=== PATIENT | female | born 1980 | race African-American/Black ===

== ENCOUNTER 2019-12-16 14:55 | Outpatient (CLI) | payer OTHER, SELFPAY ==
--- NOTE | ~2019-12-16 | CT_ITS ---
EXAMINATION: CTA chest PE protocol DATE: 12/16/2019 15:53 INDICATION: Pulmonary embolus. TECHNIQUE: Computed tomography angiography (CTA) of the chest was performed with 100 mL Omnipaque-350 intravenous contrast timed to evaluate the pulmonary arteries. Coronal maximum intensity projection 3D-reconstructions were created by the technologist. Automated exposure control and iterative reconst ruction technique were employed. The dose-length product was 1052.63 mGy-cm. COMPARISON: None. FINDINGS: There is mild atelectasis bilaterally. No pleural effusion. The heart size is normal. No pe ricardial effusion. There is no pulmonary embolus. There is mild thoracic spondylosis. IMPRESSION: 1. No pulmonary embolus. Sensitivity is moderately decreased by motion artifact and suboptimal contra st opacification. Reviewed, dictated and finalized at location A. US ARTIST IMPRESSION: 1. No pulmonary embolus. Sensitivity is moderately decreased by motion artifact and suboptimal contrast opacification.
[2019-12-16 15:39] LABS: Blood Urea Nitrogen 8 mg/dL (8-26); Estimated Glomerular Filt Rate > 60
== END 2019-12-16 14:56 | disposition home or self-care (01) ==
LOC: ANHIMG 15:07
DX: I26.99 Other pulmonary embolism without acute cor pulmonale (principal)
CPT/HCPCS: 71275; Q9967

== ENCOUNTER 2019-12-20 09:59 | Inpatient (IN) | payer OTHER, SELFPAY ==
[2019-12-20] VITALS (10 sets, daily range): BP systolic 117–153; BP diastolic 67–93; PULSE 63–90; RESP 15–20; TEMP 36–36.6; O2SAT 95–100; BMI 49.3
--- NOTE | ~2019-12-20 | XR_ITS ---
EXAMINATION: XR chest 2V DATE: 12/20/2019 11:27 INDICATION: Chest pain. Nausea and dizziness. TECHNIQUE: Frontal and lateral views of the chest were obtained. COMPARISON: Chest CT 12/16/2019 FINDINGS: The chest demonstrates clear lungs without pneumonia, pleural effusion, or pneumothorax. Th e heart size is normal. IMPRESSION: 1. No acute cardiopulmonary disease. Reviewed, dictated and finalized at location A. CTOR SOFTWARE DEVELOPMENT
--- NOTE | 2019-12-20 10:01 | ECG_ITS ---
Measurements Intervals [place] Rate: 73 P: 34 ME: 137 QRS: 0 QRSD: 97 T: 54 QT: 391 QTc: 433 Interpretive Statements SINUS RHYTHM NORMAL ECG Electronically Signed On 12-20-2019 11:58:36 DOCUMENT DESIGN SPECIALIST by Flo Pineda D.O.
--- NOTE | 2019-12-20 10:48 | ED.CHESTPAIN ---
HPI - Chest Pain General Chief Complaint: Chest Pain Stated Complaint: dizzy, CP Time Seen by Provider: 12/20/19 10:36 Source: patient and RN notes reviewed Mode of arrival: ambulatory Limitations: no limitations History of Present Illness HPI narrative: Pt is a 39 y/o female presenting to the ED c/o CP. Pt reports she has been experiencing rt sided CP radiating to midsternum intermittently for a few months. 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 Pt also reports middle back pain, but denies cough, numbness, rash, calf pain, shoulder pain, or jaw pain. Pt states she has Hx's of DM, HTN, HLD, asthma, and anemia, but states her BS has been within normal range recently. Pt notes she has not had any recent surgery, and also denies smoking, alcohol use, or illicit drug use. Pertinent past history: other (DM; HTN; HLD) Onset (ago): month(s) Timing of current episode: episodic Associated symptoms: nausea, diaphoresis, syncope (Near) and other (Dizziness) Related Data Allergies Allergy/AdvReac Type Severity Reaction Status Date / Time acetaminophen [From Vicodin] Allergy Unknown Unknown Verified 12/20/19 11:22 hydrocodone [From Vicodin] Allergy Unknown Unknown Verified 12/20/19 11:22 sulfamethoxazole Allergy Unknown Unknown Verified 12/20/19 11:22 [From Bactrim] trimethoprim [From Bactrim] Allergy Unknown Unknown Verified 12/20/19 11:22 Review of Systems Review of Systems: Narrative: CARDIOVASCULAR: Reports intermittent rt sided chest pain radiating to midsternum. RESPIRATORY: Denies cough. GASTROINTESTINAL: Reports nausea. SKIN: Reports diaphoresis. Denies rash. MUSCULOSKELETAL: Reports middle back pain. Denies shoulder pain, jaw pain, or calf pain. NEUROLOGIC: Reports dizziness and near-syncope. Denies numbness. All systems reviewed & are unremarkable except as noted in HPI and below PMFSH Past Medical History Medical History Anemia Asthma Diabetes HLD (hyperlipidemia) HTN (hypertension) Pulmonary embolism Surgical History Surgical History H/O: Social History Social History Smoking status: Never smoker Gender identity (if verbalized by the patient): Female Exam Narrative: Exam Narrative: GENERAL: Well-appearing, well-nourished, and in no acute distress. EYES: EOMI. NECK: Supple. CHEST: Clear to auscultation. No respiratory distress. Mild rt sided chest wall tenderness. HEART: Regular rate and rhythm. No murmur heard. Normal peripheral pulses. ABDOMEN: Soft, nontender, nondistended, normal active bowel sounds. EXTREMITIES: Normal range of motion. No edema. SKIN: Warm, dry, no rash. NEURO: No focal deficits. Alert and oriented. Course Vital Signs Vital signs: Vital Signs Temperature 36.4 C L 12/20/19 10:08 Pulse Rate 85 12/20/19 10:08 Respiratory Rate 15 12/20/19 10:08 Blood Pressure 150/91 H 12/20/19 10:08 Pulse Oximetry 100 12/20/19 10:08 Temperature 36.4 C L 12/20/19 10:08 Pulse Rate 90 12/20/19 15:35 Respiratory Rate 20 12/20/19 15:35 Blood Pressure 138/78 12/20/19 15:35 Pulse Oximetry 98 12/20/19 15:35 MDM - Chest Pain MDM Narrative Medical decision making narrative: Patient presented for evaluation of chest pain. The pain has been constant since yesterday, associated with some lightheadedness and dizziness. Dizziness is only with movement. No vision changes. IV access obtained and labs were drawn. EKG without acute ischemic changes. There are some nonspecific changes present. Initial troponin is normal. Patient was given IV fluids, antiemetic, pain medication with some improvement in her symptoms. She continues to report chest pain. Patient is PERC criteria negative, low risk via wells criteria, without h
[2019-12-20 11:54] LABS: Basophils Percent Auto 0.4 % (0.2-1.2); Eosinophils Absolute Auto 0.2 K/mm3 (0-0.3); Eosinophils Percent Auto 2.2 % (0-4.4); Hematocrit 34.9 % (37.0-47.0); Hemoglobin 10.6 g/dL (12.0-15.0); Immature Granulocyte Absolute 0.02 K/mm3 (0.00-0.031); Immature Granulocyte Percent A 0.3 % (0-0.5); Lymphocytes Absolute Auto 2.36 K/mm3 (0.9-3.2); Lymphocytes Percent Auto 31.1 % (18.3-44.2); Mean Corpuscular HGB Conc 30.4 g/dl (32-36); Mean Corpuscular Hemoglobin 25.8 pg (26-34); Mean Corpuscular Volume 84.9 fl (80-100); Mean Platelet Volume 9.7 fl (7.4-10.4); Monocytes Absolute Auto 0.4 K/mm3 (0.1-0.6); Monocytes Percent Auto 4.9 % (2.6-8.5); Neutrophils Absolute Auto 4.6 K/mm3 (1.3-6.7); Neutrophils Percent Auto 61.1 % (45.5-73.1); Platelet Count Result 408 k/mm3 (150-375); Red Blood Count 4.11 M/mm3 (4.2-5.4); Red Cell Distribution Width 16.8 % (11.5-14.5); White Blood Count 7.6 K/mm3 (4.5-10.0)
[2019-12-20 12:03] LABS: Prothrombin Time 12.6 Seconds (11.1-14.7)
[2019-12-20 12:04] LABS: Partial Thromboplastin Time 29.7 SECONDS (22.3-36.8)
[2019-12-20 12:31] LABS: Blood Urea Nitrogen 12 mg/dL (7-17); Calcium 9.4 mg/dL (8.4-10.2); Carbon Dioxide 27 mmol/L (22-30); Chloride 102 mmol/L (98-107); Estimated CRCL calculation 187 ml/min; Estimated Glomerular Filt Rate > 60; Glucose 98 mg/dL (65-105); Potassium 3.8 mmol/L (3.4-5.0); Sodium 137 mmol/L (137-145)
[2019-12-20 12:43] LABS: Troponin I < 0.012 ng/mL (0.000-0.034)
[2019-12-20] MEDS: KETOROLAC 15 MG/ML VIAL (*BKC) IV PUSH (14:46)
[2019-12-20] MEDS: FAMOTIDINE 20 MG/2 ML VIAL IV PUSH (14:46)
[2019-12-20] MEDS: MORPHINE SULFATE 4 MG/ML INJ IV PUSH ×2 (14:47→18:38)
[2019-12-20] MEDS: ONDANSETRON INJ 4 MG/2 ML VIAL IV PUSH ×2 (14:47→18:45)
[2019-12-20] MEDS: BELLADONNA ALK/PHENOB ELIX 10 ML, MAG HYDROX/ALUMINUM HYD/SIMETH 30 ML, LIDOCAINE HCL 2... PO (14:47)
[2019-12-20] MEDS: ASPIRIN 81 MG CHEWABLE TABLET 324 MG PO (14:47)
[2019-12-20 15:48] LABS: Troponin I < 0.012 ng/mL (0.000-0.034)
--- NOTE | 2019-12-20 16:25 | ADMGEN ---
This patient, Fernanda Mayo, was admitted to IMU Room 209-01 at 1545 on 12/20/19. Patient/family oriented to hospital policies and general routines including ID bracelet, bed and alarms, visiting hours, pain management, procedures, bathroom and other care routines, personal items, smoking policy, room service/diet, and visiting hours. Valuables list has been completed. Information on how to activate the Rapid Response Team has been discussed. Patient/Family are encouraged to report perceived risks to care and to ask questions if they do not understand what they are told or what they should do.
--- NOTE | 2019-12-20 17:03 | PM.CNCAR ---
Assessment and Plan Additional Plan atypical chest pain, negative enzymes, normal EKG, Hx of PE, Hx of DM and HTN, plan rule out PE, TTE History of Present Illness History of Present Illness Consult date/time: 12/20/19 17:03 Consult reason: chest pain Reason For Visit: Chest pain Narrative: Recurrent right side chest pain, sharp, moderate in severity radiates to back, no precipitating or relieving factors. Pain is similar to prior PE in last year. No associated, cough, fever or SOB, Review of Systems Review of Systems: All systems reviewed & are unremarkable except as noted in HPI and below PMFSH Past Medical History Medical History Anemia Asthma Diabetes HLD (hyperlipidemia) HTN (hypertension) Pulmonary embolism Surgical History Surgical History H/O: Social History Social History Smoking status: Former smoker Alcohol intake: never Substance use: never Substance use type: does not use Gender identity (if verbalized by the patient): Female Spiritual care concerns: No Agree to blood products: Yes Meds Home Medications and Allergies Home Medications Medication Instructions Recorded Confirmed Type albuterol sulfate [ProAir HFA] 1 puff INHALATION TID PRN 12/20/19 12/20/19 History apixaban [Eliquis] 5 mg PO BID 12/20/19 12/20/19 History atorvastatin [Lipitor] 40 mg PO HS 12/20/19 12/20/19 History ferrous sulfate 325 mg PO TID 12/20/19 12/20/19 History fluticasone propion-salmeterol 1 puff INHALATION Q12H 12/20/19 12/20/19 History lansoprazole [Prevacid] 15 mg PO DAILY 12/20/19 12/20/19 History lisinopril 10 mg PO DAILY 12/20/19 12/20/19 History metformin 1,000 mg PO BID 12/20/19 12/20/19 History multivit with min-folic acid 0.4 mg PO DAILY 12/20/19 12/20/19 History [Adult One Daily Multivitamin] trazodone 100 mg PO HS PRN 12/20/19 12/20/19 History venlafaxine [Effexor XR] 150 mg PO DAILY 12/20/19 12/20/19 History Allergies Allergy/AdvReac Type Severity Reaction Status Date / Time acetaminophen [From Vicodin] Allergy Unknown Unknown Verified 12/20/19 11:22 hydrocodone [From Vicodin] Allergy Unknown Unknown Verified 12/20/19 11:22 sulfamethoxazole Allergy Unknown Unknown Verified 12/20/19 11:22 [From Bactrim] trimethoprim [From Bactrim] Allergy Unknown Unknown Verified 12/20/19 11:22 Vital Signs Vital Signs - 24 hr 12/20/19 10:08 12/20/19 14:53 12/20/19 15:35 Temperature 36.4 C L Pulse Rate 85 77 90 Respiratory Rate 15 20 20 Blood Pressure 150/91 H 139/92 H 138/78 Pulse Oximetry 100 99 98 12/20/19 15:50 Temperature 36.6 C Pulse Rate 68 Respiratory Rate 16 Blood Pressure 117/93 H Pulse Oximetry 98 Exam Const: General: comfortable and no acute distress Other: Able to lie flat HENMT: General nose exam: Normal nares present and no epistaxis Mouth: Yes moist mucous membranes Eyes: Sclera: sclerae normal Pupils: Equal, round and reactive pupils present Neck: Neck: supple and no JVD Carotids: no bruits Resp: Auscultation: clear to auscultation bilaterally and lung sounds not diminished Other: No chest wall tenderness Cardio: Rate: regular rate Rhythm: regular rhythm Heart sounds: no gallops, no murmurs and no rubs GI: GI Palp: Yes Soft to palpation and No Tenderness to palpation present (GI) Auscultation: normal bowel sounds Skin: General skin exam: normal color, rashes and/or lesions noted and no erythema Other: Warm Neuro: Cranial nerves: Yes Equal, round and reactive pupils present Speech: normal speech Other: No obvious focal deficit or facial asymmetry Extrem: General: no edema Other: Normal capillary refills Intact distal pulses. Results Labs and Meds Result diagrams: 12/20/19 11:47 12/20/19 12:13 Lab results: Cardiac Enzymes 12/20/19 12/20/19 Range/Units 12:
[2019-12-20 19:04] LABS: Troponin I < 0.012 ng/mL (0.000-0.034)
--- NOTE | 2019-12-20 20:54 | ECG_ITS ---
Measurements Intervals [place] Rate: 79 P: 52 MI: 141 QRS: 44 QRSD: 95 T: 70 QT: 392 QTc: 451 Interpretive Statements SINUS RHYTHM VENTRICULAR PREMATURE COMPLEX DELAYED PRECORDIAL R/S TRANSITION BORDERLINE ECG Electronically Signed On 12-21-2019 7:57:17 WEIGHER AND GRADER by Flo Pineda D.O.
--- NOTE | 2019-12-20 21:04 | PM.IMCN ---
Assessment and Plan Assessment and plan (1) Chest pain: Qualifiers: Chest pain type: other chest pain Qualified Code(s): R07.89 - Other chest pain Code(s): R07.9 - Chest pain, unspecified Status: Acute Assessment and Plan: Rule out acute pulmonary embolism, acute coronary syndrome, versus GI related chest pain. We will check a repeat EKG now. Troponins have been negative. Continue telemetry. Monitor for chest pain. Continue aspirin therapy. Nitroglycerin as needed for any further chest pain. Check a D-dimer and we will check a CTA of chest for pulmonary embolism if D-dimer is elevated. The patient has missed a few doses of her Eliquis and she may very well have another pulmonary embolism. Check lipase to rule out acute pancreatitis that has not been done yet. Check liver function test to rule out gallbladder disease. Consider right upper quadrant ultrasound in a.m. consider right-sided chest pain may be musculoskeletal in nature. Check lipid panel in am. Continue cardiology recommendations. (2) Diabetes: Qualifiers: Diabetes mellitus type: type 2 Diabetes mellitus terminal make up operator insulin use: without alf use Diabetes mellitus complication status: without complication Qualified Code(s): E11.9 - Type 2 diabetes mellitus without complications Code(s): E11.9 - Type 2 diabetes mellitus without complications Status: Chronic Assessment and Plan: Accu-Cheks, sliding scale insulin coverage, continue metformin. Hypoglycemia protocol. (3) Chronic anticoagulation: Code(s): Z79.01 - buttermaker continuous churn (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 anticoagulants Status: Chronic Assessment and Plan: Continue Eliquis therapy (4) Normocytic anemia: Code(s): D64.9 - Anemia, unspecified Status: Acute Assessment and Plan: No signs of acute blood loss. Likely anemia of chronic disease vs. iron def anemia. Monitor H/H, transfuse prn. (5) Thrombocytosis: Code(s): D47.3 - Essential (hemorrhagic) thrombocythemia Status: Acute Assessment and Plan: Likely reactive. Monitor platelets. (6) HTN (hypertension) with goal to be determined: Code(s): I10 - Essential (primary) hypertension Status: Chronic Assessment and Plan: stable. Monitor blood pressure. Continue lisinopril PO. We will consider further PRN antihypertensives if necessary overnight. (7) GERD (gastroesophageal reflux disease): Qualifiers: Esophagitis presence: esophagitis presence not specified Qualified Code(s): K21.9 - Gastro-esophageal reflux disease without esophagitis Code(s): K21.9 - Gastro-esophageal reflux disease without esophagitis Status: Chronic Assessment and Plan: Continue prevacid. (8) Depression: Qualifiers: Depression Type: other depression Qualified Code(s): F32.89 - Other specified depressive episodes Code(s): F32.9 - Major depressive disorder, single episode, unspecified Status: Chronic Assessment and Plan: Continue home Effexor. Additional Plan Date of service of consult was 12/20/2019 at 20:00 hrs. HPI Data of Consult Consult date: 12/20/19 Requesting Physician: Pete Bhatia MD Primary Care Provider: MANUFACTURER PHYSICIAN Consult Narrative Narrative: Thank you for consulting us to see this 39-year-old obese diabetic female with known history of chronic anticoagulation on Eliquis secondary to a pulmonary embolism that was diagnosed approximately 1 year ago and who presented to the hospital today with a complaint of worsening right-sided chest pain. The patient has had ongoing intermittent right-sided chest pain for the past 2 months. This morning the patient started to experience severe right-sided sharp chest pain that she described as pleuritic in nature as it hurt worse when she breathes in deep and radiated towards her right shoulder and her back. Associated symptoms i
[2019-12-20 21:29] LABS: Alanine Aminotransferase 16 U/L (4-35); Alkaline Phosphatase 102 U/L (38-126); Aspartate Amino Transferase 23 U/L (14-36); Bilirubin,Total 0.3 mg/dL (0.2-1.3); Lipase 33 U/L (23-300)
[2019-12-20 21:38] LABS: D Dimer 0.27 ug/mL (<0.48)
[2019-12-20] MEDS: APIXABAN 5 MG TABLET PO (22:46)
[2019-12-20] MEDS: ATORVASTATIN 40 MG TABLET PO (22:47)
[2019-12-21] VITALS (8 sets, daily range): BP systolic 112–145; BP diastolic 60–94; PULSE 57–76; RESP 18–22; TEMP 36.2–36.4; O2SAT 95–100
[2019-12-21 04:55] LABS: Cholesterol 131 mg/dL (0-200); HDL Direct 43 mg/dL; Triglycerides 49 mg/dL (<150)
[2019-12-21 05:07] LABS: LDL Cholesterol Direct 74 mg/dL
[2019-12-21] MEDS: KETOROLAC 30 MG/ML VIAL (*BKC) IV PUSH (06:43)
[2019-12-21] MEDS: APIXABAN 5 MG TABLET PO (09:00)
[2019-12-21] MEDS: lisinopriL 10 MG TABLET PO (09:01)
[2019-12-21] MEDS: THERAPEUTIC MULTIVITAMINS/MINERALS TAB (*BKC) 1 TABLET PO (09:01)
[2019-12-21] MEDS: PANTOPRAZOLE 40 MG TABLET PO (09:01)
[2019-12-21] MEDS: metFORMIN HCL 500 MG TABLET 1000 MG PO (09:01)
[2019-12-21] MEDS: FERROUS SULFATE 324 MG TABLET PO (09:02)
[2019-12-21] MEDS: VENLAFAXINE HCL XR 75 MG CAP.ER.24H 150 MG PO (09:02)
[2019-12-21] MEDS: ASPIRIN 81 MG CHEWABLE TABLET PO (09:10)
[2019-12-21 10:12] LABS: Glucose Point of Care 95 (65-105)
--- NOTE | 2019-12-21 13:03 | PM.IMPN ---
Progress Note: A&P Assessment and Plan (1) Chest pain: Qualifiers: Chest pain type: other chest pain Qualified Code(s): R07.89 - Other chest pain Code(s): R07.9 - Chest pain, unspecified Status: Acute Assessment and Plan: Right-sided chest pain. Serial troponin levels are negative. Did have negative CTA chest on 12/16/2019. D-dimer negative at 0.27. LFTs normal. Suspect this is musculoskeletal. Telemetry are reviewed on 12/21/2019 with sinus rhythm. Medically stable from hospitalist standpoint for discharge home today. (2) Diabetes: Qualifiers: Diabetes mellitus type: type 2 Diabetes mellitus intermission coordinator insulin use: without intermission coordinator use Diabetes mellitus complication status: without complication Qualified Code(s): E11.9 - Type 2 diabetes mellitus without complications Code(s): E11.9 - Type 2 diabetes mellitus without complications Status: Chronic Assessment and Plan: Glucose reviewed on 12/21/2019. Glucose levels normal. Continue home metformin. Follow as outpatient. (3) Chronic anticoagulation: Code(s): Z79.01 - remote computer terminal operator (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 anticoagulants Status: Chronic Assessment and Plan: On anticoagulation for previous pulmonary embolism. Continue home Eliquis. (4) Normocytic anemia: Code(s): D64.9 - Anemia, unspecified Status: Acute Assessment and Plan: Hemoglobin 10.6 on admission. No signs of bleeding. Would recommend monitoring as outpatient. (5) Thrombocytosis: Code(s): D47.3 - Essential (hemorrhagic) thrombocythemia Status: Acute Assessment and Plan: Likely reactive. Platelets 408,000 on admission. Can follow as outpatient. (6) HTN (hypertension) with goal to be determined: Code(s): I10 - Essential (primary) hypertension Status: Chronic Assessment and Plan: Blood pressure reviewed on 12/21/2019 and acceptable. Continue home lisinopril. Follow as outpatient. (7) GERD (gastroesophageal reflux disease): Qualifiers: Esophagitis presence: esophagitis presence not specified Qualified Code(s): K21.9 - Gastro-esophageal reflux disease without esophagitis Code(s): K21.9 - Gastro-esophageal reflux disease without esophagitis Status: Chronic Assessment and Plan: No acute issue. Continue PPI. (8) Depression: Qualifiers: Depression Type: other depression Qualified Code(s): F32.89 - Other specified depressive episodes Code(s): F32.9 - Major depressive disorder, single episode, unspecified Status: Chronic Assessment and Plan: Mood stable. Continue home venlafaxine. (9) DVT prophylaxis: Code(s): Z29.9 - Encounter for prophylactic measures, unspecified Status: Acute Assessment and Plan: Continue home Eliquis. Time Spent With Patient Time with patient: 15 - 25 minutes Subjective Date/time seen: 12/21/19 13:03 Interval history: Date of Service: 12/21/2019. Admitted to cardiology with right-sided chest pain. Hospitalist service consulted for further evaluation of right-sided chest pain. Patient reports she is doing better today. Will only intermediately have pain in the right chest which will occur with breathing. Occasionally radiate to her shoulder and midsternal area. No shortness of breath. No headache or dizziness currently although did have slight headache and dizziness upon awakening. No abdominal pain. No nausea or vomiting. Would like to go home. Review of Systems Review of Systems: Narrative: Feeling better. Constitutional: Constitutional: Denies chills and Denies fever(s) ENT: Denies nasal congestion and Denies nasal discharge Cardiovascular: Cardiovascular: Reports chest pain (Right-sided with breathing) Respiratory: Respiratory: Denies cough and Denies dyspnea Gastrointestinal: Gastrointestinal: Denies abdominal pain, Denies nausea and Denies vomiting Genito
[2019-12-21 13:32] LABS: Glucose Point of Care 81 (65-105)
--- NOTE | 2019-12-21 13:52 | PM.DS ---
DS: Diagnosis Admitting Diagnosis Admitting Diagnosis: Other chest pain DS: Summary Hospital Course Hospital Course: 39 Yrs old female presented with recurrent chest pain lasting for hours and up to a day, constant, right side, radiates to right shoulder and back, no precipitating or relieving factors. She wad concerned that her pain was similar to prior pain with her PE. CTA was done and was negative for PE or aortic dissection or otherwise acute cardiopulm disease. Cardiac enzymes was negative and no arrhythmia or dynamic EKG changes. Pain improved today and feels better. Patient counseled to f/u in clinic with medicine and cardiology. Patient was educated about weight loss and compliance with medications. Status at Discharge Cognitive/behavioral status at discharge: Normal Functional status at discharge: independent ambulation Overall status at discharge: patient is back to baseline Time Spent with Patient Time attestation: Total time spent providing and/or coordinating discharge services: Time spent: Less than 30 minutes Exam Narrative: Exam Narrative: General: able to lie flat, no acute distress Respiratory: No chest wall tenderness, equal air entry and expansion, CTAB Cardiovascular: The heart has a regular rate and rhythm without murmur, No JVD. Lower extremities: No lower extremity edema. Warm, no skin lesion or bruises. Good capillary refill. Gastrointestinal: The abdomen is soft, nontender and nondistended with active bowel sounds. Psychiatric: Normal affect and co-operative Neurologic: Alert and oriented. No focal deficits. Speech is clear. No facial drooping. DS: Data Data Completed and Pending Labs on day of discharge: Labs from last 24 hours 12/21/19 12/21/19 12/21/19 11:54 07:41 04:11 D-Dimer POC Capillary Glucose 81 95 Total Bilirubin AST ALT Alkaline Phosphatase Troponin I Triglycerides 49 Cholesterol 131 LDL Cholesterol Direct 74 HDL Direct 43 Lipase 12/20/19 12/20/19 12/20/19 21:06 21:05 18:22 D-Dimer 0.27 POC Capillary Glucose Total Bilirubin 0.3 AST 23 ALT 16 Alkaline Phosphatase 102 Troponin I < 0.012 Triglycerides Cholesterol LDL Cholesterol Direct HDL Direct Lipase 33 12/20/19 15:16 D-Dimer POC Capillary Glucose Total Bilirubin AST ALT Alkaline Phosphatase Troponin I < 0.012 Triglycerides Cholesterol LDL Cholesterol Direct HDL Direct Lipase Discharge Plan Discharge Attending physician on discharge: Pete Bhatia Consulting providers: Mary Steven ; Nette Suresh Discharging Clinician: Pete Bhatia Anticipated Discharge Date/Time: 12/21/19 13:51 Patient Disposition: Home, Self-Care Activity: as tolerated Diet: diabetic Discharge Instructions: Dr. Wilkinson Instructions: Follow up with Dr. Steven in 1 week. You may return to work without restrictions. Patient Instructions: Antibiotic Form, Chest Pain (DC) Stand Alone Forms: General Discharge Information Follow-up/Referrals: Mary Steven MD [Physician] - 1 Week (Follow-up with Dr. Steven in 1 week.) Misael Johnson MD [Physician] - 2 Weeks Discharge Medications: Continued atorvastatin [Lipitor] 40 mg Tablet 40 mg PO HS RF: 0 venlafaxine [Effexor XR] 150 mg Capsule,Extended Release 24hr 150 mg PO DAILY RF: 0 trazodone 100 mg Tablet 100 mg PO HS PRN (Reason: Sleep) RF: 0 ferrous sulfate 325 mg (65 mg iron) Tablet 325 mg PO TID RF: 0 metformin 1,000 mg Tablet 1,000 mg PO BID RF: 0 lisinopril 10 mg Tablet 10 mg PO DAILY RF: 0 lansoprazole [Prevacid] 15 mg Capsule,Delayed Release(Dr/Ec) 15 mg PO DAILY RF: 0 albuterol sulfate [ProAir HFA] 90 mcg/actuation Hfa Aerosol Inhaler 1 puff INHALATION TID PRN (Reason: Shortness Of Breath) RF: 0 Adult One Daily Multivitamin 0.4 mg Tablet 0.4 mg PO DAILY RF: 0 Eliquis 5 mg Tablet
== END 2019-12-21 15:05 | disposition home or self-care (01) | DRG 203 ==
LOC: ANHED 14:13 → ANHIMU 14:24
PROVIDERS: Family Medicine; Admitting Provider Internal Medicine Interventional Cardiology; Emergency Provider Emergency Medicine; Visit Provider Internal Medicine Interventional Cardiology
DX: R07.89 Other chest pain (principal); E11.9 Type 2 diabetes mellitus without complications; I10 Essential (primary) hypertension; E78.5 Hyperlipidemia, unspecified; J45.909 Unspecified asthma, uncomplicated; Z86.711 Personal history of pulmonary embolism; Z87.891 Personal history of nicotine dependence; Z79.01 Long term (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 anticoagulants; D64.9 Anemia, unspecified; D47.3 Essential (hemorrhagic) thrombocythemia; K21.9 Gastro-esophageal reflux disease without esophagitis; F32.9 Major depressive disorder, single episode, unspecified; E66.9 Obesity, unspecified; Z68.42 Body mass index [BMI] 45.0-49.9, adult
CPT/HCPCS: 36415; 71046; 80048; 80061; 82247; 83690; 84075; 84450; 84460; 84484; 85025; 85380; 85610; 85730; 93005; 96374; 96375; 99285; A9270; J1885; J2270; J2405

== ENCOUNTER 2020-02-02 22:53 | Emergency (ER) | payer OTHER, SELFPAY ==
--- NOTE | ~2020-02-02 | XR_ITS ---
EXAMINATION: XR chest 2V DATE: 02/02/2020 23:34 INDICATION: Shortness of breath TECHNIQUE: PA and lateral views of the chest are obtained. COMPARISON: None available FINDINGS: The lungs are free of acute opacities. There is no pleural effusion or pneumothorax. The ca rdiomediastinal silhouette is normal. The visualized bones and soft tissues are unremarkable. IMPRESSION: 1. No acute cardiopulmonary abnormality. Reviewed, dictated and finalized at location A.
[2020-02-02 22:56] VITALS: BP 163/100; PULSE 87; RESP 20; TEMP 36.2; O2SAT 100
[2020-02-02 23:13] VITALS: O2SAT 100
--- NOTE | 2020-02-02 23:13 | ED.URI ---
HPI - URI/Sore Throat General Chief Complaint: Upper Respiratory Infection Stated Complaint: Trouble breathing Time Seen by Provider: 02/02/20 22:59 Source: patient Mode of arrival: ambulatory Limitations: no limitations History of Present Illness HPI Narrative: Pt is a 39 y/o female who presents to the ED with c/o a gradual onset of SOB with exertion for a week. She reports associated sore throat, rhinorrhea, productive cough, and back pain when coughing. Pt denies any foreign/domestic travel or being around anyone sick. 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 She has a H/o asthma and she used her inhaler 4 times today with minimal relief. MD elicited complaint: other (OB) Onset (ago): week(s) (1) Consistency: progressively worsening Exacerbating factors: exertion Relieving factors: other (inhaler with minimal relief) Associated symptoms: rhinorrhea, sore throat, cough and other (back pain) Related Data Home Medications Medication Instructions Recorded Confirmed Adult One Daily Multivitamin 0.4 mg PO DAILY 12/20/19 12/20/19 Eliquis 5 mg PO BID 12/20/19 12/20/19 albuterol sulfate [ProAir HFA] 1 puff INHALATION TID PRN 12/20/19 12/20/19 atorvastatin [Lipitor] 40 mg PO HS 12/20/19 12/20/19 ferrous sulfate 325 mg PO TID 12/20/19 12/20/19 fluticasone propion-salmeterol 1 puff INHALATION Q12H 12/20/19 12/20/19 lansoprazole [Prevacid] 15 mg PO DAILY 12/20/19 12/20/19 lisinopril 10 mg PO DAILY 12/20/19 12/20/19 metformin 1,000 mg PO BID 12/20/19 12/20/19 trazodone 100 mg PO HS PRN 12/20/19 12/20/19 venlafaxine [Effexor XR] 150 mg PO DAILY 12/20/19 12/20/19 Allergies Allergy/AdvReac Type Severity Reaction Status Date / Time acetaminophen [From Vicodin] Allergy Unknown Unknown Verified 02/02/20 23:13 hydrocodone [From Vicodin] Allergy Unknown Unknown Verified 02/02/20 23:13 sulfamethoxazole Allergy Unknown Unknown Verified 02/02/20 23:13 [From Bactrim] trimethoprim [From Bactrim] Allergy Unknown Unknown Verified 02/02/20 23:13 Review of Systems Review of Systems: All systems reviewed & are unremarkable except as noted in HPI and below ENT: Reports sore throat and Reports other (rhinorrhea) Respiratory: Respiratory: Reports cough and Reports dyspnea on exertion Musculoskeletal: Musculoskeletal: Reports back pain PMFSH Past Medical History Medical History Anemia Asthma Diabetes HLD (hyperlipidemia) HTN (hypertension) Pulmonary embolism Surgical History Surgical History H/O: Social History Social History Smoking status: Former smoker Alcohol intake: never Substance use: never Substance use type: does not use Gender identity (if verbalized by the patient): Female Spiritual care concerns: No Agree to blood products: Yes Exam Narrative: Exam Narrative: GENERAL: Well-appearing, well-nourished, and in no acute distress. HEAD: Normocephalic, atraumatic. CHEST: Faint diffuse expiratory wheezes. No respiratory distress. HEART: Regular rate and rhythm. Normal peripheral pulses. EXTREMITIES: Normal range of motion. No deformity. NEURO: Alert and oriented x3. PSYCH: Normal mood and affect. Course Course Emergency Course: Lungs clear s/p neb. D/c with steroids. Vital Signs Vital signs: Vital Signs Temperature 97.2 F L 02/02/20 22:56 Pulse Rate 87 02/02/20 22:56 Respiratory Rate 20 02/02/20 22:56 Blood Pressure 163/100 H 02/02/20 22:56 Pulse Oximetry 100 02/02/20 22:56 Temperature 97.2 F L 02/02/20 22:56 Pulse Rate 86 02/02/20 23:45 Respiratory Rate 18 02/02/20 23:45 Blood Pressure 163/100 H 02/02/20 22:56 Pulse Oximetry 100 02/02/20 22:56 MDM - URI/Sore Throat Lab Data Labs: Influenza A Screen Negative Reference Range: Negative Influenza B Screen Negati
--- NOTE | 2020-02-02 23:29 | PC.NURSE ---
Patient to radiology.
[2020-02-02] MEDS: IPRATROPIUM BR 0.02% INH SOLN 0.5 MG/2.5 ML VIAL INHALATION (23:32)
[2020-02-02] MEDS: ALBUTEROL SULFATE NEB 2.5 MG/0.5 ML INH 5 MG INHALATION (23:32)
[2020-02-02 23:35] VITALS: PULSE 84; RESP 18
[2020-02-02 23:45] VITALS: PULSE 86; RESP 18
[2020-02-03 01:04] VITALS: BP 162/98; PULSE 72; RESP 14; TEMP 36.7; O2SAT 100
== END 2020-02-03 01:07 | disposition home or self-care (01) ==
PROVIDERS: Emergency Provider Emergency Medicine
DX: J45.909 Unspecified asthma, uncomplicated (principal); B34.9 Viral infection, unspecified; D64.9 Anemia, unspecified; E11.9 Type 2 diabetes mellitus without complications; E78.5 Hyperlipidemia, unspecified; I10 Essential (primary) hypertension; Z86.711 Personal history of pulmonary embolism; Z87.891 Personal history of nicotine dependence; Z79.01 Long term (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 anticoagulants
CPT/HCPCS: 71046; 87804; 94640; 99283

== ENCOUNTER 2020-04-30 14:44 | Outpatient (CLI) | payer OTHER, SELFPAY ==
--- NOTE | ~2020-04-30 | MM_ITS ---
EXAMINATION: MM screening ras BI w bill HISTORY: Screening mammogram TECHNIQUE: Craniocaudal and mediolateral oblique 3-D tomosynthesis images were obtained and synthetic 2-D images were generated. CAD analysis was submitted and interpreted. COMPARISON: No prior mammogram is available for comparison at this institution. BREAST PARENCHYMAL COMPOSITION: There are scattered areas of fibroglandular density. FINDINGS: There is no evidence of suspicious mass, calcification, or architectural distortion to sugg est malignancy in either breast. There has been no suspicious interval change. IMPRESSION: 1. No mammographic evidence of malignancy. 2. Recommend routine screening mammography in one year. BI-RADS Category 1: Negative Reviewed, dictated and finalized at location A.
== END 2020-04-30 14:45 | disposition home or self-care (01) ==
LOC: ANHIMG 14:49
DX: Z12.31 Encounter for screening mammogram for malignant neoplasm of breast (principal)
CPT/HCPCS: 77063; 77067

== ENCOUNTER 2020-10-07 20:17 | Emergency (ER) | payer OTHER, SELFPAY ==
--- NOTE | ~2020-10-07 | XR_ITS ---
EXAMINATION: XR chest 1V portable DATE: 10/07/2020 20:56 INDICATION: Wheezing and dizziness 1 day. Post surgery TECHNIQUE: frontal view of the chest was obtained. COMPARISON: Chest radiograph dated 02/02/20 FINDINGS: The lungs remain clear with no focal airspace opacities, pulmonary edema, pleural effusion or pneumot horax. The cardiomediastinal silhouette is normal. Visualized bones and soft tissues are unremarkable . IMPRESSION: 1. No acute cardiopulmonary disease. Reviewed, dictated and finalized at location H. SE COLLECTOR SUPERVISOR
--- NOTE | ~2020-10-07 | CT_ITS ---
EXAMINATION: CTA chest PE protocol DATE: 10/08/2020 00:17 INDICATION: Wheezing. TECHNIQUE: Computed tomography angiography (CTA) of the chest was performed with 200 mL Omnipaque-350 intravenous contrast timed to evaluate the pulmonary arteries. Coronal maximum intensity projection 3D-reconstructions were created by the technologist. Automated exposure control and iterative reconst ruction technique were employed. The dose-length product was 2086.06 mGy-cm. COMPARISON: Chest CT 12/16/2019 FINDINGS: There is mild atelectasis bilaterally. No pleural effusion. The heart size is normal. No pe ricardial effusion. The pulmonary arteries are poorly opacified. There is mild thoracic spondylosis. IMPRESSION: 1. Poorly opacified pulmonary arteries. Nondiagnostic for pulmonary embolism. Reviewed, dictated and finalized at location A. E READER
[2020-10-07 20:24] VITALS: BP 147/83; PULSE 78; RESP 18; TEMP 36.9; O2SAT 98
--- NOTE | 2020-10-07 20:24 | ECG_ITS ---
Measurements Intervals [place] Rate: 80 P: 23 SC: 123 QRS: 3 QRSD: 105 T: 46 QT: 379 QTc: 438 Interpretive Statements SINUS RHYTHM DELAYED PRECORDIAL R/S TRANSITION BASELINE ARTIFACT- III, AVF NORMAL ECG Electronically Signed On 10-08-2020 9:21:38 MANAGER ADVERTISING by Flo Pineda D.O.
[2020-10-07 21:16] LABS: Basophils Absolute Auto 0.1 K/mm3 (0.0-0.1); Basophils Percent Auto 0.6 % (0.2-1.2); Eosinophils Absolute Auto 0.2 K/mm3 (0-0.3); Eosinophils Percent Auto 1.5 % (0-4.4); Hematocrit 34.2 % (37.0-47.0); Hemoglobin 10.5 g/dL (12.0-15.0); Immature Granulocyte Absolute 0.03 K/mm3 (0.00-0.031); Immature Granulocyte Percent A 0.3 % (0-0.5); Lymphocytes Absolute Auto 2.34 K/mm3 (0.9-3.2); Lymphocytes Percent Auto 22.6 % (18.3-44.2); Mean Corpuscular HGB Conc 30.7 g/dl (32-36); Mean Corpuscular Hemoglobin 24.5 pg (26-34); Mean Corpuscular Volume 79.9 fl (80-100); Mean Platelet Volume 8.8 fl (7.4-10.4); Monocytes Absolute Auto 0.5 K/mm3 (0.1-0.6); Monocytes Percent Auto 4.3 % (2.6-8.5); Neutrophils Absolute Auto 7.3 K/mm3 (1.3-6.7); Neutrophils Percent Auto 70.7 % (45.5-73.1); Platelet Count Result 454 k/mm3 (150-375); Red Blood Count 4.28 M/mm3 (4.2-5.4); Red Cell Distribution Width 16.2 % (11.5-14.5); White Blood Count 10.4 K/mm3 (4.5-10.0)
[2020-10-07 21:26] LABS: INR 0.9; Prothrombin Time 13.1 Seconds (11.1-14.7)
[2020-10-07 21:34] LABS: Alanine Aminotransferase 15 U/L (4-35); Albumin Level 4.2 g/dL (3.5-5.1); Alkaline Phosphatase 114 U/L (38-126); Anion Gap 6 mmol/L (8-16); Aspartate Amino Transferase 35 U/L (14-36); Bilirubin,Total 0.6 mg/dL (0.2-1.3); Blood Urea Nitrogen 13 mg/dL (7-17); Calcium 9.2 mg/dL (8.4-10.2); Carbon Dioxide 31 mmol/L (22-30); Chloride 100 mmol/L (98-107); Estimated CRCL calculation 142 ml/min; Estimated Glomerular Filt Rate > 60; Glucose 208 mg/dL (65-105); Potassium 4.4 mmol/L (3.4-5.0); Sodium 137 mmol/L (137-145)
[2020-10-07 21:40] LABS: Troponin I < 0.012 ng/mL (0.000-0.034)
[2020-10-07 21:44] LABS: Add Urine Microscopic? YES; Appearance Urine Clear (Clear); Bilirubin Urine Negative (Negative); Blood Urine Negative (Negative); Color Urine Yellow (Yellow); Glucose Urine UA Negative (Negative); Ketones Urine Negative (Negative); Leukocyte Esterase Ur Negative LEU/UL (Negative); Mucus Urine Rare /lpf; Nitrate Urine Negative (Negative); Protein Urine Negative (Negative); Squamous Epithelial Cell Urine Many /hpf (Few); WBC Urine 0-3 /hpf
--- NOTE | 2020-10-07 21:50 | ED.DIZZY ---
HPI - Dizziness General Chief Complaint: Dizziness Stated Complaint: Dizziness,chills, headache Time Seen by Provider: 10/07/20 20:34 Source: patient and family Mode of arrival: ambulatory Limitations: no limitations History of Present Illness HPI Narrative: Patient is 40 years old -Mal[place]ian female was sitting suddenly felt dizzy and sweaty with chills and wheezing. Started 1 hour prior to arrival to the emergency room. Patient status post right foot surgery yesterday. Currently all the symptoms are resolved except the feeling of wheezing. Patient denies any chest pain or shortness of breath. Related Data Home Medications Medication Instructions Recorded Confirmed Adult One Daily Multivitamin 0.4 mg PO DAILY 12/20/19 12/20/19 Eliquis 5 mg PO BID 12/20/19 12/20/19 albuterol sulfate [ProAir HFA] 1 puff INHALATION TID PRN 12/20/19 12/20/19 atorvastatin [Lipitor] 40 mg PO HS 12/20/19 12/20/19 ferrous sulfate 325 mg PO TID 12/20/19 12/20/19 fluticasone propion-salmeterol 1 puff INHALATION Q12H 12/20/19 12/20/19 lansoprazole [Prevacid] 15 mg PO DAILY 12/20/19 12/20/19 lisinopril 10 mg PO DAILY 12/20/19 12/20/19 metformin 1,000 mg PO BID 12/20/19 12/20/19 trazodone 100 mg PO HS PRN 12/20/19 12/20/19 venlafaxine [Effexor XR] 150 mg PO DAILY 12/20/19 12/20/19 Allergies Allergy/AdvReac Type Severity Reaction Status Date / Time acetaminophen [From Vicodin] Allergy Unknown Unknown Verified 10/07/20 20:19 hydrocodone [From Vicodin] Allergy Unknown Unknown Verified 10/07/20 20:19 sulfamethoxazole Allergy Unknown Unknown Verified 10/07/20 20:19 [From Bactrim] trimethoprim [From Bactrim] Allergy Unknown Unknown Verified 10/07/20 20:19 Review of Systems Review of Systems: Narrative: CONSTITUTIONAL: Denies fever, chills, or sweats. EYES: Denies visual changes, redness, or discharge. ENT: Denies rhinorrhea, congestion, sore throat, or otalgia. CARDIOVASCULAR: Denies chest pain, palpitations, or edema. RESPIRATORY: Denies cough or dyspnea. GASTROINTESTINAL: Denies abdominal pain, nausea, vomiting, or diarrhea. GENITOURINARY: Denies dysuria or hematuria. SKIN: Denies rash or itching. MUSCULOSKELETAL: Denies back pain, joint pain, or myalgia. NEUROLOGIC: Denies headache, numbness, or weakness. PSYCHIATRIC: Stress PMFSH Past Medical History Medical History (Updated 10/08/20 @ 00:01 by Levi Momin MD) Anemia Asthma Diabetes HLD (hyperlipidemia) HTN (hypertension) Pulmonary embolism Surgical History Surgical History H/O: Family History Family History Mother Venous thrombosis Social History Social History Smoking status: Former smoker Alcohol intake: never Substance use: never Substance use type: does not use Gender identity (if verbalized by the patient): Female Spiritual care concerns: No Agree to blood products: Yes Exam Narrative: Exam Narrative: General appearance: Well-developed, well-nourished, morbidly obese Skin: Normal color Head: Normocephalic, nontraumatic Eyes: Clear conjunctiva ENT: Oropharynx normal, ears normal, nose normal Neck: Supple, nontender Chest and respiratory: Airway patent, no respiratory distress, no accessory muscle use Heart: Regular rate/rhythm Abdomen: Soft, nontender, no organomegaly, quiet bowel sounds Vascular: Normal peripheral pulses, normal capillary refill. Musculoskeletal: Normal range of motion, nontender back Neurologic: Alert and oriented ?3, INSURANCE CHECKER is normal as tested, no gross motor deficit Course Course
[2020-10-07 22:09] LABS: Alveolar/Arterial O2 Gradient 13.3 mmHg; Base Excess ABG 0.5 mEq/l (+/-2.0); Fractional Inspired Oxygen 21 %; HCO3 ABG 24.6 mEq/l (22.0-26.0); Oxygen Saturation ABG 97.2 % (95.0-100.0); Oxyhemoglobin 96.4 % THb (90.0-100.0); PCO2 ABG 37.6 mmHg (35.0-45.0); PO2 ABG 91.4 mmHg (80.0-100.0); PO2 FiO2 Ratio Arterial Blood 4.35 %; Total Hemoglobin 11.7 g/dL (12.0-18.0); pH ABG 7.434 (7.350-7.450)
[2020-10-07 22:10] LABS: Device ROOM AIR; Modified Allen's Test Pass; Site Drawn LEFT RADIAL
[2020-10-07 23:16] LABS: D Dimer 0.96 ug/mL (<0.48)
[2020-10-08 00:52] LABS: Troponin I < 0.012 ng/mL (0.000-0.034)
[2020-10-08 00:53] VITALS: BP 134/99; PULSE 94; RESP 16; TEMP 37; O2SAT 99
== END 2020-10-08 00:55 | disposition home or self-care (01) ==
PROVIDERS: Emergency Provider Emergency Medicine; PCP Nurse Practitioner
DX: R42 Dizziness and giddiness (principal); E11.9 Type 2 diabetes mellitus without complications; E78.5 Hyperlipidemia, unspecified; D64.9 Anemia, unspecified; I10 Essential (primary) hypertension; Z86.711 Personal history of pulmonary embolism; Z79.84 Long term (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 oral hypoglycemic drugs; Z79.01 Long term (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 anticoagulants; Z87.891 Personal history of nicotine dependence
CPT/HCPCS: 36415; 36600; 71045; 71275; 80053; 81001; 82805; 84484; 85025; 85380; 85610; 93005; 99284; Q9967

== ENCOUNTER 2021-02-16 20:00 | Observation (INO) | payer OTHER, SELFPAY ==
[2021-02-16] VITALS (10 sets, daily range): BP systolic 120–172; BP diastolic 67–108; PULSE 72–110; RESP 14–26; TEMP 36.6; O2SAT 98–100
--- NOTE | ~2021-02-16 | CT_ITS ---
EXAMINATION: CTA chest PE protocol DATE: 02/18/2021 00:19 INDICATION: Shortness of breath. Elevated d-dimer. TECHNIQUE: Computed tomography (CT) pulmonary angiogram of the chest was performed with 100 mL Omnipa que-350 intravenous contrast. Additional 3D reconstructions utilizing coronal maximum intensity proje ction (MIP) were performed. The dose-length product was 1064.65 mGy-cm. COMPARISON: None FINDINGS: Suboptimal contrast opacification of the pulmonary arteries. There is mild streak artifact from dense contrast in the superior vena cava and right atrium. Minimal scattered respiratory motion artifact. Together this results in decreased sensitivity in the smaller subsegmental pulmonary arteries. No pul monary embolism identified. Mild discoid atelectasis in the lingula and bilateral lower lobes. No pne umonia, pulmonary edema, pleural effusion or pneumothorax. Heart size is normal. No pericardial effus ion. Thoracic aorta is normal in caliber with no dissection. Visualized upper abdomen is unremarkable . Mild thoracic spondylosis. IMPRESSION: 1. No pulmonary embolism with sensitivity decreased in the smaller subsegmental pulmonary arteries du e to suboptimal contrast opacification. 2. Discoid atelectasis in the lingula and bilateral lower lobes. Reviewed, dictated and finalized at location A. IMPRESSION: 1. No pulmonary embolism with sensitivity decreased in the smaller subsegmental pulmonary arteries due to suboptimal contrast opacification. 2. Discoid atelectasis in the lingula and bilateral lower lobes.
--- NOTE | ~2021-02-16 | XR_ITS ---
EXAMINATION: XR chest 2V DATE: 02/16/2021 21:57 INDICATION: Cough and shortness of breath. TECHNIQUE: Frontal and lateral views of the chest were obtained. COMPARISON: Chest single view 10/07/2020, chest CT 10/07/2020 FINDINGS: There is mild atelectasis in the lingula. No pleural effusion or pneumothorax. The heart si ze is normal. IMPRESSION: 1. Mild atelectasis in the lingula. Reviewed, dictated and finalized at location A.
--- NOTE | ~2021-02-16 | US_ITS ---
EXAMINATION: US venous doppler LE EXAM DATE: 02/17/2021 16:16 INDICATION: Bilateral leg edema. TECHNIQUE: Multiple grayscale, color flow and Doppler images of the lower extremity deep venous syste ms bilaterally were obtained and reviewed. There is no prior study for comparison. FINDINGS: Peroneal veins could not be identified on either leg. Right side: The right common femoral, femoral and profunda veins demonstrate normal color flow, respi ratory variation, augmentation and compressibility. Compressibility, color flow confirmed within the right popliteal, posterior tibial, and greater saphenous veins. Left side: The left common femoral, femoral and profunda veins demonstrate normal color flow, respira tory variation, augmentation and compressibility. Compressibility, color flow confirmed within the l eft popliteal, posterior tibial, and greater saphenous veins. IMPRESSION: 1. No lower extremity deep venous thrombosis bilaterally. Reviewed, dictated and finalized at location A.
--- NOTE | 2021-02-16 20:32 | ED.ASTHMA ---
HPI - Asthma General Chief Complaint: Asthma Stated Complaint: asthma Time Seen by Provider: 02/16/21 20:19 Source: patient Mode of arrival: ambulatory Limitations: no limitations History of Present Illness HPI Narrative: 41-year-old female History of asthma, diabetes, hypertension Complains of shortness of breath and wheezing for about a week which is becoming progressively less responsive to albuterol inhalers and nebulizers layered on top of her Advair over the last week She does not have chest pain edema a fever or productive cough or cold symptoms but suspects weather change or possibly spring allergies could be a trigger She has been taking all her meds correctly and is followed by her PCP in [place] Number of years ago she had a PE that presented with chest pain and was treated with Eliquis but she has been off that for a while and actually had 2 CTAs last year which were negative Related Data Home Medications Medication Instructions Recorded Confirmed Adult One Daily Multivitamin 0.4 mg PO DAILY 12/20/19 12/20/19 Eliquis 5 mg PO BID 12/20/19 12/20/19 albuterol sulfate [ProAir HFA] 1 puff INHALATION TID PRN 12/20/19 12/20/19 atorvastatin [Lipitor] 40 mg PO HS 12/20/19 12/20/19 ferrous sulfate 325 mg PO TID 12/20/19 12/20/19 fluticasone propion-salmeterol 1 puff INHALATION Q12H 12/20/19 12/20/19 lansoprazole [Prevacid] 15 mg PO DAILY 12/20/19 12/20/19 lisinopril 10 mg PO DAILY 12/20/19 12/20/19 metformin 1,000 mg PO BID 12/20/19 12/20/19 trazodone 100 mg PO HS PRN 12/20/19 12/20/19 venlafaxine [Effexor XR] 150 mg PO DAILY 12/20/19 12/20/19 Allergies Allergy/AdvReac Type Severity Reaction Status Date / Time acetaminophen [From Vicodin] Allergy Unknown Unknown Verified 10/07/20 20:19 hydrocodone [From Vicodin] Allergy Unknown Unknown Verified 10/07/20 20:19 sulfamethoxazole Allergy Unknown Unknown Verified 10/07/20 20:19 [From Bactrim] trimethoprim [From Bactrim] Allergy Unknown Unknown Verified 10/07/20 20:19 Review of Systems Review of Systems: All systems reviewed & are unremarkable except as noted in HPI and below Constitutional: Constitutional: Reports no additional constitutional complaints, Denies chills, Denies fever(s) and Denies headache(s) Eyes: Eyes: Reports no additional eye complaints and Denies change in vision ENT: Denies headache(s) and Denies sore throat Cardiovascular: Cardiovascular: Denies chest pain and Denies dyspnea Respiratory: Respiratory: Denies cough, Reports dyspnea and Reports wheezing Gastrointestinal: Gastrointestinal: Denies abdominal pain, Denies diarrhea and Denies vomiting Genitourinary: Genitourinary: Denies urinary frequency and Denies dysuria Musculoskeletal: Musculoskeletal: Denies deformity, Denies arthralgias, Denies joint swelling and Denies numbness Integumentary/Breasts: Skin/Breast: Denies rash and Denies wounds Neurologic: Denies headache(s), Denies focal weakness and Denies numbness Psychiatric: Psychiatric: Reports no additional psychiatric complaints Endocrine: Endocrine: Reports no additional endocrine complaints Hematologic/Lymphatic: Hematologic/Lymphatic: Reports no additional hematologic/lymphatic complaints Allergic/Immunologic: Allergic/Immunologic: Reports no additional allergic/immunologic complaints [facility] Past Medical History Medical History (Updated 02/17/21 @ 00:09 by Mirza Cope MD) Anemia Asthma Diabetes HLD (hyperlipidemia) HTN (hypertension) Pulmonary embolism Surgical History Surgical History H/O: Family History Family History Mother Venous thrombosis Social History Social History Smoking status: Former smoker Alcohol intake: never Substance use: never Substance use type: does not use Gender identity (if verbalized by the patient):
[2021-02-16] MEDS: ALBUTEROL SULFATE NEB 2.5 MG/0.5 ML INH 5 MG INHALATION ×2 (20:50→23:01)
[2021-02-16] MEDS: IPRATROPIUM BR 0.02% INH SOLN 0.5 MG/2.5 ML VIAL 1 MG INHALATION (20:58)
[2021-02-16 22:09] LABS: Basophils Absolute Auto 0.1 K/mm3 (0.0-0.1); Basophils Percent Auto 0.5 % (0.2-1.2); Eosinophils Absolute Auto 0.2 K/mm3 (0-0.3); Eosinophils Percent Auto 1.6 % (0-4.4); Hematocrit 32.9 % (37.0-47.0); Immature Granulocyte Absolute 0.04 K/mm3 (0.00-0.031); Immature Granulocyte Percent A 0.4 % (0-0.5); Lymphocytes Absolute Auto 2.64 K/mm3 (0.9-3.2); Lymphocytes Percent Auto 24.8 % (18.3-44.2); Mean Corpuscular HGB Conc 30.4 g/dl (32-36); Mean Corpuscular Hemoglobin 23.9 pg (26-34); Mean Corpuscular Volume 78.5 fl (80-100); Mean Platelet Volume 8.7 fl (7.4-10.4); Monocytes Absolute Auto 0.5 K/mm3 (0.1-0.6); Monocytes Percent Auto 4.6 % (2.6-8.5); Neutrophils Absolute Auto 7.3 K/mm3 (1.3-6.7); Neutrophils Percent Auto 68.1 % (45.5-73.1); Platelet Count Result 407 k/mm3 (150-375); Red Blood Count 4.19 M/mm3 (4.2-5.4); Red Cell Distribution Width 17.3 % (11.5-14.5); White Blood Count 10.7 K/mm3 (4.5-10.0)
[2021-02-17] VITALS (20 sets, daily range): BP systolic 113–146; BP diastolic 65–89; PULSE 78–113; RESP 13–22; TEMP 36.3–37.4; O2SAT 95–100; BMI 55.5
--- NOTE | 2021-02-17 | ECHO_ITS ---
Patient Info Name: Fernanda Mayo Age: 41 years : 1980 Gender: Female Ht: 67 in Wt: 354 lbs BSA: 2.85 m2 HR: 100 bpm BP: 113 / 65 mmHg Heart Rhythm: Tachycardia Technical Quality: Good Exam Date: 02/17/2021 2:00 PM Exam Location: [facility] Pulmonary Exam Room: 317 Patient Status: Inpatient Admit Date: 02/17/2021 Staff Ordering Physician: Tom García MD Adult Live In Caregiver: Saima Carbone RDCS Attending Provider: Tom García MD Exam Type: CA echo doppler color flow Study Info Indications - SOB EDEMA Complete two-dimensional, color flow and Doppler transthoracic echocardiogram is performed. Summary 1. Complete two-dimensional, color flow and Doppler transthoracic echocardiogram is performed. 2. Left ventricular chamber dimension is mildly enlarged. 3. Left ventricular systolic function is normal, estimated at 65-70%. 4. There is no increased left ventricular wall thickness. 5. The left ventricular diastolic function is grade I diastolic dysfunction. 6. Left atrial chamber dimension is mildly enlarged. 7. There is mild mitral valve regurgitation. 8. There is mild tricuspid valve regurgitation. 9. Mild pulmonary hypertension, estimated pulmonary arterial systolic pressure is 41 mmHg. 10. There is mild pulmonic regurgitation. Left Ventricle Left ventricular chamber dimension is mildly enlarged. Left ventricular systolic function is normal, estimated at 65-70%. There is no increased left ventricular wall thickness. The left ventricular diastolic function is grade I diastolic dysfunction. Right Ventricle Right ventricular chamber dimension is normal. Right ventricular systolic function is normal. Left Atria Left atrial chamber dimension is mildly enlarged. Right Atria Right atrial chamber dimension is normal. Atrial Septum Intact interatrial septum visualized by color flow imaging. Aortic Valve The aortic valve is trileaflet. There is mild aortic valve sclerosis. There is no aortic valve stenosis. There is trace aortic valve regurgitation. Pulmonic Valve The pulmonic valve is normal. There is no pulmonic valve stenosis. There is mild pulmonic regurgitation. Mitral Valve The mitral valve has normal leaflets. There is no mitral valve stenosis. There is mild mitral valve regurgitation. Tricuspid Valve The tricuspid valve leaflets are normal. There is no significant tricuspid valve stenosis. There is mild tricuspid valve regurgitation. Mild pulmonary hypertension, estimated pulmonary arterial systolic pressure is 41 mmHg. Pericardium/Pleural The pericardium appears normal. There is trivial pericardial effusion. Inferior Vena Cava Normal inferior vena cava with >50% collapse upon inspiration consistent with normal right atrial pressure, 5 mmHg. Aorta The aortic root size at the sinus of Valsalva is normal. The prox ascending aorta size is normal. Left Ventricular Outflow Tract Name Value Normal LVOT 2D LVOT Diameter 2.0 cm LVOT Doppler LVOT Peak Gradient 10 mmHg LVOT Mean Gradient 6 mmHg
[2021-02-17] MEDS: ALBUTEROL SULFATE NEB 2.5 MG/0.5 ML INH 5 MG INHALATION (00:09)
--- NOTE | 2021-02-17 01:25 | PM.IMHP ---
H&P: HPI History of Present Illness Date/Time: 02/17/21 01:25 Chief Complaint: shortness of breath for 1 week. Narrative: This is a pleasant 41-year-old morbidly obese diabetic female with known history of chronic asthma, hypertension, depression, and GERD who presented to the hospital with increased shortness of breath, wheezing, and chest tightness for the past week. Patient has been taking her home breathing treatments as prescribed. She believes that her shortness of breath started to worsen secondary to seasonal allergies. She denies any sick contacts. The patient decided to come the hospital as she started to fell up severe shortness of breath despite using her home bronchodilators. The patient denies any significant fevers, chills, productive coughing, chest pain, nausea, vomiting, abdominal pain, dysuria, hematuria, rectal bleeding, or diarrhea. She also denies any lower extremity swelling. Patient was evaluated emergency room and treated with bronchodilators as well as steroid therapy. The patient felt that she could not go home as she was still experiencing shortness of breath with ambulation. The patient has not required any oxygen supplementation. We been asked to admit the patient to the hospital for further care. She has no other complaints this time. Review of Systems Review of Systems: All systems reviewed & are unremarkable except as noted in HPI and below PMFSH Past Medical History Medical History (Updated 02/17/21 @ 01:31 by Gustabo Williamson MD) Anemia Asthma Diabetes HLD (hyperlipidemia) HTN (hypertension) Pulmonary embolism Surgical History Surgical History H/O: Family History Family History Mother Venous thrombosis Social History Social History Smoking status: Former smoker Alcohol intake: never Substance use: never Substance use type: does not use Gender identity (if verbalized by the patient): Female Spiritual care concerns: No Agree to blood products: Yes Meds Home Medications and Allergies Home Medications Medication Instructions Recorded Confirmed Type Adult One Daily Multivitamin 0.4 mg PO DAILY 12/20/19 12/20/19 History Eliquis 5 mg PO BID 12/20/19 12/20/19 History albuterol sulfate [ProAir HFA] 1 puff INHALATION TID PRN 12/20/19 12/20/19 History atorvastatin [Lipitor] 40 mg PO HS 12/20/19 12/20/19 History ferrous sulfate 325 mg PO TID 12/20/19 12/20/19 History fluticasone propion-salmeterol 1 puff INHALATION Q12H 12/20/19 12/20/19 History lansoprazole [Prevacid] 15 mg PO DAILY 12/20/19 12/20/19 History lisinopril 10 mg PO DAILY 12/20/19 12/20/19 History metformin 1,000 mg PO BID 12/20/19 12/20/19 History trazodone 100 mg PO HS PRN 12/20/19 12/20/19 History venlafaxine [Effexor XR] 150 mg PO DAILY 12/20/19 12/20/19 History Allergies Allergy/AdvReac Type Severity Reaction Status Date / Time acetaminophen [From Vicodin] Allergy Unknown Unknown Verified 10/07/20 20:19 hydrocodone [From Vicodin] Allergy Unknown Unknown Verified 10/07/20 20:19 sulfamethoxazole Allergy Unknown Unknown Verified 10/07/20 20:19 [From Bactrim] trimethoprim [From Bactrim] Allergy Unknown Unknown Verified 10/07/20 20:19 Vital Signs Vital Signs - 24 hr 02/16/21 20:02 02/16/21 20:15 02/16/21 20:30 Temperature 36.6 C Pulse Rate 110 H 102 H 98 Respiratory Rate 20 23 H 25 H Blood Pressure 146/88 H 172/80 H 150/108 H Pulse Oximetry 100 98 100 02/16/21 20:45 02/16/21 21:00 02/16/21 21:30 Temperature Pulse Rate 98 96 109 H Respiratory Rate 14 15 23 H Blood Pressure 133/67 125/78 Pulse Oximetry 100 99 02/16/21 21:45 02/16/21 23:00 02/16/21 23:03 Temperature Pulse Rate 107 H 72 98 Respiratory Rate 23 H 26 H 24 H Blood Pressure 120/82 Pulse Oximetry 99 02/16/21 23:13 04
--- NOTE | 2021-02-17 01:52 | ADMGEN ---
This patient, Fernanda Mayo, was admitted to 3 [facility] Surg Room 317-02. Patient/family oriented to hospital policies and general routines including ID bracelet, bed and alarms, visiting hours, pain management, procedures, bathroom and other care routines, personal items, smoking policy, room service/diet, and visiting hours. Information on how to activate the Rapid Response Team has been discussed. Patient/Family are encouraged to report perceived risks to care and to ask questions if they do not understand what they are told or what they should do.
[2021-02-17] MEDS: IPRATROPIUM BR 0.02% INH SOLN 0.5 MG/2.5 ML VIAL INHALATION ×4 (02:31→20:10)
[2021-02-17 02:47] LABS: Glucose Point of Care 321 (65-105)
[2021-02-17] MEDS: LACTATED RINGERS 1,000 ML 50 ML IV CONT (04:26)
--- NOTE | 2021-02-17 04:42 | PC.NURSE ---
MD Williamson notified that the patient is sob at rest and had a breathing treatment at 230, MD stated to call respiratory therapy and get another breathing treatment. also notified that the patient is in the hospital for shortness of breath and complaining of a cough. MD confirmed that he does not want to do a covid test on this patient. RN notified that there was an order for continuous pulse ox and MD stated that could be discontinued.
[2021-02-17 07:07] LABS: Basophils Percent Auto 0.1 % (0.2-1.2); Hematocrit 31.9 % (37.0-47.0); Hemoglobin 9.7 g/dL (12.0-15.0); Immature Granulocyte Absolute 0.07 K/mm3 (0.00-0.031); Immature Granulocyte Percent A 0.7 % (0-0.5); Lymphocytes Absolute Auto 0.82 K/mm3 (0.9-3.2); Lymphocytes Percent Auto 8.5 % (18.3-44.2); Mean Corpuscular HGB Conc 30.4 g/dl (32-36); Mean Corpuscular Hemoglobin 23.3 pg (26-34); Mean Corpuscular Volume 76.7 fl (80-100); Mean Platelet Volume 9.1 fl (7.4-10.4); Monocytes Absolute Auto 0.1 K/mm3 (0.1-0.6); Monocytes Percent Auto 0.7 % (2.6-8.5); Neutrophils Absolute Auto 8.7 K/mm3 (1.3-6.7); Platelet Count Result 438 k/mm3 (150-375); Red Blood Count 4.16 M/mm3 (4.2-5.4); Red Cell Distribution Width 17.3 % (11.5-14.5); White Blood Count 9.6 K/mm3 (4.5-10.0)
[2021-02-17 07:21] LABS: Magnesium 1.2 mg/dL (1.6-2.3)
[2021-02-17 07:22] LABS: Anion Gap 12 mmol/L (8-16); Blood Urea Nitrogen 7 mg/dL (7-17); Calcium 9.1 mg/dL (8.4-10.2); Carbon Dioxide 22 mmol/L (22-30); Chloride 104 mmol/L (98-107); Estimated CRCL calculation 196 ml/min; Estimated Glomerular Filt Rate > 60; Glucose 308 mg/dL (65-105); Potassium 3.7 mmol/L (3.4-5.0); Sodium 138 mmol/L (137-145)
[2021-02-17 08:16] LABS: Glucose Point of Care 270 (65-105)
[2021-02-17] MEDS: MAGNESIUM SULF 2 GM/WATER 50ML 2 GM/50 ML BAG IVPB (08:56)
[2021-02-17] MEDS: metFORMIN HCL 250 MG TABLET 750 MG PO ×2 (08:57→16:43)
[2021-02-17] MEDS: predniSONE 20 MG TABLET 60 MG PO (08:57)
[2021-02-17] MEDS: ARIPiprazole 2 MG TABLET PO (08:58)
[2021-02-17] MEDS: EZETIMIBE 10 MG TABLET PO (08:58)
[2021-02-17] MEDS: lisinopriL 20 MG TABLET PO (08:58)
[2021-02-17] MEDS: ASCORBIC ACID 500 MG TABLET 1000 MG PO (08:58)
[2021-02-17] MEDS: VENLAFAXINE HCL XR 75 MG CAP.ER.24H 150 MG PO (08:58)
[2021-02-17] MEDS: MULTIVITAMINS THERAPEUTIC TAB (*BKC) 1 TABLET PO (08:58)
[2021-02-17] MEDS: guaiFENesin/DEXTROMETHORPHAN 10 ML UDC PO (09:00)
[2021-02-17] MEDS: INSULIN ASPART (*BKC) 100 UNITS/ML SUB-Q ×3 (09:01→16:51)
--- NOTE | 2021-02-17 10:01 | PM.IMPN ---
Progress Note: A&P Assessment and Plan (1) Asthma exacerbation: Qualifiers: Asthma persistence: unspecified Asthma severity: unspecified severity Qualified Code(s): J45.901 - Unspecified asthma with (acute) exacerbation Code(s): J45.901 - Unspecified asthma with (acute) exacerbation Status: Acute Assessment and Plan: Patient presents with wheezing consistent with asthma exacerbation. Feels better with steroids and nebs but still with LOMAX. Mag low and this was replaced. Stop IV fluids. Check LE dopplers and DDimer although feel VTE less likely. Check Echo. Consider pulmonology consult if she does not improve as expected. Will set her up to see a pulm as outpatietn. Change to Solu-Medrol if she does not improve. Doppler negative. DD positive at 1.43. Her BMI 55.6. Will use arixtra x one dose and get CTA in the morning. Echo 65-70%, grade I DD. (2) Normocytic anemia: Code(s): D64.9 - Anemia, unspecified Status: Chronic Assessment and Plan: Hgb 10 on admission. Patient has known chronic normocytic anemia which likely multifactorial. Continue iron supplementation. No signs of acute blood loss. Monitor H&H, transfuse p.r.n. check iron studies. Fe 14, TIBC 381, 4% with ferritin 13. Start IV iron while she is here. (3) Diabetes: Qualifiers: Diabetes mellitus complication status: without complication Diabetes mellitus travel administrator insulin use: without travel administrator use Diabetes mellitus type: type 2 Qualified Code(s): E11.9 - Type 2 diabetes mellitus without complications Code(s): E11.9 - Type 2 diabetes mellitus without complications Status: Chronic Assessment and Plan: The patient's blood glucose was reviewed on 02/17 Glucose elevated felt related to the steroids. Continue AccuCheks covering with sliding scale. Hypoglycemia protocol available as needed. Continue current medications with metformin. Add Lantus tonight if glucose worse. Check A1c A1c 7.9. (4) Depression: Qualifiers: Depression Type: other depression Qualified Code(s): F32.89 - Other specified depressive episodes Code(s): F32.9 - Major depressive disorder, single episode, unspecified Status: Chronic Assessment and Plan: Mood stable. Continue venlafaxine (5) GERD (gastroesophageal reflux disease): Qualifiers: Esophagitis presence: esophagitis presence not specified Qualified Code(s): K21.9 - Gastro-esophageal reflux disease without esophagitis Code(s): K21.9 - Gastro-esophageal reflux disease without esophagitis Status: Chronic Assessment and Plan: Stable. Continue PPI therapy (6) HTN (hypertension) with goal to be determined: Code(s): I10 - Essential (primary) hypertension Status: Chronic Assessment and Plan: Patient's blood pressure was reviewed on 02/17 Blood pressure remained well controlled. Will continue current medications with lisinopril. (7) Obstructive sleep apnea: Code(s): G47.33 - Obstructive sleep apnea (adult) (pediatric) Status: Chronic Assessment and Plan: Stable. Continue CPAP at night (8) DVT prophylaxis: Code(s): Z29.9 - Encounter for prophylactic measures, unspecified Status: Acute Assessment and Plan: Patient not on anticoagulation. Will start lovenox Subjective Date/time seen: 02/17/21 10:01 Interval history: 41yo female here for asthma exacerbation. Patient's shortness of breath is improved but still with dyspnea on exertion. She has a nonproductive cough. She does not follow with a grain distributor. Eating well this morning. No recent fevers. She does have a substernal chest tightness that radiates to her back worse with coughing. She also describes it as a burning sensation when she coughs. She has Advair at home as well as albuterol MDI and nebulizer. She quit tobacco 13 years ago af
[2021-02-17 11:27] LABS: D Dimer 1.43 ug/mL (<0.48); Hemoglobin A1C 7.9 % (<5.7)
[2021-02-17 11:31] LABS: NT Pro B Type Natriuretic Pept 60 PG/ML (5-100)
[2021-02-17 11:36] LABS: Iron 14 ug/dL (37-170)
[2021-02-17 11:46] LABS: Percent Iron Saturation 4 % (20-50)
[2021-02-17 12:08] LABS: Thyroid Stimulating Hormone Reflex 0.486 uIU/mL (0.465-4.68)
[2021-02-17 12:20] LABS: Glucose Point of Care 247 (65-105)
[2021-02-17 12:29] LABS: Folic Acid > 20.0 ng/mL (2.76->20)
[2021-02-17 16:56] LABS: Glucose Point of Care 249 (65-105)
[2021-02-17] MEDS: INSULIN GLARGINE (*BKC) 100 UNITS/ML 15 UNITS SUB-Q (21:24)
[2021-02-17] MEDS: PANTOPRAZOLE 40 MG TABLET PO (21:26)
[2021-02-17] MEDS: FERROUS SULFATE 324 MG TABLET PO (21:26)
[2021-02-17] MEDS: ATORVASTATIN 40 MG TABLET PO (21:26)
--- NOTE | 2021-02-17 22:43 | PC.NURSE ---
MD Williamson notified that per pharmacy the Metformin needs to be help for 48 hrs after IV contrast is given and patient is to have a CT Chest with contrast at 2300
[2021-02-18] VITALS (9 sets, daily range): BP systolic 103–131; BP diastolic 67–81; PULSE 79–92; RESP 12–20; TEMP 37.1–37.4; O2SAT 96–100
[2021-02-18] MEDS: IPRATROPIUM BR 0.02% INH SOLN 0.5 MG/2.5 ML VIAL INHALATION ×3 (01:42→13:45)
[2021-02-18 02:05] LABS: Glucose Point of Care 266 (65-105)
[2021-02-18 06:12] LABS: Hematocrit 29.9 % (37.0-47.0); Hemoglobin 9.2 g/dL (12.0-15.0); Mean Corpuscular HGB Conc 30.8 g/dl (32-36); Mean Corpuscular Hemoglobin 23.5 pg (26-34); Mean Corpuscular Volume 76.5 fl (80-100); Mean Platelet Volume 9.4 fl (7.4-10.4); Platelet Count Result 435 k/mm3 (150-375); Red Blood Count 3.91 M/mm3 (4.2-5.4); Red Cell Distribution Width 17.2 % (11.5-14.5); White Blood Count 15.5 K/mm3 (4.5-10.0)
[2021-02-18 06:26] LABS: Alanine Aminotransferase 16 U/L (4-35); Albumin Level 3.7 g/dL (3.5-5.1); Alkaline Phosphatase 94 U/L (38-126); Anion Gap 5 mmol/L (8-16); Aspartate Amino Transferase 17 U/L (14-36); Bilirubin,Total 0.4 mg/dL (0.2-1.3); Blood Urea Nitrogen 10 mg/dL (7-17); Calcium 9.6 mg/dL (8.4-10.2); Carbon Dioxide 26 mmol/L (22-30); Chloride 105 mmol/L (98-107); Estimated CRCL calculation 166 ml/min; Estimated Glomerular Filt Rate > 60; Glucose 171 mg/dL (65-105); Magnesium 1.3 mg/dL (1.6-2.3); Potassium 4.2 mmol/L (3.4-5.0); Sodium 136 mmol/L (137-145)
[2021-02-18] MEDS: MAGNESIUM SULF 2 GM/WATER 50ML 2 GM/50 ML BAG IVPB (08:29)
[2021-02-18] MEDS: predniSONE 20 MG TABLET 60 MG PO (08:29)
[2021-02-18] MEDS: EZETIMIBE 10 MG TABLET PO (08:30)
[2021-02-18] MEDS: VENLAFAXINE HCL XR 75 MG CAP.ER.24H 150 MG PO (08:30)
[2021-02-18] MEDS: ARIPiprazole 2 MG TABLET PO (08:30)
[2021-02-18] MEDS: ASCORBIC ACID 500 MG TABLET 1000 MG PO (08:30)
[2021-02-18] MEDS: lisinopriL 20 MG TABLET PO (08:31)
[2021-02-18] MEDS: IRON SUCROSE COMPLEX 100 MG in SODIUM CHLORIDE 0.9% IV 50 ML 220 MG IVPB (08:31)
[2021-02-18] MEDS: guaiFENesin/DEXTROMETHORPHAN 10 ML UDC PO (08:31)
[2021-02-18] MEDS: MULTIVITAMINS THERAPEUTIC TAB (*BKC) 1 TABLET PO (08:31)
[2021-02-18 08:43] LABS: Glucose Point of Care 144 (65-105)
[2021-02-18] MEDS: FONDAPARINUX SODIUM 5 MG/0.4 ML SYRINGE 10 MG SUB-Q (09:31)
[2021-02-18 12:27] LABS: Glucose Point of Care 223 (65-105)
[2021-02-18] MEDS: INSULIN ASPART (*BKC) 100 UNITS/ML SUB-Q (12:35)
--- NOTE | 2021-02-18 13:40 | PHAR ---
The patient's home meds of Fluticasone Propion-Salmeterol 113-14 mcg/actuation Aerosol Powdr has been verified.
--- NOTE | 2021-02-18 15:03 | PM.DS ---
DS: Admitting Diagnosis Admitting Diagnosis Admitting Diagnosis: Shortness of breath DS: Discharge Diagnosis Discharge Diagnosis (1) Asthma exacerbation: Qualifiers: Asthma persistence: unspecified Asthma severity: unspecified severity Qualified Code(s): J45.901 - Unspecified asthma with (acute) exacerbation Code(s): J45.901 - Unspecified asthma with (acute) exacerbation Status: Acute Assessment and Plan: Patient presents with wheezing consistent with asthma exacerbation. Feels better with steroids and nebs but still with LOMAX; the LOMAX slowly improved. Mag low and this was replaced. LE venous doppler was negative for DVT and CTA was negative for PE. Echo showing EF 65-70% with Grade I diastolic dysfunction. She had clinical improvement. Will set her up to see a body joiner as outpatient. She does not need refills on her medications at home for her asthma. (2) Normocytic anemia: Code(s): D64.9 - Anemia, unspecified Status: Chronic Assessment and Plan: Hgb 10 on admission. Patient has known chronic normocytic anemia which likely multifactorial. Fe 14, TIBC 381, 4% with ferritin 13. We started IV iron while she was here. We continued oral iron supplementation. No signs of acute blood loss. (3) Diabetes: Qualifiers: Diabetes mellitus type: type 2 Diabetes mellitus terminal make up operator insulin use: without terminal make up operator use Diabetes mellitus complication status: without complication Qualified Code(s): E11.9 - Type 2 diabetes mellitus without complications Code(s): E11.9 - Type 2 diabetes mellitus without complications Status: Chronic Assessment and Plan: The patient's blood glucose was monitored closely. A1c 7.9. Glucose elevated felt related to the steroids. Monitored with AccuCheks covering with sliding scale. Hypoglycemia protocol was available as needed. We continued current medications with metformin. (4) Depression: Qualifiers: Depression Type: other depression Qualified Code(s): F32.89 - Other specified depressive episodes Code(s): F32.9 - Major depressive disorder, single episode, unspecified Status: Chronic Assessment and Plan: Mood stable. We continued venlafaxine (5) GERD (gastroesophageal reflux disease): Qualifiers: Esophagitis presence: esophagitis presence not specified Qualified Code(s): K21.9 - Gastro-esophageal reflux disease without esophagitis Code(s): K21.9 - Gastro-esophageal reflux disease without esophagitis Status: Chronic Assessment and Plan: Stable. We continued PPI therapy (6) HTN (hypertension) with goal to be determined: Code(s): I10 - Essential (primary) hypertension Status: Chronic Assessment and Plan: Patient's blood pressure was monitored closely. Blood pressure remained well controlled. We continued current medications with lisinopril. (7) Obstructive sleep apnea: Code(s): G47.33 - Obstructive sleep apnea (adult) (pediatric) Status: Chronic Assessment and Plan: Stable. We continued her CPAP at night DS: Summary Hospital Course Reason for hospitalization: 41-year-old female history of asthma presents with increasing shortness of breath. Please see H&P for details Hospital Course: Please see above for details hospital course. Status at Discharge Cognitive/behavioral status at discharge: Stable Time Spent with Patient Time attestation: Total time spent providing and/or coordinating discharge services: 34 minutes Time spent: Greater than 30 minutes Exam Narrative: Exam Narrative: AF 98.7 103/67 84 20 96% ra Gen - NARD Chest - distant but clear BS, nml RR. no wheezing CV - RRR S1/S2 Abd - Soft,obese, NT, +BS Ext - no pedal edema Psych - Nml mood and affect Skin - Warm and dry DS: Data Data Completed and Pending Labs on day of discharge: Labs from last 24 hours
== END 2021-02-18 15:50 | disposition home or self-care (01) ==
LOC: ANHED 02-17 00:22 → ANH3MEDSUR 02-17 00:54
PROVIDERS: Admitting Provider Family Medicine; Emergency Provider Emergency Medicine; PCP Nurse Practitioner; Visit Provider Internal Medicine
DX: J45.901 Unspecified asthma with (acute) exacerbation (principal); D64.9 Anemia, unspecified; D47.3 Essential (hemorrhagic) thrombocythemia; E11.9 Type 2 diabetes mellitus without complications; F32.9 Major depressive disorder, single episode, unspecified; K21.9 Gastro-esophageal reflux disease without esophagitis; I10 Essential (primary) hypertension; G47.33 Obstructive sleep apnea (adult) (pediatric); E78.5 Hyperlipidemia, unspecified; Z87.891 Personal history of nicotine dependence; Z86.711 Personal history of pulmonary embolism; Z79.84 Long term (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 oral hypoglycemic drugs; Z79.51 Long term (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 inhaled steroids; Z79.01 Long term (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 anticoagulants; E66.01 Morbid (severe) obesity due to excess calories; Z68.43 Body mass index [BMI] 50.0-59.9, adult
CPT/HCPCS: 36415; 71046; 71275; 80048; 80053; 82607; 82728; 82746; 83036; 83540; 83550; 83735; 83880; 84443; 85025; 85027; 85380; 93306; 93970; 94640; 96361; 96365; 96372; 96374; 96375; 99285; A9270; G0378; J1100; J1652; J1756; J1815; J3475; J7120; J7512; Q9967

== ENCOUNTER 2021-08-31 15:35 | Emergency (ER) | payer OTHER, SELFPAY ==
[2021-08-31] VITALS (8 sets, daily range): BP systolic 121–152; BP diastolic 69–101; PULSE 85–119; RESP 14–27; TEMP 36.4; O2SAT 97–100
--- NOTE | ~2021-08-31 | XR_ITS ---
EXAMINATION: XR chest 2V DATE: 08/31/2021 16:17 INDICATION: Midsternal chest pain. TECHNIQUE: Frontal and lateral views of the chest were obtained. COMPARISON: Chest 2 views 01/3121, chest CT 02/18/2021 FINDINGS: There is mild atelectasis in left lower lung zone. No pleural effusion or pneumothorax. The heart size is normal. There are prominent paracardial fat pads. IMPRESSION: 1. Mild atelectasis in left lower lung zone. Reviewed, dictated and finalized at location A.
--- NOTE | ~2021-08-31 | CT_ITS ---
EXAMINATION: CTA chest PE protocol DATE: 08/31/2021 20:43 INDICATION: Chest pain. TECHNIQUE: Computed tomography angiography (CTA) of the chest was performed with 200 mL Omnipaque-350 intravenous contrast timed to evaluate the pulmonary arteries. Coronal maximum intensity projection 3D-reconstructions were created by the technologist. Automated exposure control and iterative reconst ruction technique were employed. The dose-length product was 1788.00 mGy-cm. COMPARISON: Chest CT 02/18/2021 FINDINGS: The lungs demonstrate mild atelectasis. No pleural effusion. The heart size is normal. No p leural effusion. There is no pulmonary embolus. There is mild thoracic spondylosis. IMPRESSION: 1. No pulmonary embolus. Reviewed, dictated and finalized at location A. IMPRESSION: 1. No pulmonary embolus.
--- NOTE | 2021-08-31 15:37 | ECG_ITS ---
Measurements Intervals [place] Rate: 107 P: 50 MA: 114 QRS: -2 QRSD: 84 T: 61 QT: 338 QTc: 452 Interpretive Statements SINUS TACHYCARDIA WITH SHORT MA INTERVAL DELAYED PRECORDIAL R/S TRANSITION BASELINE WANDER- V4-V6 ABNORMAL ECG Electronically Signed On 08-31-2021 15:58:04 CDT by Flo Pineda D.O.
[2021-08-31 15:55] LABS: Basophils Percent Auto 0.4 % (0.2-1.2); Eosinophils Absolute Auto 0.4 K/mm3 (0-0.3); Eosinophils Percent Auto 3.3 % (0-4.4); Hematocrit 34.7 % (37.0-47.0); Hemoglobin 10.6 g/dL (12.0-15.0); Immature Granulocyte Absolute 0.05 K/mm3 (0.00-0.031); Immature Granulocyte Percent A 0.5 % (0-0.5); Lymphocytes Absolute Auto 2.84 K/mm3 (0.9-3.2); Mean Corpuscular HGB Conc 30.5 g/dl (32-36); Mean Corpuscular Hemoglobin 23.8 pg (26-34); Mean Corpuscular Volume 77.8 fl (80-100); Mean Platelet Volume 8.8 fl (7.4-10.4); Monocytes Absolute Auto 0.6 K/mm3 (0.1-0.6); Monocytes Percent Auto 5.2 % (2.6-8.5); Neutrophils Absolute Auto 6.7 K/mm3 (1.3-6.7); Neutrophils Percent Auto 63.6 % (45.5-73.1); Platelet Count Result 481 k/mm3 (150-375); Red Blood Count 4.46 M/mm3 (4.2-5.4); Red Cell Distribution Width 18.6 % (11.5-14.5); White Blood Count 10.5 K/mm3 (4.5-10.0)
[2021-08-31 16:05] LABS: Anion Gap 8 mmol/L (8-16); Blood Urea Nitrogen 9 mg/dL (7-17); Calcium 9.3 mg/dL (8.4-10.2); Carbon Dioxide 27 mmol/L (22-30); Chloride 105 mmol/L (98-107); Estimated CRCL calculation 166 ml/min; Estimated Glomerular Filt Rate > 60; Glucose 149 mg/dL (65-110); Potassium 3.7 mmol/L (3.4-5.0); Sodium 140 mmol/L (137-145)
[2021-08-31 16:09] LABS: INR 0.9; Prothrombin Time 11.7 Seconds (11.1-14.7)
[2021-08-31 16:10] LABS: Partial Thromboplastin Time 24.3 SECONDS (22.3-36.8)
[2021-08-31 16:15] LABS: Troponin I < 0.012 ng/mL (0.000-0.034)
--- NOTE | 2021-08-31 17:49 | ED.CHESTPAIN ---
HPI - Chest Pain General Chief Complaint: Chest Pain Stated Complaint: CHEST PAIN Time Seen by Provider: 08/31/21 17:36 Source: patient Mode of arrival: ambulatory Limitations: no limitations History of Present Illness HPI narrative: This is a 41-year-old female that presents to the emergency department for chest pain present intermittently since yesterday. Reports the pain is substernal and sharp in nature. It lasts for a couple of minutes and resolves on its own. Also reports shortness of breath. Denies fever, cough, or lower extremity edema. Related Data Home Medications Medication Instructions Recorded Confirmed albuterol sulfate [ProAir HFA] 1 puff INHALATION TID PRN 12/20/19 02/17/21 fluticasone propion-salmeterol 1 puff INHALATION Q12H 12/20/19 02/17/21 lisinopril 20 mg PO DAILY 12/20/19 02/17/21 metformin 750 mg PO BID 12/20/19 02/17/21 venlafaxine [Effexor XR] 150 mg PO DAILY 12/20/19 02/17/21 Januvia 50 mg PO HS 02/17/21 02/17/21 aripiprazole [Abilify] 2 mg PO DAILY 02/17/21 02/17/21 ascorbic acid (vitamin C) 1,000 mg PO DAILY 02/17/21 02/17/21 atorvastatin [Lipitor] 40 mg PO HS 02/17/21 02/17/21 calcium carbonate-vitamin D3 600 tablet PO BID 02/17/21 02/17/21 ezetimibe 10 mg BYMOUTH DAILY 02/17/21 02/17/21 multivitamin [Daily-Trevin] 1 tablet PO DAILY 02/17/21 02/17/21 pantoprazole 40 mg PO HS 02/17/21 02/17/21 Allergies Allergy/AdvReac Type Severity Reaction Status Date / Time acetaminophen [From Vicodin] Allergy Unknown Unknown Verified 08/31/21 18:05 hydrocodone [From Vicodin] Allergy Unknown Unknown Verified 08/31/21 18:05 sulfamethoxazole Allergy Unknown Unknown Verified 08/31/21 18:05 [From Bactrim] trimethoprim [From Bactrim] Allergy Unknown Unknown Verified 08/31/21 18:05 Review of Systems Review of Systems: CONSTITUTIONAL: Denies fever CARDIOVASCULAR: Reports chest pain. Denies edema. RESPIRATORY: Reports dyspnea. Denies cough All systems reviewed & are unremarkable except as noted in HPI and below PMFSH Past Medical History Medical History (Updated 08/31/21 @ 22:18 by Natalie Leung PA-C) Anemia Asthma Diabetes HLD (hyperlipidemia) HTN (hypertension) Pulmonary embolism Surgical History Surgical History H/O: Family History Family History (Updated 02/17/21 @ 01:46 by Estella Field RN) Mother Venous thrombosis Cervical cancer Cerebrovascular accident Breast cancer Asthma Social History Social History Smoking status: Never smoker Alcohol intake: never Substance use: never Substance use type: does not use Gender identity (if verbalized by the patient): Female Spiritual care concerns: No Agree to blood products: Yes Exam Narrative: GENERAL: Well-appearing, obese, and in no acute distress. HEAD: Normocephalic, atraumatic. EYES: EOMI. ENT: Nares clear, no rhinorrhea or epistaxis. Mucous membranes moist. Oropharynx without tonsillar hypertrophy exudate or other lesions. Bilateral TMs pearly albarran non-bulging NECK: Supple. No adenopathy or masses. CHEST: No respiratory distress. Mild scattered wheezes. No rales or rhonchi. Left, upper anterior chest wall tenderness HEART: Regular rate and rhythm. No murmur heard. Normal peripheral pulses. EXTREMITIES: Normal range of motion. No edema. SKIN: Warm, dry, no rash. NEURO: No focal deficits. Alert and oriented x3. PSYCH: Normal mood and affect Course Vital Signs Vital signs: Vital Signs Temperature 97.6 F 08/31/21 15:43 Pulse Rate 105 H 08/31/21 15:43 Respiratory Rate 14 08/31/21 15:43 Blood Pressure 152/87 H 08/31/21 15:43 Pulse Oximetry 99 08/31/21 15:43 Temperature 97.6 F 08/31/21 15:43 Pulse Rate 118 H 08/31/21 21:30 Respiratory Rate 27 H 08/31/21 21:30 Blood Pressure 133/69 08/31/21 21:30 Pulse Oximetry 97 08/31/21 21:30 MDM - Chest P
[2021-08-31] MEDS: ALBUTEROL SULFATE NEB 2.5 MG/0.5 ML INH 5 MG INHALATION (18:09)
[2021-08-31] MEDS: IPRATROPIUM BR 0.02% INH SOLN 0.5 MG/2.5 ML VIAL INHALATION ×2 (18:09→21:20)
[2021-08-31 18:12] LABS: Alanine Aminotransferase 16 U/L (4-35); Albumin Level 4.3 g/dL (3.5-5.1); Alkaline Phosphatase 129 U/L (38-126); Aspartate Amino Transferase 21 U/L (14-36); Bilirubin,Total 0.2 mg/dL (0.2-1.3); Lipase 52 U/L (23-300)
[2021-08-31] MEDS: predniSONE 20 MG TABLET 40 MG PO (18:20)
[2021-08-31] MEDS: ASPIRIN 81 MG CHEWABLE TABLET 324 MG PO (18:20)
[2021-08-31 18:21] LABS: NT Pro B Type Natriuretic Pept 39 pg/mL (5-100)
[2021-08-31 19:13] LABS: D Dimer 6.09 ug/mL (<0.48)
[2021-08-31 19:54] LABS: Troponin I < 0.012 ng/mL (0.000-0.034)
[2021-08-31] MEDS: SODIUM CHLORIDE 0.9% IV 500 ML 999 ML IV CONT (21:30)
[2021-08-31] MEDS: KETOROLAC 30 MG/ML VIAL (*BKC) IV PUSH (21:30)
== END 2021-08-31 22:50 | disposition home or self-care (01) ==
PROVIDERS: Emergency Medicine; Physician Assistant; Emergency Provider Emergency Medicine; PCP Nurse Practitioner
DX: J45.901 Unspecified asthma with (acute) exacerbation (principal); E11.9 Type 2 diabetes mellitus without complications; E78.5 Hyperlipidemia, unspecified; I10 Essential (primary) hypertension; Z86.711 Personal history of pulmonary embolism; Z79.84 Long term (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 oral hypoglycemic drugs; R00.0 Tachycardia, unspecified; R94.31 Abnormal electrocardiogram [ECG] [EKG]
CPT/HCPCS: 36415; 71046; 71275; 80048; 80076; 83690; 83880; 84484; 85025; 85380; 85610; 85730; 93005; 94640; 96361; 96374; 99284; A9270; J1885; J7040; J7512; Q9967

== ENCOUNTER 2021-09-01 08:00 | Outpatient (CLI) | payer OTHER, SELFPAY ==
--- NOTE | ~2021-09-01 | US_ITS ---
EXAMINATION: US venous doppler LE DATE: 09/01/2021 08:48 INDICATION: Chest pain. Lower limb pain. Elevated d-dimer. TECHNIQUE: Grayscale ultrasound images without and with compression and Doppler ultrasound images of the bilateral lower extremity veins were obtained. COMPARISON: 02/17/2021 FINDINGS: The visualized portions of right common femoral vein, profunda (deep) femoral vein, femoral vein, pop liteal vein, posterior tibial veins, peroneal veins, gastrocnemius vein and greater saphenous vein ou tflow are patent. The visualized portions of left common femoral vein, profunda femoral vein, femoral vein, popliteal v ein, posterior tibial veins, peroneal veins, gastrocnemius vein and greater saphenous vein outflow ar e patent. IMPRESSION: 1. No deep venous thrombosis in either lower limb. Reviewed, dictated and finalized at location A.
== END 2021-09-01 08:01 | disposition home or self-care (01) ==
PROVIDERS: PCP Physician Assistant; Visit Provider Nurse Practitioner
DX: R79.89 Other specified abnormal findings of blood chemistry (principal); R07.9 Chest pain, unspecified
CPT/HCPCS: 93970

== ENCOUNTER 2021-09-28 13:50 | Outpatient (CLI) | payer OTHER, SELFPAY ==
--- NOTE | 2021-09-30 13:28 | WPDPFTINT ---
PFT Procedure Performed PFT Procedure Performed Spirometry with Pre/Post Bronchodilator Plethysmography (Lung Vol) Diffusing Cap (DLCO) Flow Vol Loop PFT Interpretation Lung volumes were measured with the body plethysmography method. The diminished lung volumes are indicative of restrictive respiratory disease. Spirometry showed diminished expiratory flow rates and a diminished FEV1 to FVC ratio of 69% consistent with concurrent obstructive airway disease. Following administration of bronchodilator there was significant increase in the expiratory flow rates. Lung diffusion capacity is mildly reduced at 70% predicted. Impression: Combined restrictive respiratory and obstructive airway disease with significant response to bronchodilators on this testing. Mildly reduced lung diffusion capacity.
== END 2021-09-28 13:51 | disposition home or self-care (01) ==
LOC: ANHPFT 13:51
PROVIDERS: PCP Nurse Practitioner; Visit Provider Nurse Practitioner
DX: J45.909 Unspecified asthma, uncomplicated (principal)
CPT/HCPCS: 94060; 94726; 94729

== ENCOUNTER 2021-11-05 09:37 | Emergency (ER) | payer OTHER, SELFPAY ==
[2021-11-05] VITALS (14 sets, daily range): BP systolic 132–167; BP diastolic 66–98; PULSE 73–89; RESP 16–23; TEMP 36–37.1; O2SAT 97–100
--- NOTE | ~2021-11-05 | XR_ITS ---
EXAMINATION: XR chest 2V DATE: 11/05/2021 10:54 INDICATION: Chest tightness. Shortness of breath. TECHNIQUE: Frontal and lateral views of the chest were obtained. COMPARISON: Chest 2 views 08/31/2021, chest CT 08/31/2021 FINDINGS: The chest demonstrates clear lungs without pneumonia, pleural effusion, or pneumothorax. Th e heart size is normal. IMPRESSION: 1. No acute cardiopulmonary disease. Reviewed, dictated and finalized at location A. ER BALANCE WHEEL SCREW HOLE
--- NOTE | 2021-11-05 09:43 | ECG_ITS ---
Measurements Intervals [place] Rate: 79 P: 34 CA: 132 QRS: -35 QRSD: 89 T: 44 QT: 384 QTc: 441 Interpretive Statements SINUS RHYTHM LEFT AXIS DEVIATION DELAYED PRECORDIAL R/S TRANSITION BASELINE ARTIFACT- I, III, AVR, AVL, AVF, V1-V3 BORDERLINE ECG Electronically Signed On 11-05-2021 12:12:38 HOT IRON WORKER by Flo Pineda D.O.
[2021-11-05 09:59] LABS: Basophils Percent Auto 0.5 % (0.2-1.2); Eosinophils Absolute Auto 0.1 K/mm3 (0-0.3); Eosinophils Percent Auto 1.9 % (0-4.4); Hematocrit 37.7 % (37.0-47.0); Hemoglobin 11.4 g/dL (12.0-15.0); Immature Granulocyte Absolute 0.02 K/mm3 (0.00-0.031); Immature Granulocyte Percent A 0.3 % (0-0.5); Lymphocytes Absolute Auto 2.34 K/mm3 (0.9-3.2); Lymphocytes Percent Auto 31.3 % (18.3-44.2); Mean Corpuscular HGB Conc 30.2 g/dl (32-36); Mean Corpuscular Hemoglobin 24.5 pg (26-34); Mean Corpuscular Volume 81.1 fl (80-100); Mean Platelet Volume 8.9 fl (7.4-10.4); Monocytes Absolute Auto 0.4 K/mm3 (0.1-0.6); Monocytes Percent Auto 4.8 % (2.6-8.5); Neutrophils Absolute Auto 4.6 K/mm3 (1.3-6.7); Neutrophils Percent Auto 61.2 % (45.5-73.1); Platelet Count Result 426 k/mm3 (150-375); Red Blood Count 4.65 M/mm3 (4.2-5.4); Red Cell Distribution Width 17.2 % (11.5-14.5); White Blood Count 7.5 K/mm3 (4.5-10.0)
[2021-11-05 10:10] LABS: Prothrombin Time 12.9 Seconds (11.1-14.7)
[2021-11-05 10:11] LABS: Partial Thromboplastin Time 25.9 SECONDS (22.3-36.8)
[2021-11-05 10:12] LABS: Alanine Aminotransferase 21 U/L (4-35); Albumin Level 4.1 g/dL (3.5-5.1); Alkaline Phosphatase 122 U/L (38-126); Anion Gap 7 mmol/L (8-16); Aspartate Amino Transferase 22 U/L (14-36); Bilirubin,Total 0.4 mg/dL (0.2-1.3); Blood Urea Nitrogen 10 mg/dL (7-17); Calcium 9.1 mg/dL (8.4-10.2); Carbon Dioxide 30 mmol/L (22-30); Chloride 100 mmol/L (98-107); Estimated CRCL calculation 147 ml/min; Estimated Glomerular Filt Rate > 60; Glucose 259 mg/dL (65-110); Lipase 37 U/L (23-300); Potassium 3.9 mmol/L (3.4-5.0); Sodium 137 mmol/L (137-145)
[2021-11-05 10:22] LABS: Troponin I < 0.012 ng/mL (0.000-0.034)
[2021-11-05] MEDS: ALBUTEROL SULFATE NEB 2.5 MG/0.5 ML INH 5 MG INHALATION ×2 (11:28→13:27)
[2021-11-05] MEDS: IPRATROPIUM BR 0.02% INH SOLN 0.5 MG/2.5 ML VIAL (11:29)
[2021-11-05] MEDS: IPRATROPIUM BR 0.02% INH SOLN 0.5 MG/2.5 ML VIAL INHALATION (11:29)
[2021-11-05] MEDS: ALBUTEROL SULFATE NEB 2.5 MG/0.5 ML INH (11:29)
[2021-11-05 11:35] LABS: Alveolar/Arterial O2 Gradient 14.9 mmHg; Base Excess ABG 2.7 mEq/l (+/-2.0); Fractional Inspired Oxygen 21 %; HCO3 ABG 26.5 mEq/l (22.0-26.0); Oxygen Content ABG 16.6 %vol (16.0-22.0); Oxygen Saturation ABG 97.3 % (95.0-100.0); Oxyhemoglobin 96.3 % THb (90.0-100.0); PCO2 ABG 37.9 mmHg (35.0-45.0); PO2 ABG 89.4 mmHg (80.0-100.0); PO2 FiO2 Ratio Arterial Blood 4.26 %; Total Hemoglobin 12.2 g/dL (12.0-18.0); pH ABG 7.462 (7.350-7.450)
--- NOTE | 2021-11-05 11:36 | ED.SOB ---
HPI - SOB/Dyspnea General Chief Complaint: Shortness of Breath/Dyspnea Stated Complaint: SOB Time Seen by Provider: 11/05/21 10:54 Source: patient Mode of arrival: ambulatory Limitations: no limitations History of Present Illness HPI Narrative: Patient is 41 years old -[place] female presents with shortness of breath on exertion for weeks/months, history of asthma, been coughing over the last 2 days without any sputum production. Patient is fully vaccinated and boosted for Covid infection. Currently patient on albuterol inhaler, nebulizer, Singulair and Advair discus Related Data Home Medications Medication Instructions Recorded Confirmed albuterol sulfate [ProAir HFA] 1 puff INHALATION TID PRN 12/20/19 02/17/21 fluticasone propion-salmeterol 1 puff INHALATION Q12H 12/20/19 02/17/21 lisinopril 20 mg PO DAILY 12/20/19 02/17/21 metformin 750 mg PO BID 12/20/19 02/17/21 venlafaxine [Effexor XR] 150 mg PO DAILY 12/20/19 02/17/21 Januvia 50 mg PO HS 02/17/21 02/17/21 aripiprazole [Abilify] 2 mg PO DAILY 02/17/21 02/17/21 ascorbic acid (vitamin C) 1,000 mg PO DAILY 02/17/21 02/17/21 atorvastatin [Lipitor] 40 mg PO HS 02/17/21 02/17/21 calcium carbonate-vitamin D3 600 tablet PO BID 02/17/21 02/17/21 ezetimibe 10 mg BYMOUTH DAILY 02/17/21 02/17/21 multivitamin [Daily-Trevin] 1 tablet PO DAILY 02/17/21 02/17/21 pantoprazole 40 mg PO HS 02/17/21 02/17/21 Allergies Allergy/AdvReac Type Severity Reaction Status Date / Time acetaminophen [From Vicodin] Allergy Unknown Unknown Verified 09/09/21 09:56 hydrocodone [From Vicodin] Allergy Unknown Unknown Verified 09/09/21 09:56 sulfamethoxazole Allergy Unknown Unknown Verified 09/09/21 09:56 [From Bactrim] trimethoprim [From Bactrim] Allergy Unknown Unknown Verified 09/09/21 09:56 Review of Systems Review of Systems: CONSTITUTIONAL: Denies fever, chills, or sweats. EYES: Denies visual changes, redness, or discharge. ENT: Denies rhinorrhea, congestion, sore throat, or otalgia. CARDIOVASCULAR: Denies chest pain, palpitations, or edema. RESPIRATORY: Denies cough or dyspnea. GASTROINTESTINAL: Denies abdominal pain, nausea, vomiting, or diarrhea. GENITOURINARY: Denies dysuria or hematuria. SKIN: Denies rash or itching. MUSCULOSKELETAL: Denies back pain, joint pain, or myalgia. NEUROLOGIC: Denies headache, numbness, or weakness. PSYCHIATRIC: Denies anxiety or depression. [facility] Past Medical History Medical History (Updated 11/05/21 @ 13:04 by Levi Momin MD) Anemia Asthma Diabetes HLD (hyperlipidemia) HTN (hypertension) Pulmonary embolism Surgical History Surgical History H/O: Family History Family History Mother Venous thrombosis Cervical cancer Cerebrovascular accident Breast cancer Asthma Social History Social History Smoking status: Never smoker Alcohol intake: never Substance use: never Substance use type: does not use Gender identity (if verbalized by the patient): Female Spiritual care concerns: No Agree to blood products: Yes Exam Narrative: General appearance: Well-developed, well-nourished Skin: Normal color Head: Normocephalic, nontraumatic Eyes: Clear conjunctiva ENT: Oropharynx normal, ears normal, nose normal Neck: Supple, nontender Chest and respiratory: Airway patent, no respiratory distress, no accessory muscle use Heart: Regular rate/rhythm Abdomen: Soft, nontender, no organomegaly, quiet bowel sounds Vascular: Normal peripheral pulses, normal capillary refill. Musculoskeletal: Normal range of motion, nontender back Neurologic: Alert and oriented ?3, FREIGHT HANDLER is normal as tested, no gross motor deficit
--- NOTE | 2021-11-05 11:59 | PC.NURSE ---
Clarified with Dr Momin, no need to protocol aspirin at this time.
[2021-11-05] MEDS: predniSONE 20 MG TABLET 60 MG PO (12:02)
[2021-11-05 12:16] LABS: Modified Allen's Test Pass; Site Drawn RIGHT RADIAL
[2021-11-05 12:17] LABS: Device ROOM AIR
[2021-11-05 13:05] LABS: Troponin I < 0.012 ng/mL (0.000-0.034)
== END 2021-11-05 14:23 | disposition home or self-care (01) ==
PROVIDERS: Emergency Provider Emergency Medicine; PCP Nurse Practitioner
DX: J45.901 Unspecified asthma with (acute) exacerbation (principal); E11.9 Type 2 diabetes mellitus without complications; R78.5 Finding of other psychotropic drug in blood; I10 Essential (primary) hypertension; Z86.711 Personal history of pulmonary embolism; Z79.84 Long term (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 oral hypoglycemic drugs; D64.9 Anemia, unspecified; R94.31 Abnormal electrocardiogram [ECG] [EKG]
CPT/HCPCS: 36415; 36600; 71046; 80053; 82805; 83690; 84484; 85025; 85610; 85730; 93005; 94640; 99284; J7512

== ENCOUNTER 2021-11-16 12:06 | Emergency (ER) | payer OTHER, SELFPAY ==
[2021-11-16] VITALS (8 sets, daily range): BP systolic 124–153; BP diastolic 06–108; PULSE 100–129; RESP 14–26; TEMP 36.8; O2SAT 97–100
--- NOTE | ~2021-11-16 | CT_ITS ---
EXAMINATION: CTA chest PE protocol DATE: 11/16/2021 18:01 INDICATION: Shortness of breath TECHNIQUE: Computed tomography angiography (CTA) of the chest was performed with 100 mL Omnipaque-350 intravenous contrast timed to evaluate the pulmonary arteries. Coronal maximum intensity projection 3D-reconstructions were created by the technologist. The dose-length product (DLP) was 909.05 mGy-cm. Automated exposure control and iterative reconstruction technique were employed. COMPARISON: None. FINDINGS: Respiratory motion artifact slightly limits the examination. There is mild atelectasis. The pulmonary arteries are moderately well-opacified. No pulmonary embolus is identified. No pathologica lly enlarged thoracic lymph nodes are identified. The heart size is normal. There is mild thoracic sp ondylosis. IMPRESSION: 1. No pulmonary embolus identified, sensitivity limited by motion artifact. Reviewed, dictated and finalized at location F. NNAISSANCE CREWMEMBER
--- NOTE | 2021-11-16 13:56 | ECG_ITS ---
Measurements Intervals [place] Rate: 107 P: 37 TN: 116 QRS: -28 QRSD: 84 T: 64 QT: 325 QTc: 435 Interpretive Statements SINUS TACHYCARDIA WITH SHORT [place] INTERVAL DELAYED PRECORDIAL R/S TRANSITION BASELINE ARTIFACT- I, II, III, AVL ABNORMAL ECG Electronically Signed On 11-16-2021 15:39:31 BUILDING SERVICES ENGINEER by Flo Pineda D.O.
[2021-11-16 14:21] LABS: Basophils Absolute Auto 0.1 K/mm3 (0.0-0.1); Basophils Percent Auto 0.6 % (0.2-1.2); Eosinophils Absolute Auto 0.1 K/mm3 (0-0.3); Eosinophils Percent Auto 1.1 % (0-4.4); Hematocrit 37.6 % (37.0-47.0); Hemoglobin 11.7 g/dL (12.0-15.0); Immature Granulocyte Absolute 0.04 K/mm3 (0.00-0.031); Immature Granulocyte Percent A 0.3 % (0-0.5); Lymphocytes Absolute Auto 3.12 K/mm3 (0.9-3.2); Lymphocytes Percent Auto 25.3 % (18.3-44.2); Mean Corpuscular HGB Conc 31.1 g/dl (32-36); Mean Corpuscular Volume 80.3 fl (80-100); Mean Platelet Volume 8.7 fl (7.4-10.4); Monocytes Absolute Auto 0.7 K/mm3 (0.1-0.6); Monocytes Percent Auto 5.4 % (2.6-8.5); Neutrophils Absolute Auto 8.3 K/mm3 (1.3-6.7); Neutrophils Percent Auto 67.3 % (45.5-73.1); Platelet Count Result 414 k/mm3 (150-375); Red Blood Count 4.68 M/mm3 (4.2-5.4); Red Cell Distribution Width 17.5 % (11.5-14.5); White Blood Count 12.3 K/mm3 (4.5-10.0)
[2021-11-16 14:30] LABS: Alanine Aminotransferase 19 U/L (4-35); Albumin Level 4.2 g/dL (3.5-5.1); Alkaline Phosphatase 132 U/L (38-126); Anion Gap 10 mmol/L (8-16); Aspartate Amino Transferase 20 U/L (14-36); Bilirubin,Total 0.4 mg/dL (0.2-1.3); Blood Urea Nitrogen 6 mg/dL (7-17); Calcium 10.1 mg/dL (8.4-10.2); Carbon Dioxide 25 mmol/L (22-30); Chloride 104 mmol/L (98-107); Estimated CRCL calculation 103 ml/min; Estimated Glomerular Filt Rate > 60; Glucose 133 mg/dL (65-110); Potassium 3.9 mmol/L (3.4-5.0); Sodium 139 mmol/L (137-145)
[2021-11-16 14:42] LABS: NT Pro B Type Natriuretic Pept 21 pg/mL (5-100); Troponin I < 0.012 ng/mL (0.000-0.034)
[2021-11-16] MEDS: lisinopriL 20 MG TABLET PO (15:45)
[2021-11-16 15:54] LABS: D Dimer 0.56 ug/mL (<0.48)
--- NOTE | 2021-11-16 16:35 | ED.DIZZY ---
HPI - Dizziness General Chief Complaint: Dizziness Stated Complaint: DIZZINESS Time Seen by Provider: 11/16/21 13:50 Source: patient Mode of arrival: ambulatory Limitations: no limitations History of Present Illness HPI Narrative: 41-year-old with a history of hypertension, diabetes here with complaints of dizziness since last night. Patient states that she feels dizzy she went on a car ride came back home slept woke up again with the same feeling. She denies having any chest pain, shortness of breath. No history of nausea or vomiting or abdominal pain. Denies any blood in the stool. She is also states that she checked her blood sugar and it was about 150 MD elicited complaint: dizziness and lightheadedness Onset (ago): day(s) (1) Timing: sudden onset Severity: mild Description: lightheadedness Exacerbating factors: nothing Relieving factors: nothing Associated symptoms: denies other symptoms Related Data Home Medications Medication Instructions Recorded Confirmed albuterol sulfate [ProAir HFA] 1 puff INHALATION TID PRN 12/20/19 02/17/21 fluticasone propion-salmeterol 1 puff INHALATION Q12H 12/20/19 02/17/21 lisinopril 20 mg PO DAILY 12/20/19 02/17/21 metformin 750 mg PO BID 12/20/19 02/17/21 venlafaxine [Effexor XR] 150 mg PO DAILY 12/20/19 02/17/21 Januvia 50 mg PO HS 02/17/21 02/17/21 aripiprazole [Abilify] 2 mg PO DAILY 02/17/21 02/17/21 ascorbic acid (vitamin C) 1,000 mg PO DAILY 02/17/21 02/17/21 atorvastatin [Lipitor] 40 mg PO HS 02/17/21 02/17/21 calcium carbonate-vitamin D3 600 tablet PO BID 02/17/21 02/17/21 ezetimibe 10 mg BYMOUTH DAILY 02/17/21 02/17/21 multivitamin [Daily-Trevin] 1 tablet PO DAILY 02/17/21 02/17/21 pantoprazole 40 mg PO HS 02/17/21 02/17/21 Allergies Allergy/AdvReac Type Severity Reaction Status Date / Time acetaminophen [From Vicodin] Allergy Unknown Unknown Verified 11/16/21 13:44 hydrocodone [From Vicodin] Allergy Unknown Unknown Verified 11/16/21 13:44 sulfamethoxazole Allergy Unknown Unknown Verified 11/16/21 13:44 [From Bactrim] trimethoprim [From Bactrim] Allergy Unknown Unknown Verified 11/16/21 13:44 Review of Systems Review of Systems: All systems reviewed & are unremarkable except as noted in HPI and below Constitutional: Constitutional: Reports no additional constitutional complaints Eyes: Eyes: Reports no additional eye complaints ENT: Reports system reviewed and no additional complaints, except as documented Cardiovascular: Cardiovascular: Reports no additional cardiovascular complaints Respiratory: Respiratory: Reports no additional respiratory complaints Gastrointestinal: Gastrointestinal: Reports no additional gastrointestinal complaints Musculoskeletal: Musculoskeletal: Reports no additional musculoskeletal complaints Integumentary/Breasts: Skin/Breast: Reports system reviewed and no additional complaints, except as docu Neurologic: Reports system reviewed and no additional complaints, except as documented Psychiatric: Psychiatric: Reports no additional psychiatric complaints Hematologic/Lymphatic: Hematologic/Lymphatic: Reports no additional hematologic/lymphatic complaints PMFSH Past Medical History Medical History Anemia Asthma Diabetes HLD (hyperlipidemia) HTN (hypertension) Pulmonary embolism Surgical History Surgical History H/O: Family History Family History Mother Venous thrombosis Cervical cancer Cerebrovascular accident Breast cancer Asthma Social History Social History Smoking status: Never smoker Alcohol intake: never Substance use: never Substance use type: does not use Gender identity (if verbalized by the patient): Female Spiritual care concerns: No Agree to blood products: Yes Exam
== END 2021-11-16 19:10 | disposition home or self-care (01) ==
PROVIDERS: Emergency Provider Family Medicine; PCP Nurse Practitioner
DX: R42 Dizziness and giddiness (principal); I10 Essential (primary) hypertension; E11.9 Type 2 diabetes mellitus without complications; J45.909 Unspecified asthma, uncomplicated; E78.5 Hyperlipidemia, unspecified; D64.9 Anemia, unspecified; Z86.711 Personal history of pulmonary embolism; Z79.84 Long term (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 oral hypoglycemic drugs; R00.0 Tachycardia, unspecified
CPT/HCPCS: 36415; 71275; 80053; 81025; 83880; 84484; 85025; 85380; 93005; 99284; A9270; Q9967

== ENCOUNTER 2021-12-26 11:44 | Outpatient (CLI) | payer OTHER, SELFPAY ==
--- NOTE | ~2021-12-26 | CT_ITS ---
EXAMINATION:CT diagnostic chest wo con DATE: 12/26/2021 12:07 INDICATION: Restrictive lung disease. TECHNIQUE: Computed tomography (CT) of the chest was performed without intravenous contrast. Automate d exposure control and iterative reconstruction technique were employed. The dose-length product (DLP ) was 931.78 mGy-cm. COMPARISON: Chest CT 11/16/2021 FINDINGS: The lungs demonstrate mild atelectasis. No bronchiectasis or honeycombing. No pleural effus ion. The heart size is normal. No pericardial effusion. There is mild thoracic spondylosis. IMPRESSION: 1. No evidence of chronic interstitial lung disease. Reviewed, dictated and finalized at location E. CUSTODIAN
== END 2021-12-26 11:45 | disposition home or self-care (01) ==
LOC: ANHIMG 11:49
PROVIDERS: PCP Nurse Practitioner; Visit Provider Nurse Practitioner
DX: R94.2 Abnormal results of pulmonary function studies (principal)
CPT/HCPCS: 71250

== ENCOUNTER 2022-03-23 16:24 | Emergency (ER) | payer OTHER, SELFPAY ==
[2022-03-23 16:56] VITALS: BP 149/97; PULSE 115; RESP 20; TEMP 36.2; O2SAT 98
--- NOTE | 2022-03-23 17:04 | PC.NURSE ---
Pt has decided to go to urgent care.
== END 2022-03-23 17:03 | disposition left against medical advice (07) ==
LOC: ANHED 17:07
PROVIDERS: PCP Nurse Practitioner
DX: Z53.21 Procedure and treatment not carried out due to patient leaving prior to being seen by health care provider (principal)
CPT/HCPCS: 99199

== ENCOUNTER 2022-11-24 15:48 | Emergency (ER) | payer OTHER, SELFPAY ==
[2022-11-24] VITALS (9 sets, daily range): BP systolic 115–153; BP diastolic 71–87; PULSE 80–107; RESP 20–24; TEMP 36.6; O2SAT 97–100
--- NOTE | ~2022-11-24 | CT_ITS ---
EXAMINATION: CTA chest PE abdomen pel DATE: 11/24/2022 21:20 PROFESSIONAL SKATEBOARDER INDICATION: Pleuritic chest pain. History of PE. TECHNIQUE: Computed tomographic angiography (CTA) of the chest, abdomen, and pelvis was performed wit hout and with 100 mL Omnipaque-350 intravenous contrast. The dose-length product was 4195.15 mGy-cm. Maximum intensity projection 3D-reconstructions of the aorta and other arteries were constructed by brandon khan technologist on a separate workstation. COMPARISON: CT dated 8 12/26/2021. FINDINGS: CHEST CTA: Study is extremely limited due to contrast bolus timing and quantum mottle artifact due to patient marcus dy habitus. No large central pulmonary embolism is seen. No significant pleural or pericardial effusi on. There is cardiomegaly. No thoracic lymphadenopathy. No endobronchial lesions. There is lower lobe atelectasis. No thoracic lymphadenopathy. No evidence for aortic aneurysm. ABDOMEN AND PELVIS CTA: No aortic aneurysm. Heart size is normal. No significant pleural or pericardial effusion. The liver, spleen, pancreas, adrenal glands and kidneys are unremarkable. Normal appendix. Gallbladder is presen t. Nonobstructive bowel pattern. There is mild stranding adjacent to the sigmoid colon in the pelvis. Cannot exclude mild diverticulitis. No free air or free fluid. No abnormal pelvic masses or fluid co llections. There is moderate lower thoracic spondylosis. IMPRESSION: 1. No large central pulmonary embolism. Limited evaluation of peripheral pulmonary arteries due to co ntrast bolus timing and artifact due to patient body habitus. 2: Mild stranding in the perisigmoid fat of the pelvis. Cannot exclude mild diverticulitis. Reviewed, dictated and finalized at location A. ESSIONAL SKATEBOARDER IMPRESSION: 1. No large central pulmonary embolism. Limited evaluation of peripheral pulmon [place] arteries due to contrast bolus timing and artifact due to patient body habi tus. 2: Mild stranding in the perisigmoid fat of the pelvis. Cannot exclude mild div erticulitis.
--- NOTE | ~2022-11-24 | XR_ITS ---
EXAMINATION: XR chest 2V 11/24/2022 16:58 INDICATION: Right lateral chest pain and shortness of breath PROCEDURE: 2 view chest COMPARISON: 11/05/2021 FINDINGS: The lungs are clear. The cardiomediastinal silhouette is within normal limits. There are no pleural effusions. There is no pneumothorax suspected. IMPRESSION: 1: NO ACUTE CARDIOPULMONARY DISEASE. Reviewed, dictated and finalized at location A. HEALTH COORDINATOR
--- NOTE | 2022-11-24 15:49 | ECG_ITS ---
Measurements Intervals [place] Rate: 99 P: 59 [place]: 127 QRS: -16 QRSD: 87 T: 57 QT: 345 QTc: 445 Interpretive Statements SINUS RHYTHM BORDERLINE R WAVE PROGRESSION, ANTERIOR LEADS BORDERLINE ECG COMPARED TO ECG 11/16/2021 15:12:46 SINUS RHYTHM NOW PRESENT Electronically Signed On 11-24-2022 16:05:10 ELECTRIC TRANSFER OPERATOR by Flo Pineda D.O.
[2022-11-24 16:09] LABS: Basophils Percent Auto 0.2 % (0.2-1.2); Hematocrit 34.9 % (37.0-47.0); Hemoglobin 10.6 g/dL (12.0-15.0); Immature Granulocyte Absolute 0.05 K/mm3 (0.00-0.031); Immature Granulocyte Percent A 0.4 % (0-0.5); Lymphocytes Absolute Auto 3.07 K/mm3 (0.9-3.2); Lymphocytes Percent Auto 27.2 % (18.3-44.2); Mean Corpuscular HGB Conc 30.4 g/dl (32-36); Mean Corpuscular Hemoglobin 24.1 pg (26-34); Mean Corpuscular Volume 79.5 fl (80-100); Mean Platelet Volume 8.6 fl (7.4-10.4); Monocytes Absolute Auto 0.6 K/mm3 (0.1-0.6); Neutrophils Absolute Auto 7.6 K/mm3 (1.3-6.7); Neutrophils Percent Auto 67.2 % (45.5-73.1); Platelet Count Result 485 k/mm3 (150-375); Red Blood Count 4.39 M/mm3 (4.2-5.4); Red Cell Distribution Width 18.2 % (11.5-14.5); White Blood Count 11.3 K/mm3 (4.5-10.0)
[2022-11-24 16:22] LABS: Alanine Aminotransferase 19 U/L (6-35); Albumin Level 4.1 g/dL (3.5-5.1); Alkaline Phosphatase 109 U/L (38-126); Anion Gap 6 mmol/L (8-16); Aspartate Amino Transferase 21 U/L (14-36); Bilirubin,Total 0.3 mg/dL (0.2-1.3); Blood Urea Nitrogen 6 mg/dL (7-17); Calcium 9.3 mg/dL (8.4-10.2); Carbon Dioxide 28 mmol/L (22-30); Chloride 103 mmol/L (98-107); Estimated Glomerular Filt Rate > 60; Glucose 160 mg/dL (65-110); Lipase 68 U/L (23-300); Potassium 3.4 mmol/L (3.4-5.0); Sodium 137 mmol/L (137-145)
[2022-11-24 16:36] LABS: Prothrombin Time 12.7 Seconds (11.1-14.7)
[2022-11-24 16:37] LABS: Troponin I < 0.012 ng/mL (0.000-0.034)
--- NOTE | 2022-11-24 19:34 | ED.CHESTPAIN ---
HPI - Chest Pain General Chief Complaint: Chest Pain Stated Complaint: R. sided chest pain, sob Time Seen by Provider: 11/24/22 18:55 History of Present Illness HPI narrative: Patient is a 42-year-old female with a history of hypertension, diabetes, hyperlipidemia presenting with right-sided chest pain. Patient states that for the last several days she has had pain on the right side of her chest that radiates to her right upper quadrant and into her back. States it is worse with deep breathing. States that she had an episode of nausea as well as diarrhea earlier today. She denies left-sided chest pain. Reports mild dyspnea. States that she had a pulmonary embolism several years ago and she is no longer on blood thinners. Denies recent fevers or chills, headache, lightheadedness, numbness or weakness, vomiting, dysuria, leg swelling. No recent travel or hormone use. Related Data Home Medications Medication Instructions Recorded Confirmed albuterol sulfate 90 mcg/actuation 1 puff inhalation TID PRN 12/20/19 02/17/21 aerosol inhaler (ProAir HFA) Shortness Of Breath fluticasone 113 mcg-salmeterol 14 1 puff inhalation Q12H 12/20/19 02/17/21 mcg/actuation breath activated powdr lisinopril 10 mg tablet 20 mg PO DAILY 12/20/19 02/17/21 metformin 1,000 mg tablet 750 mg PO BID 12/20/19 02/17/21 venlafaxine 150 mg 150 mg PO DAILY 12/20/19 02/17/21 capsule,extended release 24 hr (Effexor XR) aripiprazole 2 mg tablet (Abilify) 2 mg PO DAILY 02/17/21 02/17/21 ascorbic acid (vitamin C) 1,000 mg 1,000 mg PO DAILY 02/17/21 02/17/21 tablet atorvastatin 40 mg tablet (Lipitor) 40 mg PO HS 02/17/21 02/17/21 calcium carbonate 600 mg-vitamin 600 tablet PO BID 02/17/21 02/17/21 D3 10 mcg (400 unit) tablet ezetimibe 10 mg BYMOUTH DAILY 02/17/21 02/17/21 multivitamin (Daily-Trevin tablet) 1 tablet PO DAILY 02/17/21 02/17/21 pantoprazole 40 mg tablet,delayed 40 mg PO HS 02/17/21 02/17/21 release sitagliptin phosphate 50 mg tablet 50 mg PO HS 02/17/21 02/17/21 (Januvia) Allergies Allergy/AdvReac Type Severity Reaction Status Date / Time acetaminophen [From Vicodin] Allergy Unknown Unknown Verified 11/16/21 13:44 hydrocodone [From Vicodin] Allergy Unknown Unknown Verified 11/16/21 13:44 sulfamethoxazole Allergy Unknown Unknown Verified 11/16/21 13:44 [From Bactrim] trimethoprim [From Bactrim] Allergy Unknown Unknown Verified 11/16/21 13:44 Review of Systems Review of Systems: All systems reviewed & are unremarkable except as noted in HPI and below PMFSH Past Medical History Medical History (Updated 11/25/22 @ 00:00 by Refugio Bernal) Anemia Asthma Diabetes HLD (hyperlipidemia) HTN (hypertension) Pulmonary embolism Surgical History Surgical History H/O: Family History Family History Mother Venous thrombosis Cervical cancer Cerebrovascular accident Breast cancer Asthma Social History Social History Smoking status: Never smoker Alcohol intake: never Substance use: never Substance use type: does not use Gender identity (if verbalized by the patient): Female Spiritual care concerns: No Agree to blood products: Yes Exam Narrative: GENERAL: Well-appearing, well-nourished, and in no acute distress. HEAD: Normocephalic, atraumatic. EYES: PERRLA and EOMI. ENT: Nares clear, no rhinorrhea or epistaxis. Mucous membranes moist. NECK: Supple. CHEST: Clear to auscultation. No respiratory distress. HEART: Regular rate and rhythm. No murmur heard. Normal peripheral pulses. ABDOMEN: Soft, tender in right upper quadrant, nondistended, normal active bowel sounds. EXTREMITIES: Normal range of motion. No edema. SKIN: Warm, dry, no rash. NEURO: No focal deficits. Alert and oriented x3. PSYCH: Normal mood and affec
[2022-11-24 19:36] LABS: Troponin I < 0.012 ng/mL (0.000-0.034)
[2022-11-24] MEDS: SODIUM CHLORIDE 0.9% IV 1,000 ML 999 ML IV CONT (20:46)
[2022-11-24 22:19] LABS: Troponin I < 0.012 ng/mL (0.000-0.034)
== END 2022-11-24 22:02 | disposition home or self-care (01) ==
PROVIDERS: Emergency Medicine; Emergency Provider Emergency Medicine; PCP Nurse Practitioner
DX: R07.9 Chest pain, unspecified (principal); R10.9 Unspecified abdominal pain; I10 Essential (primary) hypertension; E11.9 Type 2 diabetes mellitus without complications; E78.5 Hyperlipidemia, unspecified; D64.9 Anemia, unspecified; J45.909 Unspecified asthma, uncomplicated; Z86.711 Personal history of pulmonary embolism; Z79.84 Long term (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 oral hypoglycemic drugs
CPT/HCPCS: 36415; 71046; 71275; 74177; 80053; 81025; 83690; 84484; 85025; 85610; 85730; 93005; 96361; 96365; 99284; J0131; J7030; Q9967

== ENCOUNTER 2022-12-17 18:16 | Emergency (ER) | payer OTHER, SELFPAY ==
--- NOTE | ~2022-12-17 | XR_ITS ---
EXAMINATION: XR hip LT 2V w AP pelvis DATE: 12/17/2022 19:23 INDICATION: Left hip pain. TECHNIQUE: An anteroposterior view of the pelvis and 2 views of left hip were obtained. COMPARISON: None. FINDINGS: There is levocurvature of lumbar spine. No fracture. There is mild osteoarthritis of the hi ps. IMPRESSION: 1. Mild osteoarthritis of the hips. Reviewed, dictated and finalized at location A. ADER OPERATOR
--- NOTE | ~2022-12-17 | XR_ITS ---
EXAMINATION: XR knee LT 3V DATE: 12/17/2022 19:23 INDICATION: Left knee pain. TECHNIQUE: 3 views of left knee were obtained. COMPARISON: None. FINDINGS: Bone alignment is normal. No fracture. There is mild tricompartmental osteoarthritis. No kn ee joint effusion. IMPRESSION: 1. Mild left knee osteoarthritis. Reviewed, dictated and finalized at location A. AL STICKER
[2022-12-17 18:20] VITALS: BP 138/89; PULSE 107; RESP 20; TEMP 36.5; O2SAT 100
--- NOTE | 2022-12-17 19:04 | ED.FALL ---
HPI - Fall General Chief Complaint: Fall Stated Complaint: fall Time Seen by Provider: 12/17/22 18:54 History of Present Illness HPI Narrative: 42-year-old female presenting to the emergency department for evaluation of left hip and left knee pain. Patient states approximately 3 weeks ago she had a fall after went to get off the couch. Patient states that she was wearing slippery socks causing her to fall and injure her left hip. Patient denies striking her head denies loss of consciousness. Patient states that immediately the pain was not significant but over the course of the last few weeks the pain has increased. Patient describes pain that radiates from the left buttock down the right leg and stops at the knee. Patient states this pain is worsened with ambulation and with movement. Patient denies any associated numbness or weakness. Patient denies any loss of bowel or bladder control. Patient states pain is also worsened at sleeping and she is having increased left knee pain when trying to get comfortable at nighttime. Patient reports she has been taking Tylenol for pain control. Patient believes she does not think she is . Patient denies any prior history of back surgery hip or knee surgery. Patient denies any other pain or injury. Patient has not yet had follow-up for this injury. Patient does have history of diabetes high cholesterol and hypertension. Related Data Home Medications Medication Instructions Recorded Confirmed albuterol sulfate 90 mcg/actuation 1 puff inhalation TID PRN 12/20/19 02/17/21 aerosol inhaler (ProAir HFA) Shortness Of Breath fluticasone 113 mcg-salmeterol 14 1 puff inhalation Q12H 12/20/19 02/17/21 mcg/actuation breath activated powdr lisinopril 10 mg tablet 20 mg PO DAILY 12/20/19 02/17/21 metformin 1,000 mg tablet 750 mg PO BID 12/20/19 02/17/21 venlafaxine 150 mg 150 mg PO DAILY 12/20/19 02/17/21 capsule,extended release 24 hr (Effexor XR) aripiprazole 2 mg tablet (Abilify) 2 mg PO DAILY 02/17/21 02/17/21 ascorbic acid (vitamin C) 1,000 mg 1,000 mg PO DAILY 02/17/21 02/17/21 tablet atorvastatin 40 mg tablet (Lipitor) 40 mg PO HS 02/17/21 02/17/21 calcium carbonate 600 mg-vitamin 600 tablet PO BID 02/17/21 02/17/21 D3 10 mcg (400 unit) tablet ezetimibe 10 mg BYMOUTH DAILY 02/17/21 02/17/21 multivitamin (Daily-Trevin tablet) 1 tablet PO DAILY 02/17/21 02/17/21 pantoprazole 40 mg tablet,delayed 40 mg PO HS 02/17/21 02/17/21 release sitagliptin phosphate 50 mg tablet 50 mg PO HS 02/17/21 02/17/21 (Januvia) Allergies Allergy/AdvReac Type Severity Reaction Status Date / Time acetaminophen [From Vicodin] Allergy Unknown Unknown Verified 11/16/21 13:44 hydrocodone [From Vicodin] Allergy Unknown Unknown Verified 11/16/21 13:44 sulfamethoxazole Allergy Unknown Unknown Verified 11/16/21 13:44 [From Bactrim] trimethoprim [From Bactrim] Allergy Unknown Unknown Verified 11/16/21 13:44 Review of Systems Review of Systems: CONSTITUTIONAL: Denies fever, chills, or sweats. EYES: Denies visual changes, redness, or discharge. ENT: Denies rhinorrhea, congestion, sore throat, or otalgia. CARDIOVASCULAR: Denies chest pain, palpitations, or edema. RESPIRATORY: Denies cough or dyspnea. GASTROINTESTINAL: Denies abdominal pain, nausea, vomiting, or diarrhea. GENITOURINARY: Denies dysuria or hematuria. SKIN: Denies rash or itching. MUSCULOSKELETAL: See HPI NEUROLOGIC: Denies headache, numbness, or weakness. [facility] Past Medical History Medical History (Updated 12/17/22 @ 19:29 by Niko Huggins MD) Anemia Asthma Diabetes HLD (hyperlipidemia) HTN (hypertension) Pulmonary embolism Surgical History Surgical History H/O: Family History Family History Mother Venous thrombosis Cervical cancer Cerebrovascular accident Breast cancer Asthma
[2022-12-17] MEDS: CYCLOBENZAPRINE HCL 10 MG TABLET PO (19:36)
[2022-12-17] MEDS: KETOROLAC 30 MG/ML VIAL (*BKC) IM (19:36)
== END 2022-12-17 19:50 | disposition home or self-care (01) ==
PROVIDERS: Emergency Provider Emergency Medicine; PCP Nurse Practitioner
DX: M54.32 Sciatica, left side (principal); M25.552 Pain in left hip; E11.9 Type 2 diabetes mellitus without complications; E78.00 Pure hypercholesterolemia, unspecified; I10 Essential (primary) hypertension; J45.909 Unspecified asthma, uncomplicated; Z86.2 Personal history of diseases of the blood and blood-forming organs and certain disorders involving the immune mechanism; Z86.711 Personal history of pulmonary embolism; Z79.84 Long term (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 oral hypoglycemic drugs; M16.0 Bilateral primary osteoarthritis of hip; M17.12 Unilateral primary osteoarthritis, left knee
CPT/HCPCS: 73502; 73562; 96372; 99284; A9270; J1885

== ENCOUNTER 2022-12-21 09:47 | Emergency (ER) | payer OTHER, SELFPAY ==
[2022-12-21] VITALS (21 sets, daily range): BP systolic 100–153; BP diastolic 59–93; PULSE 83–105; RESP 17–27; TEMP 36.1; O2SAT 93–100
--- NOTE | ~2022-12-21 | XR_ITS ---
EXAMINATION: XR chest 2V DATE: 12/21/2022 10:19 INDICATION: Chest pain and cough TECHNIQUE: PA and lateral views of the chest are obtained. COMPARISON: 11/24/2022 FINDINGS: The lungs are free of acute opacities. No pleural effusion or pneumothorax. The cardiomedia stinal silhouette is normal. There is mild thoracic spondylosis. IMPRESSION: 1. No acute cardiopulmonary abnormality. Reviewed, dictated and finalized at location L. SPORTATION ASSOCIATE
--- NOTE | 2022-12-21 09:50 | ECG_ITS ---
Measurements Intervals [place] Rate: 84 P: 47 [place]: 135 QRS: -5 QRSD: 96 T: 44 QT: 339 QTc: 402 Interpretive Statements SINUS RHYTHM BORDERLINE ECG COMPARED TO ECG 11/24/2022 15:56:26 NO SIGNIFICANT CHANGES Electronically Signed On 12-21-2022 10:11:39 PATENT ENGINEER by Mike Balderas M.D.
[2022-12-21 10:15] LABS: Basophils Percent Auto 0.2 % (0.2-1.2); Hematocrit 35.5 % (37.0-47.0); Hemoglobin 10.9 g/dL (12.0-15.0); Immature Granulocyte Absolute 0.08 K/mm3 (0.00-0.031); Immature Granulocyte Percent A 0.6 % (0-0.5); Lymphocytes Absolute Auto 3.21 K/mm3 (0.9-3.2); Mean Corpuscular HGB Conc 30.7 g/dl (32-36); Mean Corpuscular Volume 78.2 fl (80-100); Monocytes Absolute Auto 1.1 K/mm3 (0.1-0.6); Monocytes Percent Auto 8.7 % (2.6-8.5); Neutrophils Percent Auto 64.5 % (45.5-73.1); Platelet Count Result 435 k/mm3 (150-375); Red Blood Count 4.54 M/mm3 (4.2-5.4); Red Cell Distribution Width 17.8 % (11.5-14.5); White Blood Count 12.4 K/mm3 (4.5-10.0)
[2022-12-21 10:28] LABS: Alanine Aminotransferase 21 U/L (6-35); Albumin Level 4.1 g/dL (3.5-5.1); Alkaline Phosphatase 150 U/L (38-126); Anion Gap 6 mmol/L (8-16); Aspartate Amino Transferase 24 U/L (14-36); Bilirubin,Total 0.3 mg/dL (0.2-1.3); Blood Urea Nitrogen 9 mg/dL (7-17); Calcium 9.1 mg/dL (8.4-10.2); Carbon Dioxide 26 mmol/L (22-30); Chloride 103 mmol/L (98-107); Estimated CRCL calculation 162 ml/min; Estimated Glomerular Filt Rate > 60; Glucose 371 mg/dL (65-110); Potassium 3.4 mmol/L (3.4-5.0); Sodium 135 mmol/L (137-145)
[2022-12-21] MEDS: methylPREDNISolone SOD SUCC 125 MG VIAL IV PUSH (11:28)
[2022-12-21] MEDS: IPRATROPIUM BR 0.02% INH SOLN 0.5 MG/2.5 ML VIAL 1 MG INHALATION (11:33)
[2022-12-21] MEDS: ALBUTEROL SULFATE NEB 2.5 MG/3 ML INH 10 MG INHALATION (11:33)
--- NOTE | 2022-12-21 13:15 | ED.SOB ---
HPI - SOB/Dyspnea General Chief Complaint: Shortness of Breath/Dyspnea Stated Complaint: SOB Time Seen by Provider: 12/21/22 10:27 History of Present Illness HPI Narrative: Patient is a 42-year-old female who presents ER with shortness of breath. Worsening over the last 3 days. Not improving with albuterol at home. Has chest tightness related to her dyspnea which is consistent with an asthma flare. No fevers or chills or sweats. She does have mild cough but is nonproductive. Related Data Home Medications Medication Instructions Recorded Confirmed albuterol sulfate 90 mcg/actuation 1 puff inhalation TID PRN 12/20/19 02/17/21 aerosol inhaler (ProAir HFA) Shortness Of Breath fluticasone 113 mcg-salmeterol 14 1 puff inhalation Q12H 12/20/19 02/17/21 mcg/actuation breath activated powdr lisinopril 10 mg tablet 20 mg PO DAILY 12/20/19 02/17/21 metformin 1,000 mg tablet 750 mg PO BID 12/20/19 02/17/21 venlafaxine 150 mg 150 mg PO DAILY 12/20/19 02/17/21 capsule,extended release 24 hr (Effexor XR) aripiprazole 2 mg tablet (Abilify) 2 mg PO DAILY 02/17/21 02/17/21 ascorbic acid (vitamin C) 1,000 mg 1,000 mg PO DAILY 02/17/21 02/17/21 tablet atorvastatin 40 mg tablet (Lipitor) 40 mg PO HS 02/17/21 02/17/21 calcium carbonate 600 mg-vitamin 600 tablet PO BID 02/17/21 02/17/21 D3 10 mcg (400 unit) tablet ezetimibe 10 mg BYMOUTH DAILY 02/17/21 02/17/21 multivitamin (Daily-Trevin tablet) 1 tablet PO DAILY 02/17/21 02/17/21 pantoprazole 40 mg tablet,delayed 40 mg PO HS 02/17/21 02/17/21 release sitagliptin phosphate 50 mg tablet 50 mg PO HS 02/17/21 02/17/21 (Januvia) Allergies Allergy/AdvReac Type Severity Reaction Status Date / Time acetaminophen [From Vicodin] Allergy Unknown Unknown Verified 12/21/22 10:24 hydrocodone [From Vicodin] Allergy Unknown Unknown Verified 12/21/22 10:24 sulfamethoxazole Allergy Unknown Unknown Verified 12/21/22 10:24 [From Bactrim] trimethoprim [From Bactrim] Allergy Unknown Unknown Verified 12/21/22 10:24 Review of Systems Review of Systems: All systems reviewed & are unremarkable except as noted in HPI and below Constitutional: Constitutional: Denies chills, Denies fatigue and Denies fever(s) ENT: Reports nasal congestion and Denies sore throat Cardiovascular: Cardiovascular: Denies chest pain, Denies rapid heart rate and Denies radiating jaw, neck or arm pain Respiratory: Respiratory: Reports cough (non-productive), Reports dyspnea and Reports wheezing PMFSH Past Medical History Medical History (Updated 12/21/22 @ 13:16 by Jay Henderson MD) Anemia Asthma Diabetes HLD (hyperlipidemia) HTN (hypertension) Pulmonary embolism Surgical History Surgical History H/O: Family History Family History Mother Venous thrombosis Cervical cancer Cerebrovascular accident Breast cancer Asthma Social History Social History Smoking status: Never smoker Alcohol intake: never Substance use: never Substance use type: does not use Gender identity (if verbalized by the patient): Female Spiritual care concerns: No Agree to blood products: Yes Exam Narrative: GENERAL: Well-appearing, well-nourished, and in no acute distress. HEAD: Normocephalic, atraumatic. EYES: PERRL and EOMI. CHEST: Minor expiratory wheezing bilaterally. No respiratory distress. HEART: Regular rate and rhythm. Normal peripheral pulses. ABDOMEN: Soft, nontender, nondistended. EXTREMITIES: Normal range of motion. No edema. SKIN: Warm, dry, no rash. NEURO: Alert and oriented x3. PSYCH: Normal mood and affect. Course Course Emergency Course: Lungs clear after nebulizer treatment. Patient feels markedly improved. No evidence of pneumonia. Patient received IV steroids here. Discharge home with
== END 2022-12-21 13:29 | disposition home or self-care (01) ==
PROVIDERS: Emergency Provider Emergency Medicine; PCP Nurse Practitioner
DX: J45.901 Unspecified asthma with (acute) exacerbation (principal); E11.9 Type 2 diabetes mellitus without complications; E78.5 Hyperlipidemia, unspecified; I10 Essential (primary) hypertension; Z86.73 Personal history of transient ischemic attack (TIA), and cerebral infarction without residual deficits; Z79.84 Long term (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 oral hypoglycemic drugs; R94.31 Abnormal electrocardiogram [ECG] [EKG]
CPT/HCPCS: 36415; 71046; 80053; 85025; 93005; 94640; 96374; 99284; J2930

== ENCOUNTER 2022-12-23 08:45 | Observation (INO) | payer OTHER, SELFPAY ==
[2022-12-23] VITALS (36 sets, daily range): BP systolic 113–148; BP diastolic 72–103; PULSE 78–122; RESP 10–35; TEMP 36.6–37.1; O2SAT 98–100; BMI 54.8
--- NOTE | ~2022-12-23 | XR_ITS ---
EXAMINATION: XR chest 1V portable INDICATION: Cough TECHNIQUE: Portable AP chest at 1154 hours COMPARISON: 12/21/2022 FINDINGS: The lungs are free of acute opacities. No pleural effusion or pneumothorax. The cardiomedia stinal silhouette is normal. The visualized bones and soft tissues are unremarkable. IMPRESSION: 1. No acute cardiopulmonary abnormality. Reviewed, dictated and finalized at location A. ET DIRECTOR
--- NOTE | 2022-12-23 08:57 | ED.ASTHMA ---
HPI - Asthma General Chief Complaint: Asthma Stated Complaint: diff breathing/wheezing Time Seen by Provider: 12/23/22 08:52 History of Present Illness HPI Narrative: Patient presents here with difficulty breathing, she has been having symptoms for the last few days, had come in yesterday and got breathing treatments with improvement, has been taking steroids, but despite the fact that she has been using her own nebulizer inhalers at home they do not seem to be working for her so she came back here. Related Data Home Medications Medication Instructions Recorded Confirmed albuterol sulfate 90 mcg/actuation 1 puff inhalation TID PRN 12/20/19 02/17/21 aerosol inhaler (ProAir HFA) Shortness Of Breath fluticasone 113 mcg-salmeterol 14 1 puff inhalation Q12H 12/20/19 02/17/21 mcg/actuation breath activated powdr lisinopril 10 mg tablet 20 mg PO DAILY 12/20/19 02/17/21 metformin 1,000 mg tablet 750 mg PO BID 12/20/19 02/17/21 venlafaxine 150 mg 150 mg PO DAILY 12/20/19 02/17/21 capsule,extended release 24 hr (Effexor XR) aripiprazole 2 mg tablet (Abilify) 2 mg PO DAILY 02/17/21 02/17/21 ascorbic acid (vitamin C) 1,000 mg 1,000 mg PO DAILY 02/17/21 02/17/21 tablet atorvastatin 40 mg tablet (Lipitor) 40 mg PO HS 02/17/21 02/17/21 calcium carbonate 600 mg-vitamin 600 tablet PO BID 02/17/21 02/17/21 D3 10 mcg (400 unit) tablet ezetimibe 10 mg BYMOUTH DAILY 02/17/21 02/17/21 multivitamin (Daily-Trevin tablet) 1 tablet PO DAILY 02/17/21 02/17/21 pantoprazole 40 mg tablet,delayed 40 mg PO HS 02/17/21 02/17/21 release sitagliptin phosphate 50 mg tablet 50 mg PO HS 02/17/21 02/17/21 (Januvia) Allergies Allergy/AdvReac Type Severity Reaction Status Date / Time acetaminophen [From Vicodin] Allergy Unknown Unknown Verified 12/21/22 10:24 hydrocodone [From Vicodin] Allergy Unknown Unknown Verified 12/21/22 10:24 sulfamethoxazole Allergy Unknown Unknown Verified 12/21/22 10:24 [From Bactrim] trimethoprim [From Bactrim] Allergy Unknown Unknown Verified 12/21/22 10:24 Review of Systems Review of Systems: CONST: No fever. HEENT: No sore throat C/V: No chest pain RESP: Difficulty breathing GI: No nausea or vomiting : No dysuria. M/S: No joint pain. SKIN: No rash. NEURO: [No headache or focal numbness or weakness] PSYCH: [No depression] [facility] Past Medical History Medical History (Updated 12/23/22 @ 12:45 by Bharti Long MD) Anemia Asthma Diabetes HLD (hyperlipidemia) HTN (hypertension) Pulmonary embolism Surgical History Surgical History (Updated 12/23/22 @ 12:40 by Heather Baxter NP) H/O: 3 Hx of foot surgery bone spur removed Family History Family History (Updated 12/23/22 @ 12:42 by Heather Baxter NP) Mother Venous thrombosis Cervical cancer Breast cancer Asthma Grandparent Breast cancer Cerebrovascular accident Social History Social History (Updated 12/23/22 @ 12:41 by Heather Baxter NP) Social History: She lives with her and has 3 children. She is currently unemplyed. Smoking status: Former smoker Alcohol intake: never Substance use: never Substance use type: does not use Gender identity (if verbalized by the patient): Female Spiritual care concerns: No Agree to blood products: Yes Exam Narrative: EXAMINATION OF ORGAN SYSTEMS/BODY AREAS: Constitutional: Vital signs per nursing GENERAL: Some respiratory distress HEAD: Normal with no signs of head trauma. EYES: EOMI, conjunctiva normal ENT: Hearing grossly intact LUNGS: Labored respirations with wheezing HEART: [Regular rate and rhythm] ABD: [Soft], [nontender to palpation] EXT: Normal range of motion SKIN: [No rashes or lesions.] NEURO: [Alert and oriented x 3. No gross focal sensory or strength deficits.] PSYCH: Normal affect Course Vital Signs Vital signs: Vital Signs Temperature 97.9 F 12/23/22 08:52 Pulse Rate 102 H 12/23/22 08:52 Respiratory
[2022-12-23] MEDS: ALBUTEROL SULFATE NEB 2.5 MG/3 ML INH 15 MG INHALATION (09:10)
[2022-12-23] MEDS: IPRATROPIUM BR 0.02% INH SOLN 0.5 MG/2.5 ML VIAL 1 MG INHALATION (09:10)
[2022-12-23] MEDS: predniSONE 20 MG TABLET 40 MG PO (11:18)
[2022-12-23 11:40] LABS: Influenza A QL RT-PCR Negative (Negative); Influenza B QL RT-PCR Negative (Negative); RSV RNA, RT-PCR Negative (Negative); SARS-CoV-2 RNA PCR Negative
[2022-12-23] MEDS: LACTATED RINGERS 1,000 ML 999 ML IV CONT (12:25)
[2022-12-23 12:34] LABS: Basophils Percent Auto 0.1 % (0.2-1.2); Hematocrit 37.6 % (37.0-47.0); Hemoglobin 11.6 g/dL (12.0-15.0); Immature Granulocyte Absolute 0.11 K/mm3 (0.00-0.031); Immature Granulocyte Percent A 0.8 % (0-0.5); Lymphocytes Percent Auto 32.1 % (18.3-44.2); Mean Corpuscular HGB Conc 30.9 g/dl (32-36); Mean Corpuscular Hemoglobin 24.4 pg (26-34); Mean Corpuscular Volume 79.2 fl (80-100); Mean Platelet Volume 9.3 fl (7.4-10.4); Monocytes Percent Auto 6.9 % (2.6-8.5); Neutrophils Absolute Auto 8.6 K/mm3 (1.3-6.7); Neutrophils Percent Auto 60.1 % (45.5-73.1); Platelet Count Result 513 k/mm3 (150-375); Red Blood Count 4.75 M/mm3 (4.2-5.4); Red Cell Distribution Width 17.6 % (11.5-14.5); White Blood Count 14.4 K/mm3 (4.5-10.0)
--- NOTE | 2022-12-23 12:37 | PM.IMHP ---
H&P: HPI History of Present Illness Date/Time: 12/23/22 12:37 Chief Complaint: Wheezing and shortness of breath Narrative: This is a 42-year-old female patient who has a history of asthma since she has been young. She stated she was recently diagnosed by her primary care doctor COPD. The patient stated that she was diagnosed by radiology reports and has not had a PFT. 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 The patient stated that she came here because she was having difficulty breathing she has been having the symptoms over the last few days. She does have a nebulizer and inhalers at home that did not relieve her symptoms. She has been taking steroids at home which has not been helping her. Her white count is 14.4 however she has been on steroids. H&H is 11.6 and 37.6. Her blood sugars 281. She was negative for influenza A/B RSV and COVID. Chest x-ray was read as no acute cardiopulmonary abnormality. Patient was given a nebulizer treatment and p.o. prednisone. She was also given a L of IV fluids. The patient is being admitted to observation status on the date of service of 12/23/2022 Review of Systems Review of Systems: See HPI All systems reviewed & are unremarkable except as noted in HPI and below Constitutional: Constitutional: Reports as per HPI and Reports no additional constitutional complaints Eyes: Eyes: Reports as per HPI and Reports no additional eye complaints ENT: Reports system reviewed and no additional complaints, except as documented and Reports Normal hearing present Cardiovascular: Cardiovascular: Reports no additional cardiovascular complaints Respiratory: Respiratory: Reports no additional respiratory complaints and Reports no additional respiratory complaints Gastrointestinal: Gastrointestinal: Reports as per HPI and Reports no additional gastrointestinal complaints Musculoskeletal: Musculoskeletal: Reports no additional musculoskeletal complaints Integumentary/Breasts: Skin/Breast: Reports system reviewed and no additional complaints, except as docu and Reports as per HPI Neurologic: Reports system reviewed and no additional complaints, except as documented, Reports as per HPI and Reports Normal hearing present Psychiatric: Psychiatric: Reports no additional psychiatric complaints and Reports as per HPI Endocrine: Endocrine: Reports no additional endocrine complaints Hematologic/Lymphatic: Hematologic/Lymphatic: Reports no additional hematologic/lymphatic complaints Allergic/Immunologic: Allergic/Immunologic: Reports no additional allergic/immunologic complaints [facility] Past Medical History Medical History (Updated 12/23/22 @ 15:00 by Heather Baxter NP) Anemia Asthma Diabetes HLD (hyperlipidemia) HTN (hypertension) Pulmonary embolism Surgical History Surgical History (Updated 12/23/22 @ 12:40 by Heather Baxter NP) H/O: 3 Hx of foot surgery bone spur removed Family History Family History (Updated 12/23/22 @ 12:42 by Heather Baxter NP) Mother Venous thrombosis Cervical cancer Breast cancer Asthma Grandparent Breast cancer Cerebrovascular accident Social History Social History (Updated 12/23/22 @ 14:52 by Heather Baxter NP) Social History: She lives with her and has 3 children. She is currently unemplyed. Code status full code Smoking status: Former smoker Alcohol intake: never Substance use: never Substance use type: does not use Lack of Transportation: No Lack of Food: Sometimes True Current Housing: I Have Housing Concerned About Future Housing: No Difficulty Paying Gas/Electric Bills: No Difficulty Paying for Meds: No Currently Unemployed: YES Education: Associate Degree Difficulty w/ Childcare or Family Care: No Gender identity (if verbalized by the patient): Female Spiritual care concerns: No Agree to blood products: Yes Meds Home Medications and Allergies Home Medic
[2022-12-23 13:08] LABS: Anion Gap 5 mmol/L (8-16); Blood Urea Nitrogen 15 mg/dL (7-17); Calcium 8.8 mg/dL (8.4-10.2); Carbon Dioxide 28 mmol/L (22-30); Chloride 101 mmol/L (98-107); Estimated CRCL calculation 163 ml/min; Estimated Glomerular Filt Rate > 60; Glucose 281 mg/dL (65-110); Potassium 3.9 mmol/L (3.4-5.0); Sodium 134 mmol/L (137-145)
--- NOTE | 2022-12-23 13:32 | ADMGEN ---
This patient, Fernanda Mayo, was admitted to 2 Medical Room 249-01. Patient/family oriented to hospital policies and general routines including ID bracelet, bed and alarms, visiting hours, pain management, procedures, bathroom and other care routines, personal items, smoking policy, room service/diet, and visiting hours. Information on how to activate the Rapid Response Team has been discussed. Patient/Family are encouraged to report perceived risks to care and to ask questions if they do not understand what they are told or what they should do.
[2022-12-23] MEDS: ALBUTEROL SULFATE NEB 2.5 MG/3 ML INH INHALATION ×2 (13:49→20:24)
[2022-12-23] MEDS: IPRATROPIUM BR 0.02% INH SOLN 0.5 MG/2.5 ML VIAL INHALATION ×2 (13:49→20:24)
[2022-12-23] MEDS: MAGNESIUM SULF 2 GM/WATER 50ML 2 GM/50 ML BAG IVPB (15:00)
[2022-12-23 15:02] LABS: Glucose Point of Care 286 mg/dl (65-105)
[2022-12-23] MEDS: INSULIN ASPART (*BKC) 100 UNITS/ML SUB-Q ×2 (15:26→17:03)
[2022-12-23] MEDS: methylPREDNISolone SOD SUCC 125 MG VIAL 60 MG IV PUSH ×2 (17:02→23:23)
[2022-12-23 17:07] LABS: Glucose Point of Care 328 mg/dl (65-105)
[2022-12-23] MEDS: IBUPROFEN 400 MG TABLET 800 MG PO (18:23)
[2022-12-23] MEDS: FLUTICASONE/SALMETEROL 115-21 MCG INHALER 1 PUFF 2 PUFF INHALATION (20:28)
[2022-12-23] MEDS: INSULIN ASPART (*BKC) 100 UNITS/ML 6 UNITS SUB-Q (20:49)
[2022-12-23 21:10] LABS: Glucose Point of Care 461 mg/dl (65-105)
[2022-12-24] VITALS (8 sets, daily range): BP systolic 114–145; BP diastolic 80–84; PULSE 78–104; RESP 16–20; TEMP 35.9–36.4; O2SAT 91–98
[2022-12-24] MEDS: methylPREDNISolone SOD SUCC 125 MG VIAL 60 MG IV PUSH ×4 (05:11→23:15)
[2022-12-24 06:24] LABS: Lactic Acid Reflex 1.8 mmol/L (0.7-2.0)
[2022-12-24 06:31] LABS: Alanine Aminotransferase 22 U/L (6-35); Albumin Level 3.8 g/dL (3.5-5.1); Alkaline Phosphatase 106 U/L (38-126); Anion Gap 4 mmol/L (8-16); Aspartate Amino Transferase 15 U/L (14-36); Bilirubin,Total 0.5 mg/dL (0.2-1.3); Blood Urea Nitrogen 15 mg/dL (7-17); Calcium 8.9 mg/dL (8.4-10.2); Carbon Dioxide 29 mmol/L (22-30); Chloride 99 mmol/L (98-107); Estimated CRCL calculation 163 ml/min; Estimated Glomerular Filt Rate > 60; Glucose 367 mg/dL (65-110); Magnesium 1.8 mg/dL (1.6-2.3); Potassium 4.4 mmol/L (3.4-5.0); Sodium 132 mmol/L (137-145)
[2022-12-24 07:06] LABS: Thyroid Stimulating Hormone Reflex 0.127 uIU/mL (0.465-4.68)
[2022-12-24 07:36] LABS: Free T4 Free Thyroxine Reflex 1.01 ng/dL (0.78-2.19)
[2022-12-24 08:34] LABS: Glucose Point of Care 331 mg/dl (65-105)
[2022-12-24 08:35] LABS: Total Triiodothyronine (T3) 0.92 NG/ML (0.97-1.69)
[2022-12-24] MEDS: INSULIN ASPART (*BKC) 100 UNITS/ML SUB-Q ×4 (08:38→17:31)
[2022-12-24] MEDS: ARIPiprazole 2 MG TABLET PO (08:40)
[2022-12-24] MEDS: EZETIMIBE 10 MG TABLET BY MOUTH (08:40)
[2022-12-24] MEDS: MULTIVITAMINS THERAPEUTIC TAB (*BKC) 1 TABLET PO (08:41)
[2022-12-24] MEDS: VENLAFAXINE HCL XR 75 MG CAP.ER.24H 150 MG PO (08:41)
[2022-12-24] MEDS: lisinopriL 20 MG TABLET PO (08:41)
[2022-12-24] MEDS: ENOXAPARIN 40 MG/0.4 ML SYRINGE SUB-Q (08:41)
[2022-12-24] MEDS: FLUTICASONE/SALMETEROL 115-21 MCG INHALER 1 PUFF 2 PUFF INHALATION (08:59)
[2022-12-24] MEDS: IPRATROPIUM BR 0.02% INH SOLN 0.5 MG/2.5 ML VIAL INHALATION ×2 (09:00→14:44)
[2022-12-24] MEDS: ALBUTEROL SULFATE NEB 2.5 MG/3 ML INH INHALATION ×2 (09:00→14:44)
[2022-12-24] MEDS: FERROUS SULFATE 324 MG TABLET PO ×2 (10:02→17:30)
[2022-12-24 11:47] LABS: Glucose Point of Care 408 mg/dl (65-105)
[2022-12-24 12:22] LABS: Hematocrit 37.6 % (37.0-47.0); Hemoglobin 11.4 g/dL (12.0-15.0); Mean Corpuscular HGB Conc 30.3 g/dl (32-36); Mean Corpuscular Hemoglobin 24.4 pg (26-34); Mean Corpuscular Volume 80.5 fl (80-100); Mean Platelet Volume 9.1 fl (7.4-10.4); Platelet Count Result 471 k/mm3 (150-375); Red Blood Count 4.67 M/mm3 (4.2-5.4); Red Cell Distribution Width 17.9 % (11.5-14.5); White Blood Count 12.8 K/mm3 (4.5-10.0)
[2022-12-24 12:33] LABS: Anion Gap 6 mmol/L (8-16); Blood Urea Nitrogen 14 mg/dL (7-17); Carbon Dioxide 26 mmol/L (22-30); Chloride 98 mmol/L (98-107); Estimated CRCL calculation 163 ml/min; Estimated Glomerular Filt Rate > 60; Glucose 403 mg/dL (65-110); Potassium 3.9 mmol/L (3.4-5.0); Sodium 130 mmol/L (137-145)
[2022-12-24 13:21] LABS: Hemoglobin A1C 9.1 % (<5.7)
--- NOTE | 2022-12-24 13:42 | PM.IMPN ---
Progress Note: A&P Assessment and Plan (1) Asthma exacerbation: Code(s): J45.901 - Unspecified asthma with (acute) exacerbation Status: Acute Assessment and Plan: Improving. Continue IV Solu-Medrol, will decrease to q.8 hours. Continue to wean as tolerated. Continue with scheduled nebulizer treatments. No indication for antibiotics at this time. 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 Blood sugars are poorly controlled at this time given steroids. Continue to wean steroids. Continue Accu-Cheks, high-dose sliding scale insulin, and hypoglycemic protocol. Will begin Lantus q.h.s. (weight based for steroid dosing) log scheduled with meals. Continue home Januvia. Metformin on hold. Monitor glucose trends closely and adjust insulin as needed (3) Obstructive sleep apnea: Code(s): G47.33 - Obstructive sleep apnea (adult) (pediatric) Status: Chronic Assessment and Plan: Continue CPAP titrated to home setting (4) HTN (hypertension) with goal to be determined: Code(s): I10 - Essential (primary) hypertension Status: Chronic Assessment and Plan: her blood pressures have been well controlled. Continue home lisinopril (5) Asthma-COPD overlap syndrome: Code(s): J44.9 - Chronic obstructive pulmonary disease, unspecified Status: Acute Assessment and Plan: patient reports history of both asthma and COPD, however reportedly this has not been proven by PFTs. She is established with pulmonology and will need to follow-up as an outpatient for continued monitoring Subjective Date/time seen: 12/24/22 13:42 Interval history: Date of service: 12/24/2022 Fernanda Mayo is a 42-year-old female with history asthma-COPD overlap syndrome, hypertension, hyperlipidemia, anemia, and type 2 diabetes mellitus who is seen in for asthma exacerbation. Patient feels that both her asthma and COPD are flaring up and she can tell the difference based on the wheezing that she has noticed. She states that when she has asthma flares she has a more surface wheezing and was COPD she notices it deeper in her lungs. Regardless, she states that her wheezing has improved today. She denies shortness of breath rest but does have mild dyspnea on exertion. She notes decreased exercise tolerance. She does endorse cough but states this is less frequent today. She has had some clear phlegm production. She denies sinus congestion or rhinorrhea. Denies chest pain. No nausea, vomiting, fever, or chills Review of Systems Review of Systems: All systems reviewed & are unremarkable except as noted in HPI and below Exam Narrative: General: obese, well-appearing 42-year-old female, sitting up in bed , comfortable, NARD Neuro: awake, alert and oriented x4, speech clear, no focal neuro deficits noted HEENMT: normocephalic, atraumatic, EOMI, sclerae anicteric, moist oral mucosa Respiratory: clear to auscultation bilaterally without wheezes, nonlabored breathing Cardio: regular rate, regular rhythm with S1-S2 Abdomen: nondistended, normoactive bowel sounds, soft, nontender to palpation Extremities: no edema, erythema, or tenderness to palpation Skin: no rashes or lesions, warm and dry Psych: appropriate mood and affect, judgment and insight intact Objective Data Vital Signs Vital Signs: Vital Signs - 24 hr 12/23/22 13:52 12/23/22 13:53 12/23/22 14:05 Temperature Pulse Rate 89 Respiratory Rate 20 18 Blood Pressure Pulse Oximetry 98 Oxygen Delivery Room Air 12/23/22 14:02 12/23/22 2
[2022-12-24 14:02] LABS: Glucose Point of Care 458 mg/dl (65-105)
--- NOTE | 2022-12-24 14:05 | PC.NURSE ---
1200 Michelle SEQUEIRA notified of glucose 408.
--- NOTE | 2022-12-24 14:06 | PC.NURSE ---
1400 Michelle SEQUEIRA notified of glucose 458 after novolog given at lunch
[2022-12-24] MEDS: INSULIN ASPART (*BKC) 100 UNITS/ML 10 UNITS SUB-Q ×2 (14:14→17:31)
[2022-12-24 16:43] LABS: Glucose Point of Care 449 mg/dl (65-105)
[2022-12-24 17:26] LABS: Glucose Point of Care 432 mg/dl (65-105)
[2022-12-24] MEDS: INSULIN GLARGINE (*BKC) 100 UNITS/ML 35 UNITS SUB-Q (20:09)
[2022-12-24] MEDS: ATORVASTATIN 40 MG TABLET PO (20:10)
[2022-12-24] MEDS: PANTOPRAZOLE 40 MG TABLET PO (20:10)
[2022-12-24 22:08] LABS: Glucose Point of Care 362 mg/dl (65-105)
[2022-12-25 03:34] VITALS: BP 146/88; PULSE 67; RESP 20; TEMP 36.1; O2SAT 95
[2022-12-25] MEDS: methylPREDNISolone SOD SUCC 125 MG VIAL 60 MG IV PUSH (05:16)
[2022-12-25 05:32] LABS: Hematocrit 33.9 % (37.0-47.0); Hemoglobin 10.7 g/dL (12.0-15.0); Mean Corpuscular HGB Conc 31.6 g/dl (32-36); Mean Corpuscular Hemoglobin 24.5 pg (26-34); Mean Corpuscular Volume 77.6 fl (80-100); Mean Platelet Volume 9.4 fl (7.4-10.4); Platelet Count Result 484 k/mm3 (150-375); Red Blood Count 4.37 M/mm3 (4.2-5.4); Red Cell Distribution Width 17.2 % (11.5-14.5); White Blood Count 14.3 K/mm3 (4.5-10.0)
[2022-12-25 05:49] LABS: Anion Gap 5 mmol/L (8-16); Blood Urea Nitrogen 16 mg/dL (7-17); Calcium 8.8 mg/dL (8.4-10.2); Carbon Dioxide 26 mmol/L (22-30); Chloride 103 mmol/L (98-107); Estimated CRCL calculation 163 ml/min; Estimated Glomerular Filt Rate > 60; Glucose 338 mg/dL (65-110); Sodium 134 mmol/L (137-145)
[2022-12-25] MEDS: IPRATROPIUM BR 0.02% INH SOLN 0.5 MG/2.5 ML VIAL INHALATION ×2 (07:41→13:10)
[2022-12-25] MEDS: ALBUTEROL SULFATE NEB 2.5 MG/3 ML INH INHALATION ×2 (07:41→13:10)
[2022-12-25] MEDS: FLUTICASONE/SALMETEROL 115-21 MCG INHALER 1 PUFF 2 PUFF INHALATION (07:42)
[2022-12-25 07:44] VITALS: PULSE 76; RESP 18; O2SAT 99
[2022-12-25 07:51] VITALS: PULSE 78; RESP 18
[2022-12-25] MEDS: lisinopriL 20 MG TABLET PO (08:50)
[2022-12-25] MEDS: ARIPiprazole 2 MG TABLET PO (08:50)
[2022-12-25] MEDS: EZETIMIBE 10 MG TABLET BY MOUTH (08:50)
[2022-12-25] MEDS: FERROUS SULFATE 324 MG TABLET PO (08:50)
[2022-12-25] MEDS: ENOXAPARIN 40 MG/0.4 ML SYRINGE SUB-Q (08:50)
[2022-12-25] MEDS: MULTIVITAMINS THERAPEUTIC TAB (*BKC) 1 TABLET PO (08:50)
[2022-12-25] MEDS: VENLAFAXINE HCL XR 75 MG CAP.ER.24H 150 MG PO (08:51)
[2022-12-25] MEDS: INSULIN ASPART (*BKC) 100 UNITS/ML 10 UNITS SUB-Q ×2 (08:51→12:13)
[2022-12-25] MEDS: INSULIN ASPART (*BKC) 100 UNITS/ML SUB-Q ×2 (08:52→12:14)
[2022-12-25 08:53] LABS: Glucose Point of Care 320 mg/dl (65-105)
[2022-12-25 12:05] LABS: Glucose Point of Care 321 mg/dl (65-105)
[2022-12-25 13:10] VITALS: PULSE 92; RESP 18
[2022-12-25 13:15] VITALS: PULSE 86; RESP 18
[2022-12-25 13:57] VITALS: BP 136/69; PULSE 107; RESP 24; TEMP 36.5; O2SAT 100
--- NOTE | 2022-12-25 14:03 | PM.DS ---
DS: Admitting Diagnosis Discharge Date 12/25/2022 Admitting Diagnosis asthma exacerbation DS: Discharge Diagnosis Discharge Diagnosis (1) Asthma exacerbation: Code(s): J45.901 - Unspecified asthma with (acute) exacerbation Status: Acute Assessment and Plan: Markedly improved. Received IV Solu-Medrol with resolution of wheezes and was transitioned to PO prednisone which she will continue to complete a 5 day course. Continue home inhalers. Follow up with carbonizer tester. No indication for antibiotics. 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 Blood sugars poorly controlled during admission given steroids. Steroids were weaned and blood sugars controlled with starting lantus and novolog with meals. Patient transitioned to PO prednisone for 3 additional days and anticipate blood sugar improvement. Continue home Januvia, metformin, and victoza. Instructed to monitor blood sugars with meals and at bedtime (3) Obstructive sleep apnea: Code(s): G47.33 - Obstructive sleep apnea (adult) (pediatric) Status: Chronic Assessment and Plan: Continue home CPAP (4) HTN (hypertension) with goal to be determined: Code(s): I10 - Essential (primary) hypertension Status: Chronic Assessment and Plan: Blood pressures well controlled. Continue home lisinopril (5) Asthma-COPD overlap syndrome: Code(s): J44.9 - Chronic obstructive pulmonary disease, unspecified Status: Acute Assessment and Plan: Patient reports history of both asthma and COPD, however reportedly this has not been proven by PFTs. She is established with pulmonology and will need to follow-up as an outpatient for continued monitoring DS: Summary Hospital Course Hospital Course: date of admission: 12/23/2022 date of discharge: 12/25/2022 Fernanda Daysi Mayo? is a 42-year-old female with history asthma-COPD overlap syndrome, hypertension, hyperlipidemia, anemia,? and type 2 diabetes mellitus presented to the emergency department on 12/23/2022 with complaints of worsened shortness of breath and wheezing. She was seen in the ED 2 days prior and started on a course of steroids but did not have improvement. On presentation to the ED, she was mildly tachycardic and tachypneic with additional vital signs stable, White blood cell count 14.4 likely because she had taken 2 days of steroids, additional laboratory workup unremarkable, COVID and influenza negative. She was admitted to the hospitalist service for further evaluation and management. Please see above for further details. She received IV steroids with symptomatic improvement. Steroids were weaned and patient will continue with p.o. prednisone course 50 mg daily for 3 more days. This will complete a 5 day course of steroids. given her poorly controlled diabetes, this was felt to be an adequate duration in order to prevent ongoing hyperglycemia. patient will continue her oral hypoglycemic regimen consisting of metformin, Januvia, and Victoza. Her wheezing had resolved and she was feeling back to her usual state of health and requested discharge home. Given her overall improvement, she was determined to no longer require inpatient care. she was discharged in hemodynamically stable condition on 12/25/2022. Discussed with the patient worrisome signs and symptoms for which to return and she was educated on her medications. She will follow-up with her carbonizer tester as an outpatient in 2 weeks. She was instructed to monitor her blood sugars at home and she will follow-up with her PCP in 1 week for cinthya
== END 2022-12-25 15:09 | disposition home or self-care (01) ==
LOC: ANHED 09:05 → ANH2MED 12:45
PROVIDERS: Nurse Practitioner; Admitting Provider Internal Medicine; Emergency Provider Emergency Medicine; PCP Nurse Practitioner; Visit Provider Physician Assistant
DX: J45.901 Unspecified asthma with (acute) exacerbation (principal); E11.9 Type 2 diabetes mellitus without complications; G47.33 Obstructive sleep apnea (adult) (pediatric); I10 Essential (primary) hypertension; D64.9 Anemia, unspecified; J44.9 Chronic obstructive pulmonary disease, unspecified; E66.9 Obesity, unspecified; Z68.43 Body mass index [BMI] 50.0-59.9, adult; R00.0 Tachycardia, unspecified; R06.82 Tachypnea, not elsewhere classified; E78.5 Hyperlipidemia, unspecified; F32.9 Major depressive disorder, single episode, unspecified; K21.9 Gastro-esophageal reflux disease without esophagitis; D72.829 Elevated white blood cell count, unspecified; Z20.822 Contact with and (suspected) exposure to COVID-19; Z86.711 Personal history of pulmonary embolism; Z79.51 Long term (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 inhaled steroids; Z79.52 Long term (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 systemic steroids; Z79.84 Long term (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 oral hypoglycemic drugs; Z79.899 Other long term (current) drug therapy; Z87.891 Personal history of nicotine dependence
CPT/HCPCS: 36415; 71045; 80048; 80053; 82948; 83036; 83605; 83735; 84439; 84443; 84480; 85025; 85027; 87637; 94640; 96361; 96365; 96372; 96374; 96375; 96376; 99285; A9270; G0378; G0379; J1650; J1815; J2930; J3475; J7120; J7512

== ENCOUNTER 2023-03-16 03:06 | Emergency (ER) | payer OTHER, SELFPAY ==
[2023-03-16] VITALS (18 sets, daily range): BP systolic 125–156; BP diastolic 82–99; PULSE 71–95; RESP 13–26; TEMP 36.4–36.9; O2SAT 97–100
[2023-03-16] MEDS: predniSONE 20 MG TABLET 40 MG PO (03:30)
[2023-03-16] MEDS: IPRATROPIUM BR 0.02% INH SOLN 0.5 MG/2.5 ML VIAL INHALATION (03:42)
[2023-03-16] MEDS: LEVALBUTEROL NEB 1.25 MG/3 ML INHALATION ×2 (03:42→04:59)
--- NOTE | 2023-03-16 04:01 | ED.SOB ---
HPI - SOB/Dyspnea General Chief Complaint: Shortness of Breath/Dyspnea Stated Complaint: asthma Time Seen by Provider: 03/16/23 03:17 History of Present Illness HPI Narrative: This is a 43-year-old female with past history of asthma, diabetes and hypertension who presents the emergency department complaining of wheezing and cough for the past day. She states she has had a cold for the past 2 days and has had wheezing that has not improved despite home inhaler and nebulizer use. She complains of mild chest soreness with cough but no other chest pain. Related Data Home Medications Medication Instructions Recorded Confirmed albuterol sulfate 90 mcg/actuation 1 puff inhalation TID PRN 12/20/19 12/23/22 aerosol inhaler (ProAir HFA) Shortness Of Breath fluticasone 113 mcg-salmeterol 14 1 puff inhalation Q12H 12/20/19 12/23/22 mcg/actuation breath activated powdr lisinopril 10 mg tablet 20 mg PO DAILY 12/20/19 12/23/22 metformin 1,000 mg tablet 750 mg PO BID 12/20/19 12/23/22 venlafaxine 150 mg 150 mg PO DAILY 12/20/19 12/23/22 capsule,extended release 24 hr (Effexor XR) aripiprazole 2 mg tablet (Abilify) 2 mg PO DAILY 02/17/21 12/23/22 atorvastatin 40 mg tablet (Lipitor) 40 mg PO HS 02/17/21 12/23/22 ezetimibe 10 mg BYMOUTH DAILY 02/17/21 12/23/22 multivitamin (Daily-Trevin tablet) 1 tablet PO DAILY 02/17/21 12/23/22 pantoprazole 40 mg tablet,delayed 40 mg PO HS 02/17/21 12/23/22 release sitagliptin phosphate 50 mg tablet 50 mg PO HS 02/17/21 12/23/22 (Januvia) benralizumab 30 mg/mL subcutaneous 30 mg subcut ONCE 12/25/22 12/25/22 syringe (Fasenra) liraglutide 0.6 mg/0.1 mL (18 mg/3 See Rx Instructions .Route .COMPLEX 12/25/22 12/25/22 mL) subcutaneous pen injector (Atlas Poweredtoza 2-Andrea) Allergies Allergy/AdvReac Type Severity Reaction Status Date / Time acetaminophen [From Vicodin] Allergy Unknown Unknown Verified 12/21/22 10:24 hydrocodone [From Vicodin] Allergy Unknown Unknown Verified 12/21/22 10:24 sulfamethoxazole Allergy Unknown Unknown Verified 12/21/22 10:24 [From Bactrim] trimethoprim [From Bactrim] Allergy Unknown Unknown Verified 12/21/22 10:24 Review of Systems Review of Systems: CONSTITUTIONAL: Denies fever, chills, or sweats. ENT: Congestion, rhinorrhea denies sore throat, or otalgia. CARDIOVASCULAR: Denies chest pain, palpitations, or edema. RESPIRATORY: Wheezing and cough denies dyspnea. GASTROINTESTINAL: Denies abdominal pain, nausea, vomiting, or diarrhea. GENITOURINARY: Denies dysuria or hematuria. SKIN: Denies rash or itching. MUSCULOSKELETAL: Denies back pain, joint pain, or myalgia. NEUROLOGIC: Denies headache, numbness, dizziness, or weakness. PSYCHIATRIC: Denies anxiety or depression. [facility] Past Medical History Medical History Anemia Asthma Diabetes HLD (hyperlipidemia) HTN (hypertension) Pulmonary embolism Surgical History Surgical History H/O: 3 Hx of foot surgery bone spur removed Family History Family History Mother Venous thrombosis Cervical cancer Breast cancer Asthma Grandparent Breast cancer Cerebrovascular accident Social History Social History Social History: She lives with her and has 3 children. She is currently unemplyed. Code status full code Smoking status: Former smoker Alcohol intake: never Substance use: never Substance use type: does not use Lack of Transportation: No Lack of Food: Sometimes True Current Housing: I Have Housing Concerned About Future Housing: No Difficulty Paying Gas/Electric Bills: No Difficulty Paying for Meds: No Currently Unemployed: YES Education: Associate Degree Difficulty w/ Childcare or Family Care: No Gender identity (if verb
== END 2023-03-16 05:27 | disposition home or self-care (01) ==
PROVIDERS: Emergency Provider Preventive Medicine Aerospace Medicine; PCP Nurse Practitioner
DX: J45.901 Unspecified asthma with (acute) exacerbation (principal); E11.9 Type 2 diabetes mellitus without complications; I10 Essential (primary) hypertension; E78.5 Hyperlipidemia, unspecified; Z86.711 Personal history of pulmonary embolism; Z86.2 Personal history of diseases of the blood and blood-forming organs and certain disorders involving the immune mechanism; Z87.891 Personal history of nicotine dependence; Z79.85 Long-term (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 injectable non-insulin antidiabetic drugs; Z79.84 Long term (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 oral hypoglycemic drugs
CPT/HCPCS: 94640; 99284; J7512

== ENCOUNTER 2023-10-11 15:01 | Observation (INO) | payer OTHER, SELFPAY ==
[2023-10-11] VITALS (22 sets, daily range): BP systolic 128–148; BP diastolic 73–96; PULSE 72–97; RESP 14–21; TEMP 35.7–36.8; O2SAT 95–98; BMI 49.7
--- NOTE | ~2023-10-11 | CT_ITS ---
EXAMINATION: CT abdomen pelvis w con DATE: 10/11/2023 17:11 INDICATION: Right upper quadrant abdominal pain and tenderness for one week TECHNIQUE: Computed tomography (CT) of the abdomen and pelvis was performed with 100 CC Omnipaque 350 intravenous contrast. Automated exposure control and iterative reconstruction technique were employe d. Exam dose: 1519.54 mGy-cm total exam DLP. COMPARISON: 11/24/2022 CTA chest abdomen pelvis FINDINGS: Minimal discoid atelectasis and/or scarring at the lung bases. No infiltrate or consolidati on at the lung bases. No pericardial or pleural effusion. The liver, gallbladder, bile ducts, spleen, pancreas, pancreatic duct, and adrenal glands and kidneys are unremarkable. The gallbladder is present. No gallbladder wall thickening or pericholecystic fluid collection is det ected. Ultrasound would be more sensitive for detection of cholelithiasis as clinically indicated. No bile duct or pancreatic duct dilatation. No urinary tract calculus or hydroureteronephrosis. The urinary bladder is unremarkable. The uterus measures up to 14 cm height and 5.8 cm anteroposterior dimension. Nonspecific approximately 2.7 cm left ovarian cystic lesion Approximately 3.5 cm right ovarian nonspecific cystic lesion. Normal caliber of the abdominal aorta. No intraperitoneal or retroperitoneal or pelvic mass lesion or adenopathy or ascites. Normal appendix. Mild left colon diverticulosis. No bowel obstruction, bowel wall thickening, pneumat osis or intraperitoneal free air. Diffuse idiopathic skeletal hyperostosis of the thoracic spine. Transitional lumbosacral vertebra. No suspicious osteolytic or osteoblastic lesions are noted. IMPRESSION: Uterine enlargement Bilateral ovarian nonspecific cystic lesions, measuring approximately 3.5 cm the right, 2.7 cm on the left Normal appendix Mild left colon diverticulosis Reviewed, dictated and finalized at [facility]. Reviewed, dictated and finalized at [facility]. SEWER IMPRESSION: Uterine enlargement Bilateral ovarian nonspecific cystic lesions, measuring approximately 3.5 cm th e right, 2.7 cm on the left Normal appendix Mild left colon diverticulosis
--- NOTE | 2023-10-11 16:09 | ED.BACK ---
HPI - Back Pain/Injury General Chief Complaint: Back Pain/Injury Stated Complaint: Back pain Time Seen by Provider: 10/11/23 15:11 History of Present Illness HPI Narrative: Patient is a 43-year-old female with a history of asthma, hyperlipidemia, diabetes, hypertension presenting with right-sided pain. States that she has had a right mid back and flank pain for about the last week. The pain is worsened with movements. She was seen at an outside hospital and started on naproxen and Flexeril which has not helped at all. States that the pain radiates into her right upper quadrant pain she has had decreased appetite as well as nausea. States she is constipated which is not normal for her. Also reports dysuria. No chest pain or shortness of breath. No fevers or chills. No leg swelling. No midline back pain. No numbness or weakness. No difficulty walking. Related Data Home Medications Medication Instructions Recorded Confirmed albuterol sulfate 90 mcg/actuation 2 puff inhalation TID PRN 12/20/19 10/11/23 aerosol inhaler (ProAir HFA) Shortness Of Breath fluticasone 113 mcg-salmeterol 14 1 puff inhalation Q12H 12/20/19 10/11/23 mcg/actuation breath activated powdr metformin 1,000 mg tablet 750 mg PO BID 12/20/19 10/11/23 venlafaxine 150 mg 150 mg PO DAILY 12/20/19 10/11/23 capsule,extended release 24 hr (Effexor XR) aripiprazole 2 mg tablet (Abilify) 2 mg PO DAILY 02/17/21 10/11/23 atorvastatin 40 mg tablet (Lipitor) 40 mg PO DAILY 02/17/21 10/11/23 ezetimibe 10 mg BYMOUTH DAILY 02/17/21 10/11/23 multivitamin (Daily-Trevin tablet) 1 tablet PO DAILY 02/17/21 10/11/23 albuterol sulfate 2.5 mg/3 mL 2.5 mg continuous nebulization 10/11/23 10/11/23 (0.083 %) solution for nebulization Q4-6H PRN Shortness Of Breath Or Wheezing cetirizine 10 mg tablet 10 mg PO DAILY 10/11/23 10/11/23 cholecalciferol (vitamin D3) 25 25 mcg PO DAILY 10/11/23 10/11/23 mcg (1,000 unit) capsule (Vitamin D3) dapagliflozin propanediol 10 mg 10 mg PO DAILY 10/11/23 10/11/23 tablet (Farxiga) diltiazem HCl 360 mg 360 mg PO DAILY 10/11/23 10/11/23 capsule,extended release 24 hr famotidine 40 mg tablet 40 mg PO DAILY 10/11/23 10/11/23 ferrous sulfate 325 mg (65 mg 65 mg PO DAILY 10/11/23 10/11/23 iron) tablet hydrochlorothiazide 12.5 mg capsule 12.5 mg PO DAILY 10/11/23 10/11/23 montelukast 10 mg tablet 10 mg PO HS 10/11/23 10/11/23 semaglutide 7 mg tablet (Rybelsus) 7 mg PO DAILY 10/11/23 10/11/23 tiotropium bromide 18 mcg capsule 18 mcg inhalation DAILY 10/11/23 10/11/23 with inhalation device Allergies Allergy/AdvReac Type Severity Reaction Status Date / Time lisinopril Allergy Severe Difficulty Verified 10/11/23 22:20 Breathing acetaminophen [From Vicodin] Allergy Unknown Unknown Verified 10/11/23 22:20 hydrocodone [From Vicodin] Allergy Unknown Unknown Verified 10/11/23 22:20 sulfamethoxazole Allergy Unknown Unknown Verified 10/11/23 22:20 [From Bactrim] trimethoprim [From Bactrim] Allergy Unknown Unknown Verified 10/11/23 22:20 Review of Systems Review of Systems: All systems reviewed & are unremarkable except as noted in HPI and below PMFSH Past Medical History Medical History Anemia Asthma Diabetes HLD (hyperlipidemia) HTN (hypertension) Pulmonary embolism Surgical History Surgical History H/O: 3 Hx of foot surgery bone spur removed Family History Family History Mother Venous thrombosis Cervical cancer Breast cancer Asthma Grandparent Breast cancer Cerebrovascular accident Social History Social History Social History: She lives with her and has 3 children. She is currently unemplyed. Code status full code Years smoked: 1 Smoking status: Former smoker [place]
[2023-10-11] MEDS: KETOROLAC 30 MG/ML VIAL (*BKC) IV PUSH (16:22)
[2023-10-11] MEDS: SODIUM CHLORIDE 0.9% IV 1,000 ML 999 ML IV CONT (16:22)
[2023-10-11] MEDS: MORPHINE SULFATE (*CRX) 4 MG/ML INJ IV PUSH ×2 (16:23→19:28)
[2023-10-11 16:36] LABS: Basophils Absolute Auto 0.1 K/mm3 (0.0-0.1); Basophils Percent Auto 0.4 % (0.2-1.2); Eosinophils Absolute Auto 0.3 K/mm3 (0-0.3); Eosinophils Percent Auto 2.2 % (0-4.4); Hemoglobin 13.5 g/dL (12.0-15.0); Immature Granulocyte Absolute 0.04 K/mm3 (0.00-0.031); Immature Granulocyte Percent A 0.3 % (0-0.5); Lymphocytes Absolute Auto 3.45 K/mm3 (0.9-3.2); Lymphocytes Percent Auto 29.7 % (18.3-44.2); Mean Corpuscular HGB Conc 30.7 g/dl (32-36); Mean Corpuscular Hemoglobin 25.6 pg (26-34); Mean Corpuscular Volume 83.3 fl (80-100); Mean Platelet Volume 8.9 fl (7.4-10.4); Monocytes Absolute Auto 0.8 K/mm3 (0.1-0.6); Monocytes Percent Auto 6.6 % (2.6-8.5); Neutrophils Absolute Auto 7.1 K/mm3 (1.3-6.7); Neutrophils Percent Auto 60.8 % (45.5-73.1); Platelet Count Result 467 k/mm3 (150-375); Red Blood Count 5.28 M/mm3 (4.2-5.4); Red Cell Distribution Width 17.7 % (11.5-14.5); White Blood Count 11.6 K/mm3 (4.5-10.0)
[2023-10-11 16:42] LABS: Appearance Urine Cloudy (Clear); Bacteria Urine 2+ /hpf; Bilirubin Urine Negative (Negative); Blood Urine Negative (Negative); Color Urine Yellow (Yellow); Glucose Urine UA 3+ mg/dL (Negative); Ketones Urine Negative (Negative); Leukocyte Esterase Ur Negative LEU/UL (Negative); Nitrate Urine Negative (Negative); Non Pathogenic Casts 0-2; Protein Urine Negative (Negative); RBC Urine 0-2 /hpf (0-2); Specific Grav Ur 1.026 (1.001-1.035); Squamous Epithelial Cell Urine Moderate /hpf (Few)
[2023-10-11 16:49] LABS: Add Urine Microscopic? YES
[2023-10-11 16:54] LABS: Alanine Aminotransferase 18 U/L (6-35); Albumin Level 4.5 g/dL (3.5-5.1); Alkaline Phosphatase 152 U/L (38-126); Anion Gap 12 mmol/L (8-16); Aspartate Amino Transferase 20 U/L (14-36); Bilirubin,Total 0.8 mg/dL (0.2-1.3); Blood Urea Nitrogen 6 mg/dL (7-17); Calcium 10.6 mg/dL (8.4-10.2); Carbon Dioxide 31 mmol/L (22-30); Chloride 94 mmol/L (98-107); Estimated CRCL calculation 130 ml/min; Estimated Glomerular Filt Rate > 60; Glucose 114 mg/dL (65-110); Lipase 58 U/L (23-300); Potassium 2.5 mmol/L (3.4-5.0); Sodium 137 mmol/L (137-145)
[2023-10-11] MEDS: POTASSIUM CHLORIDE 20 MEQ ER TABLET 40 MEQ PO (17:16)
[2023-10-11] MEDS: POTASSIUM CHLORIDE INJ 20 MEQ in SODIUM CHLORIDE 0.9% IV 500 ML 130 MEQ IVPB (17:16)
[2023-10-11 20:59] LABS: Anion Gap 13 mmol/L (8-16); Blood Urea Nitrogen 6 mg/dL (7-17); Calcium 9.2 mg/dL (8.4-10.2); Carbon Dioxide 25 mmol/L (22-30); Chloride 99 mmol/L (98-107); Estimated CRCL calculation 150 ml/min; Estimated Glomerular Filt Rate > 60; Glucose 126 mg/dL (65-110); Potassium 2.7 mmol/L (3.4-5.0); Sodium 137 mmol/L (137-145)
--- NOTE | 2023-10-11 21:11 | ECG_ITS ---
Measurements Intervals [place] Rate: 76 P: 32 MS: 144 QRS: -15 QRSD: 99 T: 64 QT: 411 QTc: 462 Interpretive Statements SINUS RHYTHM WITH MARKED SINUS ARRHYTHMIA DELAYED PRECORDIAL R/S TRANSITION BASELINE ARTIFACT- V6 BORDERLINE ECG COMPARED TO ECG 12/21/2022 09:55:43 SINUS ARRHYTHMIA NOW PRESENT Electronically Signed On 10-12-2023 10:29:08 STRIPPING SHOVEL OILER by Flo Pienda D.O.
[2023-10-11] MEDS: POTASSIUM CHLORIDE INJ 40 MEQ in SODIUM CHLORIDE 0.9% IV 500 ML 130 MEQ IVPB (21:39)
--- NOTE | 2023-10-11 22:05 | PC.NURSE ---
being transferred to [facility] with potassium infusing
--- NOTE | 2023-10-11 22:15 | PM.IMHP ---
H&P: HPI History of Present Illness Date/Time: 10/11/23 22:15 Chief Complaint: Patient was brought to the ER for evaluation for evaluation of her right midback pain for the last week Narrative: She is a 43 years old morbidly obese lady with diabetes mellitus and chronic medical issues who is complaining of right mid back pain which radiates to her right upper quadrant abdomen and flank. Pain is worsened with movements. she was seen in an outside hospital and was started on naproxen and Skelaxin without much benefit. Workup was done in our ER including CT scan of the abdomen and pelvis which ruled out any renal calculi. She was found to be hypokalemic at 2.5 hence potassium was supplemented, repeat potassium level was still low at 2.7. Patient says that she has been started on a new diabetic med for the last 2 months which helped her lose 40 lb. she is also complaining of feeling tired and fatigued for the last few days as well. She is being given additional potassium supplementation and placed under observation status for medical management and close monitoring. Review of Systems Review of Systems: she denies any chest pain, palpitations, fever rigor chills, nausea vomiting, dizziness loss of conscious All systems reviewed & are unremarkable except as noted in HPI and below PMFSH Past Medical History Medical History Anemia Asthma Diabetes HLD (hyperlipidemia) HTN (hypertension) Pulmonary embolism Surgical History Surgical History H/O: 3 Hx of foot surgery bone spur removed Family History Family History Mother Venous thrombosis Cervical cancer Breast cancer Asthma Grandparent Breast cancer Cerebrovascular accident Social History Social History Social History: She lives with her and has 3 children. She is currently unemplyed. Code status full code Years smoked: 1 Smoking status: Former smoker Alcohol intake: never Substance use: never Substance use type: does not use Lack of Transportation: No Lack of Food: Never True Current Housing: I Have Housing Concerned About Future Housing: No Difficulty Paying Gas/Electric Bills: No Difficulty Paying for Meds: No Currently Unemployed: No Education: Associate Degree Difficulty w/ Childcare or Family Care: No Gender identity (if verbalized by the patient): Female Spiritual care concerns: No Agree to blood products: Yes Meds Home Medications and Allergies Home Medications Medication Instructions Recorded Confirmed Type albuterol sulfate 90 mcg/actuation 2 puff inhalation TID PRN 12/20/19 10/11/23 History aerosol inhaler (ProAir HFA) Shortness Of Breath fluticasone 113 mcg-salmeterol 14 1 puff inhalation Q12H 12/20/19 10/11/23 History mcg/actuation breath activated powdr metformin 1,000 mg tablet 750 mg PO BID 12/20/19 10/11/23 History venlafaxine 150 mg 150 mg PO DAILY 12/20/19 10/11/23 History capsule,extended release 24 hr (Effexor XR) aripiprazole 2 mg tablet (Abilify) 2 mg PO DAILY 02/17/21 10/11/23 History atorvastatin 40 mg tablet (Lipitor) 40 mg PO DAILY 02/17/21 10/11/23 History ezetimibe 10 mg BYMOUTH DAILY 02/17/21 10/11/23 History multivitamin (Daily-Trevin tablet) 1 tablet PO DAILY 02/17/21 10/11/23 History nebulizer accessories ([facility] Adult #1 ea 08/31/21 10/11/23 Rx Aerosol Mask) albuterol sulfate 2.5 mg/3 mL 2.5 mg continuous nebulization 10/11/23 10/11/23 History (0.083 %) solution for nebulization Q4-6H PRN Shortness Of Breath Or Wheezing cetirizine 10 mg tablet 10 mg PO DAILY 10/11/23 10/11/23 History cholecalciferol (vitamin D3) 25 25 mcg PO DAILY 10/11/23 10/11/23 History mcg (1,000 unit) capsule (Vitamin D3) dapagliflozin propaned
--- NOTE | 2023-10-11 22:17 | ADMGEN ---
This patient, Fernanda Mayo, was admitted to [facility] Surg Room 312-01. Patient/family oriented to hospital policies and general routines including ID bracelet, bed and alarms, visiting hours, pain management, procedures, bathroom and other care routines, personal items, smoking policy, room service/diet, and visiting hours. Information on how to activate the Rapid Response Team has been discussed. Patient/Family are encouraged to report perceived risks to care and to ask questions if they do not understand what they are told or what they should do.
[2023-10-12] VITALS: BP 135/92; PULSE 70; PULSE 79; RESP 20; TEMP 36.2; O2SAT 97
[2023-10-12 04:00] VITALS: PULSE 69
[2023-10-12 05:55] VITALS: BP 120/72; PULSE 87; RESP 18; TEMP 36.4; O2SAT 98
[2023-10-12 06:40] LABS: Basophils Absolute Auto 0.1 K/mm3 (0.0-0.1); Basophils Percent Auto 0.7 % (0.2-1.2); Eosinophils Absolute Auto 0.2 K/mm3 (0-0.3); Eosinophils Percent Auto 2.7 % (0-4.4); Hematocrit 37.1 % (37.0-47.0); Hemoglobin 11.2 g/dL (12.0-15.0); Immature Granulocyte Absolute 0.02 K/mm3 (0.00-0.031); Immature Granulocyte Percent A 0.3 % (0-0.5); Lymphocytes Absolute Auto 2.12 K/mm3 (0.9-3.2); Lymphocytes Percent Auto 28.2 % (18.3-44.2); Mean Corpuscular HGB Conc 30.2 g/dl (32-36); Mean Corpuscular Hemoglobin 25.5 pg (26-34); Mean Corpuscular Volume 84.3 fl (80-100); Mean Platelet Volume 8.7 fl (7.4-10.4); Monocytes Absolute Auto 0.5 K/mm3 (0.1-0.6); Monocytes Percent Auto 6.3 % (2.6-8.5); Neutrophils Absolute Auto 4.7 K/mm3 (1.3-6.7); Neutrophils Percent Auto 61.8 % (45.5-73.1); Platelet Count Result 392 k/mm3 (150-375); Red Cell Distribution Width 17.6 % (11.5-14.5); White Blood Count 7.5 K/mm3 (4.5-10.0)
[2023-10-12 06:52] LABS: Anion Gap 9 mmol/L (8-16); Blood Urea Nitrogen 7 mg/dL (7-17); Carbon Dioxide 27 mmol/L (22-30); Chloride 101 mmol/L (98-107); Estimated CRCL calculation 152 ml/min; Estimated Glomerular Filt Rate > 60; Glucose 97 mg/dL (65-110); Magnesium 1.6 mg/dL (1.6-2.3); Phosphorus 2.8 mg/dL (2.5-4.5); Potassium 3.1 mmol/L (3.4-5.0); Sodium 137 mmol/L (137-145)
[2023-10-12 07:47] LABS: Glucose Point of Care 90 mg/dl (65-105)
[2023-10-12 08:00] VITALS: BP 133/88; PULSE 73; PULSE 79; RESP 14; TEMP 36.1; O2SAT 98
[2023-10-12] MEDS: dilTIAZem HCL CD 180 MG CAP.24HR 360 MG PO (09:17)
[2023-10-12] MEDS: CHOLECALCIFEROL 1,000 UNITS TABLET 1000 UNITS PO (09:17)
[2023-10-12] MEDS: VENLAFAXINE HCL XR 75 MG CAP.ER.24H 150 MG PO (09:18)
[2023-10-12] MEDS: EZETIMIBE 10 MG TABLET BY MOUTH (09:19)
[2023-10-12] MEDS: EMPAGLIFLOZIN 25 MG TABLET PO (09:19)
[2023-10-12] MEDS: MULTIVITAMINS THERAPEUTIC TAB (*BKC) 1 TABLET PO (09:19)
[2023-10-12] MEDS: ARIPiprazole 2 MG TABLET PO (09:19)
[2023-10-12] MEDS: FERROUS SULFATE 325 MG TABLET DR PO (09:19)
[2023-10-12] MEDS: ATORVASTATIN 40 MG TABLET PO (09:19)
[2023-10-12] MEDS: MAGNESIUM SULF 2 GM/WATER 50ML 2 GM/50 ML BAG IVPB (09:23)
[2023-10-12] MEDS: POTASSIUM CHLORIDE 20 MEQ ER TABLET 40 MEQ PO (09:23)
[2023-10-12] MEDS: ENOXAPARIN 30 MG/0.3 ML SYRINGE SUB-Q (09:24)
[2023-10-12] MEDS: FAMOTIDINE 20 MG TABLET 40 MG PO (09:30)
[2023-10-12] MEDS: LORATADINE 10 MG TABLET PO (09:31)
[2023-10-12 09:58] VITALS: O2SAT 96
[2023-10-12] MEDS: UMECLIDINIUM BROMIDE 62.5 MCG ELLIPTA 1 PUFF INHALATION (10:05)
[2023-10-12] MEDS: FLUTICASONE/SALMETEROL 115-21 MCG INHALER 1 PUFF 2 PUFF INHALATION (10:05)
[2023-10-12 11:42] LABS: Glucose Point of Care 136 mg/dl (65-105)
[2023-10-12 12:00] VITALS: BP 131/88; PULSE 86; PULSE 95; RESP 14; TEMP 36.7; O2SAT 98
--- NOTE | 2023-10-12 14:12 | PM.DS ---
DS: Admitting Diagnosis Discharge Date 10/12/23 Admitting Diagnosis Back pain DS: Discharge Diagnosis Discharge Diagnosis (1) Hypokalemia: Code(s): E87.6 - Hypokalemia Status: Acute (2) Flank pain: Code(s): R10.9 - Unspecified abdominal pain Status: Acute (3) Asthma-COPD overlap syndrome: Code(s): J44.9 - Chronic obstructive pulmonary disease, unspecified Status: Acute (4) HLD (hyperlipidemia): Code(s): E78.5 - Hyperlipidemia, unspecified Status: Acute (5) Obstructive sleep apnea: Code(s): G47.33 - Obstructive sleep apnea (adult) (pediatric) Status: Chronic (6) Normocytic anemia: Code(s): D64.9 - Anemia, unspecified Status: Chronic (7) Diabetes: Qualifiers: Diabetes mellitus type: type 2 Diabetes mellitus ferry terminal supervisor insulin use: without alf use Diabetes mellitus complication status: without complication Qualified Code(s): E11.9 - Type 2 diabetes mellitus without complications Code(s): E11.9 - Type 2 diabetes mellitus without complications Status: Chronic (8) Depression: Qualifiers: Depression Type: other depression Qualified Code(s): F32.89 - Other specified depressive episodes Code(s): F32.9 - Major depressive disorder, single episode, unspecified Status: Chronic (9) GERD (gastroesophageal reflux disease): Qualifiers: Esophagitis presence: esophagitis presence not specified Qualified Code(s): K21.9 - Gastro-esophageal reflux disease without esophagitis Code(s): K21.9 - Gastro-esophageal reflux disease without esophagitis Status: Chronic (10) HTN (hypertension) with goal to be determined: Code(s): I10 - Essential (primary) hypertension Status: Chronic DS: Summary Hospital Course Reason for hospitalization: 43yo female with DM, asthma/COPD and obesity here for back pain and found to have hypokalemia. Please see H&P for details. Hospital Course: Patient presents right midback pain. She was seen at an outside hospital and was treated with naproxen and Flexeril but this was unhelpful. No trauma to the area. Pain is not associated with food. She does have some mild right upper quadrant pain on occasion but this is unrelated to the back pain. In the emergency room, she was hemodynamically stable. She was not tachycardic or hypoxic. EKG showed normal sinus rhythm with sinus arrhythmia. CT of the abdomen and pelvis showed minimal discoid atelectasis or scarring in the lung bases hand a nonspecific 2.7 cm left ovarian cystic lesion and a 3.5 cm right ovarian cystic lesion. No acute findings on the CT scan. There was no gallbladder wall thickening or jhoan cholecystic fluid. White count was slightly elevated but normal on repeat. Potassium was 2.5 on admission. Lipase was normal. She is on HCTZ which could be the etiology of her hypokalemia. Potassium was replaced. UA is cloudy with 3+ glucose, 6-10 white cells and 2+ bacteria but she had moderate squamous epithelial cells and negative leukocyte esterase and nitrates. Back pain was palpable at the right lower scapula area and made worse with movement. [place] this was musculoskeletal pain. Reassurance provided and recommended heating pad and gentle stretching. She was made aware of the ovarian cysts and need to follow up with an AUTO GARAGE ATTENDANT. Her potassium was replaced with plans to send her home with potassium. She overall did well and was able to be discharged home on 10/12/23. Follow up with her primary care provider if back pain does not resolve. Status at Discharge Cognitive/behavioral status at discharge: stable Time Spent with Patient Time attestation: Total time spent providing and/or coordinating discharge services: 40 minutes Time spent: Greater than 30 minutes Exam Narrative: AF 97.0 133/88 73 14 96% ra Gen - HILARIO sittig at the side of the bed Chest - CTA bilaterally, nml
== END 2023-10-12 15:35 | disposition home or self-care (01) ==
LOC: ANHED 15:53 → ANH3MEDSUR 10-12 14:34
PROVIDERS: Admitting Provider Family Medicine; Emergency Provider Emergency Medicine; Visit Provider Internal Medicine
DX: E87.6 Hypokalemia (principal); N85.2 Hypertrophy of uterus; N83.201 Unspecified ovarian cyst, right side; N83.202 Unspecified ovarian cyst, left side; J44.9 Chronic obstructive pulmonary disease, unspecified; D64.9 Anemia, unspecified; N39.0 Urinary tract infection, site not specified; B96.20 Unspecified Escherichia coli [E. coli] as the cause of diseases classified elsewhere; R63.0 Anorexia; G47.33 Obstructive sleep apnea (adult) (pediatric); K21.9 Gastro-esophageal reflux disease without esophagitis; F32.89 Other specified depressive episodes; I10 Essential (primary) hypertension; J45.909 Unspecified asthma, uncomplicated; E78.5 Hyperlipidemia, unspecified; E11.9 Type 2 diabetes mellitus without complications; Z68.42 Body mass index [BMI] 45.0-49.9, adult; Z79.51 Long term (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 inhaled steroids; Z79.84 Long term (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 oral hypoglycemic drugs; Z79.899 Other long term (current) drug therapy; Z86.711 Personal history of pulmonary embolism; Z87.891 Personal history of nicotine dependence
CPT/HCPCS: 36415; 74177; 80048; 80053; 81001; 81025; 82948; 83690; 83735; 84100; 85025; 87077; 87086; 87186; 93005; 94640; 96361; 96365; 96366; 96372; 96375; 96376; 99285; A9270; G0378; G0379; J1650; J1885; J2270; J3475; J3480; J7030; J7040; Q9967

== ENCOUNTER 2023-10-16 01:53 | Emergency (ER) | payer OTHER, SELFPAY ==
[2023-10-16] VITALS (8 sets, daily range): BP systolic 99–159; BP diastolic 60–119; PULSE 86–97; RESP 15–22; TEMP 36.8; O2SAT 97–100
--- NOTE | ~2023-10-16 | CT_ITS ---
EXAMINATION: CT abdomen pelvis wo con DATE: 10/16/2023 09:17 INDICATION: Right flank pain TECHNIQUE: Computed tomography (CT) of the abdomen and pelvis was performed without intravenous contr ast. The dose-length product was 1469.29 mGy-cm. Automated exposure control and iterative reconstruct ion technique were employed. COMPARISON: CT dated 10/11/2023. FINDINGS: There is lower lobe atelectasis. Heart size normal. No significant pleural or pericardial e ffusion. No significant vascular abnormality. No lymphadenopathy. 2 cm left adnexal cyst, likely ovar laura. 3.5 cm right adnexal cyst. Mild prominence of the uterus. No renal or ureteral stones. No hydron ephrosis. No significant vascular abnormality. No lymphadenopathy. Gallbladder is present. Nonobstruc tive bowel gas pattern. Normal appendix. No free air or free fluid. There are symmetric osteoarthriti s of the hips. Accentuated lumbar lordosis. Lower thoracic spondylosis. No abnormal pelvic masses or fluid collections. IMPRESSION: 1. Bilateral adnexal cysts, largest on the right measuring 3.5 cm, likely ovarian. Reviewed, dictated and finalized at location [facility]. ESTATE FIRM MANAGER IMPRESSION: 1. Bilateral adnexal cysts, largest on the right measuring 3.5 cm, likely ovari an.
--- NOTE | 2023-10-16 05:55 | PC.NURSE ---
Patient stated she was still in a great deal of pain. Notified EDP Dr. Mckeon
--- NOTE | 2023-10-16 07:59 | ED.BACK ---
HPI - Back Pain/Injury General Chief Complaint: Back Pain/Injury Stated Complaint: right lower back pain Time Seen by Provider: 10/16/23 06:56 History of Present Illness HPI Narrative: 43-year-old female presenting to the emergency department for evaluation of right back and right flank pain. Patient states the pain has been going on for the last few days. Patient does report some associated nausea and vomiting secondary to the pain. Patient denies any falls or injuries. Patient denies any recent heavy lifting. Patient denies any prior history of kidney stones but does report she has had some blood in her urine. Patient denies any associated numbness or weakness. Patient is to try ibuprofen with of significant pain control. Related Data Home Medications Medication Instructions Recorded Confirmed albuterol sulfate 90 mcg/actuation 2 puff inhalation TID PRN 12/20/19 10/11/23 aerosol inhaler (ProAir HFA) Shortness Of Breath fluticasone 113 mcg-salmeterol 14 1 puff inhalation Q12H 12/20/19 10/11/23 mcg/actuation breath activated powdr metformin 1,000 mg tablet 750 mg PO BID 12/20/19 10/11/23 venlafaxine 150 mg 150 mg PO DAILY 12/20/19 10/11/23 capsule,extended release 24 hr (Effexor XR) aripiprazole 2 mg tablet (Abilify) 2 mg PO DAILY 02/17/21 10/11/23 atorvastatin 40 mg tablet (Lipitor) 40 mg PO DAILY 02/17/21 10/11/23 ezetimibe 10 mg BYMOUTH DAILY 02/17/21 10/11/23 multivitamin (Daily-Trevin tablet) 1 tablet PO DAILY 02/17/21 10/11/23 albuterol sulfate 2.5 mg/3 mL 2.5 mg continuous nebulization 10/11/23 10/11/23 (0.083 %) solution for nebulization Q4-6H PRN Shortness Of Breath Or Wheezing cetirizine 10 mg tablet 10 mg PO DAILY 10/11/23 10/11/23 cholecalciferol (vitamin D3) 25 25 mcg PO DAILY 10/11/23 10/11/23 mcg (1,000 unit) capsule (Vitamin D3) dapagliflozin propanediol 10 mg 10 mg PO DAILY 10/11/23 10/11/23 tablet (Farxiga) diltiazem HCl 360 mg 360 mg PO DAILY 10/11/23 10/11/23 capsule,extended release 24 hr famotidine 40 mg tablet 40 mg PO DAILY 10/11/23 10/11/23 ferrous sulfate 325 mg (65 mg 65 mg PO DAILY 10/11/23 10/11/23 iron) tablet hydrochlorothiazide 12.5 mg capsule 12.5 mg PO DAILY 10/11/23 10/11/23 montelukast 10 mg tablet 10 mg PO HS 10/11/23 10/11/23 semaglutide 7 mg tablet (Rybelsus) 7 mg PO DAILY 10/11/23 10/11/23 tiotropium bromide 18 mcg capsule 18 mcg inhalation DAILY 10/11/23 10/11/23 with inhalation device Allergies Allergy/AdvReac Type Severity Reaction Status Date / Time lisinopril Allergy Severe Difficulty Verified 10/11/23 22:20 Breathing acetaminophen [From Vicodin] Allergy Unknown Unknown Verified 10/11/23 22:20 hydrocodone [From Vicodin] Allergy Unknown Unknown Verified 10/11/23 22:20 sulfamethoxazole Allergy Unknown Unknown Verified 10/11/23 22:20 [From Bactrim] trimethoprim [From Bactrim] Allergy Unknown Unknown Verified 10/11/23 22:20 Review of Systems Review of Systems: All systems reviewed & are unremarkable except as noted in HPI and below PMFSH Past Medical History Medical History Anemia Asthma Diabetes HLD (hyperlipidemia) HTN (hypertension) Pulmonary embolism Surgical History Surgical History H/O: 3 Hx of foot surgery bone spur removed Family History Family History Mother Venous thrombosis Cervical cancer Breast cancer Asthma Grandparent Breast cancer Cerebrovascular accident Social History Social History Social History: She lives with her and has 3 children. She is currently unemplyed. Code status full code Years smoked: 1 Smoking status: Former smoker Alcohol intake: never Substance use: never Substance use type: does not use Lack of Transportation: No Lack of Food: Never T
[2023-10-16] MEDS: CYCLOBENZAPRINE HCL 10 MG TABLET PO (08:19)
[2023-10-16] MEDS: fentaNYL CITRATE INJ (*CRX) 100 MCG/2 ML VIAL 50 MCG IM (08:19)
[2023-10-16 08:49] LABS: Appearance Urine Clear (Clear); Bacteria Urine None Seen /hpf; Bilirubin Urine Negative (Negative); Blood Urine 1+ (Negative); Color Urine Yellow (Yellow); Glucose Urine UA 3+ mg/dL (Negative); Ketones Urine Trace mg/dL (Negative); Leukocyte Esterase Ur Negative LEU/UL (Negative); Nitrate Urine Negative (Negative); Non Pathogenic Casts 0-2; Protein Urine Negative (Negative); RBC Urine 0-2 /hpf (0-2); Squamous Epithelial Cell Urine None seen /hpf (Few); WBC Urine 21-50 /hpf
[2023-10-16 08:58] LABS: Specific Grav Ur 1.043 (1.001-1.035)
[2023-10-16 08:59] LABS: Add Urine Microscopic? YES
--- NOTE | 2023-10-17 09:19 | PC.NURSE ---
Spoke to pt regarding her Urine culture and the need for antibiotics to treat urinary tract infection. Dr García gave order for Cipro 500 mg BID for 5 days by mouth. Pt states she visited ED on 10/16 and was started on Macrobid.
== END 2023-10-16 10:23 | disposition home or self-care (01) ==
PROVIDERS: Emergency Provider Emergency Medicine; PCP Nurse Practitioner Family
DX: M54.9 Dorsalgia, unspecified (principal); R31.9 Hematuria, unspecified; D64.9 Anemia, unspecified; J45.909 Unspecified asthma, uncomplicated; E11.9 Type 2 diabetes mellitus without complications; E78.5 Hyperlipidemia, unspecified; I10 Essential (primary) hypertension; Z79.84 Long term (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 oral hypoglycemic drugs
CPT/HCPCS: 74176; 81001; 81025; 87086; 96372; 99284; A9270; J3010

== ENCOUNTER 2023-11-01 16:29 | Emergency (ER) | payer OTHER, SELFPAY ==
[2023-11-01] VITALS (40 sets, daily range): BP systolic 121–147; BP diastolic 55–98; PULSE 71–110; RESP 12–24; TEMP 35.7; O2SAT 93–100
--- NOTE | ~2023-11-01 | CT_ITS ---
EXAMINATION: CTA chest PE protocol DATE: 11/01/2023 18:04 INDICATION: Chest pain. Prior pulmonary embolism. TECHNIQUE: Computed tomography (CT) pulmonary angiogram of the chest was performed with 100 mL Omnipa que-350 intravenous contrast. Additional 3D reconstructions utilizing coronal maximum intensity proje ction (MIP) were performed. Automated exposure control and iterative reconstruction technique were em ployed. The dose-length product was 939.21 mGy-cm. COMPARISON: Multiple . Protocol CT studies dated between 12/16/2019 and 11/24/2022 FINDINGS: Adequate but suboptimal contrast opacification of the pulmonary arteries. There is mild streak artifa ct from dense contrast in the superior vena cava and right atrium. Mild scattered respiratory motion artifact. Together this mildly decreases sensitivity in the smaller subsegmental pulmonary arteries. No pulmonary embolism identified. More conspicuous but otherwise identical pattern of chronic mosaic attenuation throughout both lungs. Likely at least partial expiratory phase of imaging with decreased lung volumes and concave posterior wall of the trachea. No pneumonia, pulmonary edema, pleural effus ion or pneumothorax. Heart size is normal. Thoracic aorta is normal in caliber with no dissection. Un changed enlargement of the central pulmonary arteries consistent with pulmonary arterial hypertension . No pathologically enlarged thoracic lymphadenopathy. Mild thoracic spondylosis. IMPRESSION: 1. No pulmonary embolism or other acute cardiopulmonary disease. 2. Identical pattern but more conspicuous mosaic attenuation throughout both lungs most likely relate d to small airway disease and subsegmental air trapping in a partially expiratory phase of imaging al though given the history of prior pulmonary embolism cannot exclude sequela of chronic thromboembolic disease. Reviewed, dictated and finalized at location [facility]. S SUPERVISOR IMPRESSION: 1. No pulmonary embolism or other acute cardiopulmonary disease. 2. Identical pattern but more conspicuous mosaic attenuation throughout both ericka ngs most likely related to small airway disease and subsegmental air trapping i n a partially expiratory phase of imaging although given the history of prior p ulmonary embolism cannot exclude sequela of chronic thromboembolic disease.
--- NOTE | ~2023-11-01 | XR_ITS ---
EXAMINATION: XR chest 2V DATE: 11/01/2023 17:14 INDICATION: Chest pain. TECHNIQUE: Frontal and lateral views of the chest were obtained. COMPARISON: Chest single view 12/23/2022 FINDINGS: There is no pneumonia, pleural effusion, or pneumothorax. The heart size is normal. IMPRESSION: 1. No acute cardiopulmonary disease. Reviewed, dictated and finalized at location [facility]. S CUTTER
--- NOTE | 2023-11-01 16:31 | ECG_ITS ---
Measurements Intervals [place] Rate: 107 P: 42 IA: 126 QRS: -40 QRSD: 87 T: 55 QT: 341 QTc: 456 Interpretive Statements SINUS TACHYCARDIA MARKED LEFT AXIS DEVIATION QRS AXIS < -30 POOR R-WAVE PROGRESSION ABNORMAL ECG COMPARED TO ECG 10/11/2023 21:26:42 HEART RATE IS INCREASED OTHERWISE NO SIGNIFICANT DIFFERENCE Electronically Signed On 11-02-2023 13:51:38 DAIRY FROZEN MANAGER by Bar Pineda M.D.
[2023-11-01 16:51] LABS: Basophils Absolute Auto 0.1 K/mm3 (0.0-0.1); Basophils Percent Auto 0.6 % (0.2-1.2); Eosinophils Absolute Auto 0.2 K/mm3 (0-0.3); Eosinophils Percent Auto 1.7 % (0-4.4); Hematocrit 42.8 % (37.0-47.0); Hemoglobin 13.2 g/dL (12.0-15.0); Immature Granulocyte Absolute 0.04 K/mm3 (0.00-0.031); Immature Granulocyte Percent A 0.3 % (0-0.5); Lymphocytes Absolute Auto 2.46 K/mm3 (0.9-3.2); Lymphocytes Percent Auto 19.7 % (18.3-44.2); Mean Corpuscular HGB Conc 30.8 g/dl (32-36); Mean Corpuscular Hemoglobin 25.3 pg (26-34); Mean Platelet Volume 8.7 fl (7.4-10.4); Monocytes Absolute Auto 0.6 K/mm3 (0.1-0.6); Monocytes Percent Auto 4.9 % (2.6-8.5); Neutrophils Absolute Auto 9.1 K/mm3 (1.3-6.7); Neutrophils Percent Auto 72.8 % (45.5-73.1); Platelet Count Result 568 k/mm3 (150-375); Red Blood Count 5.22 M/mm3 (4.2-5.4); Red Cell Distribution Width 17.6 % (11.5-14.5); White Blood Count 12.5 K/mm3 (4.5-10.0)
[2023-11-01 17:03] LABS: INR 0.9; Partial Thromboplastin Time 27.5 SECONDS (22.3-36.8); Prothrombin Time 12.6 Seconds (11.1-14.7)
[2023-11-01] MEDS: ASPIRIN 81 MG CHEWABLE TABLET 324 MG PO (17:03)
[2023-11-01 17:04] LABS: Alanine Aminotransferase 18 U/L (6-35); Albumin Level 4.3 g/dL (3.5-5.1); Alkaline Phosphatase 153 U/L (38-126); Anion Gap 9 mmol/L (8-16); Aspartate Amino Transferase 26 U/L (14-36); Bilirubin,Total 0.6 mg/dL (0.2-1.3); Blood Urea Nitrogen 7 mg/dL (7-17); Calcium 9.8 mg/dL (8.4-10.2); Carbon Dioxide 28 mmol/L (22-30); Chloride 100 mmol/L (98-107); Estimated CRCL calculation 151 ml/min; Estimated Glomerular Filt Rate > 60; Glucose 107 mg/dL (65-110); Lipase 62 U/L (23-300); Sodium 137 mmol/L (137-145)
[2023-11-01 17:16] LABS: Troponin I < 0.012 ng/mL (0.000-0.034)
--- NOTE | 2023-11-01 17:46 | ED.CHESTPAIN ---
HPI - Chest Pain General Chief Complaint: Chest Pain Stated Complaint: Chest pain Time Seen by Provider: 11/01/23 17:04 History of Present Illness HPI narrative: 43-year-old female with a history of hypertension, diabetes, GERD, hyperlipidemia, PE reports for evaluation for substernal chest pain that radiates to her back x1 hour. Patient states the chest pain started while she was laying down and is associated with nausea, vomiting and lightheadedness. She endorses dyspnea which is unchanged from her baseline and believes it is secondary to her asthma. Patient describes the pain as aching and throbbing . She notes she had a unprovoked PE in 2019 him with anticoagulated but has not been anticoagulated for a few years. She denies lower extremity edema or calf pain, recent injury or trauma. She does note that she was hospitalized approximately 1 month ago for hypokalemia and hypomagnesemia. She is currently taking potassium and magnesium supplements by her PCP. She denies loss of consciousness, cough, fever, abdominal pain, diarrhea. Denies aggravating or alleviating factors. Her grandmother has a history of cardiac disease, otherwise denies other personal or family cardiac disease. States she has been taking her medications as prescribed. Her Blood glucose has been well controlled at home. The patient endorses a history of similar chest pain is currently being worked up outpatient by her retail stock clerk, Dr. Sears. she is scheduled for a stress test and echo in November 16, 2023. Related Data Home Medications Medication Instructions Recorded Confirmed albuterol sulfate 90 mcg/actuation 2 puff inhalation TID PRN 12/20/19 10/11/23 aerosol inhaler (ProAir HFA) Shortness Of Breath fluticasone 113 mcg-salmeterol 14 1 puff inhalation Q12H 12/20/19 10/11/23 mcg/actuation breath activated powdr metformin 1,000 mg tablet 750 mg PO BID 12/20/19 10/11/23 venlafaxine 150 mg 150 mg PO DAILY 12/20/19 10/11/23 capsule,extended release 24 hr (Effexor XR) aripiprazole 2 mg tablet (Abilify) 2 mg PO DAILY 02/17/21 10/11/23 atorvastatin 40 mg tablet (Lipitor) 40 mg PO DAILY 02/17/21 10/11/23 ezetimibe 10 mg BYMOUTH DAILY 02/17/21 10/11/23 multivitamin (Daily-Trevin tablet) 1 tablet PO DAILY 02/17/21 10/11/23 albuterol sulfate 2.5 mg/3 mL 2.5 mg continuous nebulization 10/11/23 10/11/23 (0.083 %) solution for nebulization Q4-6H PRN Shortness Of Breath Or Wheezing cetirizine 10 mg tablet 10 mg PO DAILY 10/11/23 10/11/23 cholecalciferol (vitamin D3) 25 25 mcg PO DAILY 10/11/23 10/11/23 mcg (1,000 unit) capsule (Vitamin D3) dapagliflozin propanediol 10 mg 10 mg PO DAILY 10/11/23 10/11/23 tablet (Farxiga) diltiazem HCl 360 mg 360 mg PO DAILY 10/11/23 10/11/23 capsule,extended release 24 hr famotidine 40 mg tablet 40 mg PO DAILY 10/11/23 10/11/23 ferrous sulfate 325 mg (65 mg 65 mg PO DAILY 10/11/23 10/11/23 iron) tablet hydrochlorothiazide 12.5 mg capsule 12.5 mg PO DAILY 10/11/23 10/11/23 montelukast 10 mg tablet 10 mg PO HS 10/11/23 10/11/23 semaglutide 7 mg tablet (Rybelsus) 7 mg PO DAILY 10/11/23 10/11/23 tiotropium bromide 18 mcg capsule 18 mcg inhalation DAILY 10/11/23 10/11/23 with inhalation device Allergies Allergy/AdvReac Type Severity Reaction Status Date / Time lisinopril Allergy Severe Difficulty Verified 11/01/23 17:02 Breathing acetaminophen [From Vicodin] Allergy Unknown Unknown Verified 11/01/23 17:02 hydrocodone [From Vicodin] Allergy Unknown Unknown Verified 11/01/23 17:02 sulfamethoxazole Allergy Unknown Unknown Verified 11/01/23 17:02 [From Bactrim] trimethoprim [From Bactrim] Allergy Unknown Unknown Verified 11/01/23 17:02 Review of Systems Review of Systems: CONSTITUTIONAL: Denies fever, chills, or sweats. EYES: Denies visual changes, redness, or discharge. ENT: Denies rhinorrhea, congestion, sore throat, or otalgia. CARDIOVASCULAR: see HPI RESPIRATORY: see HPI GASTROINTESTINAL:
[2023-11-01] MEDS: POTASSIUM CHLORIDE 20 MEQ PACKET (FOR LIQUID) 40 MEQ PO (18:12)
[2023-11-01] MEDS: ONDANSETRON INJ 4 MG/2 ML VIAL IV PUSH (18:12)
[2023-11-01] MEDS: SODIUM CHLORIDE 0.9% IV 1,000 ML 999 ML IV CONT (18:12)
[2023-11-01 18:21] LABS: Magnesium 1.3 mg/dL (1.6-2.3)
[2023-11-01 18:31] LABS: NT Pro B Type Natriuretic Pept < 20 pg/mL (19.9-100)
[2023-11-01] MEDS: MAGNESIUM SULF 2 GM/WATER 50ML 2 GM/50 ML BAG IVPB (18:54)
--- NOTE | 2023-11-01 20:14 | ECG_ITS ---
Measurements Intervals [place] Rate: 84 P: 45 MI: 145 QRS: -34 QRSD: 98 T: 70 QT: 392 QTc: 465 Interpretive Statements SINUS RHYTHM MARKED LEFT AXIS DEVIATION [QRS AXIS < -30] POOR R-WAVE PROGRESSION ABNORMAL ECG COMPARED TO ECG 11/01/2023 16:36:51 NO SIGNIFICANT DIFFERENCE Electronically Signed On 11-02-2023 13:59:02 PRODUCTION FINISHER by Bar Pineda M.D.
[2023-11-01 20:52] LABS: Troponin I < 0.012 ng/mL (0.000-0.034)
== END 2023-11-01 22:00 | disposition home or self-care (01) ==
PROVIDERS: Student in an Organized Health Care Education/Training Program; Emergency Provider Physician Assistant; PCP Nurse Practitioner Family
DX: R07.89 Other chest pain (principal); E87.6 Hypokalemia; E83.42 Hypomagnesemia; I10 Essential (primary) hypertension; E11.9 Type 2 diabetes mellitus without complications; E78.5 Hyperlipidemia, unspecified; K21.9 Gastro-esophageal reflux disease without esophagitis; Z86.711 Personal history of pulmonary embolism; J45.909 Unspecified asthma, uncomplicated; Z86.2 Personal history of diseases of the blood and blood-forming organs and certain disorders involving the immune mechanism; Z79.84 Long term (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 oral hypoglycemic drugs; Z87.891 Personal history of nicotine dependence; R00.0 Tachycardia, unspecified; R94.31 Abnormal electrocardiogram [ECG] [EKG]
CPT/HCPCS: 36415; 71046; 71275; 80053; 83690; 83735; 83880; 84484; 85025; 85610; 85730; 93005; 96361; 96365; 96375; 99284; A9270; J2405; J3475; J7030; Q9967

== ENCOUNTER 2023-12-06 11:04 | Outpatient (CLI) | payer OTHER, SELFPAY ==
[2023-12-06 11:29] LABS: Basophils Absolute Auto 0.1 K/mm3 (0.0-0.1); Basophils Percent Auto 0.6 % (0.2-1.2); Eosinophils Absolute Auto 0.1 K/mm3 (0-0.3); Hematocrit 44.6 % (37.0-47.0); Hemoglobin 14.1 g/dL (12.0-15.0); Immature Granulocyte Absolute 0.03 K/mm3 (0.00-0.031); Immature Granulocyte Percent A 0.3 % (0-0.5); Lymphocytes Percent Auto 31.7 % (18.3-44.2); Mean Corpuscular HGB Conc 31.6 g/dl (32-36); Mean Corpuscular Hemoglobin 25.8 pg (26-34); Mean Corpuscular Volume 81.7 fl (80-100); Mean Platelet Volume 8.4 fl (7.4-10.4); Monocytes Absolute Auto 0.6 K/mm3 (0.1-0.6); Monocytes Percent Auto 5.8 % (2.6-8.5); Neutrophils Absolute Auto 6.1 K/mm3 (1.3-6.7); Neutrophils Percent Auto 60.6 % (45.5-73.1); Platelet Count Result 501 k/mm3 (150-375); Red Blood Count 5.46 M/mm3 (4.2-5.4); Red Cell Distribution Width 16.2 % (11.5-14.5); White Blood Count 10.1 K/mm3 (4.5-10.0)
[2023-12-06 13:48] LABS: Iron 33 ug/dL (37-170)
[2023-12-06 13:50] LABS: D Dimer 0.37 ug/mL (<0.48)
[2023-12-06 13:54] LABS: Alanine Aminotransferase 20 U/L (6-35); Albumin Level 4.3 g/dL (3.5-5.1); Alkaline Phosphatase 137 U/L (38-126); Anion Gap 9 mmol/L (8-16); Aspartate Amino Transferase 21 U/L (14-36); Bilirubin,Total 0.7 mg/dL (0.2-1.3); Blood Urea Nitrogen 7 mg/dL (7-17); CRP 0.5 mg/dL (<1.0); Carbon Dioxide 31 mmol/L (22-30); Chloride 99 mmol/L (98-107); Estimated Glomerular Filt Rate > 60; Glucose 102 mg/dL (65-110); Potassium 2.9 mmol/L (3.4-5.0); Sodium 139 mmol/L (137-145)
[2023-12-06 14:04] LABS: Percent Iron Saturation 9 % (20-50)
[2023-12-06 14:10] LABS: Erythrocyte Sedimentation Rate 15 mm/hr (0-20)
[2023-12-06 17:39] LABS: Folic Acid 9.7 ng/mL (2.76->20)
[2023-12-10 20:23] LABS: Homocysteine 11.9 umol/L (<10.4)
[2023-12-12 09:45] LABS: Hematocrit 45.5 % (35.0-45.0); Hemoglobin 14.4 g/dL (11.7-15.5); MCH 26.1 pg (27.0-33.0); MCV 82.4 fL (80.0-100.0); RDW 15.7 % (11.0-15.0); Red Blood Cell Count 5.52 Mill/uL (3.80-5.10)
== END 2023-12-06 11:05 | disposition home or self-care (01) ==
LOC: ANHLAB 11:06
PROVIDERS: Nurse Practitioner Family; PCP Nurse Practitioner Family; Visit Provider Internal Medicine Hematology & Oncology
DX: D75.838 Other thrombocytosis (principal); Z86.711 Personal history of pulmonary embolism; D50.9 Iron deficiency anemia, unspecified
CPT/HCPCS: 36415; 80053; 82607; 82728; 82746; 83021; 83090; 83540; 83550; 85025; 85380; 85652; 86140

== ENCOUNTER 2023-12-12 03:59 | Day surgery (SDC) | payer OTHER, SELFPAY ==
[2023-12-04 14:45] VITALS: BMI 46.6
--- NOTE | 2023-12-04 14:52 | PC.NURSE ---
Report to the Outpatient Waiting Room, entrance under the green pavilion located off [facility], at time 0800 on date 12/12/23. Planned Procedure Time: 1000. Time changes happen often and if your time is changed the preop area will call you the afternoon before. - You and your visitor will be asked to self-screen and do not enter if you have any COVID symptoms. - A mask is optional within the hospital at this time. Patients may have clear liquids (water, carbonated beverages, clear teas, apple juice) until 3 hours prior to surgery with a maximum of 20 ounces. - No food from midnight until time of surgery Take the following medications with a SIP of water the morning of surgery: INHALERS, ABILIFY, DILTIAZEM, EFFEXOR, TRAMADOL IF NEEDED DO NOT STOP ANY OF YOUR OTHER PRESCRIPTION MEDICATIONS PRIOR TO SURGERY ?EXCEPT THE FOLLOWING Medications to discontinue per physician: VITAMINS/SUPPLEMENTS Date to take last dose: 12/08/23 Please no make-up, nail samoan, hairspray, perfume, deodorant, or body powder the day of surgery. No jewelry (including any body piercings) or valuables the day of surgery, leave them at home. Please take a shower or bath the night before, or the morning of, surgery with an antibacterial soap. Wear comfortable, loose fitting clothing. - Jewelry must be removed prior to entering the operating room. Rings and piercings that are not removed may be cut off. - The hospital will not accept responsibility for valuables. - Please leave all valuables, including medications, at home the day of surgery. If you are going home after surgery, a licensed parts delivery driver must drive you home. - NO public transportation without another adult if you receive anesthesia. - We recommend that an adult stay with you for 24 hours following discharge. - We also recommend that you do not drive, make important decision, drink alcoholic beverages, or take any drugs that were not prescribed by your health care provider for at least 24 hours after your discharge time. Follow any additional instructions given to you from your surgeon. If you or anyone in your household have experienced Covid symptoms in the past week, please notify your surgeon or the nurse liaison at the phone number below for possible testing. Telephone instructions given to PT - ANISHA MADRIGAL and asked if any additional questions and then verbalized understanding. Patient advised to call surgeon office or pre surgery nurse liaison [phone] if any additional questions.
--- NOTE | 2023-12-11 09:39 | WPDANESEPPF ---
Anes - Initial Pre Proc Eval Procedure: Operation Date: 12/12/23 10:00 Proposed Procedures p Hysteroscopy with Biopsy of Endometrium and Polypectomy - El Rhodes MD Date/Time: 12/11/23 09:39 Surgeon: El Rhodes MD Pre Op Diagnosis: endometrial polyp Patient Data Age: 43 Gender: F Height: 1.7 m Weight: 135.2 kg Allergies Allergy/AdvReac Type Severity Reaction Status Date / Time lisinopril Allergy Severe Difficulty Verified 12/12/23 08:39 Breathing hydrocodone [From Vicodin] Allergy Unknown Itching Verified 12/12/23 08:39 sulfamethoxazole Allergy Unknown Hives Verified 12/12/23 08:39 [From Bactrim] trimethoprim [From Bactrim] Allergy Unknown Hives Verified 12/12/23 08:39 Home Medications Medication Instructions Recorded Confirmed Type albuterol sulfate 90 mcg/actuation 2 puff inhalation TID PRN 12/20/19 12/04/23 History aerosol inhaler (ProAir HFA) Shortness Of Breath metformin 1,000 mg tablet 750 mg PO BID 12/20/19 12/04/23 History venlafaxine 150 mg 150 mg PO DAILY 12/20/19 12/04/23 History capsule,extended release 24 hr (Effexor XR) aripiprazole 2 mg tablet (Abilify) 2 mg PO DAILY 02/17/21 12/04/23 History atorvastatin 40 mg tablet (Lipitor) 40 mg PO DAILY 02/17/21 12/04/23 History ezetimibe 10 mg PO DAILY 02/17/21 12/04/23 History multivitamin (Daily-Trevin tablet) 1 tablet PO DAILY 02/17/21 12/04/23 History nebulizer accessories (AIRS Adult #1 ea 08/31/21 10/11/23 Rx Aerosol Mask) albuterol sulfate 2.5 mg/3 mL 2.5 mg continuous nebulization 10/11/23 12/04/23 History (0.083 %) solution for nebulization Q4-6H PRN Shortness Of Breath Or Wheezing cetirizine 10 mg tablet 10 mg PO DAILY 10/11/23 12/04/23 History cholecalciferol (vitamin D3) 25 25 mcg PO DAILY 10/11/23 12/04/23 History mcg (1,000 unit) capsule (Vitamin D3) dapagliflozin propanediol 10 mg 10 mg PO DAILY 10/11/23 12/04/23 History tablet (Farxiga) diltiazem HCl 360 mg 360 mg PO DAILY 10/11/23 12/04/23 History capsule,extended release 24 hr famotidine 40 mg tablet 40 mg PO DAILY 10/11/23 12/04/23 History ferrous sulfate 325 mg (65 mg 65 mg PO DAILY 10/11/23 12/04/23 History iron) tablet hydrochlorothiazide 12.5 mg capsule 12.5 mg PO DAILY 10/11/23 12/04/23 History montelukast 10 mg tablet 10 mg PO HS 10/11/23 12/04/23 History semaglutide 7 mg tablet (Rybelsus) 7 mg PO DAILY 10/11/23 12/04/23 History tiotropium bromide 18 mcg capsule 18 mcg inhalation DAILY 10/11/23 12/04/23 History with inhalation device potassium chloride 20 mEq 20 meq PO DAILY #10 tabs 10/12/23 12/04/23 Rx tablet,extended release (K-Tab) cyclobenzaprine 10 mg tablet 10 mg PO BID PRN muscle spasm #14 10/16/23 12/04/23 Rx tabs tramadol 50 mg tablet 50 mg PO Q6H PRN pain #14 tabs 10/16/23 12/04/23 Rx fluticasone 250 mcg-salmeterol 50 1 inh inhalation BID 12/04/23 12/04/23 History mcg/dose blistr powdr for inhalation (Advair Diskus) Patient hx anesthesia problems: none Family hx anesthesia problems: none Results Review: All pre-operative results and documents have been reviewed as part of the pre-operative evaluation. [facility] Past Medical History Medical History (Updated 12/11/23 @ 09:40 by Dontrell Trivedi DO) Anemia Asthma Diabetes GERD (gastroesophageal reflux disease) HLD (hyperlipidemia) HTN (hypertension) Obstructive sleep apnea PTSD (post-traumatic stress disorder) Pulmonary embolism Surgical History Surgical History H/O: 3 Hx of foot surgery bone spur removed Family History Family History Mother Venous thrombosis Cervical cancer Breast cancer Asthma Grandparent Breast cancer Cerebrovascular accident Social History Social History Social History: She lives with her and has 3 c
[2023-12-12] VITALS (9 sets, daily range): BP systolic 129–152; BP diastolic 79–99; PULSE 78–99; RESP 14–20; TEMP 35.8–36.3; O2SAT 94–100
[2023-12-12] MEDS: LACTATED RINGERS 1,000 ML 30 ML IV CONT (08:30)
[2023-12-12] MEDS: ACETAMINOPHEN 500 MG TABLET 1000 MG PO (08:30)
--- NOTE | 2023-12-12 10:27 | WPDHPUPDATE1 ---
History and Physical Update Update Date/Time: 12/12/23 10:27 History and Physical has been reviewed, including an updated exam of the patient. There are NO changes in the patient's condition. Risks, benefits, and alternatives have been discussed and questions answered. Patient agrees to proceed with procedure.
[2023-12-12 10:30] LABS: Glucose Point of Care 92 mg/dl (65-105)
--- NOTE | 2023-12-12 10:33 | PM.IMHP ---
H&P: HPI History of Present Illness Date/Time: 12/12/23 10:33 Chief Complaint: Vaginal bleeding Narrative: 43-year-old female with abnormal uterine bleeding and endometrial polyp. We have agreed to perform hysteroscopic polypectomy and sampling of endometrium. She understands the procedure in detail. It has been explained to her in detail. She understands risk. She understands that injuries may occur that result in hospitalization, more surgery, and severe illness. She understands risk of hemorrhage and infection. She denies any nausea, vomiting, fever, chills. She denies any chest pain shortness of breath. Review of Systems Review of Systems: All systems reviewed & are unremarkable except as noted in HPI and below Constitutional: Constitutional: Denies chills, Denies fatigue, Denies fever(s) and Denies weakness Eyes: Eyes: Denies blurry vision, Denies change in vision, Denies loss of peripheral vision, Denies loss of vision, Denies other visual disturbances and Denies eye pain ENT: Denies vertigo, Denies dizziness, Denies hearing loss, Denies mouth pain, Denies nasal obstruction, Denies neck mass and Denies neck pain Cardiovascular: Cardiovascular: Denies chest pain, Denies diaphoresis, Denies syncope, Denies leg edema and Denies dyspnea Respiratory: Respiratory: Denies chest congestion, Denies cough, Denies hemoptysis, Denies dyspnea and Denies wheezing Gastrointestinal: Gastrointestinal: Denies abdominal pain, Denies constipation, Denies diarrhea, Denies nausea and Denies vomiting Genitourinary: Genitourinary: Denies hematuria, Denies change in libido, Denies nocturia, Denies genital lesions, Denies flank pain and Denies urinary urgency Musculoskeletal: Musculoskeletal: Denies abnormal gait, Denies back pain, Denies myalgias, Denies arthralgias, Denies joint swelling, Denies muscle weakness and Denies neck pain Integumentary/Breasts: Skin/Breast: Denies swelling, Denies breast pain, Denies breast mass, Denies dry skin, Denies nipple discharge, Denies unusual bruising and Denies jaundice Neurologic: Denies Neuro-related abnormal movements, Denies Abnormal speech present, Denies abnormal gait, Denies behavioral changes, Denies confusion, Denies vertigo, Denies dizziness, Denies syncope, Denies loss of vision, Denies memory loss, Denies convulsions and Denies weakness Psychiatric: Psychiatric: Denies abnormal sleep pattern, Denies behavioral changes, Denies change in libido, Denies confusion, Denies depression, Denies anhedonia and Denies memory loss Endocrine: Endocrine: Reports no additional endocrine complaints, Denies change in libido and Denies fatigue Hematologic/Lymphatic: Hematologic/Lymphatic: Reports no additional hematologic/lymphatic complaints Allergic/Immunologic: Allergic/Immunologic: Reports no additional allergic/immunologic complaints and Denies wheezing [facility] Past Medical History Medical History (Updated 12/12/23 @ 10:35 by El Rhodes MD) Anemia Asthma Diabetes GERD (gastroesophageal reflux disease) HLD (hyperlipidemia) HTN (hypertension) Obstructive sleep apnea PTSD (post-traumatic stress disorder) Pulmonary embolism Surgical History Surgical History H/O: 3 Hx of foot surgery bone spur removed Family History Family History Mother Venous thrombosis Cervical cancer Breast cancer Asthma Grandparent Breast cancer Cerebrovascular accident Social History Social History Social History: She lives with her and has 3 children. She is currently unemplyed. Code status full code Smoking packs per day: 0.5 Smoking cigarettes per day: 10.0 Years smoked: 1 Smoking pack-years: 0.50 Smoking status: Former smoker Tobacco type: cigarettes Smoking end date: 11/19/07 Alcohol inta
[2023-12-12] MEDS: LIDOCAINE HCL 1% LOCAL INJ 20 ML VIAL 10 ML INFILTRATE (10:50)
--- NOTE | 2023-12-12 11:08 | P.OP_ITS ---
Procedure Note - Detailed Date of Procedure 12/12/23 Pre-op Diagnosis endometrial polyp Abnormal uterine bleeding Post-op Diagnosis Other (abnormal uterine bleeding, submucous fibroid) Procedure Performed Hysteroscopy D&C Surgeon El Rhodes MD Anesthesia MAC Indications abnormal uterine bleeding, endometrial lesion Findings 2 submucous myomas, mildly thickened endometrium Description of Procedure the patient was taken the operating room. She was prepped and draped in the dorsal lithotomy position after induction of mac anesthesia. A speculum was placed in the vagina. The cervix was grasped with a tenaculum. The cervix was dilated about 1 cm. The hysteroscope was inserted. The intrauterine cavity and endocervix were evaluated. Hysteroscope was withdrawn. A medium-size curette was used to curettage all the surfaces were within the endometrial cavity. the sample was collected on Telfa and sent to pathology. The hysteroscope was reinserted and the above findings were noted. Patient yudy erated the procedure well. The speculum and tenaculum were removed. She was taken recovery room in stable condition. Sponge lap and needle counts were correct x2. Estimated Blood Loss 40 Drains No Packing No Pathology Yes Complications No immediate complications Condition Stable Disposition PACU
[2023-12-12] MEDS: fentaNYL CITRATE INJ (*CRX) 100 MCG/2 ML VIAL 25 MCG IV PUSH ×6 (11:26→11:45)
[2023-12-12 11:33] LABS: Glucose Point of Care 85 mg/dl (65-105)
[2023-12-12] MEDS: KETOROLAC 15 MG/ML VIAL (*BKC) IV PUSH (11:51)
[2023-12-12] MEDS: ONDANSETRON INJ 4 MG/2 ML VIAL IV PUSH (12:21)
[2023-12-12] MEDS: traMADol HCL (*CRX) 50 MG TABLET PO (12:36)
--- NOTE | 2023-12-12 13:28 | SUR.PHASEII ---
1325 PATIENT MEETS ANESTHESIA DISCHARGE CRITERIA. PT DRESSED & WAITING FOR A MED CAR TO COME TAKE HER & HER ADULT DAUGHTER HOME.
== END 2023-12-12 14:05 | disposition home or self-care (01) ==
PROVIDERS: PCP Emergency Medicine; Visit Provider Obstetrics & Gynecology
PROC: 0U5B8ZZ Destruction of Endometrium, Via Natural or Artificial Opening Endoscopic (ICD-10-PCS; CPT 58563; principal; 2023-12-12 10:00)
DX: N84.0 Polyp of corpus uteri (principal); N93.9 Abnormal uterine and vaginal bleeding, unspecified; D25.0 Submucous leiomyoma of uterus; E11.9 Type 2 diabetes mellitus without complications; J45.909 Unspecified asthma, uncomplicated; I10 Essential (primary) hypertension; E78.5 Hyperlipidemia, unspecified; K21.9 Gastro-esophageal reflux disease without esophagitis; G47.33 Obstructive sleep apnea (adult) (pediatric); F43.10 Post-traumatic stress disorder, unspecified; D64.9 Anemia, unspecified; Z86.711 Personal history of pulmonary embolism; Z87.891 Personal history of nicotine dependence; E66.01 Morbid (severe) obesity due to excess calories; Z68.42 Body mass index [BMI] 45.0-49.9, adult; Z79.51 Long term (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 inhaled steroids; Z79.84 Long term (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 oral hypoglycemic drugs
CPT/HCPCS: 58558; 82948; 88305; A9270; J1885; J2250; J2405; J2704; J3010; J7120

== ENCOUNTER 2024-01-25 13:52 | Outpatient (CLI) | payer OTHER, SELFPAY ==
[2024-01-25 14:36] LABS: Potassium 3.4 mmol/L (3.4-5.0)
== END 2024-01-25 13:53 | disposition home or self-care (01) ==
LOC: ANHSURGERY 13:57
PROVIDERS: Anesthesiology; PCP Emergency Medicine; Visit Provider Obstetrics & Gynecology
DX: E87.6 Hypokalemia (principal); N93.9 Abnormal uterine and vaginal bleeding, unspecified; Z01.818 Encounter for other preprocedural examination
CPT/HCPCS: 36415; 84132; 86850; 86900; 86901

== ENCOUNTER 2024-01-30 03:35 | Day surgery (SDC) | payer OTHER, SELFPAY ==
[2024-01-25 08:36] VITALS: BMI 45.7
--- NOTE | 2024-01-25 08:36 | PC.NURSE ---
Report to the Outpatient Waiting Room, entrance under the green pavilion located off [facility], at time 7:00 on date 01/30/24. Planned Procedure Time: 9:00. Time changes happen often and if your time is changed the preop area will call you the afternoon before. - You and your visitor will be asked to self-screen and do not enter if you have any COVID symptoms. - A mask is optional within the hospital at this time. Patients may have clear liquids (water, carbonated beverages, clear teas, apple juice) until 3 hours prior to surgery with a maximum of 20 ounces. - No food from midnight until time of surgery Take the following medications with a SIP of water the morning of surgery: INHALERS, ABILIFY, DILTIAZEM, EFFEXOR DO NOT STOP ANY OF YOUR OTHER PRESCRIPTION MEDICATIONS PRIOR TO SURGERY ?EXCEPT THE FOLLOWING Medications to discontinue per physician: VITAMINS/SUPPLEMENTS Date to take last dose: 01/26/24 Please no make-up, nail hong konger, hairspray, perfume, deodorant, or body powder the day of surgery. No jewelry (including any body piercings) or valuables the day of surgery, leave them at home. Please take a shower or bath the night before, or the morning of, surgery with an antibacterial soap. Wear comfortable, loose fitting clothing. - Jewelry must be removed prior to entering the operating room. Rings and piercings that are not removed may be cut off. - The hospital will not accept responsibility for valuables. - Please leave all valuables, including medications, at home the day of surgery. If you are going home after surgery, a licensed dumpcart driver must drive you home. - NO public transportation without another adult if you receive anesthesia. - We recommend that an adult stay with you for 24 hours following discharge. - We also recommend that you do not drive, make important decision, drink alcoholic beverages, or take any drugs that were not prescribed by your health care provider for at least 24 hours after your discharge time. Follow any additional instructions given to you from your surgeon. If you or anyone in your household have experienced Covid symptoms in the past week, please notify your surgeon or the nurse liaison at the phone number below for possible testing. Telephone instructions given to PT - ANISHA MADRIGAL and asked if any additional questions and then verbalized understanding. Patient advised to call surgeon office or pre surgery nurse liaison [phone] if any additional questions.
[2024-01-30] VITALS (16 sets, daily range): BP systolic 115–140; BP diastolic 84–94; PULSE 76–98; RESP 16–20; TEMP 36.1–36.7; O2SAT 92–100
--- NOTE | 2024-01-30 07:22 | WPDANESEPPF ---
Anes - Initial Pre Proc Eval Procedure: Operation Date: 01/30/24 09:00 Proposed Procedures p Total Laparoscopic Hysterectomy with Bilateral Salpingectomy - El Rhodes MD Date/Time: 01/30/24 07:22 Surgeon: El Rhodes MD Pre Op Diagnosis: menorrhagia Patient Data Age: 43 Gender: F Height: 1.7 m Weight: 132.5 kg Allergies Allergy/AdvReac Type Severity Reaction Status Date / Time lisinopril Allergy Severe Difficulty Verified 01/30/24 08:04 Breathing hydrocodone [From Vicodin] Allergy Unknown Itching Verified 01/30/24 08:04 sulfamethoxazole Allergy Unknown Hives Verified 01/30/24 08:04 [From Bactrim] trimethoprim [From Bactrim] Allergy Unknown Hives Verified 01/30/24 08:04 Home Medications Medication Instructions Recorded Confirmed Type albuterol sulfate 90 mcg/actuation 2 puff inhalation TID PRN 12/20/19 01/30/24 History aerosol inhaler (ProAir HFA) Shortness Of Breath metformin 1,000 mg tablet 750 mg PO BID 12/20/19 01/30/24 History venlafaxine 150 mg 150 mg PO DAILY 12/20/19 01/30/24 History capsule,extended release 24 hr (Effexor XR) aripiprazole 2 mg tablet (Abilify) 2 mg PO DAILY 02/17/21 01/30/24 History atorvastatin 40 mg tablet (Lipitor) 40 mg PO DAILY 02/17/21 01/30/24 History ezetimibe 10 mg PO DAILY 02/17/21 01/30/24 History nebulizer accessories (AIRS Adult #1 ea 08/31/21 01/30/24 Rx Aerosol Mask) albuterol sulfate 2.5 mg/3 mL 2.5 mg continuous nebulization 10/11/23 01/30/24 History (0.083 %) solution for nebulization Q4-6H PRN Shortness Of Breath Or Wheezing cetirizine 10 mg tablet 10 mg PO DAILY 10/11/23 01/30/24 History cholecalciferol (vitamin D3) 25 25 mcg PO DAILY 10/11/23 01/30/24 History mcg (1,000 unit) capsule (Vitamin D3) dapagliflozin propanediol 10 mg 10 mg PO DAILY 10/11/23 01/30/24 History tablet (Farxiga) diltiazem HCl 360 mg 360 mg PO DAILY 10/11/23 01/30/24 History capsule,extended release 24 hr famotidine 40 mg tablet 40 mg PO DAILY 10/11/23 01/30/24 History ferrous sulfate 325 mg (65 mg 65 mg PO DAILY 10/11/23 01/30/24 History iron) tablet hydrochlorothiazide 12.5 mg capsule 12.5 mg PO DAILY 10/11/23 01/30/24 History montelukast 10 mg tablet 10 mg PO HS 10/11/23 01/30/24 History semaglutide 7 mg tablet (Rybelsus) 7 mg PO DAILY 10/11/23 01/30/24 History tiotropium bromide 18 mcg capsule 18 mcg inhalation DAILY 10/11/23 01/30/24 History with inhalation device potassium chloride 20 mEq 20 meq PO DAILY #10 tabs 10/12/23 01/30/24 Rx tablet,extended release (K-Tab) cyclobenzaprine 10 mg tablet 10 mg PO BID PRN muscle spasm #14 10/16/23 01/30/24 Rx tabs fluticasone 250 mcg-salmeterol 50 1 inh inhalation BID 12/04/23 01/30/24 History mcg/dose blistr powdr for inhalation (Advair Diskus) diclofenac sodium 75 mg 75 mg PO BID 01/25/24 01/30/24 History tablet,delayed release Patient hx anesthesia problems: none Family hx anesthesia problems: none Results Review: All pre-operative results and documents have been reviewed as part of the pre-operative evaluation. [facility] Past Medical History Medical History (Updated 12/12/23 @ 10:35 by El Rhodes MD) Anemia Asthma Diabetes GERD (gastroesophageal reflux disease) HLD (hyperlipidemia) HTN (hypertension) Obstructive sleep apnea PTSD (post-traumatic stress disorder) Pulmonary embolism Surgical History Surgical History H/O: 3 Hx of foot surgery bone spur removed Family History Family History Mother Venous thrombosis Cervical cancer Breast cancer Asthma Grandparent Breast cancer Cerebrovascular accident Social History Social History Social History: She lives with her and has 3 children. She is currently unemplyed. Code status full code
[2024-01-30 07:49] LABS: Glucose Point of Care 100 mg/dl (65-105)
[2024-01-30] MEDS: LACTATED RINGERS 1,000 ML 30 ML IV CONT ×2 (07:55→13:13)
[2024-01-30] MEDS: KETOROLAC 15 MG/ML VIAL (*BKC) IV PUSH (07:56)
[2024-01-30] MEDS: ACETAMINOPHEN 500 MG TABLET 1000 MG PO (07:56)
--- NOTE | 2024-01-30 09:11 | WPDHPUPDATE1 ---
History and Physical Update Update Date/Time: 01/30/24 09:11 History and Physical has been reviewed, including an updated exam of the patient. There are NO changes in the patient's condition. Risks, benefits, and alternatives have been discussed and questions answered. Patient agrees to proceed with procedure.
[2024-01-30] MEDS: ceFAZolin 3 GM/D5W 100 ML 100 ML IVPB (09:25)
[2024-01-30] MEDS: ceFAZolin SODIUM 1 GM VIAL IM (10:32)
[2024-01-30] MEDS: METHYLENE BLUE 0.5% INJ 10 ML AMPULE 20 ML IRRIGATION (12:14)
[2024-01-30 13:22] LABS: Glucose Point of Care 149 mg/dl (65-105)
--- NOTE | 2024-01-30 13:24 | W.PM.PROC2 ---
Procedure Note - Detailed Date of Procedure 01/30/24 Pre-op Diagnosis menorrhagia , right ovarian cyst Post-op Diagnosis Same Procedure Performed Total laparoscopic hysterectomy.Bilateral salpingectomy and right oophorectomy. adhesiolysis. 30 minutes of adhesiolysis. Surgeon El Rhodes MD Anesthesia General Findings dense scarring around the parametrium on the left side , 5 cm right ovarian cyst, moderately worrisome in appearance with dark fluid. adhesions between the omentum and the anterior abdominal wall Description of Procedure This patient was taken to the operating room. She was prepped and draped in the dorsal lithotomy position after induction of general anesthesia. The uterine manipulator and Deandra cup were placed. This was done with a speculum and tenaculum. The speculum was placed. The cervix was grasped with a tenaculum. The stay sutures were placed at 3 and 9:00 a.m.. The stay sutures of 0 Vicryl were brought through the appropriately sized Deandra cup. The tip of the KIM manipulator was placed in the intrauterine cavity. The cup was slid into place around the cervix and into the fornices. It was locked into place. The sutures were then wrapped around the handle and tied under tension. A 5 mm skin incision was made in the left upper quadrant the abdomen. A 5 mm trocar was inserted into the intrauterine cavity under direct visualization of the scope. Pneumoperitoneum was achieved. A left lower quadrant 11 mm incision was made with scalpel. An 11 mm trocar was inserted into the anterior abdominal cavity under direct visualization the scope. A 5 mm infraumbilical incision was made with a scalpel and a 5 mm trocar was inserted the intra-abdominal cavity under direct visualization of the scope. Adhesiolysis was performed. 30 minutes of adhesiolysis was completed using LigaSure cautery, blunt dissection add scissors. From the infraumbilical area down to the pubic symphysis. Bilateral ureteral lysis was performed. This was done from the pelvic brim down to the uterine artery. This was done with careful dissection using sharp and blunt dissection. The fallopian tubes were removed bilaterally. The mesosalpinx around the fallopian tubes were cauterized transected with LigaSure cautery. This was done in a bilateral fashion from the ovary to the uterine cornua. The fallopian tube was transected at the uterine cornu and amputated bilaterally. The tube was taken out the left lower quadrant trocar site. In a stepwise fashion along the lateral aspects of the uterus the round ligament and broad ligaments were cauterized transected down to the level of the uterine arteries. A bladder flap was created in the bladder was moved distally to the end of the cervix and over the Deandra cup. The bilateral uterine arteries were cauterized and transected. Colpotomy was then performed. In a circumferential fashion the vagina was transected using unipolar cautery. The incision was made down on the Deandra cup. when the colpotomy was completed, the uterus and cervix were taken out through the vagina. A pneumo occluder was placed in the vagina. Right oophorectomy was performed. The infundibulopelvic ligament of the ovary was cauterized transected with LigaSure cautery. The paraovarian tissue was cauterized transected with LigaSure cautery. Was placed in endobag. The cyst was decompressed with the fluid staying outside the body as the bag was opened to the outside. Suction was used to decompress the cyst. Ovary and cyst tissue was withdrawn. The vaginal cuff was closed with a 0 V lock suture in a running fashion. The pelvis was irrigated with copious amounts antibiotic irrigation. The ureters were again examined and found to be intact and flowing freely under the uterine arteries into the bladder. The bladder was intact. It was examined directly. Cystoscopy was performed after administration of methylene blue. The cystoscope was inserted. Luciana
[2024-01-30] MEDS: fentaNYL CITRATE INJ (*CRX) 100 MCG/2 ML VIAL 25 MCG IV PUSH ×8 (13:46→14:47)
[2024-01-30] MEDS: HYDROmorphone HCL INJ (*CRX) 1 MG/ML SYR 0.5 MG IV PUSH ×2 (14:06→14:17)
--- NOTE | 2024-01-30 15:00 | PC.NURSE ---
This patient, Fernanda Mayo, was received from PACU on 01/30/24 at 1500. Patient/family oriented to unit policies and routines
[2024-01-30] MEDS: SODIUM CHLORIDE 0.9% IV 1,000 ML 125 ML IV CONT (16:01)
[2024-01-30] MEDS: SIMETHICONE 80 MG TAB.CHEW PO (16:03)
[2024-01-30] MEDS: KETOROLAC 30 MG/ML VIAL (*BKC) IV PUSH (16:03)
[2024-01-30] MEDS: ONDANSETRON INJ 4 MG/2 ML VIAL IV PUSH (19:50)
[2024-01-30] MEDS: metFORMIN HCL 500 MG TABLET PO (20:41)
[2024-01-30] MEDS: oxyCODONE HCL (*CRX) 5 MG TAB IR PO (20:41)
[2024-01-30] MEDS: metFORMIN HCL 250 MG TABLET PO (20:41)
[2024-01-30] MEDS: FLUTICASONE/SALMETEROL 115-21 MCG INHALER 1 PUFF 2 PUFF INHALATION (21:00)
[2024-01-31 00:30] VITALS: BP 128/81; PULSE 85; RESP 16; TEMP 36.5; O2SAT 94
[2024-01-31] MEDS: oxyCODONE HCL (*CRX) 5 MG TAB IR PO ×2 (00:56→07:34)
[2024-01-31 05:16] VITALS: BP 132/77; PULSE 91; RESP 18; TEMP 37.1; O2SAT 92
[2024-01-31 07:00] VITALS: PULSE 88; RESP 18; O2SAT 97
[2024-01-31] MEDS: SIMETHICONE 80 MG TAB.CHEW PO (07:33)
[2024-01-31 07:55] VITALS: BP 129/72; PULSE 88; RESP 18; TEMP 37.1; O2SAT 97
--- NOTE | 2024-01-31 08:20 | PM.OBPNVD ---
OB - PN: Subj Subjective Date/time seen: 01/31/24 08:20 OB - PN: Obj Data Labs Labs: Laboratory Results - last 24 hr 01/30/24 13:19 POC Capillary Glucose 149 H OB - PN A/P Time Spent With Patient Time: Total time spent is greater than 50% in coordination of care (as documented) at patient's floor/unit and/or counseling patient: Exam Const: General: healthy appearing, comfortable and no acute distress Resp: Auscultation: clear to auscultation bilaterally, no rales, no rhonchi and no wheezes Cardio: Rate: regular rate Heart sounds: no click, no murmurs and no rubs GI: Inspection: non-distended Auscultation: normal bowel sounds Extrem: General: normal to inspection, no pedal edema and no calf tenderness
--- NOTE | 2024-01-31 08:31 | WPDANESPN ---
Anes - Prog Note Post-Op Date/Time: 01/31/24 08:31 Vital Signs: Last Vital Signs Temp 37.1 C 01/31/24 05:16 Pulse 91 01/31/24 05:16 Resp 18 01/31/24 05:16 BP 132/77 01/31/24 05:16 Pulse Ox 92 01/31/24 05:16 O2 Del Method CPAP 01/31/24 05:16 O2 Flow Rate 3 01/30/24 21:29 FiO2 21 01/31/24 05:16 Pain Score (VAS): 3 I/O: Intake & Output 01/30/24 01/31/24 01/31/24 23:59 07:59 15:59 Intake Total 750 Output Total 580 Balance 170 01/30/24 13:19 POC Capillary Glucose 149 H Patient Feedback: Patient satisfied with anesthetic care.
[2024-01-31] MEDS: FERROUS SULFATE 325 MG TABLET DR BY MOUTH (09:32)
[2024-01-31 09:33] VITALS: O2SAT 95
[2024-01-31] MEDS: metFORMIN HCL 500 MG TABLET PO (09:33)
[2024-01-31] MEDS: dilTIAZem HCL CD 180 MG CAP.24HR 360 MG PO (09:33)
[2024-01-31] MEDS: LORATADINE 10 MG TABLET PO (09:33)
[2024-01-31] MEDS: VENLAFAXINE HCL XR 75 MG CAP.ER.24H 150 MG PO (09:33)
[2024-01-31] MEDS: FAMOTIDINE 20 MG TABLET 40 MG PO (09:38)
[2024-01-31] MEDS: CHOLECALCIFEROL 1,000 UNITS TABLET 1000 UNITS PO (09:38)
[2024-01-31] MEDS: EZETIMIBE 10 MG TABLET PO (09:40)
[2024-01-31] MEDS: POTASSIUM CHLORIDE 20 MEQ ER TABLET PO (09:40)
[2024-01-31] MEDS: DICLOFENAC SOD 75 MG TABLET.EC PO (09:40)
[2024-01-31] MEDS: ARIPiprazole 2 MG TABLET PO (09:41)
[2024-01-31] MEDS: ATORVASTATIN 40 MG TABLET PO (09:41)
[2024-01-31] MEDS: hydroCHLOROthiazide 12.5 MG CAPSULE PO (09:41)
[2024-01-31] MEDS: EMPAGLIFLOZIN 25 MG TABLET BY MOUTH (09:41)
== END 2024-01-31 10:05 | disposition home or self-care (01) ==
LOC: ANHSURGERY 06:42 → ANHOB2 14:56
PROVIDERS: PCP Emergency Medicine; Visit Provider Obstetrics & Gynecology
PROC: 0UT9FZZ Resection of Uterus, Via Natural or Artificial Opening With Percutaneous Endoscopic Assistance (ICD-10-PCS; CPT 58571; principal; 2024-01-30 09:00)
DX: D27.0 Benign neoplasm of right ovary (principal); D25.1 Intramural leiomyoma of uterus; D25.0 Submucous leiomyoma of uterus; N92.0 Excessive and frequent menstruation with regular cycle; N73.6 Female pelvic peritoneal adhesions (postinfective); N72 Inflammatory disease of cervix uteri; N87.9 Dysplasia of cervix uteri, unspecified; N80.03 Adenomyosis of the uterus; N70.11 Chronic salpingitis; D64.9 Anemia, unspecified; J45.909 Unspecified asthma, uncomplicated; E11.9 Type 2 diabetes mellitus without complications; I10 Essential (primary) hypertension; E78.5 Hyperlipidemia, unspecified; K21.9 Gastro-esophageal reflux disease without esophagitis; G47.33 Obstructive sleep apnea (adult) (pediatric); F43.10 Post-traumatic stress disorder, unspecified; Z86.711 Personal history of pulmonary embolism; Z87.891 Personal history of nicotine dependence; E66.01 Morbid (severe) obesity due to excess calories; Z68.42 Body mass index [BMI] 45.0-49.9, adult; Z79.51 Long term (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 inhaled steroids; Z79.84 Long term (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 oral hypoglycemic drugs
CPT/HCPCS: 58571; 82948; 88307; 94640; 99199; A9270; J0690; J1100; J1170; J1885; J2250; J2405; J2704; J3010; J7030; J7120; Q9968

== ENCOUNTER 2024-02-05 16:33 | Emergency (ER) | payer OTHER, SELFPAY ==
--- NOTE | ~2024-02-05 | CT_ITS ---
EXAMINATION: CT abdomen pelvis w con DATE: 02/05/2024 19:49 INDICATION: constipation 9-10d, nausea, lower abd pain TECHNIQUE: Computed tomography (CT) of the abdomen and pelvis was performed with 100 mL Omnipaque-350 intravenous contrast. Automated exposure control and iterative reconstruction technique were employe d. The dose-length product was 1552.95 mGy-cm. COMPARISON: 10/16/2023. FINDINGS: Lower thorax: Cardiomegaly. Patchy groundglass opacities. Possible pulmonary artery filling defects. Bilateral lower lobe scarring. Liver: Mildly enlarged. Biliary/Gallbladder: Gallbladder is normal. No bile duct dilation. Pancreas: No mass or duct dilation. Spleen: Normal. Adrenals:No mass. Kidneys: No suspicious mass, obstructing stone, or hydronephrosis. GI tract: No small or large bowel dilation. Normal appendix. Minimal scattered diverticuli. Mesentery/Peritoneum: No ascites, mass, or free air. Retroperitoneum: No mass. Pelvis: Absent uterus. Irregular 5.8 x 7.7 x 7.9 cm gas and fluid collection in the deep pelvis with surrounding enhancement. Normal left ovary. The right ovary is intimately associated with the pelvic collection and may contain a simple ovarian cyst. Bladder wall inflammation, likely reactive. Soft Tissues: Soft tissues and body wall unremarkable. Bones: No acute osseous finding. IMPRESSION: 7.9 cm deep pelvic abscess. Apparent pulmonary arterial defects may represent emboli or motion artifact, consider CTPA for furthe r evaluation. Reviewed, dictated and finalized at location K. IMPRESSION: 7.9 cm deep pelvic abscess. Apparent pulmonary arterial defects may represent emboli or motion artifact, co nsider CTPA for further evaluation.
--- NOTE | ~2024-02-05 | CT_ITS ---
EXAMINATION: CTA chest PE protocol DATE: 02/05/2024 21:05 INDICATION: abnormal CT abdomen concern for PE vs artifact TECHNIQUE: Computed tomography angiography (CTA) of the chest was performed with 100 mL Omnipaque-350 intravenous contrast timed to evaluate the pulmonary arteries. Coronal maximum intensity projection 3D-reconstructions were created by the technologist. The dose-length product (DLP) was 1002.54 mGy-cm . Automated exposure control and iterative reconstruction technique were employed. COMPARISON: CT abdomen and pelvis, same date. FINDINGS: Lung parenchyma and airways: Mild patchy areas of groundglass opacity. Bilateral lower lobe scar. Pat ent airways. Pleura: Unremarkable. Thoracic inlet, axillae and chest wall: Unremarkable. Thoracic aorta: No significant dilation. No dissection. Mediastinum: Normal. Heart and pericardium: Normal. Coronary artery calcifications: Absent. Upper abdomen: No significant finding. Bones: No acute osseous finding. Pulmonary arteries: Study quality: There is quantum mottle and cardiac motion artifact in the left lo wer lobe the study is overall diagnostic. No pulmonary emboli detected. IMPRESSION: No CT evidence of acute pulmonary embolus. Mild diffuse ground glass opacities may represent mild edema or mosaic attenuation (as can be seen wi th asthma, bronchitis obliterans, hypersensitivity pneumonitis). Reviewed, dictated and finalized at location K. IMPRESSION: No CT evidence of acute pulmonary embolus. Mild diffuse ground glass opacities may represent mild edema or mosaic attenuat ion (as can be seen with asthma, bronchitis obliterans, hypersensitivity pneumo nitis).
[2024-02-05 16:36] VITALS: BP 139/75; PULSE 110; RESP 19; TEMP 36.4; O2SAT 98
--- NOTE | 2024-02-05 18:19 | ED.ABDPAIN ---
HPI - Abdominal Pain General Chief Complaint: Abdominal Pain <VERÓNICA Waite Last Filed: 02/05/24 18:40> Stated Complaint: constipation <Alfreda Bailey PA-C - Last Filed: 02/05/24 18:40> Time Seen by Provider: 02/05/24 18:19 <Alfreda Bailey PA-C - Last Filed: 02/05/24 18:40> Focused HPI: Patient is a 44-year-old female who presents the ED with report of constipation and lower abdominal pain. Patient reports she underwent laparoscopic hysterectomy with Dr. Rhodes last week. She reports having persistent constipation since her surgery. She is currently taking Percocet for pain. Her last BM was 9-10 days ago. She did pass some gas yesterday. She has been taking miralax, gas-x, stool softeners w/o relief. she complains of pain throughout her lower abdomen, dysuria, pain with urination - described as of her bladder feels heavy. Reports some nausea and vaginal spotting, denies vomiting, fevers, hematuria. GENERAL: Well-appearing, well-nourished, and in no acute distress. HEAD: Normocephalic, atraumatic. CHEST: Clear to auscultation. ?No respiratory distress. HEART: Regular rate and rhythm.? NEURO: ?Alert and oriented x3. Patient screened in triage and initial orders placed.? ?Additional care and disposition to be based upon?diagnostic testing and treatment. <VERÓNICA Waite Last Filed: 02/05/24 18:40> Source: patient <Alfreda Bailey PA-C - Last Filed: 02/05/24 18:40> Mode of arrival: ambulatory <VERÓNICA Waite Last Filed: 02/05/24 18:40> Limitations: no limitations <VERÓNICA Waite Last Filed: 02/05/24 18:40> History of Present Illness HPI narrative: In addition to MSE in triage, patient states she had a follow-up appointment with Dr. Rhodes yesterday. States she was having some vaginal itching and discharge and was prescribed fluconazole. She took her 1st dose yesterday with improvement. States she is having some vaginal spotting but it is very little. Otherwise, states her appointment With Dr. Rhodes yesterday was unremarkable. Patient states she has bowel movement since 2 days before her surgery. States she was able to pass some gas yesterday. She is also reporting some dysuria and abdominal pain that is worse with urination. States she has had some very mild vaginal bleeding. Denies vomiting, fever, hematuria. <Constance Medrano PA-C - Last Filed: 02/05/24 22:25> Related Data Home Medications: Home Medications Medication Instructions Recorded Confirmed albuterol sulfate 90 mcg/actuation 2 puff inhalation TID PRN 12/20/19 01/30/24 aerosol inhaler (ProAir HFA) Shortness Of Breath metformin 1,000 mg tablet 750 mg PO BID 12/20/19 01/30/24 venlafaxine 150 mg 150 mg PO DAILY 12/20/19 01/30/24 capsule,extended release 24 hr (Effexor XR) aripiprazole 2 mg tablet (Abilify) 2 mg PO DAILY 02/17/21 01/30/24 atorvastatin 40 mg tablet (Lipitor) 40 mg PO DAILY 02/17/21 01/30/24 ezetimibe 10 mg PO DAILY 02/17/21 01/30/24 albuterol sulfate 2.5 mg/3 mL 2.5 mg continuous nebulization 10/11/23 01/30/24 (0.083 %) solution for nebulization Q4-6H PRN Shortness Of Breath Or Wheezing cetirizine 10 mg tablet 10 mg PO DAILY 10/11/23 01/30/24 cholecalciferol (vitamin D3) 25 25 mcg PO DAILY 10/11/23 01/30/24 mcg (1,000 unit) capsule (Vitamin D3) dapagliflozin propanediol 10 mg 10 mg PO DAILY 10/11/23 01/30/24 tablet (Farxiga) diltiazem HCl 360 mg 360 mg PO DAILY 10/11/23 01/30/24 capsule,extended release 24 hr famotidine 40 mg tablet 40 mg PO DAILY 10/11/23 01/30/24 ferrous sulfate 325 mg (65 mg 65 mg PO DAILY 10/11/23 01/30/24 iron) tablet hydrochlorothiazide 12.5 mg capsule 12.5 mg PO DAILY 10/11/23 01/30/24 montelukast 10 mg tablet 10 mg PO HS 10/11/23 01/30/24 semaglutide 7 mg tablet (Clau) 7 mg PO DAILY 10/11/23 01/30/24 tiotropium bromide 18 mcg capsule 18 mcg inhalation DAILY 10/11/2301/29
[2024-02-05 18:34] LABS: Basophils Percent Auto 0.3 % (0.2-1.2); Eosinophils Absolute Auto 0.2 K/mm3 (0-0.3); Eosinophils Percent Auto 1.8 % (0-4.4); Hemoglobin 12.4 g/dL (12.0-15.0); Immature Granulocyte Absolute 0.05 K/mm3 (0.00-0.031); Immature Granulocyte Percent A 0.4 % (0-0.5); Lymphocytes Absolute Auto 2.32 K/mm3 (0.9-3.2); Lymphocytes Percent Auto 18.1 % (18.3-44.2); Mean Corpuscular HGB Conc 31.8 g/dl (32-36); Mean Corpuscular Hemoglobin 26.4 pg (26-34); Mean Corpuscular Volume 83.2 fl (80-100); Mean Platelet Volume 8.6 fl (7.4-10.4); Monocytes Absolute Auto 0.6 K/mm3 (0.1-0.6); Monocytes Percent Auto 4.6 % (2.6-8.5); Neutrophils Absolute Auto 9.6 K/mm3 (1.3-6.7); Neutrophils Percent Auto 74.8 % (45.5-73.1); Platelet Count Result 508 k/mm3 (150-375); Red Blood Count 4.69 M/mm3 (4.2-5.4); Red Cell Distribution Width 18.4 % (11.5-14.5); White Blood Count 12.8 K/mm3 (4.5-10.0)
[2024-02-05] MEDS: SODIUM CHLORIDE 0.9% IV 1,000 ML 999 ML IV CONT (18:58)
--- NOTE | 2024-02-05 19:06 | PC.NURSE ---
ASHLEYR received from AMBROCIO Young.
[2024-02-05 19:26] VITALS: BP 135/91; PULSE 97; RESP 18; TEMP 36.6; O2SAT 97
[2024-02-05 19:29] LABS: Alanine Aminotransferase 11 U/L (6-35); Alkaline Phosphatase 127 U/L (38-126); Anion Gap 5 mmol/L (8-16); Aspartate Amino Transferase 20 U/L (14-36); Bilirubin,Total 0.8 mg/dL (0.2-1.3); Blood Urea Nitrogen 7 mg/dL (7-17); Calcium 9.7 mg/dL (8.4-10.2); Carbon Dioxide 30 mmol/L (22-30); Chloride 102 mmol/L (98-107); Estimated CRCL calculation 125 ml/min; Estimated Glomerular Filt Rate > 60; Glucose 143 mg/dL (65-110); Lipase 27 U/L (23-300); Potassium 3.2 mmol/L (3.4-5.0); Sodium 137 mmol/L (137-145)
[2024-02-05 20:12] LABS: Appearance Urine Clear (Clear); Bacteria Urine 1+ /hpf; Bilirubin Urine Negative (Negative); Blood Urine 3+ (Negative); Color Urine Dark Yellow (Yellow); Glucose Urine UA 3+ mg/dL (Negative); Ketones Urine Trace mg/dL (Negative); Leukocyte Esterase Ur 1+ LEU/UL (Negative); Nitrate Urine Negative (Negative); Non Pathogenic Casts 0-2; Protein Urine 1+ mg/dL (Negative); Specific Grav Ur 1.027 (1.001-1.035); Squamous Epithelial Cell Urine Few /hpf (Few); WBC Urine 51-100 /hpf (0-3); pH Urine 5.5 (5.0-9.0)
[2024-02-05 20:27] LABS: Magnesium 1.6 mg/dL (1.6-2.3)
[2024-02-05 20:33] LABS: Add Urine Microscopic? YES
--- NOTE | 2024-02-05 20:50 | PC.NURSE ---
Pt to CT at this time.
[2024-02-05] MEDS: KCL 20 MEQ/D5/0.45% SOD CHL 1,000 ML 125 ML IV CONT (21:19)
[2024-02-05 21:36] VITALS: BP 141/71; PULSE 107; RESP 21; O2SAT 99
[2024-02-05 22:16] LABS: Lactic Acid Reflex 0.9 mmol/L (0.7-2.0)
[2024-02-05] MEDS: CEPHALEXIN 500 MG CAPSULE PO (22:17)
[2024-02-05] MEDS: POTASSIUM CHLORIDE 20 MEQ PACKET (FOR LIQUID) PO (22:40)
[2024-02-05 22:46] VITALS: BP 138/73; PULSE 98; RESP 16; TEMP 36.6; O2SAT 100
== END 2024-02-05 22:48 | disposition home or self-care (01) ==
PROVIDERS: Physician Assistant; Emergency Provider Physician Assistant; PCP Emergency Medicine
DX: K59.03 Drug induced constipation (principal); T40.695A Adverse effect of other narcotics, initial encounter; N30.00 Acute cystitis without hematuria; R10.30 Lower abdominal pain, unspecified; Z98.890 Other specified postprocedural states; J45.909 Unspecified asthma, uncomplicated; E78.5 Hyperlipidemia, unspecified; I10 Essential (primary) hypertension; K21.9 Gastro-esophageal reflux disease without esophagitis; G47.33 Obstructive sleep apnea (adult) (pediatric); Z86.2 Personal history of diseases of the blood and blood-forming organs and certain disorders involving the immune mechanism; Z86.711 Personal history of pulmonary embolism; Z87.891 Personal history of nicotine dependence; Z79.84 Long term (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 oral hypoglycemic drugs; Z79.85 Long-term (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 injectable non-insulin antidiabetic drugs; R91.8 Other nonspecific abnormal finding of lung field; Z90.710 Acquired absence of both cervix and uterus
CPT/HCPCS: 36415; 71275; 74177; 80053; 83605; 83690; 83735; 85025; 87040; 87086; 87088; 96361; 96365; 99284; A9270; J3480; J7030; Q9967

== ENCOUNTER 2024-02-09 00:05 | Emergency (ER) | payer OTHER, SELFPAY ==
[2024-02-09 00:10] VITALS: BP 141/83; PULSE 101; RESP 16; TEMP 37.2; O2SAT 95
--- NOTE | 2024-02-09 02:20 | ED.GENADULT ---
HPI - General Adult General Chief complaint: Unspecified Stated complaint: pain/difficulty having BM Time Seen by Provider: 02/09/24 01:55 History of Present Illness HPI narrative: 44-year-old female presents to the emergency department for evaluation suspected hemorrhoid and constipation. Patient was evaluated emergency department few days ago and was diagnosed with constipation, patient does have an abdominal abscess/fluid collection that is being followed by [facility]. Patient has been taking a serving of MiraLax daily. Patient states that she developed a bump on her anus he a few days ago. Related Data Home Medications Medication Instructions Recorded Confirmed albuterol sulfate 90 mcg/actuation 2 puff inhalation TID PRN 12/20/19 01/30/24 aerosol inhaler (ProAir HFA) Shortness Of Breath metformin 1,000 mg tablet 750 mg PO BID 12/20/19 01/30/24 venlafaxine 150 mg 150 mg PO DAILY 12/20/19 01/30/24 capsule,extended release 24 hr (Effexor XR) aripiprazole 2 mg tablet (Abilify) 2 mg PO DAILY 02/17/21 01/30/24 atorvastatin 40 mg tablet (Lipitor) 40 mg PO DAILY 02/17/21 01/30/24 ezetimibe 10 mg PO DAILY 02/17/21 01/30/24 albuterol sulfate 2.5 mg/3 mL 2.5 mg continuous nebulization 10/11/23 01/30/24 (0.083 %) solution for nebulization Q4-6H PRN Shortness Of Breath Or Wheezing cetirizine 10 mg tablet 10 mg PO DAILY 10/11/23 01/30/24 cholecalciferol (vitamin D3) 25 25 mcg PO DAILY 10/11/23 01/30/24 mcg (1,000 unit) capsule (Vitamin D3) dapagliflozin propanediol 10 mg 10 mg PO DAILY 10/11/23 01/30/24 tablet (Farxiga) diltiazem HCl 360 mg 360 mg PO DAILY 10/11/23 01/30/24 capsule,extended release 24 hr famotidine 40 mg tablet 40 mg PO DAILY 10/11/23 01/30/24 ferrous sulfate 325 mg (65 mg 65 mg PO DAILY 10/11/23 01/30/24 iron) tablet hydrochlorothiazide 12.5 mg capsule 12.5 mg PO DAILY 10/11/23 01/30/24 montelukast 10 mg tablet 10 mg PO HS 10/11/23 01/30/24 semaglutide 7 mg tablet (Rybelsus) 7 mg PO DAILY 10/11/23 01/30/24 tiotropium bromide 18 mcg capsule 18 mcg inhalation DAILY 10/11/23 01/30/24 with inhalation device fluticasone 250 mcg-salmeterol 50 1 inh inhalation BID 12/04/23 01/30/24 mcg/dose blistr powdr for inhalation (Advair Diskus) diclofenac sodium 75 mg 75 mg PO BID 01/25/24 01/30/24 tablet,delayed release Allergies Allergy/AdvReac Type Severity Reaction Status Date / Time lisinopril Allergy Severe Difficulty Verified 02/05/24 16:34 Breathing hydrocodone [From Vicodin] Allergy Unknown Itching Verified 02/05/24 16:34 sulfamethoxazole Allergy Unknown Hives Verified 02/05/24 16:34 [From Bactrim] trimethoprim [From Bactrim] Allergy Unknown Hives Verified 02/05/24 16:34 Review of Systems Review of Systems: All systems reviewed & are unremarkable except as noted in HPI and below PMFSH Past Medical History Medical History Anemia Asthma Diabetes GERD (gastroesophageal reflux disease) HLD (hyperlipidemia) HTN (hypertension) Obstructive sleep apnea PTSD (post-traumatic stress disorder) Pulmonary embolism Surgical History Surgical History H/O: 3 Hx of foot surgery bone spur removed Family History Family History Mother Venous thrombosis Cervical cancer Breast cancer Asthma Grandparent Breast cancer Cerebrovascular accident Social History Social History Social History: She lives with her and has 3 children. She is currently unemplyed. Code status full code Smoking packs per day: 0.5 Smoking cigarettes per day: 10.0 Years smoked: 1 Smoking pack-years: 0.50 Smoking status: Former smoker Tobacco type: cigarettes Second hand tobacco smoke exposure: No Smoking end date: 11/19/07 Alcohol in
== END 2024-02-09 02:55 | disposition home or self-care (01) ==
LOC: ANHED 02:30
PROVIDERS: Emergency Provider Emergency Medicine; PCP Emergency Medicine
DX: K64.9 Unspecified hemorrhoids (principal); J45.909 Unspecified asthma, uncomplicated; I10 Essential (primary) hypertension; E11.9 Type 2 diabetes mellitus without complications; E78.5 Hyperlipidemia, unspecified; G47.33 Obstructive sleep apnea (adult) (pediatric); K21.9 Gastro-esophageal reflux disease without esophagitis; F43.10 Post-traumatic stress disorder, unspecified; Z86.711 Personal history of pulmonary embolism; Z86.2 Personal history of diseases of the blood and blood-forming organs and certain disorders involving the immune mechanism; Z79.85 Long-term (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 injectable non-insulin antidiabetic drugs; Z79.84 Long term (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 oral hypoglycemic drugs; Z87.891 Personal history of nicotine dependence
CPT/HCPCS: 99281

== ENCOUNTER 2024-02-11 12:16 | Emergency (ER) | payer OTHER, SELFPAY ==
--- NOTE | ~2024-02-11 | CT_ITS ---
EXAMINATION: CT abdomen pelvis w con DATE: 02/11/2024 13:40 INDICATION: Lower abdominal pain TECHNIQUE: Computed tomography (CT) of the abdomen and pelvis was performed with 100 cc Omnipaque 350 intravenous contrast. The dose-length product was 1411.18 mGy-cm. Automated exposure control and ite rative reconstruction technique were employed. COMPARISON: 02/05/2024 FINDINGS: Lung bases are unremarkable. Heart size normal. No significant pleural or pericardial effus ion. The liver, spleen, pancreas, adrenal glands and kidneys are unremarkable. Gallbladder is present . Multiloculated pelvic abscess reidentified which measures 6.1 x 4.8 x 3.3 cm. No free air. There is thickening of the adjacent:. No acute osseous abnormality. IMPRESSION: 1. Persistent pelvic abscess, slightly decreased in size compared with prior examination. Reviewed, dictated and finalized at location B. IMPRESSION: 1. Persistent pelvic abscess, slightly decreased in size compared with prior ex amination.
[2024-02-11 12:17] VITALS: BP 129/96; PULSE 110; RESP 20; TEMP 37.1; O2SAT 97
[2024-02-11 12:35] VITALS: BP 126/86; PULSE 103; RESP 20; TEMP 37.2; O2SAT 99
[2024-02-11 13:10] LABS: Basophils Absolute Auto 0.1 K/mm3 (0.0-0.1); Basophils Percent Auto 0.6 % (0.2-1.2); Eosinophils Absolute Auto 0.2 K/mm3 (0-0.3); Hematocrit 40.7 % (37.0-47.0); Hemoglobin 12.7 g/dL (12.0-15.0); Immature Granulocyte Absolute 0.05 K/mm3 (0.00-0.031); Immature Granulocyte Percent A 0.5 % (0-0.5); Lymphocytes Absolute Auto 2.23 K/mm3 (0.9-3.2); Lymphocytes Percent Auto 20.8 % (18.3-44.2); Mean Corpuscular HGB Conc 31.2 g/dl (32-36); Mean Corpuscular Hemoglobin 26.1 pg (26-34); Mean Corpuscular Volume 83.6 fl (80-100); Mean Platelet Volume 8.5 fl (7.4-10.4); Monocytes Absolute Auto 0.5 K/mm3 (0.1-0.6); Monocytes Percent Auto 4.8 % (2.6-8.5); Neutrophils Absolute Auto 7.7 K/mm3 (1.3-6.7); Neutrophils Percent Auto 71.3 % (45.5-73.1); Platelet Count Result 621 k/mm3 (150-375); Red Blood Count 4.87 M/mm3 (4.2-5.4); Red Cell Distribution Width 17.6 % (11.5-14.5); White Blood Count 10.7 K/mm3 (4.5-10.0)
--- NOTE | 2024-02-11 13:11 | ED.FEMALEGU ---
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 Patient did have a hysterectomy a few weeks ago by Dr. Rhodes. Patient was seen in the emergency department for constipation in she was evaluated emergency department again for hemorrhoids. Patient states that she has been taking MiraLax and is in citrate and has had a resolution of the constipation, patient reports significant bowel movement. But patient states that she began having some white vaginal discharge that was blood tinged. Patient had this happen yesterday and then again today. Patient is diabetic but states this is not similar to previous yeast infections. Related Data Home Medications Medication Instructions Recorded Confirmed albuterol sulfate 90 mcg/actuation 2 puff inhalation TID PRN 12/20/19 01/30/24 aerosol inhaler (ProAir HFA) Shortness Of Breath metformin 1,000 mg tablet 750 mg PO BID 12/20/19 01/30/24 venlafaxine 150 mg 150 mg PO DAILY 12/20/19 01/30/24 capsule,extended release 24 hr (Effexor XR) aripiprazole 2 mg tablet (Abilify) 2 mg PO DAILY 02/17/21 01/30/24 atorvastatin 40 mg tablet (Lipitor) 40 mg PO DAILY 02/17/21 01/30/24 ezetimibe 10 mg PO DAILY 02/17/21 01/30/24 albuterol sulfate 2.5 mg/3 mL 2.5 mg continuous nebulization 10/11/23 01/30/24 (0.083 %) solution for nebulization Q4-6H PRN Shortness Of Breath Or Wheezing cetirizine 10 mg tablet 10 mg PO DAILY 10/11/23 01/30/24 cholecalciferol (vitamin D3) 25 25 mcg PO DAILY 10/11/23 01/30/24 mcg (1,000 unit) capsule (Vitamin D3) dapagliflozin propanediol 10 mg 10 mg PO DAILY 10/11/23 01/30/24 tablet (Farxiga) diltiazem HCl 360 mg 360 mg PO DAILY 10/11/23 01/30/24 capsule,extended release 24 hr famotidine 40 mg tablet 40 mg PO DAILY 10/11/23 01/30/24 ferrous sulfate 325 mg (65 mg 65 mg PO DAILY 10/11/23 01/30/24 iron) tablet hydrochlorothiazide 12.5 mg capsule 12.5 mg PO DAILY 10/11/23 01/30/24 montelukast 10 mg tablet 10 mg PO HS 10/11/23 01/30/24 semaglutide 7 mg tablet (Rybelsus) 7 mg PO DAILY 10/11/23 01/30/24 tiotropium bromide 18 mcg capsule 18 mcg inhalation DAILY 10/11/23 01/30/24 with inhalation device fluticasone 250 mcg-salmeterol 50 1 inh inhalation BID 12/04/23 01/30/24 mcg/dose blistr powdr for inhalation (Advair Diskus) diclofenac sodium 75 mg 75 mg PO BID 01/25/24 01/30/24 tablet,delayed release Allergies Allergy/AdvReac Type Severity Reaction Status Date / Time lisinopril Allergy Severe Difficulty Verified 02/05/24 16:34 Breathing hydrocodone [From Vicodin] Allergy Unknown Itching Verified 02/05/24 16:34 sulfamethoxazole Allergy Unknown Hives Verified 02/05/24 16:34 [From Bactrim] trimethoprim [From Bactrim] Allergy Unknown Hives Verified 02/05/24 16:34 Review of Systems Review of Systems: All systems reviewed & are unremarkable except as noted in HPI and below PMFSH Past Medical History Medical History Anemia Asthma Diabetes GERD (gastroesophageal reflux disease) HLD (hyperlipidemia) HTN (hypertension) Obstructive sleep apnea PTSD (post-traumatic stress disorder) Pulmonary embolism Surgical History Surgical History H/O: 3 Hx of foot surgery bone spur removed Family History Family History Mother Venous thrombosis Cervical cancer Breast cancer Asthma Grandparent Breast cancer Cerebrovascular accident Social History Social History Social History: She lives with her and has 3 children. She is currently unemplyed.
[2024-02-11 13:19] LABS: Appearance Urine Cloudy (Clear); Color Urine Yellow (Yellow); Prothrombin Time 13.8 Seconds (11.1-14.7)
[2024-02-11 13:20] LABS: Add Urine Microscopic? YES; Bilirubin Urine 1+ (Negative); Blood Urine 2+ (Negative); Glucose Urine UA 3+ (Negative); Ketones Urine Trace (Negative); Leukocyte Esterase Ur 1+ LEU/UL (Negative); Nitrate Urine Negative (Negative); Partial Thromboplastin Time 30.5 Seconds (22.3-36.8); Protein Urine 2+ (Negative); Urobilinogen Urine 0.2 mg/dL (0.2-1.0)
[2024-02-11 13:22] LABS: Alanine Aminotransferase 14 U/L (6-35); Albumin Level 4.1 g/dL (3.5-5.1); Alkaline Phosphatase 137 U/L (38-126); Anion Gap 7 mmol/L (8-16); Aspartate Amino Transferase 24 U/L (14-36); Bilirubin,Total 0.6 mg/dL (0.2-1.3); Blood Urea Nitrogen 5 mg/dL (7-17); Calcium 9.8 mg/dL (8.4-10.2); Carbon Dioxide 31 mmol/L (22-30); Chloride 100 mmol/L (98-107); Estimated CRCL calculation 109 ml/min; Estimated Glomerular Filt Rate > 60; Glucose 159 mg/dL (65-110); Lipase 47 U/L (23-300); Sodium 138 mmol/L (137-145)
[2024-02-11 13:23] LABS: Lactic Acid Reflex 1.4 mmol/L (0.7-2.0)
[2024-02-11] MEDS: SODIUM CHLORIDE 0.9% IV 1,000 ML 999 ML IV CONT (13:29)
[2024-02-11 13:41] LABS: Bacteria Urine Rare /hpf; Mucus Urine Present /lpf; Squamous Epithelial Cell Urine Occasional /hpf (Few); WBC Urine >100 /hpf (0-3)
[2024-02-11 13:45] VITALS: BP 127/82; RESP 18; O2SAT 100
[2024-02-11] MEDS: metroNIDAZOLE 500 MG/ISO 100ML 500 MG/100 ML BAG 100 MG IVPB (15:57)
--- NOTE | 2024-02-11 16:00 | PC.NURSE ---
EDP states no blood cultures needed
[2024-02-11 16:26] LABS: Trichomonas Vag PCR NOT DETECTED (NOT DETECTE)
[2024-02-11 16:52] LABS: Chlamydia trachomatis NOT DETECTED (NOT DETECTE); Neisseria gonorrhoeae PCR NOT DETECTED (NOT DETECTE)
[2024-02-11] MEDS: CIPROFLOXACIN 400 MG/D5W 200ML 200 ML 200 MG IVPB (16:55)
[2024-02-11 16:56] VITALS: BP 127/80; PULSE 90; RESP 18; O2SAT 100
[2024-02-11 18:15] VITALS: BP 139/84; PULSE 95; RESP 20; O2SAT 100
== END 2024-02-11 18:16 | disposition home or self-care (01) ==
PROVIDERS: Emergency Provider Emergency Medicine; PCP Emergency Medicine
DX: T81.43XA Infection following a procedure, organ and space surgical site, initial encounter (principal); N89.8 Other specified noninflammatory disorders of vagina; N39.0 Urinary tract infection, site not specified; I10 Essential (primary) hypertension; J45.909 Unspecified asthma, uncomplicated; E11.9 Type 2 diabetes mellitus without complications; E78.5 Hyperlipidemia, unspecified; G47.33 Obstructive sleep apnea (adult) (pediatric); K21.9 Gastro-esophageal reflux disease without esophagitis; Z86.711 Personal history of pulmonary embolism; F43.10 Post-traumatic stress disorder, unspecified; Z87.891 Personal history of nicotine dependence; Z79.84 Long term (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 oral hypoglycemic drugs; Y83.6 Removal of other organ (partial) (total) as the cause of abnormal reaction of the patient, or of later complication, without mention of misadventure at the time of the procedure
CPT/HCPCS: 36415; 74177; 80053; 81001; 83605; 83690; 85025; 85610; 85730; 87070; 87086; 87088; 87491; 87591; 87661; 96361; 96365; 96367; 99284; J0744; J1836; J7030; Q9967

== ENCOUNTER 2024-03-13 08:14 | Outpatient (CLI) | payer OTHER, SELFPAY ==
--- NOTE | ~2024-03-13 | MM_ITS ---
EXAMINATION: MM screening ras BI w bill HISTORY: Screening mammogram TECHNIQUE: Craniocaudal and mediolateral oblique 3-D tomosynthesis images were obtained and synthetic 2-D images were generated. CAD analysis was submitted and interpreted. COMPARISON: 04/30/2020 BREAST PARENCHYMAL COMPOSITION:Not Dense. There are scattered areas of fibroglandular density. FINDINGS: No suspicious mass, calcification, or architectural distortion are identified in either beulah ast to suggest malignancy. There has been no suspicious interval change. IMPRESSION: No mammographic evidence of malignancy. Recommend routine screening mammography in one year. BI-RADS Category 1: Negative Reviewed, dictated and finalized at location .
== END 2024-03-13 08:15 | disposition home or self-care (01) ==
LOC: ANHIMG 08:16
PROVIDERS: PCP Emergency Medicine; Visit Provider Emergency Medicine
DX: Z12.31 Encounter for screening mammogram for malignant neoplasm of breast (principal)
CPT/HCPCS: 77063; 77067

== ENCOUNTER 2024-03-13 08:46 | Outpatient (CLI) | payer OTHER, SELFPAY ==
[2024-03-13 09:01] LABS: Basophils Absolute Auto 0.1 K/mm3 (0.0-0.1); Basophils Percent Auto 0.7 % (0.2-1.2); Eosinophils Absolute Auto 0.2 K/mm3 (0-0.3); Eosinophils Percent Auto 3.2 % (0-4.4); Hematocrit 37.6 % (37.0-47.0); Hemoglobin 11.9 g/dL (12.0-15.0); Immature Granulocyte Absolute 0.02 K/mm3 (0.00-0.031); Immature Granulocyte Percent A 0.3 % (0-0.5); Lymphocytes Absolute Auto 2.12 K/mm3 (0.9-3.2); Lymphocytes Percent Auto 30.7 % (18.3-44.2); Mean Corpuscular HGB Conc 31.6 g/dl (32-36); Mean Corpuscular Volume 85.3 fl (80-100); Mean Platelet Volume 8.6 fl (7.4-10.4); Monocytes Absolute Auto 0.3 K/mm3 (0.1-0.6); Monocytes Percent Auto 4.9 % (2.6-8.5); Neutrophils Absolute Auto 4.2 K/mm3 (1.3-6.7); Neutrophils Percent Auto 60.2 % (45.5-73.1); Platelet Count Result 366 k/mm3 (150-375); Red Blood Count 4.41 M/mm3 (4.2-5.4); Red Cell Distribution Width 18.4 % (11.5-14.5); White Blood Count 6.9 K/mm3 (4.5-10.0)
[2024-03-13 11:05] LABS: Iron 52 ug/dL (37-170)
[2024-03-13 11:08] LABS: Alanine Aminotransferase 11 U/L (6-35); Albumin Level 4.5 g/dL (3.5-5.1); Alkaline Phosphatase 119 U/L (38-126); Anion Gap 9 mmol/L (4-12); Aspartate Amino Transferase 16 U/L (14-36); Bilirubin,Total 0.5 mg/dL (0.2-1.3); Blood Urea Nitrogen 6 mg/dL (7-17); Calcium 10.2 mg/dL (8.4-10.2); Carbon Dioxide 27 mmol/L (22-30); Chloride 105 mmol/L (98-107); Estimated Glomerular Filt Rate > 60; Glucose 105 mg/dL (65-110); Potassium 3.6 mmol/L (3.4-5.0); Sodium 141 mmol/L (137-145)
[2024-03-13 11:17] LABS: Percent Iron Saturation 19 % (20-50)
[2024-03-13 12:28] LABS: Folic Acid > 20.0 ng/mL (2.76->20)
== END 2024-03-13 08:47 | disposition home or self-care (01) ==
LOC: ANHLAB 08:47
PROVIDERS: Nurse Practitioner Family; PCP Emergency Medicine; Visit Provider Internal Medicine Hematology & Oncology
DX: R79.89 Other specified abnormal findings of blood chemistry (principal); D50.0 Iron deficiency anemia secondary to blood loss (chronic)
CPT/HCPCS: 36415; 77063; 77067; 80053; 82607; 82728; 82746; 83540; 83550; 85025

== ENCOUNTER 2024-07-02 09:52 | Outpatient (CLI) | payer OTHER, SELFPAY ==
[2024-07-02 10:16] LABS: Basophils Absolute Auto 0.1 K/mm3 (0.0-0.1); Basophils Percent Auto 0.5 % (0.2-1.2); Eosinophils Absolute Auto 0.2 K/mm3 (0-0.3); Eosinophils Percent Auto 1.5 % (0-4.4); Hematocrit 41.1 % (37.0-47.0); Immature Granulocyte Absolute 0.04 K/mm3 (0.00-0.031); Immature Granulocyte Percent A 0.4 % (0-0.5); Lymphocytes Absolute Auto 2.55 K/mm3 (0.9-3.2); Lymphocytes Percent Auto 25.7 % (18.3-44.2); Mean Corpuscular HGB Conc 31.6 g/dl (32-36); Mean Corpuscular Hemoglobin 27.3 pg (26-34); Mean Corpuscular Volume 86.2 fl (80-100); Mean Platelet Volume 8.6 fl (7.4-10.4); Monocytes Absolute Auto 0.5 K/mm3 (0.1-0.6); Monocytes Percent Auto 5.3 % (2.6-8.5); Neutrophils Absolute Auto 6.6 K/mm3 (1.3-6.7); Neutrophils Percent Auto 66.6 % (45.5-73.1); Platelet Count Result 458 k/mm3 (150-375); Red Blood Count 4.77 M/mm3 (4.2-5.4); Red Cell Distribution Width 15.5 % (11.5-14.5); White Blood Count 9.9 K/mm3 (4.5-10.0)
[2024-07-02 10:57] LABS: Iron 46 ug/dL (37-170)
[2024-07-02 10:59] LABS: Anion Gap 11 mmol/L (4-12); Blood Urea Nitrogen 9 mg/dL (7-17); Calcium 9.6 mg/dL (8.4-10.2); Carbon Dioxide 27 mmol/L (22-30); Chloride 98 mmol/L (98-107); Estimated Glomerular Filt Rate > 60; Glucose 115 mg/dL (65-110); Potassium 3.2 mmol/L (3.4-5.0); Sodium 136 mmol/L (137-145)
[2024-07-02 11:07] LABS: Percent Iron Saturation 14 % (20-50)
[2024-07-02 12:07] LABS: Folic Acid > 20.0 ng/mL (2.76->20)
== END 2024-07-02 09:53 | disposition home or self-care (01) ==
LOC: ANHLAB 09:54
PROVIDERS: Nurse Practitioner Family; PCP Emergency Medicine; Visit Provider Internal Medicine Hematology & Oncology
DX: D50.0 Iron deficiency anemia secondary to blood loss (chronic) (principal)
CPT/HCPCS: 36415; 80048; 82607; 82728; 82746; 83540; 83550; 85025

== ENCOUNTER 2024-09-05 08:50 | Outpatient (CLI) | payer OTHER, SELFPAY ==
[2024-09-05 09:05] LABS: Basophils Absolute Auto 0.1 K/mm3 (0.0-0.1); Basophils Percent Auto 0.8 % (0.2-1.2); Eosinophils Absolute Auto 0.2 K/mm3 (0-0.3); Eosinophils Percent Auto 3.2 % (0-4.4); Hematocrit 37.8 % (37.0-47.0); Hemoglobin 12.1 g/dL (12.0-15.0); Immature Granulocyte Absolute 0.03 K/mm3 (0.00-0.031); Immature Granulocyte Percent A 0.5 % (0-0.5); Lymphocytes Absolute Auto 1.91 K/mm3 (0.9-3.2); Lymphocytes Percent Auto 30.4 % (18.3-44.2); Mean Corpuscular Hemoglobin 26.8 pg (26-34); Mean Corpuscular Volume 83.8 fl (80-100); Mean Platelet Volume 8.3 fl (7.4-10.4); Monocytes Absolute Auto 0.4 K/mm3 (0.1-0.6); Monocytes Percent Auto 6.8 % (2.6-8.5); Neutrophils Absolute Auto 3.7 K/mm3 (1.3-6.7); Neutrophils Percent Auto 58.3 % (45.5-73.1); Platelet Count Result 410 k/mm3 (150-375); Red Blood Count 4.51 M/mm3 (4.2-5.4); Red Cell Distribution Width 15.4 % (11.5-14.5); White Blood Count 6.3 K/mm3 (4.5-10.0)
[2024-09-05 13:30] LABS: Iron 63 ug/dL (37-170)
[2024-09-05 13:35] LABS: Anion Gap 6 mmol/L (4-12); Blood Urea Nitrogen 8 mg/dL (7-17); Calcium 9.6 mg/dL (8.4-10.2); Carbon Dioxide 26 mmol/L (22-30); Chloride 104 mmol/L (98-107); Estimated Glomerular Filt Rate > 60; Glucose 106 mg/dL (65-110); Potassium 3.9 mmol/L (3.4-5.0); Sodium 136 mmol/L (137-145)
[2024-09-05 13:43] LABS: Percent Iron Saturation 21 % (20-50)
[2024-09-05 14:46] LABS: Folic Acid 13.6 ng/mL (2.76->20)
== END 2024-09-05 08:51 | disposition home or self-care (01) ==
LOC: ANHLAB 08:52
PROVIDERS: PCP Emergency Medicine; Visit Provider Internal Medicine Hematology & Oncology
DX: D50.0 Iron deficiency anemia secondary to blood loss (chronic) (principal)
CPT/HCPCS: 36415; 80048; 82607; 82728; 82746; 83540; 83550; 85025

== ENCOUNTER 2025-10-01 14:19 | Emergency (ER) | payer OTHER, SELFPAY ==
--- OUTSIDE RECORDS SUMMARY | 2025-09-08 04:40 | XMS_ITS ---
Author Organization [facility] Address [address] [place] [address] Care Team Providers Care Director Funds Development Name Role Phone Haven Diaz Primary Care Provider Catarina Minaya Unavailable [phone] Bev Slade Unavailable REASON FOR VISIT 4 month f/u Social History Sex Assigned At : Social History Observation Description Sex Assigned At Female Encounters Encounter Location Date Provider Diagnosis [address], [place] [address] 09/08/2025 Bev Slade Plan Of Treatment No Information Progress Notes * Geoff CASTAÑEDAaDOB:[birth year] (45 yo F)Acc No.[id number]:09/08/2025 UNLOCKED PROGRESS NOTE Progress Notes Patient: Fernanda DORANTES Provider: Evert Slade, MSN, CANVAS CUTTER HAND, SEAFOOD SERVICE TEAM MEMBER-BC, SEAFOOD SERVICE TEAM MEMBER-C :1980 A ge:45 Y S ex:Female Date:09/08/2025 [address], [id number] Pcp:Haven Diaz Subjective: * Chief Complaints: * 1 . 4 month f/u. * Medical History: Objective: * Vitals: Assessment: Plan: * Treatment: * * Electronic signature of Samm Slade , MUNA, [id number] on 10/01/2025 at 02:41 PM OLIVE PICKER Sign off status: Pending * Provider: Evert Slade, MSN, CANVAS CUTTER HAND, SEAFOOD SERVICE TEAM MEMBER-BC, SEAFOOD SERVICE TEAM MEMBER-C Date: Generated for Printing/Faxing/eTransmitting on: 12/01/2024 02:41 PM OLIVE PICKER
--- OUTSIDE RECORDS SUMMARY | 2025-09-21 03:59 | XMS_ITS ---
Author Organization [facility] Address [address] [place] [address] Care Team Providers Care Veterinarian Small Animal Name Role Phone Haven Diaz Primary Care Provider [phone] Catarina Minaya Unavailable [phone] Bev Slade Unavailable REASON FOR VISIT continuity of care Social History Sex Assigned At : Social History Observation Description Sex Assigned At Female Encounters Encounter Location Date Provider Diagnosis [address] [place] [address] 09/21/2025 Bev Slade Plan Of Treatment No Information Progress Notes * Geoff CASTAÑEDAJosemanuelB:[birth year] (45 yo F)Acc No.[id number]:09/21/2025 UNLOCKED PROGRESS NOTE Patient: Fernanda DORANTES :1980 A ge:45 Y S ex:Female Address:[address], [address], [place], [address] Subjective: * Chief Complaints: * C ontinuity of care * HPI: E R/Hospital Follow-up: ER/Hopsital/Urgent Care follow-up. Notification of ER/hospital visit from: . , Patient. I f instructed by nurse/provider, did the pt go to ER/UC? E R/Urgent Care follow-through T he nurse or provider did not initiate the ER/urgent care visit. .. D ate of ER/urgent visit or hospitalization: 1 . Collins lopez for the Visit: Anders valerio Type and Location:?., Inpatient Hospitalization, Emergency Room. D isclosure signed to obtain records: . , No. R ecords Requested Date D ate, First Attempt: ., D ate, Second Attempt: ., D ate, Third Attempt: .. R ecords Received: D ate Records Received .. M edication Changes: . . S ignficant labs, imaging or other results: . . N ew diagnoses? . . P robear recommended f/u: . . E R/Hospital F/U appointment with [facility]: C [facility] f/u appointment date: .. A ppointment Kept? D id the patient keep the appointment with [facility]? .Ramonita townsend completing documentation S [facility] ., [facility] .. * Medical History: * Surgical History: * Hospitalization/Major Diagno stic Procedure: * Medications: Objective: * Vitals: * Physical Examination: Assessment: Plan: * Treatment: * Procedure Codes: C HS01 ER/hospitalization continuity of care * * Date: History and Physical Notes * HPI (History of Present Illness) Category Sub-Category Detail Notes Category Not es ER/Hospital Follow-up Visit Type and Location: ., Inpatient Hospitalization, Emergency Room Disclosure signed to obtain records: ., No Records Requested Date Date, First Attempt:: . Date, Second Attempt:: . Date, Third Attempt: : . Records Received: Date Records Received: . Medication Changes: . Signficant labs, imaging or other result s: . New diagnoses? . Provider recommended f/u: . ER/Hospital F/U appointment with [facility]: CF f/u appointment date:: . Notification of ER/hospital visit from: ., Patient Reason for the Visit: Asthma Date of ER/urgent visit or hospitalizati on: 09/16/25 Nurse completing documentation [facility] Naima blevins: . [place] [facility] Nurses: . If instructed by nurse/provi long, did the pt go to ER/UC? ER/Urgent Care follow-through: The nurse or provider did not initiate the ER/urgent care visit. . Appointment Kept? Did the patient keep the appointment with [facility]?: .
--- NOTE | ~2025-10-01 | XR_ITS ---
EXAMINATION: XR chest 2V, 10/01/2025 14:40 CHIP UNLOADER HISTORY: SOB, hx of asthma COMPARISON: No comparisons available. Technique: 2 views obtained. Findings: The lungs are clear, no effusion. No pneumothorax. Heart is normal size. Mediastinal and hilar contours are within normal limits. Bony thorax no acute abnormality. Impression: No acute cardiopulmonary abnormality. Reviewed, dictated and finalized at location P. UNLOADER Impression: No acute cardiopulmonary abnormality.
[2025-10-01 14:23] VITALS: BP 143/103; PULSE 75; RESP 21; TEMP 36.4; O2SAT 100
--- NOTE | 2025-10-01 14:24 | ECG_ITS ---
Test Date: 2025-10-01 14:28:28 Measurements Intervals [place] Rate: 77 P: 35 MT: 149 QRS: -14 QRSD: 83 T: 48 QT: 368 QTc: 419 Interpretive Statements SINUS RHYTHM WITH SINUS ARRHYTHMIA LOW QRS VOLTAGE IN PRECORDIAL LEADS [QRS DEFLECTION < 1.0 mV IN CHEST LEADS] No previous ECG available for comparison Electronically Signed On 10-01-2025 14:41:36 CORN SHUCKER by Sixto Barlow M.D.
[2025-10-01 14:39] LABS: Hematocrit 41.8 % (37.0-47.0); Hemoglobin 13.2 g/dL (12.0-15.0); Immature Granulocyte Percent A 0.4 % (0-0.5); Lymphocytes Absolute Auto 2.66 K/mm3 (0.9-3.2); Mean Corpuscular HGB Conc 31.6 g/dl (32-36); Mean Corpuscular Hemoglobin 26.7 pg (26-34); Mean Corpuscular Volume 84.4 fl (80-100); Nucleated Red Blood Cells Absolute Auto 0.000 K/mm3 (0.0-0.012); Nucleated Red Blood Cells Perc 0.0 % (0.0-0.2); Platelet Count Result 418 k/mm3 (150-375); Red Blood Count 4.95 M/mm3 (4.2-5.4); White Blood Count 9.3 K/mm3 (4.5-10.0)
--- OUTSIDE RECORDS SUMMARY | 2025-10-01 14:42 | XMS_ITS | Data Portability ---
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 Plan of Treatment Reminders Order Date Submit Date Provider Last Modified By Organization Details Last Modified Time Details Appointments None recorded. Lab urinalysis, dipstick 2023 024 [email or web address] [facility], [address], [place], [address], 4 11:18:25 culture, urine 2023 024 [facility] (Lab), [address], [place], [address], 4 10:24:26 Referral None recorded. Procedures None recorded. Surgeries None recorded. Imaging None recorded. Medication Orders metronidazo le 0.75 % (37.5 mg/5 gram) vaginal gel 2023 024 [facility]/Pharmacy #[id number], [address], [place], [address], 4 12:23:19 Diflucan 200 mg tablet 2023 024 [facility]/Pharmacy #[id number], [address], [place], [address], 4 12:23:20 metronidazo le 0.75 % (37.5 mg/5 gram) vaginal gel 2023 024 [facility]/Pharmacy #[id number], [address], [place], [address], 4 11:06:19 Diflucan 150 mg tablet [email or web address]/Pharmacy #[id number], [address], [place], [address], 4 11:46:22 oxycodone-a cetaminophe n 5 mg-325 mg tablet [email or web address]/Pharmacy #[id number], [address], [place], [address], 4 17:47:23 Patient TargetsNo targets recorded. Patient InstructionsNo instructions recorded. Reason for Referral None Reported. Results Created Date Observation Date Name Description Value Unit Range Abnormal Flag Note LastModifiedBy Organization Detail LastModifiedTime 02/04/20 24 2024 CULTU RE: URINE result report SEE RESULT S BELOW Test: Cultu re: Urine Speci men Sourc e: Urine - Clean Catch Speci men Type: Urine Speci men Date: 2023 5:00 PM Resul t Date: 2023 9:20 AM Resul t Statu s: Final resul t Abnor mal: No Resul ting Lab: [facility] [address] [address] Tel: CULTU RE ----- ----- ----- --- Cultu re resul t (>=3 organ isms prese nt) indic ates possi ble conta minat ion. Repea t cultu re if sympt oms indic ate. Not Available [facility] (Lab) [address], [place], [address], 02/06/2024 10:24:26 02/04/20 24 2024 urina lysis , dipst ick Leukocytes +1 Not Available [facility] [address], [place], [address], 2024 11:15:22 02/04/20 24 2024 urina lysis , dipst ick Nitrite normal Not Available [facility] [employer] [address], [place], [address], 2024 11:15:22 02/04/20 24 2024 urina lysis , dipst ick Urobilinogen normal Not Available [facility] paolo [address], [place], [address], 2024 11:15:22 02/04/20 24 2024 urina lysis , dipst ick Protein trace Not Available [facility] [employer] [address], [place], [address], 2024 11:15:22 02/04/20 24 2024 urina lysis , dipst ick pH 7 Not Available [facility] [employer] [address], [place], [address], 2024 11:15:22 02/04/20 24 2024 urina lysis , dipst ick Blood +++ Not Available [facility] [employer] [address], [place], [address], 2024 11:15:22 02/04/20 24 2024 urina lysis , dipst ick Specific Honeydew 1.005 Not Available [facility] [address], [place], [address], 2024 11:15:22 02/04/20 24 2024 urina lysis , dipst ick Ketone +3 Not Available [facility] [employer] [address], [place], [address], 2024 11:15:22 02/04/20 24 2024 urina lysis , dipst ick Bilirubin normal Not Available [facility] [address], [place], [address], 2024 11:15:22 02/04/20 24 2024 urina lysis , dipst ick Glucose normal Not Available [facility] [employer] [address], [place], [address], 2024 11:15:22 02/04/20 24 2024 urina lysis , dipst ick Appearance normal Not Available [facility] [address], [place], [address], 2024 11:15:22 02/04/20 24 2024 urina lysis , dipst ick Color normal Not Available [facility] [employer] [address], [place], [address], 2024 11:15:22 06/17/20 24 06/17/2024 VAGIN ITIS/ VAGIN OSIS, DNA PROBE nahid sp. detection, direct probe Positi ve negati ve abnormal Not Available [facility] (Lab) [address], [place], [address], 06/18/2024 10:35:49 06/17/20 24 06/17/2024 VAGIN ITIS/ VAGIN OSIS, DNA PROBE gardnerella vag. detection, direct probe Negati ve negati ve Not Available [facility] (Lab) [address] [place], [address], 06/18/2024 10:35:49 06/17/20 24 06/17/2024 VAGIN ITIS/ VAGIN OSIS, DNA PROBE trichomonas vag. detection, direct probe Negati ve negati ve Not Available [facility] (Lab) [address], [place], [address], 06/18/2024 10:35:49 Result Notes None recorded. Problems Name Problem SNOMED Code Status Onset Date Resolution Date Notes Provider Name and Address Organization Details Recorded Time Hypertensive disorder 80382045 Active 2023 Gladis prince [facility] 4 11:10:02 Mixed anxiety and depressive disorder 153838473 Active 2023 Gladis Greene [facility] 4 11:10:13 Diabetes mellitus 01854567 Active 2023 Gladis prince [facility] 4 11:10:35 Problem Notes None recorded. Procedures Surgical History Date Name Laterality Status Provider Name and Address Organization Details Recorded Time 06/09/20 24 Date of Last Colonoscopy completed [facility] 06/17/2024 10:53:01 06/09/20 24 Colonoscopy completed [facility] 06/17/2024 10:53:48 01/30/20 24 [facility] 11:13:00 12/20/19 24 procedure on back completed [facility] 02/16/2024 08:57:52 12/12/19 24 HYSTEROSCOPY, SURGICAL, WITH BIOPSY OF ENDOMETRIUM AND/OR POLYPECTOMY (SURG) completed Jennifer [facility] 12/13/2023 11:39:13 06/19/20 23 Date of Last Mammogram completed Shobha [facility] 06/17/2024 10:52:36 06/19/20 22 Date of Last Pap Smear completed Lucía [facility] 11/01/2023 14:15:19 11/19/19 21 procedure on foot completed Gladis Greene [facility] 02/16/2024 08:58:21 12/13/19 07 section [facility] 11/01/2023 14:20:30 05/25/20 03 section completed [facility] 11/01/2023 14:20:23 12/09/19 01 section completed [facility] 11/01/2023 14:20:10 Imaging Results None recorded. Procedure Notes None recorded. Medical Equipment None Reported. Allergies Allergen ID Allergen Name Allergen Category Reaction Reaction Severity Criticality Documentation Date Start Date Code Code System Note Provider Name and Address Organization Details Recorded Time 97738 lisinopri l medicatio n angioedem a severe Not available 11/01/2023 43993 [facility] 3 14:00:46 29700 Bactrim medicatio n hives moderate Not available 11/01/2023 66418 9 RxNorm [facility] 3 14:00:46 80003 acetamino phen / hydrocodo ne medicatio n itching severe Not available 11/01/2023 78039 2 RxNorm [facility] 3 14:00:46 Medications Name Sig Start Date Stop Date Status Note LastModified by Organization Details LastModified Time celecoxib 200 mg capsule TAKE 1 CAPSULE BY MOUTH EVERY DAY IN THE MORNING WITH FOOD AND WATER FOR BACK PAIN 02/03 completed Not Available Not Available Not Available cyclobenzap rine 10 mg tablet TAKE 1 TABLET BY MOUTH TWICE DAILY NEEDED FOR MUSCLE SPASM 02/12 completed Not Available Not Available Not Available fluconazole 100 mg tablet TAKE 1 TABLET BY MOUTH ONCE EVERY 24 HOURS 11/01 completed Not Available Not Available Not Available atorvastati n 40 mg tablet TAKE 1 TABLET BY MOUTH EVERY DAY active Not Available Not Available No t Available nystatin 100,000 unit/mL oral suspension TAKE 5 ML 4 TIMES A DAY BY ORAL ROUTE DIRECTED FOR 10 DAYS. 11/01 completed Not Available Not Available Not Available tizanidine 2 mg tablet TAKE 1 TABLET BY MOUTH THREE TIMES A DAY NEEDED FOR 7 DAYS 01/20 completed Not Available Not Available Not Available albuterol sulfate 2.5 mg/3 mL (0.083 %) solution for nebulizatio n USE 1 VIAL VIA NEBULIZER EVERY 6 HOURS NEEDED active Not Available Not Available No t Available trazodone 50 mg tablet active Not Available Not Available Not Available cetirizine 10 mg tablet TAKE 1 TABLET BY MOUTH EVERY DAY active Not Available Not Available No t Available azithromyci n 250 mg tablet TAKE 1 TABLET BY MOUTH EVERY DAY 06/17 completed Not Available Not Available Not Available ibuprofen 800 mg tablet TAKE 1 TABLET 2 HOURS BEFORE THE PROCEDURE . active Not Available Not Available No t Available fluconazole 150 mg tablet TAKE 1 TABLET BY MOUTH EVERY 72 HOURS 10/31 completed Not Available Not Available Not Available benzonatate 200 mg capsule TAKE 1 CAPSULE BY MOUTH 3 TIMES A DAY NEEDED FOR COUGH FOR UP TO 10 DAYS. 06/17 completed Not Available Not Available Not Available fluconazole 200 mg tablet TAKE 1 TABLET BY MOUTH EVERY WEEK 2024 active Not Available Not Available Not Avai lable metronidazo le 0.75 % (37.5 mg/5 gram) vaginal gel INSERT 1 APPLICATO RFUL EVERY DAY BY VAGINAL ROUTE, FOR TO TREAT EVERY MONTH FOR 6 MONTHS. active Not Available Not Available No t Available ondansetron HCl 4 mg tablet TAKE 1 TABLET ORAL ROUTE EVERY 8 HOURS 11/01 completed Not Available Not Available Not Available famotidine 40 mg tablet TAKE 1 TABLET BY MOUTH EVERYDAY AT BEDTIME active Not Available Not Available No t Available prednisone 20 mg tablet TAKE 2 TABLETS BY MOUTH DAILY WITH BREAKFAST X3 DAYS 06/17 completed Not Available Not Available Not Available metformin 850 mg tablet TAKE 1 TABLET BY MOUTH EVERY DAY WITH A MEAL active Not Available Not Available No t Available venlafaxine ER 150 mg capsule,ext ended release 24 hr TAKE 1 CAPSULE BY MOUTH EVERY DAY WITH FOOD FOR 30 DAYS 06/17 completed Not Available Not Available Not Available Advair Diskus 100 mcg-50 mcg/dose powder for inhalation INHALE 1 PUFF BY MOUTH TWICE A DAY 01/20 completed Not Available Not Available Not Available diltiazem CD 360 mg capsule,ext ended release 24 hr TAKE 1 CAPSULE BY MOUTH EVERY DAY active Not Available Not Available No t Available metronidazo le 500 mg tablet 06/17 completed Not Available Not Available Not Available ciprofloxac in 500 mg tablet 06/17 completed Not Available Not Available Not Available tramadol 50 mg tablet TAKE 1 TABLET BY MOUTH EVERY 6 HOURS NEEDED FOR PAIN 01/20 completed Not Available Not Available Not Available ondansetron 8 mg disintegrat ing tablet TAKE 1 TABLET 2 HOURS BEFORE PROCEDURE . 01/20 completed Not Available Not Available Not Available oxycodone-a cetaminophe n 5 mg-325 mg tablet TAKE 1 TABLET BY MOUTH EVERY 6 HOURS 02/12 completed Not Available Not Available Not Available alprazolam 0.5 mg tablet TAKE 1 TABLET 2 HOURS BEFORE THE PROCEDURE . 01/20 completed Not Available Not Available Not Available magnesium oxide 400 mg (241.3 mg magnesium) tablet TAKE 1 TABLET BY MOUTH TWICE A DAY active Not Available Not Available No t Available [employer] Thunder Ultra Test strips USE TO TEST TWICE DAILY active Not Available Not Available No t Available phenazopyri dine 100 mg tablet TAKE 2 TABLETS BY MOUTH 3 TIMES A DAY AFTER MEALS FOR 3 DAYS 11/01 completed Not Available Not Available Not Available benzonatate 100 mg capsule TAKE 1 CAPSULE BY MOUTH EVERY 8 HOURS NEEDED 11/01 completed Not Available Not Available Not Available cephalexin 500 mg capsule 02/12 completed Not Available Not Available Not Available pantoprazol e 40 mg tablet,joanne yed release TAKE 1 TABLET BY MOUTH ONCE DAILY 11/01 completed Not Available Not Available Not Available ferrous sulfate 325 mg (65 mg iron) tablet TAKE 1 TABLET BY MOUTH 2 TIMES DAILY. active Not Available Not Available No t Available metformin 1,000 mg tablet TAKE 1 TABLET BY MOUTH TWICE A DAY WITH FOOD 06/17 completed Not Available Not Available Not Available lisinopril 10 mg tablet TAKE 1 TABLET BY MOUTH EVERY DAY 12/14 /2023 completed Not Available Not Available Not Available prednisone 50 mg tablet TAKE 1 TABLET BY MOUTH EVERY DAY 11/01 completed Not Available Not Available Not Available lidocaine 5 % topical patch APPLY 1 PATCH TO THE MOST PAINFUL AREA AND LEAVE ON FOR UP TO 12 HOURS 11/01 completed Not Available Not Available Not Available Advair Diskus 250 mcg-50 mcg/dose powder for inhalation INHALE 1 PUFF BY INHALATIO N ROUTE TWICE A DAY DIRECTED 06/17 completed Not Available Not Available Not Available hydrochloro thiazide 12.5 mg capsule TAKE 1 CAPSULE BY MOUTH EVERY DAY 11/01 completed Not Available Not Available Not Available gabapentin 300 mg capsule TAKE 1 CAPSULE BY MOUTH 3 TIMES A DAY 11/01 completed Not Available Not Available Not Available diclofenac sodium 75 mg tablet,joanne yed release TAKE 1 TABLET BY MOUTH TWICE A DAY NEEDED active Not Available Not Available No t Available folic acid 1 mg tablet TAKE 1 TABLET BY MOUTH EVERY DAY*PERSC RIBER NOT CONTRACTE D* active Not Available Not Available No t Available montelukast 10 mg tablet TAKE 1 TABLET BY MOUTH EVERY DAY active Not Available Not Available No t Available hydroxyzine HCl 25 mg tablet TAKE 1 TABLET BY MOUTH TWICE A DAY NEEDED FOR 30 DAYS active Not Available Not Available No t Available ergocalcife rol (vitamin D2) 1,250 mcg (50,000 unit) capsule TAKE 1 CAPSULE BY MOUTH ONE TIME PER WEEK active Not Available Not Available No t Available azelastine 137 mcg (0.1 %) nasal spray ADMINISTE R 1 SPRAY INTO EACH NOSTRIL 2 TIMES A DAY DIRECTED active Not Available Not Available No t Available ibuprofen 600 mg tablet TAKE 1 TABLET BY MOUTH EVERY 6 HOURS NEEDED WITH FOOD 01/20 completed Not Available Not Available Not Available polyethylen e glycol 3350 17 gram/dose oral powder 06/17 completed Not Available Not Available Not Available levofloxaci n 500 mg tablet TAKE 1 TABLET BY MOUTH EVERY DAY FOR 5 DAYS 01/20 completed Not Available Not Available Not Available methylpredn isolone 4 mg tablets in a dose pack TAKE 6 TABLETS ON DAY 1 DIRECTED ON PACKAGE AND DECREASE BY 1 TAB EACH DAY FOR A TOTAL OF 6 DAYS 11/01 completed Not Available Not Available Not Available albuterol sulfate HFA 90 mcg/actuati on aerosol inhaler INHALE 2 PUFFS BY MOUTH EVERY 4 HOURS NEEDED (MAX 12 PUFFS/DAY ) active Not Available Not Available No t Available colchicine 0.6 mg tablet TAKE 1 TABLET BY MOUTH THREE TIMES A DAY FOR 3 MONTHS 10/31 completed Not Available Not Available Not Available fluticasone propionate 50 mcg/actuati on nasal spray,suspe nsion INSTILL 1 SPRAY INTO EACH NOSTRIL ONCE DAILY active Not Available Not Available No t Available naproxen 500 mg tablet TAKE 1 TABLET BY MOUTH 2 TIMES PER DAY TAKE WITH FOOD 02/03 completed Not Available Not Available Not Available amoxicillin 875 mg-potassiu m clavulanate 125 mg tablet TAKE 1 TABLET BY MOUTH TWICE A DAY FOR 10 DAYS active Not Available Not Available No t Available amoxicillin 500 mg-potassiu m clavulanate 125 mg tablet TAKE 1 TABLET BY MOUTH EVERY 12 HOURS FOR 5 DAYS 11/01 completed Not Available Not Available Not Available azithromyci n 500 mg tablet TAKE 1 TABLET ORAL ROUTE DAILY TAKE AT APPROXIMA TELY 8:00 P.M. FOR THE NEXT 2 DAYS 06/17 completed Not Available Not Available Not Available ezetimibe 10 mg tablet TAKE 1 TABLET BY MOUTH EVERY DAY active Not Available Not Available No t Available metformin ER 750 mg tablet,exte nded release 24 hr TAKE 1 TABLET BY MOUTH TWICE A DAY 01/20 completed Not Available Not Available Not Available Klor-Con M20 mEq tablet,exte nded release TAKE 1 TABLET BY MOUTH EVERY DAY WITH FOOD active Not Available Not Available No t Available tiotropium bromide 18 mcg capsule with inhalation device INHALE 1 CAPSULE VIA HANDIHALE R ONCE DAILY AT THE SAME TIME EVERY DAY active Not Available Not Available No t Available nitrofurant oin monohydrate /macrocryst als 100 mg capsule TAKE 1 CAPSULE BY MOUTH EVERY 12 HOURS FOR 7 DAYS WITH FOOD 06/17 completed Not Available Not Available Not Available Albuterol Sulfate HFA 90 mcg/Actuati on aerosol inhaler 11/01 completed Not Available Not Available Not Available ferrous sulfate 01/20 completed Not Available Not Available Not Available cholecalcif juan (vitamin D3) 01/20 completed Not Available Not Available Not Available Diltiazem HCL ER 01/20 completed Not Available Not Available Not Available aripiprazol e 2 mg tablet TAKE 1 TABLET BY MOUTH EVERY DAY 02/12 completed Not Available Not Available Not Available Januvia 100 mg tablet TAKE 1 TABLET BY MOUTH EVERY DAY 11/01 completed Not Available Not Available Not Available hydrochloro thiazide 12.5 mg tablet TAKE 1 TABLET BY MOUTH EVERY DAY IN THE MORNING FOR 90 DAYS active Not Available Not Available No t Available GaviLyte-G 236 gram-22.74 gram-6.74 gram-5.86 gram oral solution DRINK 3/4 OF PREP AT 6PM THE NIGHT BEFORE TEST. FINISH THE PREP AT 4 AM THE MORNING OF COLONOSCO PY. 06/17 completed Not Available Not Available Not Available Victoza 3-Andrea 0.6 mg/0.1 mL (18 mg/3 mL) subcutaneou s pen injector INJECT 1.8MG UNDER THE SKIN ONCE DAILY 11/01 completed Not Available Not Available Not Available Farxiga 10 mg tablet TAKE 1 TABLET BY MOUTH DAILY active Not Available Not Available No t Available potassium chloride ER 20 mEq tablet,exte nded release TAKE 1 TABLET BY MOUTH EVERY DAY WITH FOOD active Not Available Not Available No t Available Trintellix 10 mg tablet TAKE 1 TABLET BY MOUTH EVERY DAY FOR 30 DAYS 06/17 completed Not Available Not Available Not Available Trintellix 20 mg tablet TAKE 1 TABLET BY MOUTH EVERY DAY FOR 30 DAYS active Not Available Not Available No t Available OneTouch Ultra2 Meter USE DAILY DIRECTED FOR MONITORIN G OF BLOOD SUGAR FOR DIABETES TWICE DAILY. E11.65 02/12 completed Not Available Not Available Not Available OneTouch Delica Plus Lancet 33 gauge USE TO TEST TWICE DAILY 06/17 completed Not Available Not Available Not Available OneTouch Delica Plus Lancet 30 gauge USE TO TEST TWICE DAILY active Not Available Not Available No t Available Rybelsus 14 mg tablet TAKE ONE TABLET BY MOUTH IN THE RECREATION SUPERINTENDENT 30 MINUTES BEFORE BREAKFAST WITH 4 OUNCES OF WATER 06/17 completed Not Available Not Available Not Available Rybelsus 7 mg tablet TAKE 1 TABLET BY MOUTH RECREATION SUPERINTENDENT BEFORE BREAKFAST active Not Available Not Available No t Available Rybelsus 3 mg tablet TAKE 1 TABLET (3 MG TOTAL) BY MOUTH DAILY FOR 30 DAYS, THEN INCREASE RYBELSUS TO 7MG DAILY. E11.65 active Not Available Not Available No t Available tramadol 100 mg tablet 06/17 completed Not Available Not Available Not Available Dupixent 300 mg/2 mL subcutaneou s pen injector active Not Available Not Available Not Available Trelegy Ellipta 200 mcg-62.5 mcg-25 mcg powder for inhalation INHALE 1 PUFF BY MOUTH ONCE DAILY. RINSE MOUTH AND SPIT AFTER USE active Not Available Not Available No t Available Paxlovid 300 mg (150 mg x 2)-100 mg tablets in a dose pack TAKE 1 DOSE PACK ORAL ROUTE PER PACKAGE DIRECTION S 11/01 completed Not Available Not Available Not Available Vitals Date Recorded Body height Body mass index (BMI) Body weight Systolic And Diastolic Provider Name and Address Organization Details Last Updated DateTime 2024 170.18 cm 46.2 kg/m2 865422.75 g 118/83 mm[Hg] Gladis [facility] 2024 11:08:42 Date Recorded Body height Body mass index (BMI) Body weight Body temperature Systolic And Diastolic Provider Name and Address Organization Details Last Updated DateTime 02/07/2024 170.18 cm 45.7 kg/m2 675716. 97 g 98.2 [degF] 131/83 mm[Hg] Gladis [facility] 15:21:37 Date Recorded Body height Body mass index (BMI) Body weight Systolic And Diastolic Provider Name and Address Organization Details Last Updated DateTime 02/13/2024 170.18 cm 44.2 kg/m2 063586.05 g 123/80 mm[Hg] Shobha [facility] 02/13/2024 17:44:16 Date Recorded Body height Body mass index (BMI) Body weight Systolic And Diastolic Provider Name and Address Organization Details Last Updated DateTime 06/17/2024 170.18 cm 48.1 kg/m2 094166.86 g 115/88 mm[Hg] Shobha [facility] 06/17/2024 10:48:34 Date Recorded Body height Body mass index (BMI) Body weight Systolic And Diastolic Provider Name and Address Organization Details Last Updated DateTime 10/31/2024 170.18 cm 50.9 kg/m2 490583.52 g 118/74 mm[Hg] Shobha [facility] 10/31/2024 11:45:30 Social History Question Answer Notes LastModified by Organizat ion Details LastModified Time Tobacco Smoking Status Unknown If Ever Smoked [facility] 2024 11:12:19 Are You Blind Or Do You Have Difficulty Seeing? No Information not available 11/01/2023 What Is Your Level Of Caffeine Consumption? Occasional Information not available 11/01/2023 How Much Tobacco Do You Chew? None Information not available 11/01/2023 In The 14 Days Before Symptom Onset, Have You Had Close Contact With A Laboratory-confir med COVID-19 While That Case Was Ill? No Information not available 11/01/2023 In The 14 Days Before Symptom Onset, Have You Had Close Contact With A Person Who Is Under Investigation For COVID-19 While That Person Was Ill? No Information not available 11/01/2023 Have You Been To An Area Known To Be High Risk For COVID-19? No Information not available 11/01/2023 Are You Deaf Or Do You Have Serious Difficulty Hearing? No Information not available 11/01/2023 What Type Of Diet Are You Following? DIABETIC Information not available 11/01/2023 What Is The Highest Grade Or Level Of School You Have Completed Or The Highest Degree You Have Received? [id number] Information not available 11/01/2023 Are There Any Guns Present In Your Home? No Information not available 11/01/2023 Do You Use Protection During Sex? No Information not available 11/01/2023 Do You Use Your Seat Belt Or Car Seat Routinely? Yes Information not available 11/01/2023 Do You Have Smoke And Carbon Monoxide Detectors In Your Home? Yes Information not available 11/01/2023 How Much Tobacco Do You Smoke? No Information not available 11/01/2023 Do You Use Sunscreen Routinely? Yes Information not available 11/01/2023 Have You Used IV Drugs? No Information not available 11/01/2023 Do You Have Difficulty Walking Or Climbing Stairs? No [email or web address] Information not available 2024 Sex: Female Functional Status Question Answer Note LastModified by Organizat ion Details LastModified Time Do you use any illicit or recreational drugs? No Information not available 11/01/2023 What is your level of alcohol consumption? None Information not available 11/01/2023 Are you able to walk independently without assistance or assistive devices? [email or web address] Information not available 11/01/2023 Are you able to care for yourself independently? Yes [email or web address] Information not available 2024 What is your occupation? Unemployed Information not available 11/01/2023 Do you have difficulty dressing, bathing, grooming, or toileting? No [email or web address] Information not available 2024 What is your exercise level? Occasional Information not available 11/01/2023 Mental Status Question Answer Note LastModified by Organization D etails LastModified Time Do you feel stressed (tense, restless, nervous, or anxious, or unable to sleep at night)? [id number] [email or web address] Information not available 02/13/2024 Family History Relationship Description Onset Age of this Age Resolved Age Notes LastModified by Organization Details LastModified Time Daughter Asthma [email or web address] Not available 11/01/2023 14:00:54 Daughter Anxiety disorder [email or web address] Not available 2022 14:00:54 Daughter Anemia [email or web address] Not available 11/01/2023 14:00:54 Daughter Depressive disorder dswayne Not available 2022 14:00:54 Brother Asthma dswayne Not available 1 01/02/2023 14:00:54 Brother Anxiety disorder dswayne Not available 2022 14:00:54 Brother Depressive disorder dswayne Not available 2022 14:00:54 Father Substance abuse dswayne Not available 2022 14:00:54 Mother Asthma dswayne Not available 14:00:54 Mother Anxiety disorder dswayne Not available 2022 14:00:54 Mother Depressive disorder dswayne Not available 2022 14:00:54 Mother Malignant neoplasm of cervix uteri dswayne Not available 14:00:54 Mother High risk dswayne Not available 2022 14:00:54 Maternal Aunt Diabetes mellitus dswayne Not available 2022 14:00:54 Maternal Grandmother Malignant neoplasm of breast dswayne Not available 2022 14:00:55 Sister Asthma dswayne Not available 14:00:55 Sister Anxiety disorder dswayne Not available 2022 14:00:55 Sister Anemia dswayne Not available 14:00:55 Sister Depressive disorder dswayne Not available 2022 14:00:55 Medical History Condition Response Allergies (Food, seasonal, environmental ) Y Other N Drug/Latex Allergies/Reactions Y Blood Transfusion N Breast Cancer N Dermatologic Disorders N Lung Disease N Defects or Inherited Disease N Breast Problem N Gestational Diabetes N Hematologic disorders N Anesthesia Complications N History of STI N Deep Vein Thrombosis N Polycystic ovary syndrome N Anxiety Disorder Y Autoimmune disease N Arthritis Y Polyps N Infertility N Acid Reflux (GERD) Y History of abnormal pap N Cancer N Varicosities N Stroke N Neurologic/Epilepsy Y Endometriosis N High Cholesterol Y Fibromyalgia N Headaches N Kidney Disease N Heart Problems N Thyroid Problems N Kidney or Bladder Problems N GI Problems N Eating Disorder N Anemia Y Art (IVF or FET) N Psychiatric Illness Y Ovarian Cancer N Diabetes Y Pulmonary (TB, Asthma) N Hepatitis/Liver Disease N No Past Medical History N Eczema N Urinary Tract Infection Y Abuse/Domestic Violence N Asthma Y Trauma/Violence N Depression/ depression Y Heart Disease N Pre-Eclampsia N Hypertension Y Osteoporosis N Thrombophilias N Gynecological History Statement/Question Response Date of Last Mammogram 06/19/2023 Date of LMP 01/30/2024 N Was last menstrual period normal Y STIs/STDs N Date of Last Colonoscopy 06/09/2024 Partner Vasectomy Desired Control Method Hysterectom y On BCP's at Conception? N HPV Vaccine N Duration of Flow (days) 5 Current Control Method Hysterectom y Age at First Child 20 Are cycles usually normal Y Frequency of Cycle (Q days) 28 Sexually Active? Y Menses Monthly N Date of DEXA bone scan Age of first menstrual cycle 11 Date of Last Pap Smear 06/19/2022 Sexual Problems? N LMP Approximate N Obstetrics History GPAL:G 3 P 2 1 0 3 Type Value Full Term 2 Premature 1 Living 3 Total 3 Past Encounters Encounter ID Performer Location Encounter Start Date Encounter Closed Date Diagnosis/Indication Diagnosis SNOMED-CT Code Diagnosis ICD10 Code Diagnosis IMO Codes Diagnosis Note [id number] LEONIDES Valentine [facility] [address],[place] [address] 11/01/2023 13:49:02 11/01/2023 14:49:13 Cyst of ovary 89302080 N83.209 Detailed health hx obtained and reviewed todayrecom mended pelvic u/s for further evaluation - orderedrec ords release signed and faxedwill reach out to patient with u/s result and discuss next steps/furt her recommenda tions Patient is to contact office or go to nearest ED/Urgent care if fever >/= 100.1, pain, excessive bleeding, unusual drainage or swelling in area of concern; or experienci ng worsening sx's or new onset of concerning sx's. Understand ing verbalized . All questions answered to patient satisfacti on. Time spent in visit is a total of 25 mins with at least 50% of visit consisting of counseling and review of plan of care. [id number] Carson Rohdes MD [facility] [address],[place] [address] 11/06/2023 11:29:36 11/06/2023 13:56:27 Cyst of left ovary [id number] 8003606 N83.202 N83.201 [id number] Carson Rhodes MD [facility] [address],[place] [address] 11/15/2023 13:43:19 11/15/2023 15:19:54 Menorrhagia 397108559 N92.0 Dysmenorrhea 835625830 N 94.6 Uterine leiomyoma 273917 05 D25.9 Lesion of endometrium 92 [id number] 9101 N85.9 Cyst of ovary 54674112 N 83.209 THIS PATIENT IS A 43-YEAR-OL D FEMALE PRESENTS FOR FOLLOW-UP ON CT scan and ultrasound . She has ovarian cysts bilaterall y, uterine fibroids, possible endometria l polyp or uterine fibroid. She also has severe menorrhagi a. She also has some severe dysmenorrh ea. She has longstandi ng very heavy bleeding. Her menses are regular. However, they require double protection . Patient has accidents, getting blood on her bedding and clothing. Is affected work. She changes a pad or tampon every hour. She leaks blood around the pad and tampon. This bleeding has a profound impact on her quality of life and her activities of daily living. She primarily has a history of regular bleeding. For the last 2 years it has been irregular. we discussed her symptoms. We discussed imaging results. We discussed treatment options. We discussed medical treatments and surgical treatments . Initially we would like to evaluate the endometriu m. We are going to do an office hysterosco py with polypectom y. We made a decision to perform surgery. We spent more than 40 minutes face-to-fa ce. More than 50% was counseling . We are considerin g hysterecto my for severe dysmenorrh ea and menorrhagi a and uterine fibroids. We also talked about Endometria l ablation. [id number] Carson Rhodes MD [facility] [address] [address] 12/16/2023 11:35:35 12/16/2023 11:37:03 [id number] Carson Rhodes MD [facility] [address] [address] 12/19/2023 16:49:50 12/19/2023 18:09:08 Uterine leiomyoma 81632939 D25.9 this patient is a 43-year-ol d female with abnormal uterine bleeding, severe menorrhagi a, uterine fibroids. Hysterosco py was performed for an endometria l polyp and treatment of. There were submucous myoma and no polyp. We discussed treatment options. She is failed medical treatments for heavy bleeding and irregular bleeding. We have agreed to perform hysterecto my. We will perform robotic assisted total hysterecto my with bilateral salpingect familia. We spent 40 minutes face-to-fa ce. We made a decision to perform surgery. More than half of the meeting was counseling . I described the procedure to her in detail. The patient understand s the procedure. The procedure was described to the patient in great detail. the patient also understand s the risks. The risks were also explained in detail. She understand s that injuries May occur during surgery. She understand s these injuries can result in hospitaliz ation, more surgery, and severe illness. She understand s there is risk of hemorrhage and infection. [id number] Carson Rhodes MD [facility] [address] [address] 01/21/2024 09:24:32 01/21/2024 15:44:43 Menorrhagia 608185169 N92.0 patient is a 43-year-ol d female with severe menorrhagi a. We have agreed to perform total laparoscop ic hysterecto my and bilateral salpingect familia. She understand s the risks, benefits, and alternativ es. She is completed the informed consent process and is ready to proceed. [id number] Carson Rhodes MD [facility] [address] [address] 2024 10:55:32 2024 11:37:34 Urinary symptoms 207088344 R39.9 Vaginitis 85512889 N76.0 43-year-ol d female presents for postop follow-up and vaginitis. She has white vaginal discharge. She is vaginal itching. We agreed to treat with Diflucan. She is doing well in the postoperat jose guadalupe period. She continues to have some pain. She will need short-term pain control. Agreed to prescribe narcotic pain medication . She will follow up as needed. Her incisions are clean dry and intact. Postoperative pain 89240 9007 G89.18 [id number] Carson Rhodes MD [facility] [address] [address] 02/07/2024 15:09:22 02/07/2024 16:15:30 Pain in pelvis 44677287 R10.2 44-year-ol d female who presents for ER follow-up. She was in the emergency department for pelvic pain. She was found to have a urinary tract infection was treated. Her constipati on was also mentioned. She started MiraLax and is now having bowel movements and passing flatus. She is feeling better today. There was question of an abscess on CT scan. A powdery agent was used to maintain hemostasis after the surgery. This is likely what this represents . No fever, normal white count, improving pain with oral antibiotic s for UTI. To follow-up as needed. [id number] Carson Rhodes MD [facility] [address] [address] 02/13/2024 17:39:10 02/14/2024 08:10:16 Pelvic abscess [id number] K65.1 44-year-ol d female who presents for ER follow-up. Patient was seen in the ER twice. Imaging was suggestive of a pelvic abscess, though the clinical picture did not support that at the 1st visit. She is having drainage in from the vagina. It is foul-smell ing vaginal discharge. She is being treated with antibiotic s. Examinatio n revealed small gap in the vaginal cuff. She is status post hysterecto my, Approximat guerrero 2 weeks. will continue to treat with antibiotic s. Abscess is draining. Afebrile. White count was normal over the weekend in ER. It was normal at the 1st ER visit. [id number] Carson Rhodes MD [facility] [address] [address] 06/17/2024 10:41:29 06/17/2024 11:42:38 Bacterial vaginosis 235501932 N76.0 this patient is a 44-year-ol d female presents for vaginal discharge. The vaginal discharge has odor. There is a slight color of yellow/gra y. She denies any vulvar irritation . She denies any thick white discharge. She denies any abnormal vaginal bleeding. We agreed to testing the dischargef emale The vulva was examined. The vulva and distal vagina are normal. We agreed to treat. she will be treated with vaginal metronidaz ole gel. She was given risks, benefits, and alternativ es. She was given instructio ns and precaution s. Spent more than 20 minutes on the patient's care in total [id number] Carson Rhodes MD [facility] [address] [address] 10/31/2024 11:11:22 10/31/2024 12:44:05 Vulvovaginitis 98342280 N76.0 44-year-ol d female with recurrent BV. She also appears to have symptoms of yeast infection. This is the 3rd or 4th episode of vulvovagin itis in the last year. Exam was done vulvar erythema and discharge was present. Swab was not performed. We agreed to treat with monthly metronidaz ole vaginally and weekly Diflucan. We will do this for 6 months and then discontinu e. We discussed the risks, benefits, alternativ es of the medication . We talked about precaution s and instructio ns. Bacterial vaginosis 4197 65349 N76.0 Health Concerns Section Related Observation LastModified by Organization Detai ls LastModified Time None Recorded Concern Status LastModified by Organization Details LastModified Time None Recorded Advance Directives Directive None Recorded Payers Insurance Date Sequence Insurance Name Policy Number Policy Oliva Covered Member ID Oliva Member ID Guarantor Name 10/31/2024 1 [facility] ON OR AFTER 05/19/21 (MEDICAID REPLACEMENT - HMO) Fernanda Cornejo [id number] Fernanda Cornejo 10/30/2024 1 [facility] (MEDICAID HMO) [id number] Fernanda Mayo [id number] Fernanda Cornejo Notes Date Note Type Note Provider Name and Address Organization Details Recorded Time 2024 text/html 43-year-old female presents for postop follow-up and vaginitis. She has white vaginal discharge. She is vaginal itching. We agreed to treat with Diflucan. She is doing well in the postoperative period. She continues to have some pain. She will need short-term pain control. Agreed to prescribe narcotic pain medication. She will follow up as needed. Her incisions are clean dry and intact. Carson Rhodes MD [address], [place], [address], [facility] 2024 11:37:24 02/07/2024 text/html 44-year-old female who presents for ER follow-up. She was in the emergency department for pelvic pain. She was found to have a urinary tract infection was treated. Her constipation was also mentioned. She started MiraLax and is now having bowel movements and passing flatus. She is feeling better today. There was question of an abscess on CT scan. A powdery agent was used to maintain hemostasis after the surgery. This is likely what this represents. No fever, normal white count, improving pain with oral antibiotics for UTI. To follow-up as needed. Carson Rhodes MD [address], [place], [address], [facility] 02/07/2024 16:12:31 02/13/2024 text/html 44-year-old female who presents for ER follow-up. Patient was seen in the ER twice. Imaging was suggestive of a pelvic abscess, though the clinical picture did not support that at the 1st visit. She is having drainage in from the vagina. It is foul-smelling vaginal discharge. She is being treated with antibiotics. Examination revealed small gap in the vaginal cuff. She is status post hysterectomy, Approximately 2 weeks. will continue to treat with antibiotics. Abscess is draining. Afebrile. White count was normal over the weekend in ER. It was normal at the 1st ER visit. Carson Rhodes MD [address], [place], [address], [facility] 02/13/2024 18:13:48 06/17/2024 text/html Vaginal/Vulvar ProblemReported by Patient this patient is a 44-year-old female presents for vaginal discharge. The vaginal discharge has odor. There is a slight color of yellow/albarran. She denies any vulvar irritation. She denies any thick white discharge. She denies any abnormal vaginal bleeding. We agreed to testing the dischargefemale The vulva was examined. The vulva and distal vagina are normal. We agreed to treat. she will be treated with vaginal metronidazole gel. She was given risks, benefits, and alternatives. She was given instructions and precautions. Spent more than 20 minutes on the patient's care in total Carson Rhodes MD [address], [place], [address], [facility] 06/17/2024 11:42:25 10/31/2024 text/html Vaginal/Vulvar ProblemReported by Patient 25-year-old female with severe vulvovaginitis. She had a recent infection that was treated with Diflucan. It resolved. It recurred with more severe symptoms. The recurrence was quick. We agreed to treat with extended Diflucan treatment. Weekly Diflucan and initial treatment with fluconazole. We talked about the medications in detail. We talked about the risks, benefits, and alternatives. Talked about risks, precautions, instructions. She was examined. There was vulvar irritation and erythema. No breaks in the skin. White vaginal discharge. Swabs were taken. Carson Rhodes MD [address], [place], [address], [facility] 10/31/2024 12:37:39 OBGyn Episode Ob Episode Information Episode Created Date Number of Fetuses Patient Bloodtype Patient rh Status Prepregnancy Weight lbs Domestic Partner Domestic Partner Phone Father Name Fruit Dryer Status 11/01/20 1 CLOSED Fetus Data First Name Last Name Admitted to NICU Weight (g) Sex Living Outcome Pediatric Complications Fetus ID Race Codes Race Delivery Type 3826.95 [id number] Full Term [id number] Primary Stanislaw Calculation Initial Stanislaw Date Initial Exam Date Initial Exam Provider Initial Ultrasound Date Last Menstrual Period Date Ultra Sound Weeks Gestation 0 Eighteen To Twenty Week Stanislaw Update Ultra Sound Date Fundal Height At Umbil Quickening Date Ultra Sound Latest Weeks Gestation Final Stanislaw Confirmed By Final Stanislaw Confirmed Date Final Stanislaw Date Ultra Sound Latest Days Gestation 0 0 Menstrual History Last Menstrual Date Menses Monthly On Bcp Conception Prior Menses Frequency Hcg Plus Date Menarche Onset Age Delivery Information Delivery Date Delivery Type Labor Anesthesia Weeks Gestation Incision Type Labor Labor Length Hrs Delivered By Post Complications Tubal Sterilization Discharge Date Comments 1 39 Discharge Information Feeding Method Contraceptive Method Maternal HG B and HCT Levels Ob Episode Information Episode Created Date Number of Fetuses Patient Bloodtype Patient rh Status Prepregnancy Weight lbs Domestic Partner Domestic Partner Phone Father Name Fruit Dryer Status 11/01/20 23 1 CLOSED Fetus Data First Name Last Name Admitted to NICU Weight (g) Sex Living Outcome Pediatric Complications Fetus ID Race Codes Race Delivery Type 3600.15 [id number] Full Term [id number] Repeat Stanislaw Calculation Initial Stanislaw Date Initial Exam Date Initial Exam Provider Initial Ultrasound Date Last Menstrual Period Date Ultra Sound Weeks Gestation 0 Eighteen To Twenty Week Stanislaw Update Ultra Sound Date Fundal Height At Umbil Quickening Date Ultra Sound Latest Weeks Gestation Final Stanislaw Confirmed By Final Stanislaw Confirmed Date Final Stanislaw Date Ultra Sound Latest Days Gestation 0 0 Menstrual History Last Menstrual Date Menses Monthly On Bcp Conception Prior Menses Frequency Hcg Plus Date Menarche Onset Age Delivery Information Delivery Date Delivery Type Labor Anesthesia Weeks Gestation Incision Type Labor Labor Length Hrs Delivered By Post Complications Tubal Sterilization Discharge Date Comments 3 Discharge Information Feeding Method Contraceptive Method Maternal HG B and HCT Levels Ob Episode Information Episode Created Date Number of Fetuses Patient Bloodtype Patient rh Status Prepregnancy Weight lbs Domestic Partner Domestic Partner Phone Father Name Fruit Dryer Status 11/01/20 23 1 CLOSED Fetus Data First Name Last Name Admitted to NICU Weight (g) Sex Living Outcome Pediatric Complications Fetus ID Race Codes Race Delivery Type 3968.93 Prematur e [id number] Repeat Stanislaw Calculation Initial Stanislaw Date Initial Exam Date Initial Exam Provider Initial Ultrasound Date Last Menstrual Period Date Ultra Sound Weeks Gestation 0 Eighteen To Twenty Week Stanislaw Update Ultra Sound Date Fundal Height At Umbil Quickening Date Ultra Sound Latest Weeks Gestation Final Stanislaw Confirmed By Final Stanislaw Confirmed Date Final Stanislaw Date Ultra Sound Latest Days Gestation 0 0 Menstrual History Last Menstrual Date Menses Monthly On Bcp Conception Prior Menses Frequency Hcg Plus Date Menarche Onset Age Delivery Information Delivery Date Delivery Type Labor Anesthesia Weeks Gestation Incision Type Labor Labor Length Hrs Delivered By Post Complications Tubal Sterilization Discharge Date Comments 7 Discharge Information Feeding Method Contraceptive Method Maternal HG B and HCT Levels
--- OUTSIDE RECORDS SUMMARY | 2025-10-01 14:42 | XMS_ITS | Clinical Summary ---
Author Organization [facility] Address [address] [place] [address] Care Team Providers Care Touch Up Painter Name Role Phone Aldo Law MD Unavailable [phone] Bev Slade NP Primary Care Provider Allergies Active Allergy Reactions Criticality Noted Date Comments Sulfamethoxazole-Trimethoprim Hives Medium 2022 Hydrocodone Itching Low 07/08/2016 Itching Lisinopril Angioedema High 08/07/2023 Sulfamethoxazole Hives Medium 02/05/2024 Reported by pt. Trimethoprim Hives Medium 02/05/2024 Reported by pt. Medications cetirizine (ZyrTEC) 10 mg tablet daily 019 Active diltiaZEM CD (CARDIZEM CD) 360 mg 24 hr capsule Take by mouth daily 023 Active ezetimibe (ZETIA) 10 mg tablet daily 022 Active ferrous sulfate 325 mg (65 mg of elemental iron) tablet Take 1 tablet (325 mg total) by mouth daily Active montelukast (SINGULAIR) 10 mg tablet TAKE 1 TABLET BY MOUTH EVERY DAY for 30 970 Active hydroCHLOROthiazi de (MICROZIDE) 12.5 mg capsule Take by mouth daily 023 Active potassium chloride ER 20 mEq CR tablet TAKE 1 TABLET BY MOUTH EVERY DAY WITH FOOD FOR 30 DAYS Active famotidine (PEPCID) 40 mg tablet Take 1 tablet (40 mg total) by mouth nightly Active folic acid (FOLVITE) 1 mg tabletIndications :Folate Deficiency Take 1 tablet (1 mg total) by mouth daily Active cyanocobalamin, vitamin B-12, (Vitamin B-12) 1,000 mcg/mL drops Active vortioxetine (TRINTELLIX) 20 mg tablet Take 5 mg by mouth daily Active dupilumab (Dupixent Pen) pen injector Inject 2 mL (300 mg total) under the skin every 14 (fourteen) days 4 mL Active albuterol-budeson mayra 90-80 mcg/actuation HFA aerosol inhalerIndication s:Moderate persistent asthma without complication Inhale 2 puffs every 4 (four) hours as needed (cough ,wheezing, chest pain, shortness of breath) 1 g 025 2025 Active Additional Information Patient not taking.Reported on 09/29/2025 Farxiga 10 mg tabletIndications :type 2 diabetes mellitus Take 1 tablet (10 mg total) by mouth daily E11.65 90 tablet 4 025 Active metFORMIN (GLUCOPHAGE) 850 mg tablet Take 1 tablet (850 mg total) by mouth 2 (two) times a day with meals E11.65 180 tablet 4 025 Active atorvastatin (LIPITOR) 40 mg tablet Take 1 tablet (40 mg total) by mouth daily 90 tablet 4 025 Active blood-glucose meter kit Use daily as directed for monitoring of blood sugar for diabetes twice daily. E11.65 1 kit 025 Active blood glucose diagnostic (glucose blood) strip Use daily as directed for monitoring of blood sugar for diabetes twice daily. E11.65 200 each 3 025 Active lancets [facility] [place] Check blood sugar 2x times a day E11.65 200 each 3 025 Active naproxen (NAPROSYN) 500 mg tablet Take 1 tablet (500 mg total) by mouth 2 (two) times a day 025 Active dulaglutide (TRULICITY) 1.5 mg/0.5 mL pen injectorIndicatio ns:type 2 diabetes mellitus Inject 0.5 mL (1.5 mg total) under the skin every 7 days 6 mL 4 Active cetirizine (ZyrTEC) 10 mg tablet Take 1 tablet (10 mg total) by mouth daily 90 tablet 3 025 2025 Active Trelegy Ellipta 200-62.5-25 mcg inhaler INHALE 1 PUFF BY MOUTH ONCE DAILY. RINSE MOUTH AND SPIT AFTER USE 180 each 3 Active ondansetron ODT (ZOFRAN-ODT) 4 mg disintegrating tablet TAKE 1 TABLET BY MOUTH EVERY 8 HOURS NEEDED FOR NAUSEA AND VOMITING 20 tablet 2 Active albuterol 2.5 mg /3 mL (0.083 %) nebulizer solutionIndicatio ns:Moderate persistent asthma without complication Take 3 mL (2.5 mg total) by nebulization every 6 (six) hours as needed for wheezing 75 mL 6 025 Active azelastine (ASTELIN) 137 mcg (0.1 %) nasal sprayIndications: Nasal congestion Administer 1 spray into each nostril 2 (two) times a day 30 mL 11 Active predniSONE (DELTASONE) 10 mg tablet TAKE 1 TAB 3 TIMES A DAY X3DAYS, 1 TAB 2 TIMES A DAY X2DAYS, 1 TAB ONCE FOR 1 DAY Active oseltamivir (TAMIFLU) 75 mg capsule Take 1 capsule (75 mg total) by mouth 2 (two) times a day for 5 days 10 capsule 025 2024 Active albuterol 2.5 mg /3 mL (0.083 %) nebulizer solution every 6 hours 019 2024 Discontinued(R eorder) azelastine (ASTELIN) 137 mcg (0.1 %) nasal sprayIndications: Nasal congestion Administer 1 spray into each nostril 2 (two) times a day Use in each nostril as directed 30 mL 11 024 2024 Discontinued fluticasone-umecl idin-vilanter (Trelegy Ellipta) 200-62.5-25 mcg inhaler Inhale 1 puff daily Rinse and spit after use 60 each 11 025 2024 Discontinued ondansetron ODT (ZOFRAN-ODT) 4 mg disintegrating tablet Take 1 tablet (4 mg total) by mouth every 8 (eight) hours as needed for nausea or vomiting 20 tablet 2 025 2024 Discontinued Active Problems Problem Noted Date Diagnosed Date assisted (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 immunosuppressive bio logic 01/19/2025 Assessment & Plan (09/30/2025 9:13 AM PHOTOGRAPHY AND PRINTS CURATOR): She continues Dupixent injections every 2 weeks She is not experiencing any SE or adverse reactions. She is aware of reportable signs and symptoms Assessment & Plan (08/03/2025 10:04 AM CDT): She continues Dupixent injections every 2 weeks We previously discussed injection site reaction She is not experiencing any other SE or adverse reactions. She is aware of reportable signs and symptoms Assessment & Plan (03/25/2025 3:31 PM CDT): She is on month 5 of Dupixent injections I have discussed injection site reaction with her and advised ice prior to injection and after to minimize swelling and redness She is aware of reportable signs and symptoms Assessment & Plan (01/19/2025 9:29 AM PHOTOGRAPHY AND PRINTS CURATOR): She is on month 3 of Dupixent injections I have discussed injection site reaction with her and advised ice prior to injection and after to minimize swelling and redness I will plan to check her eosinophil count in 3 months She is aware of reportable signs and symptoms Dyspnea on exertion 07/16/2024 Assessment & Plan (07/16/2024 12:01 PM CDT): Increased over last several months especially when exposed to triggers CT chest completed May of 2024 with mosaic ground-glass attenuation bilaterally, staff has requested imaging Repeat CT chest to ensure resolution Nasal congestion 06/03/2024 Assessment & Plan (06/04/2024 12:41 PM CDT): Flonase has not been helpful Start azelastine and saline nasal rinses If this does not improve her symptoms apparently sleep medicine would proceed with CT scan of her sinuses Assessment & Plan (06/03/2024 10:05 AM CDT): I did advise the patient to try taking her Zyrtec in the morning and using the Flonase at nighttime before she goes to bed. I informed the patient that if this does not help to call back in for a CT scan of her sinuses. The patient verbalized understanding. Hyperlipidemia associated with type 2 diabetes nicko iverson 05/08/2024 Assessment & Plan (06/04/2024 11:44 AM CDT): This is a chronic condition which is close to goal . Goal is LDL less than 70 Continue atorvastatin and zetia. Encouraged to eat healthy, include fresh fruits and vegetables daily and avoid eating fried foods more than once per week. Encouraged to take medications as prescribed. Assessment & Plan (05/08/2024 2:30 PM CDT): This is a chronic condition which is At goal . Goal is LDL less than 70 Continue atorvastatin, Zetia Encouraged to eat healthy, include fresh fruits and vegetables daily and avoid eating fried foods more than once per week. Encouraged to take medications as prescribed. Severe persistent asthma without complication Assessment & Plan (09/30/2025 9:15 AM PHOTOGRAPHY AND PRINTS CURATOR): Continue Trelegy Ellipta 200 one puff daily at the same time Continue airsupra 2 puffs every 4 hours as needed for rescue use per HAZEL guidelines, she is aware of indications for use Avoid triggers and continue medications for allergies Continue Dupixent every 2 weeks IgE, IgA, IgM, and IgG were all normal We have discussed vaccines this fall and I have advised spacing them out one at a time every 2-3 weeks. We have discussed signs and symptoms that would require earlier evaluation or change to her plan of care She will call us if her daughter tests positive for COVID or the flu. Assessment & Plan (08/03/2025 10:02 AM CDT): Continue Trelegy Ellipta 200 one puff daily at the same time Continue airsupra 2 puffs every 4 hours as needed for rescue use per HAZEL guidelines, she is aware of indications for use Avoid triggers and continue medications for allergies Continue Dupixent every 2 weeks due to her frequent steroid use and eosinophilia. IgE, IgA, IgM, and IgG are all normal We have discussed vaccines this fall and I have advised spacing them out one at a time every 2-3 weeks. We have discussed signs and symptoms that would require earlier evaluation or change to her plan of care Assessment & Plan (03/25/2025 3:31 PM CDT): Continue Trelegy Ellipta 200 one puff daily at the same time and airsupra 2 puffs every 4 hours as needed for rescue use per HAZEL guidelines Avoid triggers Continue Dupixent every 2 weeks due to her frequent steroid use and eosinophilia. IgE, IgA, IgM, and IgG these are all normal We have discussed signs and symptoms that would require earlier evaluation or change to her plan of care Assessment & Plan (2025 4:05 PM CDT): She had three exacerbations last year requiring steroids She was also positive for RSV and influenza A She has had 2 exacerbations and a hospitalization for RSV since November of this year Eosinophil count in May 2024 was 300 Continue Trelegy Ellipta 200 one puff daily and airsupra every 4 hours as needed for rescue use per HAZEL guidelines Avoid triggers Continue Dupixent due to her frequent steroid use and eosinophilia. I will check immunoglobulin levels and may refer her to immunology We have discussed signs and symptoms that would require earlier evaluation or change to her plan of care Assessment & Plan (01/19/2025 9:25 AM PHOTOGRAPHY AND PRINTS CURATOR): She had three exacerbations last year requiring steroids Eosinophil count in May 2024 was 300 Continue Trelegy Ellipta 200 one puff daily, I have provided her with financial assistance paperwork today I will switch her to airsupra every 4 hours as needed for rescue use per HAZEL guidelines Avoid triggers Continue Dupixent due to her frequent steroid use and eosinophilia. We have discussed signs and symptoms that would require earlier evaluation or change to her plan of care Assessment & Plan (10/08/2024 10:29 AM PHOTOGRAPHY AND PRINTS CURATOR): She has had three exacerbations this year requiring steroids Eosinophil count in May 2024 was 300 Continue Trelegy Ellipta 200 one puff daily Albuterol as needed only, discussed indications for use Avoid triggers We have discussed the initiation of biologic therapy with Sheri due to her frequent steroid use and eosinophilia. She is in agreement and I have ordered this today We have discussed signs and symptoms that would require earlier evaluation or change to her plan of care Assessment & Plan (09/08/2024 11:18 AM CDT): She has had two exacerbations this year requiring steroids and antibiotics she was previously on Advair 250 and Spiriva due to insurance coverage She was switched to Trelegy Ellipta 200 one puff daily with improved clinical benefit Continue this daily. Albuterol as needed only, discussed indications for use Avoid triggers She recently had a CBC completed, and I will request this to assess for eosinophilia, I would have a low threshold to initiate biologic therapy Assessment & Plan (07/16/2024 11:12 AM CDT): She has had one exacerbation this year requiring steroids and antibiotics Previously on Advair 250 and Spiriva due to insurance coverage She was switched to Trelegy Ellipta 200 1 puff daily at her last office visit and has done well Continue this daily. Albuterol as needed only, discussed indications for use Avoid triggers Assessment & Plan (06/04/2024 12:40 PM CDT): Her last exacerbation was likely secondary to viral infection however she was not swabbed during her first emergency room visit. Previously on Advair 250 and Spiriva due to insurance coverage I will start Trelegy Ellipta 200 1 puff daily today, I have given her a sample and instructed her on use She will let us know in 1 week if this has improved symptoms although we have discussed that post viral cough and dyspnea can last up to 3 months Albuterol as needed only, discussed indications for use Plans to recheck eosinophils after she has been off of prednisone Assessment & Plan (01/28/2024 11:32 AM CDT): Continue Advair 250/50 twice daily Continue Spiriva (generic) HandiHaler once daily Albuterol as needed, discussed indications for use Avoid triggers History of pulmonary embolus (PE) 01/28/2024 Assessment & Plan (08/03/2025 10:05 AM CDT): CTA chest was completed 05/2024 and demonstrated no evidence of residual pulmonary embolus She is on ASA and follows with a candy feeder at [facility] I am unsure if this was provoked, will request further records Assessment & Plan (01/19/2025 9:27 AM PHOTOGRAPHY AND PRINTS CURATOR): CTA chest was completed 05/2024 and demonstrated no evidence of residual pulmonary embolus She is on ASA and follows with a candy feeder at [facility] Assessment & Plan (10/08/2024 10:29 AM PHOTOGRAPHY AND PRINTS CURATOR): CTA chest was completed 05/2024 and demonstrated no evidence of residual pulmonary embolus She remains on baby ASA and follows with a candy feeder at [facility] Assessment & Plan (09/08/2024 11:16 AM CDT): CTA chest was completed and demonstrated no evidence of residual pulmonary embolus She remains on baby ASA and follows with a candy feeder at [facility] Assessment & Plan (07/16/2024 11:10 AM CDT): CTA chest with no evidence of residual pulmonary embolus She remains on baby ASA and follows with a candy feeder at [facility] Assessment & Plan (06/04/2024 12:38 PM CDT): CTA chest with no evidence of pulmonary embolus She remains on baby aspirin Assessment & Plan (01/28/2024 11:31 AM CDT): Last CTA with no residual pulmonary emboli She remains on baby aspirin Gastroesophageal reflux disease without esophagi tis 01/28/2024 Assessment & Plan (09/30/2025 9:13 AM PHOTOGRAPHY AND PRINTS CURATOR): Continue famotidine 40 mg daily Continue to avoid trigger foods. I would have a low threshold to add PPI if her symptoms become uncontrolled She is aware of the relationship between uncontrolled GERD and chronic cough Diet modification and weight loss No eating 2-3 hours before bed Elevate head of the bed while sleeping. No tight clothing. Assessment & Plan (08/03/2025 10:07 AM CDT): Continue famotidine 40 mg daily I would have a low threshold to add PPI if her symptoms become uncontrolled We have discussed the relationship between uncontrolled GERD and chronic cough Diet modification and weight loss, avoid trigger foods. No eating 2-3 hours before bed Assessment & Plan (2025 4:05 PM CDT): Continue famotidine 40 mg daily Low threshold to add PPI if symptoms become uncontrolled We have discussed uncontrolled GERD and chronic cough Assessment & Plan (01/19/2025 9:28 AM PHOTOGRAPHY AND PRINTS CURATOR): Continue famotidine 40 mg daily Low threshold to add PPI if symptoms become uncontrolled We have discussed the correlation between uncontrolled GERD and chronic cough Assessment & Plan (10/08/2024 10:30 AM PHOTOGRAPHY AND PRINTS CURATOR): Continue famotidine 40 mg daily Low threshold to add PPI if symptoms become uncontrolled Avoid trigger foods Avoiding eating 2-3 hours before bed Avoid tight clothing Elevate head of bed while asleep Assessment & Plan (09/08/2024 11:16 AM CDT): Continue famotidine 40 mg daily Avoid trigger foods Avoiding eating 2-3 hours before bed Avoid tight clothing Elevate head of bed while asleep She is undergoing evaluation for bariatric surgery I also think that weight loss would help improve GERD symptoms. Assessment & Plan (07/16/2024 11:09 AM CDT): Continue famotidine 40 mg p.o. daily Avoid trigger foods Avoiding eating 2-3 hours before bed Avoid tight clothing Elevate head of bed while asleep Assessment & Plan (01/28/2024 11:31 AM CDT): Continue famotidine 40 mg p.o. daily Avoid triggering foods Avoiding eating 2-3 hours before bed Avoid tight clothing Elevate head of bed while asleep FELIX (obstructive sleep apnea) 11/29/2023 Assessment & Plan (09/30/2025 9:14 AM PHOTOGRAPHY AND PRINTS CURATOR): She is following with sleep medicine in [place] Her last residual AHI that I reviewed was well corrected at 0.6 on her new machine Continue PAP use with all sleep She is aware of the risks of uncorrected FELIX Her echocardiogram did not demonstrate any evidence of PH Weight loss and good sleep hygeine Assessment & Plan (08/03/2025 10:03 AM CDT): She is following with sleep medicine in [place] and her residual AHI that I reviewed was well corrected at 0.6 on her new machine Continue PAP use with all sleep She is aware of the risks of uncorrected FELIX Her echocardiogram did not demonstrate any evidence of PH Assessment & Plan (03/25/2025 3:32 PM CDT): She is following with sleep medicine in [place] and her last AHI that I reviewed was well corrected Continue PAP use with all sleep I have stressed how important frequent supply replacement and thorough cleaning of disposable supplies are in preventing infection She is aware of the risks of uncorrected FELIX Assessment & Plan (2025 4:05 PM CDT): She is following with sleep medicine in [place] and her last AHI that I reviewed was well corrected Continue PAP use with all sleep She is aware of the risks of uncorrected FELIX Assessment & Plan (01/19/2025 9:27 AM PHOTOGRAPHY AND PRINTS CURATOR): She is following with sleep medicine in [place] and her last AHI that I reviewed was well corrected Supply replacement as indicated, she can use saline nasal rinses before bed Continue PAP use with all sleep She is aware of the risks of uncorrected FELIX Assessment & Plan (10/08/2024 10:30 AM PHOTOGRAPHY AND PRINTS CURATOR): She has followed with sleep medicine in [place] and her last AHI that I reviewed was well corrected Continue PAP use with all sleep She is aware of the risks of uncorrected FELIX She would like to transfer her care here to [place], she has been provided with a number to call their office and schedule Assessment & Plan (09/08/2024 11:18 AM CDT): She has followed with sleep medicine in [place] and her last AHI that I reviewed was well corrected Continue PAP use with all sleep She is aware of the risks of uncorrected FELIX Assessment & Plan (07/16/2024 11:13 AM CDT): She has followed with sleep medicine in [place] and her last AHI was well corrected Continue PAP use with all sleep Assessment & Plan (06/04/2024 12:41 PM CDT): She has followed with sleep medicine her last AHI was well corrected Continue PAP use with all sleep Assessment & Plan (06/03/2024 10:05 AM CDT): Patient continue to wear her CPAP at an auto titrating range of 6-18 cm water pressure. The patient's DME is [facility]. Assessment & Plan (01/28/2024 11:30 AM CDT): She is compliant use with all sleep Continue to follow with sleep medicine Assessment & Plan (11/29/2023 10:50 AM PHOTOGRAPHY AND PRINTS CURATOR): The patient continues to benefit from the auto titrating CPAP unit with a range of 6-15 cm water pressure. I will have the patient sign a release so we can obtain her home sleep test through [facility] in [place]. We will give the patient the phone number for [facility]-who is her supplier-and she will need to call them and give her the serial number off of the new CPAP unit so that we can download the information. She will follow up here in 6 months. Hypertension associated with type 2 diabetes bereket litus 08/07/2023 Assessment & Plan (06/04/2024 11:44 AM CDT): This is a chronic condition which is at goal. Goal is less than 140/90 Personally reviewed labs. Continue hctz. Encouraged to monitor weight and B/P at home. Encouraged to void caffeine and excessive alcohol consumption as this will elevate B/P Encouraged to take medications as prescribed. Assessment & Plan (11/05/2023 8:44 AM PHOTOGRAPHY AND PRINTS CURATOR): This is a chronic condition which is at goal of less than 140/90 Personally reviewed labs. Continue HCTZ Encouraged to monitor weight and B/P at home Encouraged to take medications as prescribed. Assessment & Plan (08/07/2023 2:17 PM CDT): This is a chronic condition which is at goal of less than 140/90 Personally reviewed labs. Continue hctz. Angioedema with lisinopril. Encouraged to monitor weight and B/P at home. Blood pressure cuff ordered. Encouraged to take medications as prescribed. Type 2 diabetes mellitus wit hout complication, without long-term current use of insulin 05/10/2023 Assessment & Plan (06/04/2024 11:43 AM CDT): This is a chronic condition which is elevated, worsening, not at goal since using steroids and 8 lbs weight gain . Goal is less than 7%. Personally reviewed most recent A1c - Lab Results Component Value Date HGBA1C 8.8 06/04/2024 Personally reviewed POC blood sugar- at goal of 80-180 Lab Results Component Value Date POCGLU 180 06/04/2024 Medication- continue Metformin 1000mg po twice daily, farxiga 10mg weekly, restart rybelsus 3mg daily for 30 days, on day 31- increase Rybelsus to 7mg daily. Take with 4oz of h2o first thing in the morning on a empty stomach. Does not tolerate Rybelsus at doses higher than 7mg . Monitor blood sugar daily . Encouraged annual eye exam. Monofilament foot exam completed. Protective senses intact. Personally reviewed CMP eGFR- 113 Kidney function-normal Urine microalbumin/creatinine ratio - slightly elevated . Goal is <30 Continue hctz. not treated with JULEIN/ARB Assessment & Plan (05/08/2024 2:30 PM CDT): This is a chronic condition which is at goal . Goal is less than 7%. Personally reviewed most recent A1c - Patient reports A1c completed at [facility] in [place] by PCP was 6.2% Lab Results Component Value Date HGBA1C 7.8 11/05/2023 Medication- patient stop Rybelsus -t was making her sick to her stomach. Patient states Farxiga was stopped by PCP. Continue metformin 850 mg b.i.d. Monitor blood sugar daily fasting. Encouraged annual eye exam. last dilated eye exam was [facility] Denies any numbness or tingling in feet Personally reviewed CMP eGFR- 113 Kidney function-at goal Urine microalbumin/creatinine ratio -not at goal. Goal is <30 Continue HCTZ not treated with JULIEN/ARB Personally reviewed lipid panel. Slightly above goal. Goal is less than 70. Continue atorvastatin, Zetia Assessment & Plan (11/05/2023 8:44 AM PHOTOGRAPHY AND PRINTS CURATOR): This is a chronic condition which is improving but not at goal of less than 7%. Personally reviewed most recent A1c - Lab Results Component Value Date HGBA1C 7.8 11/05/2023 Personally reviewed POC blood sugar- not at goal 80-180 Lab Results Component Value Date POCGLU 120 11/05/2023 Medication- continue Metformin 1000mg po twice daily, rybelsus 14 mg po daily in early am with 4oz of h2o 30 minutes prior to food. Monitor blood sugar daily Encouraged annual eye exam. Monofilament foot exam completed. protective senses intact Personally reviewed CMP eGFR- 113 Kidney function- normal Urine microalbumin/creatinine ratio - not at goal <30 not treated with Julien or Arb, treated HCTZ B/P today- at goal of <140/90. continue HCTZ Personally reviewed lipid panel. Not at Goal of less than 70. Continue atorvastatin, Zetia Assessment & Plan (08/07/2023 2:16 PM CDT): This is a chronic condition which is worsening not at goal of less than 7%. Personally reviewed most recent A1c - Lab Results Component Value Date HGBA1C 8.7 08/07/2023 Personally reviewed POC blood sugar- not at goal 80-180 Lab Results Component Value Date POCGLU 247 08/07/2023 Medication- Continue Metformin 1000mg po twice daily, stop Victoza and januvia. Start Ozempic 0.25mg weekly for 4 weeks, on week #5 increase ozempic to 0.5mg weekly. Will titrate for blood sugars. Failed metformin and victoza. Monitor blood sugar 2 times a day. Continuously with sensor. Encouraged annual eye exam. last dilated eye exam was at [facility]. Monofilament foot exam completed. protective senses intact Personally reviewed CMP eGFR- 115 Kidney function- normal Urine microalbumin/creatinine ratio - ordered. goal <30 not treated with JULIEN/ARB- angioedema with lisinopril. Controlled on HCTZ B/P today-at goal of <140/90. continue HCTZ Personally reviewed lipid panel. Repeat lipid panel ordered. Goal of less than 70. Continue atorvastatin. Assessment & Plan (05/10/2023 10:06 AM CDT): This is a chronic condition which is improving but not at goal of less than 7%. Last A1c-9.4% Personally reviewed most recent A1c - Lab Results Component Value Date HGBA1C 7.4 05/10/2023 Personally reviewed POC blood sugar- not at goal 80-180 Lab Results Component Value Date POCGLU 139 05/10/2023 Medication- Continue Metformin 1000mg po twice daily, Victoza 1.8mg weekly and januvia 100mg po daily Monitor blood sugar daily Encouraged annual eye exam. last dilated eye exam was [facility] Monofilament foot exam completed. protective senses intact Personally reviewed CMP eGFR- 114 Kidney function- normal Urine microalbumin/creatinine ratio - needed. goal <30 treated with lisinopril B/P today- not at goal of <140/90. continue lisinopril. lipid panel needed Goal of less than 70. Continue atorvastatin, Zetia Ambulatory referral to diabetes education Encouraged increased activity as much as possible with her asthma Encouraged 3 meals a day 1 plate of food each meal should include fruit vegetables protein source in some type of starch Class 3 severe obesity due t o excess calories with serious comorbidity and body mass index (BMI) of 45.0 to 49.9 in adult 12/10/2020 Assessment & Plan (06/04/2024 11:45 AM CDT): This is a chronic condition which is worsening 8 lbs. Weight gain since last office visit Encouraged healthy eating which includes a low carb diet. Avoiding processed foods, sweets and fried foods. Encouraged 30 minutes of walking at least 5 days per week Discussed that exercise can be broken down into small sessions- for example 2- 15 minutes sessions or 3- 10 minutes sessions. Assessment & Plan (05/08/2024 2:31 PM CDT): This is a chronic condition which continues but improving Patient reports 10 lbs. Weight loss since last office visit Encouraged healthy eating which includes a low carb diet. Avoiding processed foods, sweets and fried foods. Encouraged 30 minutes of walking at least 5 days per week Discussed that exercise can be broken down into small sessions- for example 2- 15 minutes sessions or 3- 10 minutes sessions. Assessment & Plan (11/05/2023 8:46 AM PHOTOGRAPHY AND PRINTS CURATOR): This is a chronic condition which continues 10 lb weight loss since last office visit She and her have joined a gym encouraged exercise with her Encouraged healthy Increase Rybelsus to 14 mg daily Assessment & Plan (08/07/2023 2:17 PM CDT): This is a chronic condition which continue. Will proceed with ozempic if insurance covers. Resent to diabetes class to focus on weight loss and exercise. Assessment & Plan (05/10/2023 10:10 AM CDT): This is a chronic condition which continues Encouraged healthy eating and exercise Continue eMndeltoza Discussed switching to a longer acting GLP 1 such as Trulicity which may promote further weight loss. 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; Gastroesophageal reflux disease without esophagitis 09/17/2025 Orders Only [facility] Pulmonary at [address] [phone] Natalie Wetzel NP Moderate persistent asthma without complication (Primary Dx) 08/31/2025 8:12 AM CDT - 08/31/2025 11:59 PM CDT Hospital Encounter [facility] [address] [place] [address] Screening mammogram, encounter for Discharge Disposition: Discharge to home or self care 08/03/2025 8:30 AM CDT Office Visit [facility] Medical [facility] Pulmonary at [place] [address] [place] [address] Natalie Wetzel NP Moderate persistent asthma without complication (Primary Dx); FELIX (obstructive sleep apnea); Gastroesophageal reflux disease without esophagitis; History of pulmonary embolus (PE); assisted (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 immunosuppressive biologic 07/14/2025 9:00 AM CDT Office Visit [facility] [address] [place] [phone] Carmelita Barahona MD FELIX (obstructive sleep apnea) (Primary Dx); Hypersomnia with sleep apnea; Morbid obesity with body mass index (BMI) of 45.0 to 49.9 in adult (HCC) from Last 3 Months Immunizations Immunization Administration Dates Next Due DTP 08/16/1984 HPV9 01/24/2019,11/25/2018 Influenza Nasal, Unspecified 10/19/2015 Influenza, Quadrivalent, Irina l Culture-based MDCK, Preservative Free, Antibiotic Free, Intramuscular 08/06/2022,08/25/2021 Influenza, Quadrivalent, Split, Intramuscular ,08/28/2016 Influenza, Quadrivalent, Spl it, Preservative Free, Intramuscular 08/09/2019,07/18/2017 Influenza, Trivalent, IM (MDV) 09/30/2015 MMR 08/16/1984 OPV 08/16/1984 Pneumococcal Polysaccharide PPV23 09/11/2018, Tdap 12/13/2016 Surgical History Surgery Date Site/Laterality Comments ABLATION to spine CARDIAC CATHETERIZATION SECTION 12/09/2000 3 12/13/2006 HYSTERECTOMY 01/31/2024 OOPHORECTOMY 01/18/2024 - 02/17/2024 still has one Medical History Medical History Date Comments Asthma Cor pulmonale (HCC) Esophageal reflux Hypertension Obstructive sleep apnea syndrome Pulmonary embolism and infarction (HCC) Arthritis Diabetes mellitus History of pulmonary embolus (PE) 01/28/2024 Gastroesophageal reflux disease without esophagi tis 01/28/2024 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 (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 immunosuppressive 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 logic 01/19/2025 Anemia Anxiety Depression Cataract Family History Medical History Relation Name Comments Asthma Brother 1 Barrie Depression Brother 1 Barrie Depression Brother 2 Geoff Kidney disease Brother 2 Geoff Breast cancer Maternal Grandmother Asthma Mother Krista Cancer Mother Krista Cervical cancer Mother Krista Clotting disorder Mother Krista Depression Mother Krista COPD Sister 1 Gracie Chronic bronchitis Sister 1 Gracie Depression Sister 1 Gracie Hypertension Sister 1 Gracie Asthma Sister 2 Josr Depression Sister 2 Josr Ovarian cancer Neg Hx Thyroid cancer Neg Hx Relation Name Status Comments Brother 1 Barrie Brother 2 Geoff Alive Maternal Grandmother Mother Krista Sister 1 Gracie Alive Sister 2 Josr Alive Social History Tobacco Use Types Packs/Day Years Used Date Smoking Tobacco: Former Cigarettes 0.3 2 0 11/19/2005 - 2007 Passive Smoke Exposure: Never Smokeless Tobacco: Never Tobacco Cessation:Counseling Given: Not Answered AUDIT-C Answer Date Recorded Frequency of Alcohol Consumption Not on file 09/29/2025 Q2: How many drinks containi ng alcohol do you have on a typical day when you are drinking? Patient does not drink Frequency of Binge Drinking Not on file 09/19 Personal Safety Answer Date Recorded Have you ever been in or are you currently in a harmful physical or emotional relationship or is someone making you feel afraid or unsafe? Denies 10/15/2023 Comments No Sex and Gender Information Value Date Recorded Sex Assigned at Not on file Legal Sex Female 12:13 AM PHOTOGRAPHY AND PRINTS CURATOR Gender Identity Female 01/23/2024 7:04 AM PHOTOGRAPHY AND PRINTS CURATOR Sexual Orientation Straight 01/23/2024 7: 04 AM PHOTOGRAPHY AND PRINTS CURATOR Obstetrics History Para Term AB IAB SAB Ectopic Multiple Livin g Live Births 3 3 Date Outcome GA Total Labor Labor/2nd/3rd Weight Sex Type Anes PTL Zulay A1 A5 Name Clin Last Filed Vital Signs Vital Sign Reading Time Taken Comments Blood Pressure 120/80 09/29/2025 2:07 PM PHOTOGRAPHY AND PRINTS CURATOR Pulse 76 09/29/2025 2:07 PM PHOTOGRAPHY AND PRINTS CURATOR Temperature 36.5 C (97.7 F) 09/29/2025 2:07 PM PHOTOGRAPHY AND PRINTS CURATOR Respiratory Rate 20 09/29/2025 2:07 PM PHOTOGRAPHY AND PRINTS CURATOR Oxygen Saturation 96% 09/29/2025 2:07 PM PHOTOGRAPHY AND PRINTS CURATOR Inhaled Oxygen Concentration - - Weight 146.9 kg (323 lb 14.4 oz) 09/29/2025 2:07 PM PHOTOGRAPHY AND PRINTS CURATOR Height 170.2 cm (5' 7) 09/29/2025 2:07 PM PHOTOGRAPHY AND PRINTS CURATOR Body Mass Index 50.73 09/29/2025 2:07 PM PHOTOGRAPHY AND PRINTS CURATOR Plan of Treatment Health Maintenance Due Date Last Done Comments Colon Cancer Screening-Colonoscopy 1980 Depression Screening 1980 Hepatitis C Screening 1980 Regular Well Visit/Exam 18-64 1997 HPV Vaccines (3 - 3-dose SCD M series) 05/25/2019 01/24/2019, 11/25/2018 Foot Exam 06/04/2025 06/04/2024, 04/20, 11/05/2023 Covid-19 Vaccine (2024-2 6 season) 2025 09/19/2023, 09/08/2022, 08/25/2021, Additional history exists Influenza Vaccine (#1) 2025 , 08/06/2022, 08/25/2021, Additional history exists Hemoglobin A1C 12/10/2025 06/09/2025, 02/17, 06/04/2024, Additional history exists Albumin Creatinine Ratio, Urine 03/05/2026 03/05/2025, 06/04/2024, 08/08/2023 Lipid Panel 03/05/2026 03/05/2025, 05/19, 08/08/2023, Additional history exists eGFR 03/05/2026 03/05/2025, 05/19, 10/15/2023, Additional history exists Dilated Eye Exam 04/22/2026 04/22/2024, 12/29/2022 Breast Cancer Screening-Mammogram 08/31/2026 025 DTaP/Tdap/Td Vaccine (3 - Td or Tdap) 12/13/2026 12/13/2016, 08/16/1984 Hepatitis B Screening Completed 03/27/2023 Pneumococcal vaccine <65 Completed 023, 09/11/2018, 12/13/2016 Procedures Procedure Name Priority Date/Time Associated Diagnosis Comments SCREENING MAMMOGRAM BILATERAL W GERMÁN Schedule Routine, Read Routine (OP Routine) 08/31/2025 8:36 AM CDT Screening mammogram, encounter for POCT HEMOGLOBIN A1C Routine 06/09/2025 10:27 AM CDT Type 2 diabetes mellitus without complication, without long-term current use of insulin (HCC) EGFR Routine 03/05/2025 11:19 AM CDT Type 2 diabetes mellitus with hyperglycemia, without long-term current use of insulin (HCC) Hyperlipidemia associated with type 2 diabetes mellitus (HCC) Primary hypertension Class 3 severe obesity due to excess calories with serious comorbidity and body mass index (BMI) of 45.0 to 49.9 in adult LIPID PANEL Routine 03/05/2025 11:19 AM CDT Type 2 diabetes mellitus with hyperglycemia, without long-term current use of insulin (HCC) Hyperlipidemia associated with type 2 diabetes mellitus (HCC) Primary hypertension Class 3 severe obesity due to excess calories with serious comorbidity and body mass index (BMI) of 45.0 to 49.9 in adult ALBUMIN CREATININE RATIO, URINE Routine 03/05/2025 11:19 AM CDT Type 2 diabetes mellitus with hyperglycemia, without long-term current use of insulin (HCC) Hyperlipidemia associated with type 2 diabetes mellitus (HCC) Primary hypertension Class 3 severe obesity due to excess calories with serious comorbidity and body mass index (BMI) of 45.0 to 49.9 in adult DIABETIC EYE EXAM Routine 04/22/2024 from Last 3 Months or Most Recently Relevant to Health Maintenance Results * Screening Mammogram Bilateral W Germán (08/31/2025 8:36 AM CDT) Anatomical Region Laterality Modality Breast Bilateral Mammography Impressions 09/01/2025 5:07 PM CDT Bilateral No evidence of malignancy in either breast. OVERALL BI-RADS FINAL ASSESSMENT: 2 - Benign RECOMMENDATION: Recommend bilateral annual screening mammography. Narrative 09/01/2025 5:07 PM CDT EXAMINATION: Screening Mammogram Bilateral W Germán: 08/31/2025 COMPARISON: Relevant prior studies available at the time of interpretation were reviewed, including the most recent mammogram on: 03/13/2024. TECHNIQUE: Mammography was performed with 2D and 3D digital breast tomosynthesis (DBT) images. CAD was utilized. BREAST PARENCHYMAL COMPOSITION: There are scattered areas of fibroglandular density. FINDINGS: Bilateral There is no suspicious mass, calcification, or architectural distortion in either breast. us Self Screening Mammogram IMG MAMMO PROCEDURES Fi nal Result * (ABNORMAL) POCT hemoglobin A1c (06/09/2025 10:27 AM CDT) Hemoglobin A1C, POC 6.6(A) 4.0 - 5.6 % Blood 06/09/2025 10:2 7 AM CDT Juanis Murdock NP POINT OF CARE TEST ORDERABLES F inal Result * eGFR (03/05/2025 11:19 AM CDT) eGFR >90 >=60 mL/min/1. 73 m2 Comment: Interpretive Data Reference Interval Normal >/= 90 mL/min/1.73m2 Mildly decreased* 60 - 89 mL/min/1.73m2 Mildly to moderately decreased 45 - 59 mL/min/1.73m2 Moderately to severely decreased 30 - 44 mL/min/1.73m2 Severely decreased 15 - 29 mL/min/1.73m2 Kidney Failure < 15 mL/min/1.73m2 *Relative to young adult level Estimated glomerular filtration rate is determined by the 2020 CKD-EPI equation recommended by the National Kidney Foundation (A Unifying Approach to GFR Estimation: Recommendations of the NKF-ASK Task Force on Reassessing the Inclusion of Race in Diagnosing Kidney Disease, JASN 2020). The CKD-EPI equation should not be used for patients with unstable renal function and has not been validated in children and those over 70. Current interpretive data was last reviewed 2021. Testing performed by: [facility], [address] [place] [address]., [id number] Blood 03/05/2025 11:1 9 AM CDT 03/05/2025 6:16 PM CDT Juanis Murdock HIGH SCHOOL ASSISTANT PRINCIPAL LAB BLOOD ORDERABLES Final Resu lt Performing Organization Address [facility] Co de Phone Number REI [phone] [place] [address] * Albumin Creatinine Ratio, Urine (03/05/2025 11:19 AM CDT) Albumin Ur <12.0 mg/L Comment: Interpretive Data No reference range established. Current interpretive data was last revised 2019. Testing performed by: [address] [address] Creatinine Ur 113.9 mg/dL REI Comment: Interpretive Data No reference range established. Current interpretive data was last revised 2019. Testing performed by: [facility], [address] [place] [address]., [id number] Albumin Creatinine Ratio, Ur <11 1 - 29 mg/g [facility] Comment:Testing performed by : [facility], [address] [place] [address]., [id number] Urine 03/05/2025 11:1 9 AM CDT 03/05/2025 6:08 PM CDT Juanis Murdock HIGH SCHOOL ASSISTANT PRINCIPAL LAB URINE ORDERABLES Final Resu lt Performing Organization Address [facility] Co de Phone Number REI [phone] [place] [address] * Lipid panel (03/05/2025 11:19 AM CDT) Cholesterol 151 30 - 199 mg/dL Comment: Interpretive Data Ages < or = 19 years Acceptable: <170 mg/dL Borderline high: 170-199 mg/dL High: >or= 200 mg/dL Ages > or = 20 years Desirable: <200 mg/dL Borderline high: 200-239 mg/dL High: >or= 240 mg/dL Literature References: 1. Expert Panel on Integrated Guidelines for Cardiovascular Health and Risk Reduction in Children and Adolescents. Pediatrics 2011;128:S213 2. NCEP Expert Panel. Circulation 2004;110:227 Current Interpretive Data was last revised on 2018. Testing performed by: [facility], [address] [place] [address]., [id number] Triglycerides 94 <=149 mg/dL [facility] Comment: Interpretive Data Ages < or = 9 years Acceptable: <75 mg/dL Borderline high: 75-99 mg/dL High: >or= 100 mg/dL Ages 10 to 20 years Acceptable: <90 mg/dL Borderline high: 90-129 mg/dL High: >or= 130 mg/dL Ages > or = 20 years Desirable: <150 mg/dL Borderline high: 150-199 mg/dL High: 200-499 mg/dL Very high: >or= 499 mg/dL Literature References: 1. Expert Panel on Integrated Guidelines for Cardiovascular Health and Risk Reduction in Children and Adolescents. Pediatrics 2011;128:S213 2. NCEP Expert Panel. Circulation 2004;110:227 Current Interpretive Data was last revised on 2018. Testing performed by: [facility], [address] [place] [address]., [address] HDL 64 >=40 mg/dL [facility] Comment: Interpretive Data Ages < or = 19 years Acceptable: >45 mg/dL Borderline low: 40-45 mg/dL Low: <40 mg/dL Ages > or = 20 years Desirable: >or= 60 mg/dL Low: <40 mg/dL Literature References: 1. Expert Panel on Integrated Guidelines for Cardiovascular Health and Risk Reduction in Children and Adolescents. Pediatrics 2011;128:S213 2. NCEP Expert Panel. Circulation 2004;110:227 Current Interpretive Data was last revised on 2018. Testing performed by: [address] [address] LDL, calculated 70 <=129 mg/dL [facility] Comment: Interpretive Data Ages < or = 19 years Acceptable: <110 mg/dL Borderline high: 110-129 mg/dL High: >or= 130 mg/dL Ages > or = 20 years Optimal: <100 mg/dL Near optimal: 100-129 mg/dL Borderline high: 130-159 mg/dL High: >160 mg/dL Calculated using the Clemente LDL-C estimating equation. This equation was implemented on 2024. Prior to this date LDL-C was estimated using the Friedewald equation. Literature References: 1. Expert Panel on Integrated Guidelines for Cardiovascular Health and Risk Reduction in Children and Adolescents. Pediatrics 2011;128:S213 2. NCEP Expert Panel. Circulation 2004;110:227 3. Clemente Mccullough et al. CUBA Cardiol. 2019March 19;5(5):540-548. doi: 10.1001/jamacardio.2020.0013 Current Interpretive Data was last revised on 2024. Testing performed by: [address] [address] Non-HDL Cholesterol 87 mg/dL REI Comment: Interpretive Data Ages < or = 19 years Acceptable: <120 mg/dL Borderline high: 120-144 mg/dL High: >145 mg/dL Ages > or = 20 years When triglycerides are >200 mg/dL, Non-HDL cholesterol is a secondary target of therapy with treatment goals that are 30 mg/dL greater than the LDL cholesterol target. Literature References: 1. Expert Panel on Integrated Guidelines for Cardiovascular Health and Risk Reduction in Children and Adolescents. Pediatrics 2011;128:S213 2. NCEP Expert Panel. Circulation 2004;110:227 Current Interpretive Data was last revised on 2018. Testing performed by: [address] [address] Chol/HDL ratio 2 REI Comment:Testing performed by : [address] [address] Blood 03/05/2025 11:1 9 AM CDT 03/05/2025 6:08 PM CDT Narrative REI - 03/05/2025 6:42 PM CDT These lab test should be done fasting. This means do not eat or drink for at least 12 hours prior to getting your blood drawn. Has the patient been fasting for 8 hours or more?->Yes us Juanis Murdock HIGH SCHOOL ASSISTANT PRINCIPAL LAB [place] [address] [address] [place] [address] * Diabetic Eye Exam (04/22/2024) us Historical Provider HEALTH MAINTENANCE Final Result from Last 3 Months or Most Recently Relevant to Health Maintenance Insurance * Guarantor: Fernanda Cornejo Account Type Relation to Patient Date of Phone Billing Address Personal/Family Self [address] [place] [address] [facility] Member Subscriber Plan / Payer (Ef fective 2024-Present) Name:Fernanda Cornejo Relation to Subscriber:Self Name:Fernanda Cornejo Payer ID:[id number] (NAIC) Group ID:Not on file Type:MEDICAID RISK OTHER Address: ATTN: CLAIMS DEPT [address] [place] [phone] * Guarantor: Fernanda Cornejo Account Type Relation to Patient Date of Phone Billing Address Personal/Family Self [address] [place] [address] Care Teams Touch Up Painter Relationship Specialty Start Date End Date Bev Slade NP [address] [place] [address] PCP - General Family Medicine 05/18/25 Aldo Law MD [address] [place] [address] Property Master Hematology 09/08/24
--- OUTSIDE RECORDS SUMMARY | 2025-10-01 14:42 | XMS_ITS | Encounter Summary ---
Author Organization [facility] Healthcare Address [address] [place] [address] Care Team Providers Care [employer] Name Role Phone Aldo Law MD Unavailable [phone] Bev Slade NP Primary Care Provider Reason for Visit * Reason Onset Date Comments [facility] 10/01/2025 Encounter Details Date Type Department Care Team (Late st Contact Info) Description 10/01/[address] [facility] Medical Group Pulmonary at [address] [place] [address] Rossy Aguilera, GISELLE [facility] Social History Tobacco Use Types Packs/Day Years Used Date Smoking Tobacco: Former Cigarettes 0.3 2 0 11/19/2005 - 2007 Passive Smoke Exposure: Never Smokeless Tobacco: Never AUDIT-C Answer Date Recorded Frequency of Alcohol [...] on file Legal Sex Female 12:13 AM PASTEURIZER Gender Identity Female 01/23/2024 7:04 AM PASTEURIZER Sexual Orientation Straight 01/23/2024 7: 04 AM PASTEURIZER documented as of this encounter Miscellaneous Notes * Telephone Encounter - Rossy Aguilera LPN - 10/01/2025 12:54 PM PASTEURIZER Pt called to inform Natalie Wetzel MENTAL HEALTH NURSE PRACTITIONER that she was headed to [facility], due to an Asthma flare up. EURIZER documented in this encounter Plan of Treatment Not on file documented as of this encounter Visit Diagnoses Not on filedocumented in this encounter Care Teams [employer] Relationship Specialty Start Date End Date Bev Slade NP [address] [place] [address] PCP - General Family Medicine 05/18/25 Aldo Law MD [address] [place] [address] Colorist Formulator Hematology 09/08/24 documented as of this encounter
--- OUTSIDE RECORDS SUMMARY | 2025-10-01 14:42 | XMS_ITS | Clinical Summary ---
Author Organization [facility] Address [facility] [place] [address] Care Team Providers Care Software Systems Architect Name Role Phone Jihan Jackson MD Primary Care Provider [phone] Social History Tobacco Use Types Packs/Day Years Used Date Smoking Tobacco: Never Assessed Comments Unknown Sex and Gender Information Value Date Recorded Sex Assigned at Not on file Legal Sex Female 7:54 PM CDT Gender Identity Not on file Sexual Orientation Not on file Plan of Treatment Health Maintenance Due Date Last Done Comments Cervical Cancer Screening Pa p Smear (Age 30 to 64) Every 3 Years 1979 Colorectal Cancer Screening Colonoscopy (10 Years) 1979 Annual Physical 1982 Hepatitis C 1997 DTaP, Tdap and Td Vaccines ( 1 - Tdap) 1998 Hepatitis B Vaccines (1 of 3 - 19+ 3-dose series) 1998 Cervical Cancer Screening Pa p with HPV Testing (Age 30 to 64) Every 5 Years 2009 Cervical Cancer Screening with HPV 2009 Mammogram Screening 2019 COVID-19 Vaccine (2024-2 6 season) 2025 Influenza Adult (#1) 2025 Hepatitis A Vaccines Aged Out No long er eligible based on patient's age to complete this topic Meningococcal B Vaccine Aged Out No l onger eligible based on patient's age to complete this topic Meningococcal Vaccine Aged Out No aliyah mann eligible based on patient's age to complete this topic Pneumococcal Vaccine: Pediat rics (0 to 5 Years) and At-Risk Patients (6 to 49 Years) Aged Out No longer eligible b ased on patient's age to complete this topic RSV Immunizations Under 20 Months Aged Out No longer eligible based on patient's age to complete this topic Care Teams Software Systems Architect Relationship Specialty Start Date End Date Jihan Jackson MD [address] [place] [address] [facility] - General 06/14/15
--- OUTSIDE RECORDS SUMMARY | 2025-10-01 14:42 | XMS_ITS | Patient Health Record ---
Author Organization [facility] Address [address] [place] [address] Care Team Providers Care Airbrush Artist Name Role Phone Haven Diaz Primary Care Provider Catarina Minaya Unavailable [phone] Carson Hinojosa Unavailable [phone] Telma Akins Unavailable [phone] Bev Slade Unavailable Omer Mcguire Unavailable [phone] Allergies Allergen (clinical drug ingredient) Drug/Non Drug Allergy documented on EMR Reaction Allergy Type Onset Date Status vicodin (uncoded) restless and itching Allergy Active sulfamethoxazole / trimethoprim Bactrim rash Drug Allergy Active lisinopril Lisinopril Unknown Drug Allergy Activ e Results Component Value Reference Range Notes CMP 14 Comprehensive Metabol ic Panel* Reviewed date:05/07/2025 10:51:24 AM Interpretation: Performing Lab:[facility] [place], [address] [facility], [place], Phone - [phone], Director - Ric Notes/Report: Glucose 87 70-99 mg/dL BUN 9 6-24 mg/dL Creatinine 0.72 0.57-1.00 mg/dL eGFR 104 >59 mL/min/1.73 BUN/Creatinine Ratio 13 9-23 Sodium 138 134-144 mmol/L Potassium 3.7 3.5-5.2 mmol/L Chloride 99 96-106 mmol/L Carbon Dioxide, Total 22 20-29 mmol/L Calcium 10.4 8.7-10.2 mg/dL Protein, Total 7.3 6.0-8.5 g/dL Albumin 3.9 3.9-4.9 g/dL Globulin, Total 3.4 1.5-4.5 g/dL Bilirubin, Total 0.8 0.0-1.2 mg/dL Alkaline Phosphatase 134 44-121 IU/L AST (SGOT) 14 0-40 IU/L ALT (SGPT) 12 0-32 IU/L Urinalysis In-House, Routine Reviewed date:12/01/2024 08:29:06 PM Interpretation: Performing Lab: Notes/Report: Urine-Color Yellow Appearance cloudy Leukocytes neg Nitrite, Urine neg Urobilinogen,Semi-Qn .2 Protein neg pH 6.5 Occult Blood neg Specific [place] 1.025 Ketones neg Bilirubin neg Glucose >=1000 Hemoglobin A1c CLIA Waived Reviewed date:12/04/2024 10:03:54 AM Interpretation: Performing Lab: Notes/Report: Hemoglobin A1c 7.5 4.0 - 6.4 % CMP 14 Comprehensive Metabol ic Panel* (Not yet reviewed by provider) Interpretation: Performing Lab:[facility] [place], [address] [facility], [place], Phone - [phone], Director - Ric Notes/Report: Glucose 103 70-99 mg/dL BUN 9 6-24 mg/dL Creatinine 0.63 0.57-1.00 mg/dL eGFR 111 >59 mL/min/1.73 BUN/Creatinine Ratio 14 9-23 Sodium 138 134-144 mmol/L Potassium 3.6 3.5-5.2 mmol/L Chloride 100 96-106 mmol/L Carbon Dioxide, Total 22 20-29 mmol/L Calcium 9.0 8.7-10.2 mg/dL Protein, Total 6.9 6.0-8.5 g/dL Albumin 3.9 3.9-4.9 g/dL Globulin, Total 3.0 1.5-4.5 g/dL Bilirubin, Total 0.5 0.0-1.2 mg/dL Alkaline Phosphatase 127 41-116 IU/L AST (SGOT) 15 0-40 IU/L ALT (SGPT) 13 0-32 IU/L Lipid Panel* (Not yet review ed by provider) Interpretation: Performing Lab:[facility] [place], [address] [facility], Phone - [phone], Director - Ric Notes/Report: Cholesterol, Total 160 100-199 mg/dL Triglycerides 59 0-149 mg/dL HDL Cholesterol 62 >39 mg/dL VLDL Cholesterol Oneil 12 5-40 mg/dL LDL Chol Calc (NIH) 86 0-99 mg/dL UA/M w/rflx Culture, Routine (Not yet reviewed by provider) Interpretation: Performing Lab:[facility] [place], [address] [facility], Phone - [phone], Director - Ric Notes/Report: Specific [place] 1.028 1.005-1.030 pH 6.5 5.0-7.5 Urine-Color Yellow Yellow Appearance Clear Clear WBC Esterase Negative Negative Protein 1+ Negative/Trace Glucose Negative Negative Ketones Negative Negative Occult Blood Negative Negative Bilirubin Negative Negative Urobilinogen,Semi-Qn 1.0 0.2-1.0 mg/dL Nitrite, Urine Negative Negative Microscopic Examination See below: Micr oscopic was indicated and was performed. Urinalysis Reflex This speci men has reflexed to a Urine Culture. WBC None seen 0 - 5 /hpf RBC 0-2 0 - 2 /hpf Epithelial Cells (non renal) 0-10 0 - 10 /hpf Casts None seen None seen /lpf Bacteria Moderate None seen/Few Urine Culture, Routine Final report Result 1 Lactobacillus species Susceptibility not normally performed on this organism. 25,000-50,000 colony forming units per mL Result 2 Mixed urogenital maxine Less than 10,000 colonies/mL Urinalysis In-House, Routine Reviewed date:09/09/2025 10:06:02 AM Interpretation: Performing Lab: Notes/Report: Urine-Color yellow Appearance clear Leukocytes neg Nitrite, Urine neg Urobilinogen,Semi-Qn 1.0 Protein 30 pH 7.0 Occult Blood neg Specific [place] 1.025 Ketones neg Bilirubin neg Glucose neg Reason For Referral Reason moderate OA, per 3 Xray imaging Diagnosis 1 Osteoarthritis of marcus th knees, unspecified osteoarthritis type (M17.0) Referral Organization [facility] [place] Referring Provider First Name Bev Referring Provider Last Name Yany Referring Provider [facility] Referred Provider [facility] Referred Provider Specialty Orthopedic S urgery General Notes Eloina Weiner 05/27/2025 08:47:09 AM >Spoke with staff who verified patients insurance is accepted., Eloina Weiner 05/27/2025 09:18:10 AM >letter mailed; eMessage sent Clinical Notes [facility], [address] [facility] , [place]. [address], , Referral Priority Routine Reason previous imaging valorie wed MODERATE OA Diagnosis 1 Osteoarthritis of marcus th knees, unspecified osteoarthritis type (M17.0) Referral Organization [facility] [place] Referring Provider First Name Bev Referring Provider Last Name Yany Referring Provider [facility] Referred Provider [facility] Referred Provider Specialty Physical The rapist General Notes Eloina Weiner 05/27/2025 09:37:34 AM >Verified with staff, patients insurance is accepted, Eloina Weiner 05/27/2025 09:45:26 AM >letter mailed; eMessage sent Clinical Notes [facility], Physical Therapy, [address] [place] [address]. [phone], , Referral Priority Routine Medications Medication SIG (Take, Route, Frequency, Duration) Notes Start Date End Date Status Ferrous Sulfate 325 (65 Fe) MG TAKE 1 TABLET BY MOUTH EVERY DAY; Duration: 30 Unknown Folic Acid 1 MG as directed Orally Unknown Dupixent 300 MG/2ML as directed Subcutan eous every two weeks Active Magnesium Oxide 400 MG 1 tablet Orally t wice a day Unknown Trulicity 1.5 MG/0.5ML as directed Subcu taneous once a week Active Vitamin B 12 100 MCG as directed Orally Unknown Airsupra Active Ezetimibe 10 MG TAKE 1 TABLET BY ANU TH EVERY DAY; Duration: 90 days Active Azelastine HCl Activ e Famotidine 40 MG TAKE 1 TABLET BY ANU TH EVERYDAY AT BEDTIME; Duration: 30 Active Ocuvite Active Trintellix 20 MG 1 tablet Orally Once a day; Duration: 30 days Active dilTIAZem HCl ER Beads 360 MG 1 capsule Orally Once a day; Duration: 30 day(s) Active metFORMIN HCl 850 MG TAKE 1 TABLET BY MO UTH EVERY DAY WITH A MEAL; Duration: 90 Active Ketoconazole 2 % as directed External ly twice weekly; Duration: 28 days 06/10/2025 Unknown Montelukast Sodium 10 MG TAKE 1 TABLET B Y MOUTH EVERY DAY; Duration: 90 days Active Trintellix 20 MG TAKE 1 TABLET BY ANU TH EVERY DAY FOR 30 DAYS; Duration: 90 days Unknown Atorvastatin Calcium 40 MG TAKE 1 TABLET BY MOUTH EVERY DAY; Duration: 90 Active Meloxicam 15 MG TAKE 1 TABLET BY MOUTH EVERY DAY; Duration: 30 days As needed Unknown Farxiga 10 MG 1 tablet Orally Once a day; Duration: 30 days Active Iron 325 (65 Fe) MG 1 tablet Orally Once a day; Duration: 30 days Unknown Cetirizine HCl 10 MG TAKE 1 TABLET BY MO UTH EVERY DAY; Duration: 90 days Active Trelegy Ellipta Acti ve Immunizations Vaccine Route Administration Date Status Comme nts FLU VAC NO PRSV 4VAL 6 mo+ Unknown 07/14/2020 Administered Patient received Influenza vaccine at [facility]. Social History Tobacco Use: Social History Observation Description Date Details (start date - stop date) Never Smoker NA - NA Sex Assigned At : Social History Observation Description Sex Assigned At Female Tobacco Control (Standard) Question Answer Notes Tobacco use: Nonsmoker Problems Problem Type SNOMED Code ICD Code Onset Dates Problem Status W/U Status Risk Notes Problem Vitamin D deficiency (64973277) Vitamin D deficiency, unspecified (E55.9) Active confirmed Problem Morbid obesity (disorder) (011117093) Morbid (severe) obesity due to excess calories (E66.01) Active confirmed Problem Obesity due to excess calories (229222919) Other obesity due to excess calories (E66.09) Active confirmed Problem Tobacco user (427931421) Nicotine dependence, unspecified, uncomplicated (F17.200) Active confirmed Problem Generalized anxiety disorder (38021130) Generalized anxiety disorder (F41.1) Active confirmed Problem Chronic pain (87909605) Other chronic pain (G89.29) Active confirmed Problem Bronchiolectasis (94081643) Bronchiectasis, uncomplicated (J47.9) Active confirmed Problem Gastroduodenitis (479747164) Gastritis, unspecified, without bleeding (K29.70) Active confirmed Problem Sciatica (09254916) Lumbago with sciatica, right side (M54.41) Active confirmed Problem Sciatica (83032287) Lumbago with sciatica, left side (M54.42) Active confirmed Problem Urinary tract infectious disease (disorder) (02100285) Urinary tract infection, site not specified (N39.0) Active confirmed Problem Flatulence (140919462) Flatulence (R14.3) Active confirmed Problem Dysuria (89043300) Dysuria (R30.0) Active confi rmed Problem Screening for malignant neoplasm of breast (303999429) Encounter for screening mammogram for malignant neoplasm of breast (Z12.31) Active confirmed Problem Major depression (676675007) Major depression (F32.9) Active confirmed Problem COPD - Chronic obstructive pulmonary disease (87839215) COPD (chronic obstructive pulmonary disease) (J44.9) Active confirmed Problem Vitamin D deficiency (35044611) Vitamin D deficiency (E55.9) Active confirmed Problem Asthma (466522030) Asthma (J45.909) Active conf irmed Problem Laboratory test result abnormal (829892628) Abnormal laboratory test (R89.9) Active confirmed Problem Arthralgia of the pelvic region and thigh (274310263) Left hip pain (M25.552) Active confirmed Problem Breast cancer screening (808977285) Breast cancer screening (Z12.39) Active confirmed Problem Overweight (804627663) Over weight (E66.3) Active confirmed Problem Thrombocytosis (9475316) Thrombocytosis (D47.3) Active confirmed Problem Moderate recurrent major depression (61949160) MDD (major depressive disorder), recurrent episode, moderate (F33.1) 021 Active confirmed Problem Missed period (59575830) Missed period (N92.6) Active confirmed Problem Diarrhea (92959660) Diarrhea (R19.7) Active con firmed Problem Obesity (114095509) Obesity (BMI 30-39.9) (E66.9) Active confirmed Problem Essential hypertension (93563308) Essential hypertension (I10) Active confirmed Problem Iron deficiency anemia (05304936) Iron deficiency anemia, unspecified iron deficiency anemia type (D50.9) Active confirmed Problem Hyperlipidaemia (69113574) Hyperlipidemia, unspecified hyperlipidemia type (E78.5) 017 Active confirmed Problem Vitamin D deficiency (50297499) Vitamin D deficiency disease (E55.9) Active confirmed Problem Type II diabetes mellitus without complication (169390011) Type 2 diabetes mellitus without complication, without long-term current use of insulin (E11.9) 017 Active confirmed Problem Gastroesophageal reflux disease without esophagitis (973344766) Gastroesophageal reflux disease without esophagitis (K21.9) Active confirmed Problem Osteoarthritis of knee (230554834) Osteoarthritis of both knees, unspecified osteoarthritis type (M17.0) Active confirmed Problem Urinary incontinence (124775851) Urinary incontinence, unspecified type (R32) Active confirmed Problem Chronic rhinitis (80346880) Rhinitis, unspecified type (J31.0) Active confirmed Problem History of pulmonary embolism on long-term anticoagulation therapy (52770819238471393) Hx pulmonary embolism (Z86.711) Active confirmed Problem Sciatica (62726616) Acute right- sided low back pain with right-sided sciatica (M54.41) Active confirmed Problem Blood chemistry abnormal (134401417) Abnormal blood chemistry (R79.9) Active confirmed Problem Uncomplicated moderate persistent asthma (965976145) Moderate persistent asthma, unspecified whether complicated (J45.40) Active confirmed Problem Obesity (662502378) Class 3 drug-induced obesity with serious comorbidity in adult, unspecified BMI (E66.1) Active confirmed Problem Type II diabetes mellitus without complication (402785298) Type 2 diabetes mellitus without complication, unspecified whether fdc insulin use (E11.9) 021 Active confirmed Problem Morbid obesity (600787086) Class 3 severe obesity without serious comorbidity in adult, unspecified BMI, unspecified obesity type (E66.01) Active confirmed Problem Irritable bladder (399496075) Irritable bladder (N32.89) Active confirmed Problem Body mass index 40+ - morbidly obese (466936969) Body mass index (BMI) 50.0-59.9, adult (Z68.43) Active confirmed Problem Recurrent major depression in full remission (76262758) Major depression, recurrent, full remission (F33.42) Active confirmed Problem Boggs's neuroma of right foot (900213779332142) 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) Active confirmed Problem Incontinence (03041690) Incontinence in female (R32) Active confirmed Problem Degeneration of lumbar intervertebral disc (30245283) Disc degeneration, lumbar (M51.36) Active confirmed Problem Cough (76554349) Cough (R05.9) Active confirmed Problem Exacerbation of asthma (347434436) Asthma exacerbation, mild (J45.901) Active confirmed Vital Signs Heart Rate 77 /min 10/01/2025 Temperature 98.8 degrees Fahrenheit 10/01/2025 Respiratory Rate 16 /min 10/01/2025 Oximetry 98 % 10/01/2025 Blood pressure diastolic 80 mm Hg 10/01/2025 Height 67 in 10/01/2025 Blood pressure systolic 131 mm Hg 10/01/2025 Weight 325 lbs 10/01/2025 BMI 50.9 kg/m2 10/01/2025 Encounters Encounter Location Date Provider Diagnosis [address] [address] 10/01/2025 Bev Slade Over weight E66.3 ; Type 2 diabetes mellitus without complication, without long-term current use of insulin E11.9 and UTI symptoms R39.[address] [address] 11/18/2024 Carson Hinojosa Upper respiratory virus J06.9 ; Other chronic pain G89.29 ; Pain in right knee M25.561 ; Pain in left knee M25.562 ; Dysuria R30.0 ; Morbid (severe) obesity due to excess calories E66.01 and Nutritional counseling Z71.[address] [address] 12/04/2024 Carson Hinojosa Type 2 diabetes mellitus without complication, without long-term current use of insulin E11.9 ; Dysuria R30.0 ; Morbid (severe) obesity due to excess calories E66.01 and Nutritional counseling Z71.[address] [address] 12/29/2024 Catarina Minaya Generalized anxiety disorder F41.1 ; Major depression F32.9 and Nutritional counseling Z71.[address] [place] [address] 03/30/2025 Catarina Minaya Generalized anxiety disorder F41.1 ; Major depression F32.9 and Nutritional counseling Z71.[address] [place] [address] 04/01/2025 Telma Akins MDD (major depressiv e disorder), recurrent episode, moderate F33.1 [facility] [address] [address] 04/28/2025 Bev Tanwangco Over weight E66.3 ; Type 2 diabetes mellitus without complication, without long-term current use of insulin E11.9 ; Gastroesophageal reflux disease without esophagitis K21.9 ; Essential hypertension I10 and Other chronic pain G89.[address] [place] [address] 07/08/2025 Catarina Minaya Generalized anxiety disorder F41.1 ; Major depression F32.9 and Nutritional counseling Z71.3 [facility] [address] [address] 09/09/2025 Bev Tanwangco Over weight E66.3 ; Essential hypertension I10 ; Hyperlipidemia, unspecified hyperlipidemia type E78.5 and Type 2 diabetes mellitus without complication, without long-term current use of insulin E11.9 [facility] [address] [address] 09/09/2025 Omer Mcguire [address] [place] [address] 09/21/2025 Bev Tanwangco [address] [place] [address] 11/25/2024 Carson Hinojosa Gastroesophageal reflux disease without esophagitis K21.[address] [facility] [place] [address] 01/21/2025 Catarina Minaya [facility] [address] [address] 01/30/2025 Catarina Fowlernnan [facility] [address] [place] [address] 04/30/2025 Bev Slade [address] [place] [address] 05/18/2025 Bev Slade Osteoarthritis of marcus th knees, unspecified osteoarthritis type M17.0 [facility] [address] [place] [address] 06/05/2025 Bev Slade Screening for breast cancer Z12.39 [facility] [address] [place] [address] 06/10/2025 Bev Slade Seborrhea capitis in adult L21.[address] [place] [address] 11/03/2024 Carson Hinojosa [address] [place] [address] 12/10/2024 Carson Hinojosa [address] [facility] [place] [address] 12/15/2024 Carson Hinojosa Screening for breast cancer Z12.[address] [place] [address] 01/26/2025 Carson Hinojosa [facility] [address] [place] [address] 05/07/2025 Bev Slade Hyperlipidemia, unspecified hyperlipidemia type E78.5 [facility] [address] [place] [address] 07/12/2025 Bev Slade Essential hypertensi on I10 [facility] [address] [place] [address] 08/25/2025 Bev Slade [facility] [address] [place] [address] 09/10/2025 Bev Slade [facility] [address] [place] [address] 09/17/2025 Bev Slade Assessments Encounter Date Diagnosis (ICD Code) Assessment Notes Treatment Notes Treatment Clinical Notes Section Notes 11/18/2024 Other chronic pain (ICD-10 - G89.29) 11/18/2024 Upper respiratory virus (ICD-10 - J06.9) Likely viral, conservative management, f/u if not improved in 1 week or if worsens. 11/25/2024 Gastroesophageal reflux disease without esophagitis (ICD-10 - K21.9) 12/04/2024 Dysuria (ICD-10 - R30.0) 12/04/2024 Type 2 diabetes mellitus without complication, without long-term current use of insulin (ICD-10 - E11.9) 12/15/2024 Screening for breast cancer (ICD-10 - Z12.39) 12/29/2024 Generalized anxiety disorder (ICD-10 - F41.1) Endeavor agreement to continue current regimen. PAST MEDICATIONS: Celexa poor efficacy at 40mg, Ambien-helpfu l, Fluoxetine-to ok during teen years- poor efficacy and SE of anhedonia, Trazodone up to 150mg poor efficacy, Wellbutrin XL 150 mg -not helpful, Zoloft- did not work at all even with high doses, Trintellix 20mg- was only on for a short time, Abilify 5 mg- increases blood glucose at low doses, Effexor- increased BP at effective doses, Buspar low dose ineffective 03/30/2025 Generalized anxiety disorder (ICD-10 - F41.1) Endeavor agreement to continue current regimen. PAST MEDICATIONS: Celexa poor efficacy at 40mg, Ambien-helpfu l, Fluoxetine-to ok during teen years- poor efficacy and SE of anhedonia, Trazodone up to 150mg poor efficacy, Wellbutrin XL 150 mg -not helpful, Zoloft- did not work at all even with high doses, Trintellix 20mg- was only on for a short time, Abilify 5 mg- increases blood glucose at low doses, Effexor- increased BP at effective doses, Buspar low dose ineffective 04/01/2025 MDD (major depressive disorder), recurrent episode, moderate (ICD-10 - F33.1) 04/28/2025 Over weight (ICD-10 - E66.3) 04/28/2025 Type 2 diabetes mellitus without complication, without long-term current use of insulin (ICD-10 - E11.9) 05/07/2025 Hyperlipidemia, unspecified hyperlipidemia type (ICD-10 - E78.5) 05/18/2025 Osteoarthritis of both knees, unspecified osteoarthritis type (ICD-10 - M17.0) 06/05/2025 Screening for breast cancer (ICD-10 - Z12.39) 06/10/2025 Seborrhea capitis in adult (ICD-10 - L21.0) 07/08/2025 Generalized anxiety disorder (ICD-10 - F41.1) Endeavor agreement to continue current regimen. Has not been needing hydroxyzine, continue Trintellix daily. PAST MEDICATIONS: Celexa poor efficacy at 40mg, Ambien-helpfu l, Fluoxetine-to ok during teen years- poor efficacy and SE of anhedonia, Trazodone up to 150mg poor efficacy, Wellbutrin XL 150 mg -not helpful, Zoloft- did not work at all even with high doses, Trintellix 20mg- was only on for a short time, Abilify 5 mg- increases blood glucose at low doses, Effexor- increased BP at effective doses, Buspar low dose ineffective 07/12/2025 Essential hypertension (ICD-10 - I10) 09/09/2025 Over weight (ICD-10 - E66.3) 09/09/2025 Essential hypertension (ICD-10 - I10) Blood pressure management with cardizem. Blood pressure measured at 124/80 today. Patient to monitor blood pressure at home. - Continue diltiazem for blood pressure control. - Stop hydrochlorothiazide. - Stop potassium. - Monitor blood pressure at home and follow up in 4 weeks. 10/01/2025 Over weight (ICD-10 - E66.3) 10/01/2025 Type 2 diabetes mellitus without complication, without long-term current use of insulin (ICD-10 - E11.9) 09/09/2025 Hyperlipidemia, unspecified hyperlipidemia type (ICD-10 - E78.5) 07/08/2025 Major depression (ICD-10 - F32.9) 04/28/2025 Gastroesophageal reflux disease without esophagitis (ICD-10 - K21.9) 03/30/2025 Major depression (ICD-10 - F32.9) 12/29/2024 Major depression (ICD-10 - F32.9) 12/04/2024 Morbid (severe) obesity due to excess calories (ICD-10 - E66.01) 11/18/2024 Pain in right knee (ICD-10 - M25.561) 11/18/2024 Pain in left knee (ICD-10 - M25.562) 12/04/2024 Nutritional counseling (ICD-10 - Z71.3) 12/29/2024 Nutritional counseling (ICD-10 - Z71.3) 03/30/2025 Nutritional counseling (ICD-10 - Z71.3) 04/28/2025 Essential hypertension (ICD-10 - I10) 07/08/2025 Nutritional counseling (ICD-10 - Z71.3) 09/09/2025 Type 2 diabetes mellitus without complication, without long-term current use of insulin (ICD-10 - E11.9) 10/01/2025 UTI symptoms (ICD-10 - R39.9) 04/28/2025 Other chronic pain (ICD-10 - G89.29) 11/18/2024 Dysuria (ICD-10 - R30.0) 11/18/2024 Morbid (severe) obesity due to excess calories (ICD-10 - E66.01) 11/18/2024 Nutritional counseling (ICD-10 - Z71.3) 12/29/2024 Other Reasons, potential benefits, potential risks, interactions and side effects of all medications were discussed. The Patient/Guardian asked appropriate questions, appeared to understand the answers, and decided to accept the treatment and continue being followed. Alternatives and expected course without treatment were reviewed. The Patient/Guardian is aware of the need to contact the office or return for an earlier appointment if any problems or concerns arise. May also contact the 24-hour crisis hotline (R), refer to the closest emergency room or call 911 if new symptoms arise of existing symptoms worsen. The Patient/Guardian is aware that this would apply to symptoms like: suicidal ideation, homicidal ideation, high risk behaviors, manic symptoms, psychotic symptoms, physical symptoms, or any other symptoms that may be dangerous to self or others. Greater than 50% of time spent on coordination and counseling where psychopharmacology as well as psychotherapeutic interventions were discussed along with review of treatments in the past. Education provided concerning need for adequate hydration. Patient/Guardian verbalized understanding of education, treatment plan and follow up. 03/30/2025 Other Reasons, potential benefits, potential risks, interactions and side effects of all medications were discussed. The Patient/Guardian asked appropriate questions, appeared to understand the answers, and decided to accept the treatment and continue being followed. Alternatives and expected course without treatment were reviewed. The Patient/Guardian is aware of the need to contact the office or return for an earlier appointment if any problems or concerns arise. May also contact the 24-hour crisis hotline ([facility]), refer to the closest emergency room or call 911 if new symptoms arise of existing symptoms worsen. The Patient/Guardian is aware that this would apply to symptoms like: suicidal ideation, homicidal ideation, high risk behaviors, manic symptoms, psychotic symptoms, physical symptoms, or any other symptoms that may be dangerous to self or others. Greater than 50% of time spent on coordination and counseling where psychopharmacology as well as psychotherapeutic interventions were discussed along with review of treatments in the past. Education provided concerning need for adequate hydration. Patient/Guardian verbalized understanding of education, treatment plan and follow up. 04/28/2025 Other Complications of uncontrolled Diabetes reviewed including: renal, cardiovascular, neurological and opthalmological. Importance of lifestyle changes including low CHO diet and exercise as tolerated. Importance of BS monitoring discussed. Target BS 90-130 and to call if persistently <70 or >300. 07/08/2025 Other Reasons, potential benefits, potential risks, interactions and side effects of all medications were discussed. The Patient/Guardian asked appropriate questions, appeared to understand the answers, and decided to accept the treatment and continue being followed. Alternatives and expected course without treatment were reviewed. The Patient/Guardian is aware of the need to contact the office or return for an earlier appointment if any problems or concerns arise. May also contact the 24-hour crisis hotline ([facility]), refer to the closest emergency room or call 911 if new symptoms arise of existing symptoms worsen. The Patient/Guardian is aware that this would apply to symptoms like: suicidal ideation, homicidal ideation, high risk behaviors, manic symptoms, psychotic symptoms, physical symptoms, or any other symptoms that may be dangerous to self or others. Greater than 50% of time spent on coordination and counseling where psychopharmacology as well as psychotherapeutic interventions were discussed along with review of treatments in the past. Education provided concerning need for adequate hydration. Patient/Guardian verbalized understanding of education, treatment plan and follow up. This session was completed telephonically with client/parental/guar gila consent: Unable to determine movement status, assess appearance, affect, AIMS, or vital signs. 09/09/2025 Other Intermittent burning and stinging with urination for about a year. Symptoms occur two or three times a week, sometimes with cloudy urine. No blood in urine, no vaginal discharge or odor, no back pain. Prior UTI test was negative, but symptoms persist. Patient attempts to increase water intake. - Ordered urinalysis and urine culture to evaluate urinary symptoms. 09/09/2025 Other Vegetable Tester met with Fernanda to assist in working on building skills to help the consumer gain confidence in their independent living skills. The feature writer practiced with Fernanda implementing problem solving skills like exploring available food and transportation options.The feature writer encouraged and engaged in critical thinking of how to use natural resources and coping skills to help manage symptoms such as client's depression and anxiety in the moment. Vegetable Tester also worked on modeling the consumer healthy coping skills to reduce stress and anxiety. Plan Of Treatment Pending Test Test Name Order Date Mammogram, Bilateral Screening with ABUS as needed 06/05/2025 Future Test Test Name Order Date Lipid Panel* 09/09/2025 CMP 14 Comprehensive Metabolic Panel* UA/M w/rflx Culture, Routine 09/09/2025 Hemoglobin A1c CLIA Waived 10/01/2025 UA/M w/rflx Culture, Routine 10/01/2025 Insurance Providers Payer Name Payer Address Payer Phone Subscriber Number Group Number Insured Name Patient Relationship to Insured Coverage Start Date Coverage End Date [facility] Att Claims Department [address] [place] [address] [id number] Fernanda Cornejo Self - patient is the insured 4 [facility] [address] [place] [address] [id number] Cornejo, Fernanda Self - patient is the insured 3 4 [email or web address] [facility] [address] [place] [phone] [id number] Fernanda Cornejo Self - patient is the insured 1 3 [employer] Attn Claims Department [address] [place] [address] [id number] Fernanda Cornejo Self - patient is the insured 0 0 [employer] [address] [place] [phone] [id number] Fernanda Cornejo Self - patient is the insured 1 3 [facility] [address] [place] [address] [id number] Fernanda Cornejo Self - patient is the insured 3 3 [employer] [address] [place] [address] [id number] Fernanda Cornejo Self - patient is the insured 3 4 [facility] [employer] Attn Claims Department [address] [place] [phone] [id number] Fernanda Cornejo Self - patient is the insured 5 [employer] Attn Claims Department [address] [place] [phone] [id number] Fernanda Cornejo Self - patient is the insured 5 Medical (General) History Medical History History ICD Code Asthma Hypertension Anemia GERD Depression Insomnia Type 2 diabetes mellitus wit hout complication, without long-term current use of insulin hypercholesterolemia Type 2 diabetes mellitus Surgical History Surgery Date(Month/Year) c- sections 2000,2002,2007 back ablation 01/19/2023 HYSTERECTOMY 01/2024 Hospitalization History Reason Date(Month/Year) Asthma exacerbation 12/2022 Fall 11/2022 Nerve ablation 01/2022 Asthma 02/2021 chest pain 11/2018 chest pain 2015
[2025-10-01 14:51] LABS: Alanine Aminotransferase 17 U/L (6-35); Albumin Level 4.2 g/dL (3.5-5.1); Alkaline Phosphatase 102 U/L (38-126); Anion Gap 6 mmol/L (4-12); Aspartate Amino Transferase 22 U/L (14-36); Bilirubin,Total 0.5 mg/dL (0.2-1.3); Blood Urea Nitrogen 10 mg/dL (7-17); Calcium 9.8 mg/dL (8.4-10.2); Carbon Dioxide 27 mmol/L (22-30); Chloride 105 mmol/L (98-107); Estimated CRCL calculation 136 ml/min; Estimated Glomerular Filt Rate > 60; Glucose 93 mg/dL (65-110); Lipase 48 U/L (23-300); Potassium 3.8 mmol/L (3.4-5.0); Sodium 138 mmol/L (137-145); Total Protein 8.0 g/dL (6.3-8.2)
[2025-10-01 14:55] LABS: INR 0.9; Prothrombin Time 12.4 Seconds (11.1-14.7)
[2025-10-01 14:57] LABS: Partial Thromboplastin Time 25.4 Seconds (22.3-36.8)
[2025-10-01 15:02] LABS: Troponin I < 0.012 ng/mL (0.000-0.034)
--- NOTE | 2025-10-01 15:57 | PC.NURSE ---
Pt to intake desk stating I'm leaving. Pt ambulated to exit using steady gait
--- OUTSIDE RECORDS SUMMARY | 2025-10-01 16:53 | XMS_ITS | Encounter Summary ---
Author Organization [facility] Healthcare Address [address] [place] [address] Care Team Providers Care Media Reporter Name Role Phone Aldo Law MD Unavailable [phone] Bev Slade NP Primary Care Provider Reason for Visit * Reason Onset Date Comments [facility] 10/01/2025 Encounter Details Date Type Department Care Team (Late st Contact Info) Description 10/01/2025 Telephone [facility] Pulmonary at [address] [place] [address] Rossy Aguilera, GISELLE [facility] Social History Tobacco Use Types Packs/Day Years [...] on file Legal Sex Female 12:13 AM PARADICHLOROBENZENE TENDER Gender Identity Female 01/23/2024 7:04 AM PARADICHLOROBENZENE TENDER Sexual Orientation Straight 01/23/2024 7: 04 AM PARADICHLOROBENZENE TENDER documented as of this encounter Miscellaneous Notes * Telephone Encounter - Rossy Aguilera LPN - 10/01/2025 12:54 PM PARADICHLOROBENZENE TENDER Pt called to inform Natalie Wetzel FINE ARTIST that she was headed to [facility], due to an Asthma flare up. DICHLOROBENZENE TENDER documented in this encounter Plan of Treatment Not on file documented as of this encounter Visit Diagnoses Not on filedocumented in this encounter Care Teams Media Reporter Relationship Specialty Start Date End Date Bev Slade NP [address] [place] [address] PCP - General Family Medicine 05/18/25 Aldo Law MD [address] [place] [address] Stress Test Technician Hematology 09/08/24 documented as of this encounter
--- OUTSIDE RECORDS SUMMARY | 2025-10-01 16:53 | XMS_ITS | Clinical Summary ---
Author Organization [facility] Address [address] [place] [address] Care Team Providers Care Assistant Director Of Financial Aid Name Role Phone Aldo Law MD Unavailable [phone] Bev Slade NP Primary Care Provider [...] E11.65 200 each 3 025 [place] [facility] [place] blood sugar 2x times a day [...] Active Problems Problem Noted Date Diagnosed Date [facility] (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 immunosuppressive bio logic 01/19/2025 Assessment & Plan (09/30/2025 9:13 AM LOTTERY OFFICE MANAGER): She continues Dupixent injections every 2 weeks [...] symptoms Assessment & Plan (01/19/2025 9:29 AM LOTTERY OFFICE MANAGER): She is on month 3 of Dupixent [...] complication Assessment & Plan (09/30/2025 9:15 AM LOTTERY OFFICE MANAGER): Continue Trelegy Ellipta 200 one puff daily [...] care Assessment & Plan (01/19/2025 9:25 AM LOTTERY OFFICE MANAGER): She had three exacerbations last year requiring [...] care Assessment & Plan (10/08/2024 10:29 AM LOTTERY OFFICE MANAGER): She has had three exacerbations this year [...] is on ASA and follows with a tile mechanic at [facility] I am unsure if this was provoked, will request further records Assessment & Plan (01/19/2025 9:27 AM LOTTERY OFFICE MANAGER): CTA chest was completed 05/2024 and demonstrated no evidence of residual pulmonary embolus She is on ASA and follows with a tile mechanic at [facility] Assessment & Plan (10/08/2024 10:29 AM LOTTERY OFFICE MANAGER): CTA chest was completed 05/2024 and demonstrated no evidence of residual pulmonary embolus She remains on baby ASA and follows with a tile mechanic at [facility] Assessment & Plan (09/08/2024 11:16 AM CDT): CTA chest was completed and demonstrated no evidence of residual pulmonary embolus She remains on baby ASA and follows with a tile mechanic at [facility] Assessment & Plan (07/16/2024 11:10 AM CDT): CTA chest with no evidence of residual pulmonary embolus She remains on baby ASA and follows with a tile mechanic at [facility] Assessment & Plan (06/04/2024 12:38 PM CDT): CTA chest with no evidence of pulmonary embolus She remains on baby aspirin Assessment & Plan (01/28/2024 11:31 AM CDT): Last CTA with no residual pulmonary emboli She remains on baby aspirin Gastroesophageal reflux disease without esophagi tis 01/28/2024 Assessment & Plan (09/30/2025 9:13 AM LOTTERY OFFICE MANAGER): Continue famotidine 40 mg daily Continue to [...] cough Assessment & Plan (01/19/2025 9:28 AM LOTTERY OFFICE MANAGER): Continue famotidine 40 mg daily Low threshold to add PPI if symptoms become uncontrolled We have discussed the correlation between uncontrolled GERD and chronic cough Assessment & Plan (10/08/2024 10:30 AM LOTTERY OFFICE MANAGER): Continue famotidine 40 mg daily Low threshold [...] 11/29/2023 Assessment & Plan (09/30/2025 9:14 AM LOTTERY OFFICE MANAGER): She is following with sleep medicine in [place] Her last residual AHI that I reviewed was well corrected at 0.6 on her new machine Continue PAP use with all sleep She is aware of the risks of uncorrected FELIX Her echocardiogram did not demonstrate any evidence of PH Weight loss and good sleep hygeine Assessment & Plan (08/03/2025 10:03 AM CDT): She is following with sleep medicine in [place] and her residual AHI that I reviewed was well corrected at 0.6 on her new machine Continue PAP use with all sleep She is aware of the risks of uncorrected FELIX Her echocardiogram did not demonstrate any evidence of PH Assessment & Plan (03/25/2025 3:32 PM CDT): She is following with sleep medicine in [place] and her last AHI that I reviewed was well corrected Continue PAP use with all sleep I have stressed how important frequent supply replacement and thorough cleaning of disposable supplies are in preventing infection She is aware of the risks of uncorrected FELIX Assessment & Plan (2025 4:05 PM CDT): She is following with sleep medicine in [place] and her last AHI that I reviewed was well corrected Continue PAP use with all sleep She is aware of the risks of uncorrected FELIX Assessment & Plan (01/19/2025 9:27 AM LOTTERY OFFICE MANAGER): She is following with sleep medicine in [place] and her last AHI that I reviewed was well corrected Supply replacement as indicated, she can use saline nasal rinses before bed Continue PAP use with all sleep She is aware of the risks of uncorrected FELIX Assessment & Plan (10/08/2024 10:30 AM LOTTERY OFFICE MANAGER): She has followed with sleep medicine in [place] and her last AHI that I reviewed was well corrected Continue PAP use with all sleep She is aware of the risks of uncorrected FELIX She would like to transfer her care here to [place], she has been provided with a number to call their office and schedule Assessment & Plan (09/08/2024 11:18 AM CDT): She has followed with sleep medicine in [place] and her last AHI that I reviewed was well corrected Continue PAP use with all sleep She is aware of the risks of uncorrected FELIX Assessment & Plan (07/16/2024 11:13 AM CDT): She has followed with sleep medicine in [place] and her last AHI was well corrected [...] water pressure. The patient's DME is [facility] [place]. Assessment & Plan (01/28/2024 11:30 AM CDT): She is compliant use with all sleep Continue to follow with sleep medicine Assessment & Plan (11/29/2023 10:50 AM LOTTERY OFFICE MANAGER): The patient continues to benefit from the auto titrating CPAP unit with a range of 6-15 cm water pressure. I will have the patient sign a release so we can obtain her home sleep test through [facility] in [place]. We will give the patient the phone number for [facility]-who is her supplier-and she will need [...] prescribed. Assessment & Plan (11/05/2023 8:44 AM LOTTERY OFFICE MANAGER): This is a chronic condition which is [...] is <30 Continue hctz. not treated with JULIEN/ARB Assessment & Plan (05/08/2024 2:30 PM CDT): This is a chronic condition which is at goal . Goal is less than 7%. Personally reviewed most recent A1c - Patient reports A1c completed at [facility] in [place] by PCP was 6.2% Lab Results Component Value Date HGBA1C 7.8 11/05/2023 Medication- patient stop Rybelsus -t was making her sick to her stomach. Patient states Farxiga was stopped by PCP. Continue metformin 850 mg b.i.d. Monitor blood sugar daily fasting. Encouraged annual eye exam. last dilated eye exam was [place] [facility] Denies any numbness or tingling in feet Personally reviewed CMP eGFR- 113 Kidney function-at goal Urine microalbumin/creatinine ratio -not at goal. Goal is <30 Continue HCTZ not treated with JULIEN/ARB Personally reviewed lipid panel. Slightly above goal. Goal is less than 70. Continue atorvastatin, Zetia Assessment & Plan (11/05/2023 8:44 AM LOTTERY OFFICE MANAGER): This is a chronic condition which is [...] exam. last dilated eye exam was at [facility]. Monofilament foot exam completed. protective senses [...] eye exam. last dilated eye exam was [place] [facility] Monofilament foot exam completed. protective senses [...] sessions. Assessment & Plan (11/05/2023 8:46 AM LOTTERY OFFICE MANAGER): This is a chronic condition which continues [...] continues Encouraged healthy eating and exercise Continue Mendeltoza Discussed switching to a longer acting GLP 1 such as Trulicity which may promote further weight loss. Ambulatory referral to diabetes education/nutritional counseling Encounters Date Type Department Care Team Description 10/01/2025 Telephone [facility] Medical [facility] Pulmonary at [address] [phone] Rossy Aguilera LPN [place] 09/29/2025 2:30 PM LOTTERY OFFICE MANAGER Office Visit [facility] Pulmonary at [address] [address] Natalie Wetzel NP Severe persistent asthma without complication (HCC) (Primary Dx); FELIX (obstructive sleep apnea); extermination inspector (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 immunosuppressive biologic; Gastroesophageal reflux disease without esophagitis 09/17/2025 Orders Only [facility] Pulmonary at [address] [address] Natalie Wetzel NP Moderate persistent asthma without complication (Primary Dx) 08/31/2025 8:12 AM CDT - 08/31/2025 11:59 PM CDT Hospital Encounter [facility] [address] [place] [address] Screening mammogram, encounter for Discharge Disposition: Discharge to home or self care 08/03/2025 8:30 AM CDT Office Visit [facility] Pulmonary at [place] [address] [place] [address] Natalie Wetzel NP Moderate persistent asthma without complication (Primary Dx); FELIX (obstructive sleep apnea); Gastroesophageal reflux disease without esophagitis; History of pulmonary embolus (PE); [facility] (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 immunosuppressive biologic 07/14/2025 9:00 AM CDT Office [place] [facility] [address] [place] [address] Carmelita Barahona MD FELIX (obstructive sleep apnea) [...] Gastroesophageal reflux disease without esophagi tis 01/28/2024 extermination inspector (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 immunosuppressive bio logic 01/19/2025 [...] on file Legal Sex Female 12:13 AM LOTTERY OFFICE MANAGER Gender Identity Female 01/23/2024 7:04 AM LOTTERY OFFICE MANAGER Sexual Orientation Straight 01/23/2024 7: 04 AM LOTTERY OFFICE MANAGER Obstetrics History Para Term AB IAB SAB Ectopic Multiple Livin g Live Births 3 3 Date Outcome GA Total Labor Labor/2nd/3rd Weight Sex Type Anes PTL Zulay A1 A5 Name Clin Last Filed Vital Signs Vital Sign Reading Time Taken Comments Blood Pressure 120/80 09/29/2025 2:07 PM LOTTERY OFFICE MANAGER Pulse 76 09/29/2025 2:07 PM LOTTERY OFFICE MANAGER Temperature 36.5 C (97.7 F) 09/29/2025 2:07 PM LOTTERY OFFICE MANAGER Respiratory Rate 20 09/29/2025 2:07 PM LOTTERY OFFICE MANAGER Oxygen Saturation 96% 09/29/2025 2:07 PM LOTTERY OFFICE MANAGER Inhaled Oxygen Concentration - - Weight 146.9 kg (323 lb 14.4 oz) 09/29/2025 2:07 PM LOTTERY OFFICE MANAGER Height 170.2 cm (5' 7) 09/29/2025 2:07 PM LOTTERY OFFICE MANAGER Body Mass Index 50.73 09/29/2025 2:07 PM LOTTERY OFFICE MANAGER Plan of Treatment Health Maintenance Due Date [...] was last reviewed 2021. Testing performed by: [facility], [address] [place] [address]., [id number] Blood 03/05/2025 11:1 9 AM CDT 03/05/2025 6:16 PM CDT Juanis Murdock TICKET MACHINE OPERATOR LAB BLOOD ORDERABLES Final Resu lt Performing Organization Address [facility] Co de Phone Number REI [address] [facility] [place] [address] * Albumin Creatinine Ratio, Urine (03/05/2025 11:19 AM CDT) Albumin Ur <12.0 mg/L Comment: Interpretive Data No reference range established. Current interpretive data was last revised 2019. Testing performed by: [address] [address] Creatinine Ur 113.9 mg/dL REI Comment: Interpretive Data No reference range established. Current interpretive data was last revised 2019. Testing performed by: [facility], [address] [place] [address]., [id number] Albumin Creatinine Ratio, Ur <11 1 - 29 mg/g [facility] Comment:Testing performed by : [facility], [address] [place] [address]., [id number] Urine 03/05/2025 11:1 9 AM CDT 03/05/2025 6:08 PM CDT Juanis Murdock TICKET MACHINE OPERATOR LAB URINE ORDERABLES Final Resu lt Performing Organization Address [facility] Co de Phone Number REI [address] [facility] [place] [address] * Lipid panel (03/05/2025 11:19 AM CDT) [...] last revised on 2018. Testing performed by: [facility], [address] [place] [address]., [id number] Triglycerides 94 <=149 mg/dL [facility] Comment: Interpretive Data Ages < or = [...] last revised on 2018. Testing performed by: [facility], [address] [place] [address]., [id number] HDL 64 >=40 mg/dL [facility] Comment: Interpretive Data Ages < or = [...] last revised on 2018. Testing performed by: [address] [address] LDL, calculated 70 <=129 mg/dL [facility] Comment: Interpretive Data Ages < or = [...] last revised on 2024. Testing performed by: [address] [address] Non-HDL Cholesterol 87 mg/dL REI Comment: Interpretive [...] last revised on 2018. Testing performed by: [address] [address] Chol/HDL ratio 2 REI Comment:Testing performed by : [address] [address] Blood 03/05/2025 11:1 9 AM CDT 03/05/2025 6:08 PM CDT Narrative REI - 03/05/2025 6:42 PM CDT These lab test should be done fasting. This means do not eat or drink for at least 12 hours prior to getting your blood drawn. Has the patient been fasting for 8 hours or more?->Yes us Juanis Murdock TICKET MACHINE OPERATOR [place] [address] [address] Department [place] [address] * Diabetic Eye Exam (04/22/2024) us Historical Provider HEALTH MAINTENANCE Final Result from Last 3 Months or Most Recently Relevant to Health Maintenance Insurance * Guarantor: Fernanda Cornejo Account Type Relation to Patient Date of Phone Billing Address Personal/Family Self [address] [place] [address] [facility] Member Subscriber Plan / Payer (Ef fective 2024-Present) Name:Fernanda Cornejo Relation to Subscriber:Self Name:Fernanda Cornejo Payer ID:[id number] (NAIC) Group ID:Not on file Type:MEDICAID RISK OTHER Address: ATTN: CLAIMS DEPT [address] [place] [id number] * Guarantor: Fernanda Cornejo Account Type Relation to Patient Date of Phone Billing Address Personal/Family Self [address] [place] [address] Care Teams Assistant Director Of Financial Aid Relationship Specialty Start Date End Date Bev Slade NP [address] [place] [address] PCP - General Family Medicine 05/18/25 Aldo Law MD [address] [place] [address] Engagement Quality Consultant Hematology 09/08/24
--- OUTSIDE RECORDS SUMMARY | 2025-10-01 16:53 | XMS_ITS | Clinical Summary ---
Author Organization [facility] Address [facility] [place] [address] Care Team Providers Care Supervisor Denture Department Name Role Phone Jihan Jackson MD Primary Care Provider [phone] Social History Tobacco Use Types Packs/Day Years [...] age to complete this topic Care Teams Supervisor Denture Department Relationship Specialty Start Date End Date Jihan Jackson MD [address] [place] [address] [facility] - General 06/14/15
== END 2025-10-01 15:57 | disposition left against medical advice (07) ==
LOC: ANHED 16:51
PROVIDERS: Emergency Provider Emergency Medicine; PCP Emergency Medicine
DX: R07.9 Chest pain, unspecified (principal)
CPT/HCPCS: 36415; 71046; 80053; 83690; 84484; 85025; 85610; 85730; 93005; 99199